=== PATIENT | female | born 1950 | race Caucasian/White ===

== ENCOUNTER 2019-08-23 12:12 | Emergency (ER) | payer MEDICARE, SELFPAY ==
[2019-08-23 12:25] VITALS: BP 121/65; PULSE 82; RESP 17; TEMP 36.6; O2SAT 96; BMI 38.7
--- NOTE | 2019-08-23 12:44 | XR_ITS ---
WS: [id number] Left knee, 3 views, 08/23/2019 Clinical Data: INJURY Comparison: Left knee, 03/23/2019. Findings: There is a displacement of the patella superiorly and laterally. However, this has been present befor e and has not changed. The arthroplasty components of the distal femur and proximal tibia remain the same. No fractures are seen. The soft tissues show no change.. XR/XR knee LT 3V* [id number] Impression: 1. 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 2. Left knee arthroplasty.
--- NOTE | 2019-08-23 14:48 | ED_ITS ---
HPI - Extremity Problem General: Chief complaint: Extremity Injury, Lower Stated complaint: LEFT KNEE PAIN POST FALL Time Seen by Provider: 08/23/19 14:48 History of Present Illness: HPI Narrative: Patient is a 69-year-old female who comes into the ED with left knee pain. Patient has had multiple surgeries on her left knee including knee replacement. Earlier today patient was here in the hospital visiting 1 of her family members, when she was getting up out of a chair and held onto something that was not very supportive and cause the patient to lose her balance and her left knee struck the floor. She was then having left knee pain after that. She wanted to come to the ED to get evaluated since she has had problems with her left knee and she has hardware in that knee. Associated symptoms: Deny chest pain, fever(s) or rash Review of Systems Const: Denies: fever, chills or fatigue Eyes: Denies: change in vision or eye discomfort ENMT: Denies: throat pain, painful swallowing, nasal discharge or nasal congestion Card: Denies: chest pain, palpitations, edema, swelling of feet/ankles, shortness of breath on exertion or shortness of breath when lying down Resp: Denies: shortness of breath, productive cough or non-productive cough GI: Denies: abdominal pain, nausea, vomiting, diarrhea, constipation or blood in stool : Denies: flank pain, painful urination or blood in urine Musc: Reports: extremity pain (left knee) and extremity swelling (left knee); Denies: neck pain or back pain Skin/Breast: Denies: rash or new lesion Neuro: Denies: headache, numbness in extremities or weakness in extremities [facility] ED PFSH: Medical History COPD (chronic obstructive pulmonary disease) Depression Diabetes Hypertension Osteoarthritis (arthritis due to wear and tear of joints) Stress incontinence Surgical History Status post knee replacement Social History Smoking and tobacco status: never smoked Quit status (tobacco): has quit using tobacco Second hand smoke exposure: No Smoking risk assessment/counseling performed?: No Alcohol intake: never Desire information about alcohol rehabilitation?: No Counseling given: No Desire information about substance/drug rehabilitation?: No Counseling given: No Physical Exam Const: COMMON NORMALS: oriented x3 HENMT: COMMON NORMALS: normocephalic HEAD & SCALP: normocephalic MOUTH: oral and palatal mucosa normal THROAT: posterior oropharynx normal and uvula midline Neck/C-Spine: COMMON NORMALS: supple GENERAL: Yes normal visual inspection Resp: COMMON NORMALS: normal respiratory effort, no retractions, no use of accessory muscles and clear to auscultation bilaterally AUSCULTATION: clear to auscultation bilaterally Cardio: COMMON NORMALS: regular rate, regular rhythm, S1 normal heart sound, S2 normal heart sound, no gallops, no clicks, no murmurs and peripheral pulses 2+ throughout RATE: regular rate RHYTHM: regular rhythm HEART SOUNDS: S1 normal and S2 normal PERIPHERAL PULSES: pulses 2+ throughout GI: COMMON NORMALS: normal to inspection, nondistended, normoactive bowel sounds, soft to palpation, non-tender and no masses PALPATION: Yes soft : COMMON NORMALS: Yes no CVA tenderness BLADDER/KIDNEY EXAM: Yes no CVA tenderness Back/Pelvis: COMMON NORMALS: no CVA tenderness Extremity: LEFT LOWER EXTREMITY: Yes knee joint Left knee: Yes inspection (mild swelling, no ecchymosis), Yes palpation (Tender upon palp of medial and lateral side of knee. ), Yes ROM (normal) and Yes neurovascular exam (Intact. 2+ tibialis posterior) Neuro: COMMON NORMALS: oriented x3 and moves all extremities Skin: COMMON NORMALS: no rashes or lesions noted GENERAL SKIN EXAM: no rashes or lesions noted Course Vital Signs: Vital signs: Vital Signs Temperature 97.8 F 08/23/19 16:55 Pulse Rate 81 08/23/19 16:55 Respiratory Rate 16 08/23/19 16:55 Blood Pressure 127/77 08/23/19 16:55 Pulse Oximetry 95 08/23/19 16:55 MDM - Extremity (Nontraumatic) Imaging Data^: Xray Ortho: Attestation: I personally reviewed and interpreted this imaging study as follows: Radiologist's impression: [address] [address] XRay Report Signed Patient: Lenora Aviles Unit #: [id number] : 1950 Age/Sex: 69 / F ADM Date: 08/23/19 Loc: ER Room/Bed: Attending Dr: Ordering Provider/Ordering MD: Vivi Yusuf DO Date of Service: 08/23/19 Procedure(s): XR knee LT 3V* [id number] Accession Number(s): [id number] Report Number: [id number] WS: [id number] Left knee, 3 views, 08/23/2019 Clinical Data: INJURY Comparison: Left knee, 03/23/2019. Findings: There is a displacement of the patella superiorly and laterally. However, this has been present before and has not changed. The arthroplasty components of the distal femur and proximal tibia remain the same. No fractures are seen. The soft tissues show no change.. XR/XR knee LT 3V* [id number] Impression: 1. 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 2. Left knee arthroplasty. Dictated By: Genoveva Ayala MD Signed By: Genoveva Ayala MD Signed Date/Time: 08/23/19 1349 DD/ 1347 Discharge Plan Discharge Patient Disposition: Home, Self-Care Clinical Impression: Contusion Qualifiers: Encounter type: initial encounter Contusion area: knee Laterality: left Qualified Code(s): S80.02XA - Contusion of left knee, initial encounter Condition: Stable Prescriptions: No Action simvastatin 10 mg tablet 10 mg PO BEDTIME RF: 0 solifenacin [Vesicare] 10 mg tablet 10 mg PO DAILY RF: 0 montelukast [Singulair] 10 mg tablet 10 mg PO DAILY RF: 0 Symbicort 160-4.5 mcg/actuation HFA aerosol inhaler 2 puff INHALATION BID RF: 0 meloxicam 15 mg tablet,disintegrating 15 mg PO DAILY RF: 0 ibandronate 150 mg tablet See Rx Instructions .ROUTE .COMPLEX RF: 0 Combivent Respimat 20-100 mcg/actuation mist 1 puff INHALATION BID PRN (Reason: copd) Qty: 4 RF: 2 lisinopril 5 mg tablet 5 mg PO DAILY Qty: 90 RF: 3 isosorbide mononitrate 30 mg tablet extended release 24 hr 30 mg PO QAM Qty: 90 RF: 3 duloxetine 20 mg capsule,delayed release(/EC) 20 mg PO DAILY Qty: 30 RF: 5 metformin 500 mg tablet 500 mg PO DAILY Qty: 30 RF: 5 duloxetine 60 mg capsule, delayed rel sprinkle 60 mg PO DAILY Qty: 30 RF: 5 omeprazole 20 mg capsule,delayed release(DR/EC) 20 mg PO BID Qty: 30 RF: 5 Multiple Vitamins Tablet 1 tab PO DAILY RF: 0 Aspir-81 81 mg Tablet,Delayed Release (Dr/Ec) 81 mg PO DAILY RF: 0 levothyroxine 100 mcg Tablet 100 mcg PO DAILY RF: 0 Calcium 500 500 mg calcium (1,250 mg) Tablet 500 mg PO DAILY RF: 0 mupirocin 2 % ointment 1 applic TOPICAL BID PRN (Reason: unknown) RF: 0 Discharge Orders: Discharge Order (Routine); Ordered 08/23/19 Ordered By: Richard Olmedo Referrals: Jenifer Lora, CUTTER OPERATOR BRICK [Primary Care Provider] - Discharge Diet: Regular Discharge Activity: Resume usual activity and Increase activity as tolerated Patient Instructions: Contusion in Adults (ED) Activity Restrictions/Additional Instructions: Follow-up with your PCP in 5 to 7 days for reevaluation. Rest, ice and elevate left leg to help with swelling and symptoms. Take Tylenol or ibuprofen for the pain. 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
[2019-08-23] MEDS: HYDROcodone-acetaminophen 7.5-325 mg Tablet 1 TAB PO (15:40)
[2019-08-23 16:55] VITALS: BP 127/77; PULSE 81; RESP 16; TEMP 36.6; O2SAT 95
== END 2019-08-23 16:46 | disposition home or self-care (01) ==
PROVIDERS: Emergency Provider Physician Assistant; Family Provider Nurse Practitioner Family; PCP Nurse Practitioner Family
DX: S80.02XA Contusion of left knee, initial encounter (principal); J44.9 Chronic obstructive pulmonary disease, unspecified; E11.9 Type 2 diabetes mellitus without complications; I10 Essential (primary) hypertension; Z79.51 Long term (current) use of inhaled steroids; Z79.84 Long term (current) use of oral hypoglycemic drugs; Z87.891 Personal history of nicotine dependence; Z96.652 Presence of left artificial knee joint; W07.XXXA Fall from chair, initial encounter; Y92.230 Patient room in hospital as the place of occurrence of the external cause
CPT/HCPCS: 12345; 73562; 99281; 99283

== ENCOUNTER → 2019-08-29 11:30 | Outpatient (BNVA) | payer MEDICARE, SELFPAY | PROVIDERS: Family Provider Nurse Practitioner Family; PCP Nurse Practitioner Family; Visit Provider Nurse Practitioner Family | DX: N39.0 Urinary tract infection, site not specified (principal) | CPT/HCPCS: 80053; 81003; 87077; 87086; 87186 ==

== ENCOUNTER 2019-09-07 06:53 | Outpatient (CLI) | payer MEDICARE, SELFPAY ==
--- NOTE | 2019-09-07 07:02 | US_ITS ---
WS: [id number] Complete ABDOMINAL ULTRASOUND HISTORY: abdominal pain COMPARISON: None available. Liver: 15.2 cm in length. Liver is normal size and echogenicity with no mass or intrahepatic dilatati on. Gallbladder: Cholecystectomy. Pancreas: Tail is obscured. Otherwise negative. CBD: 1.1 cm. Mildly dilated common bile duct may be on the basis of cholecystectomy. No intrahepatic duct dilatation. Right kidney: 10.8 cm x 4.4 cm x 4.7 cm. No mass, cortical thickening or hydronephrosis. Left kidney: 10.9 cm x 4.5 cm x 4.4 cm. No mass, cortical thickening or hydronephrosis. Spleen: Normal size and echogenicity. Abdominal aorta and IVC are within normal limits. No ascites. US/US abdomen complete* [id number] IMPRESSION: 1. Prior cholecystectomy. 2. Mild common bile duct dilatation may be on the basis of cholecystectomy.
== END 2019-09-07 06:54 | disposition home or self-care (01) ==
PROVIDERS: Family Provider Nurse Practitioner Family; PCP Nurse Practitioner Family; Visit Provider Nurse Practitioner
DX: K46.9 Unspecified abdominal hernia without obstruction or gangrene (principal); K83.8 Other specified diseases of biliary tract; Z90.49 Acquired absence of other specified parts of digestive tract
CPT/HCPCS: 76700

== ENCOUNTER 2019-09-08 16:30 | Emergency (ER) | payer MEDICARE, SELFPAY ==
[2019-09-08 16:37] VITALS: BP 159/90; PULSE 87; RESP 18; TEMP 36.8; O2SAT 95; BMI 40.3
--- NOTE | 2019-09-08 17:12 | CTR_ITS ---
PROCEDURE INFORMATION: Exam: CT Abdomen And Pelvis With Contrast Exam date and time: 09/08/2019 6:04 PM Age: 69 years old Clinical indication: Abdominal pain; Localized; Prior surgery; Surgery date: 6+ months; Surgery type: Hernia, gb; Patient HX: C/O lower abd/pelvic pain TECHNIQUE: Imaging protocol: Computed tomography of the abdomen and pelvis with intravenous contrast. Total DLP: 1695.53 mGy-cm Radiation optimization: All CT scans at this facility use at least one of these dose optimization techniques: automated exposure control; mA and/or kV adjustment per patient size (includes targeted exams where dose is matched to clinical indication); or iterative reconstruction. Contrast material: OMNI 300; Contrast volume: 95 ml; Contrast route: 20G; COMPARISON: CT abdomen pelvis w con* [id number] 12/13/2018 1:25 AM FINDINGS: Liver: Benign hepatic cyst. Gallbladder and bile ducts: Cholecystectomy. The bile are normal. Pancreas: Normal. No ductal dilation. Spleen: Normal. No splenomegaly. Adrenals: Normal. No mass. Kidneys and ureters: Normal. No hydronephrosis. Stomach and bowel: Unremarkable. No obstruction. No mucosal thickening. Appendix: The appendix is not visualized. Intraperitoneal space: Unremarkable. No free air. No significant fluid collection. Vasculature: Unremarkable. No abdominal aortic aneurysm. Lymph nodes: Unremarkable. No enlarged lymph nodes. Bladder: Unremarkable as visualized. Reproductive: The uterus and ovaries are not visualized. Bones/joints: Degenerative lumbar spine. No compression fracture. Stable T12 vertebral body hemangioma. Soft tissues: Small fat containing umbilical hernia. CT/CT abdomen pelvis w con* [id number] IMPRESSION: 1. No acute findings in the abdomen or pelvis. Radiation Dose CTDIVOL = (mGy): DLP = 1695.53 (mGy-cm)
--- NOTE | 2019-09-08 17:27 | ED_ITS ---
HPI - Abdominal Pain General: Chief Complaint: Abdominal Pain Stated Complaint: abd pain, pelvic pain Time Seen by Provider: 09/08/19 17:05 History of Present Illness: HPI narrative: Lenora is a nice 69-year-old female who comes in complaining of diffuse abdominal pain. She states that she is recently been treated for a UTI and finished treatment for this at the end of July. She states that she began to have lower abdominal burning which is now migrated throughout her abdomen. She denies any vaginal discharge or bleeding. She denies dysuria, urinary frequency urgency. She denies any yeastlike rash in her groin or perineum. She denies any fever or nausea or vomiting. She is not had diarrhea. Because of this her primary care nurse practitioner sent her to have an ultrasound which there was a questionable blockage. A CT scan was planned but the patient did not feel as though she could wait as her symptoms were getting worse. She is otherwise unaware of any things that make her symptoms better or worse. Associated Symptoms: Denies chills, coffee ground emesis, constipation, GI cramping, diarrhea, dysuria, fever(s), hematochezia, hematuria, hematemesis, melena, nausea, syncope and vomiting Review of Systems General: Reports: other (negative unless marked) Const: Denies: fever, chills, body aches, fatigue, malaise or diaphoresis Eyes: Denies: change in vision or blurry vision ENMT: Denies: throat pain, painful swallowing, hoarseness, ear pain, ear discharge, Change in hearing or nasal discharge Card: Denies: chest pain, palpitations, irregular heart rhythm, syncope, pre- syncope, shortness of breath on exertion or shortness of breath when lying down Resp: Denies: shortness of breath, productive cough, non-productive cough, wheezing, coughing up blood or chest congestion GI: Reports: abdominal pain; Denies: nausea, vomiting, vomiting blood, coffee grounds in vomit, diarrhea, constipation, cramping, blood in stool or black tarry stool : Denies: flank pain, painful urination, urinary frequency, urinary urgency, decreased urine ouput, urinary incontinence or blood in urine Musc: Denies: neck pain, back pain, extremity pain, extremity swelling, joint pain, joint swelling, joint warmth or joint stiffness Skin/Breast: Denies: rash, skin tenderness or yellow skin Neuro: Denies: headache, numbness in extremities, weakness in extremities, changes in sensation, lack of coordination, difficulty walking, dizziness, vertigo or confusion Endo: Denies: excessive thirst, tired all the time, cold intolerance, excessive sweating, flushing or hot flashes Manoj/Lymph: Denies: easy bruising, easy bleeding, petechiae or enlarged lymph nodes All/Imm: Denies: hives, throat swelling, tongue swelling, facial swelling or acute wheezing PFSH ED PFSH: Medical History COPD (chronic obstructive pulmonary disease) Depression Diabetes Hypertension Osteoarthritis (arthritis due to wear and tear of joints) Stress incontinence Surgical History Status post knee replacement Social History Smoking and tobacco status: never smoked Quit status (tobacco): has quit using tobacco Second hand smoke exposure: No Smoking risk assessment/counseling performed?: No Alcohol intake: never Desire information about alcohol rehabilitation?: No Counseling given: No Desire information about substance/drug rehabilitation?: No Counseling given: No Physical Exam Const: COMMON NORMALS: no apparent distress, oriented x3, no limitations, healthy appearing and well nourished EXAM LIMITATIONS: no altered mental status GENERAL APPEARANCE: cooperative, well kempt and well developed ORIENTATION/CONSCIOUSNESS: Yes awake HENMT: COMMON NORMALS: normocephalic, head/scalp atraumatic, hearing grossly normal bilaterally, external ears normal, EAC's normal, external nose normal and moist oral mucous membranes HEAD & SCALP: normal to inspection, normocephalic and atraumatic FACE & SINUS: normal facial exam and face symmetric NOSE: external nose normal and nares normal EXTERNAL EAR: Yes external ears normal EXTERNAL AUDITORY CANAL: EAC's normal MOUTH: oral and palatal mucosa normal and tongue normal Eye: COMMON NORMALS: PERRL, EOMs intact bilaterally, conjunctivae normal and no scleral icterus GENERAL EYE: normal appearance of both eyes and normal light reflex CONJUNCTIVA: Yes conjunctivae normal SCLERA: sclerae normal CORNEA: Yes corneas normal PUPIL: Yes PERRL DIRECT OPHTHALMOSCOPY: Yes normal light reflex Neck/C-Spine: COMMON NORMALS: full ROM, no lymphadenopathy, supple, no meningeal signs and no JVD GENERAL: Yes normal visual inspection and Yes trachea midline CERVICAL SPINE: Yes cervical ROM normal Chest: COMMONS NORMALS: inspection of chest normal and palpation of chest normal Resp: COMMON NORMALS: normal respiratory effort, no retractions, no use of accessory muscles and clear to auscultation bilaterally EFFORT & INSPECTION: Yes able to speak in complete sentences AUSCULTATION: clear to auscultation bilaterally Cardio: COMMON NORMALS: no JVD, regular rate, regular rhythm, S1 normal heart sound, S2 normal heart sound, no gallops, no clicks, no murmurs and no rub JUGULAR VENOUS DISTENTION: no JVD RATE: regular rate RHYTHM: regular rhythm HEART SOUNDS: S1 normal and S2 normal GI: COMMON NORMALS: soft to palpation, non-tender, no hepatosplenomegaly and no masses INSPECTION: Yes normal to inspection PALPATION: Yes soft, Yes tender (Mild diffusely), No guarding, No rigid, Yes no hepatosplenomegaly, No mass and No rebound tenderness present : COMMON NORMALS: Yes no CVA tenderness BLADDER/KIDNEY EXAM: Yes no CVA tenderness Back/Pelvis: COMMON NORMALS: no CVA tenderness, thoracic and lumbar spine normal to inspection, no thoracic nor lumbar tenderness and thoraco-lumbar ROM normal Extremity: COMMON NORMALS: normal to inspection, full ROM, normal capillary refill, no joint enlargement, no clubbing, cyanosis or edema and no calf t enderness Neuro: COMMON NORMALS: oriented x3, CN's II-XII intact bilaterally, moves all extremities, no focal motor deficits and no sensory deficits noted MENINGEAL SIGNS: Yes no meningeal signs Psych: COMMON NORMALS: mental status grossly normal, thought process normal, cooperative, affect normal, speech normal and activity/motor behavior normal APPEARANCE: Yes well kempt SPEECH: Yes normal speech THOUGHT PROCESS: normal thought process Skin: COMMON NORMALS: no rashes or lesions noted, skin turgor normal, no jaundice, no petechiae and no mottling GENERAL SKIN EXAM: no rashes or lesions noted and turgor normal Course Vital Signs: Vital signs: Vital Signs Temperature 98.2 F 09/08/19 16:37 Pulse Rate 87 09/08/19 16:37 Respiratory Rate 18 09/08/19 16:37 Blood Pressure 159/90 09/08/19 16:37 Pulse Oximetry 95 03/28/20 16:37 MDM - Abdominal Pain MDM Narrative: Medical decision making narrative: Lenora is a nice 69-year-old female who comes in complaining of diffuse stomach burning. Her CT scan and labs are unremarkable. Urinalysis is clear. On repeat exam she has no signs of a surgical abdomen. I have informed the patient I cannot find a cause for her symptoms but if they worsen she can return. She is satisfied with this and agrees to return if she worsens but otherwise will follow-up with regular doctor. She denies any chest pain or shortness of breath or any concerning symptoms at this time. Lab Data: Labs: Lab Results 09/08/19 09/08/19 09/08/19 Range/Units 17:10 17:10 21:20 WBC 6.1 (4.0-10.0) 10^3/ uL RBC 4.88 (4.1-5.3) 10^6/u L Hgb 12.3 (11.5-15.3) g/dL Hct 39.3 (37.0-47.0) % MCV 80.5 L (81-99) fL MCH 25.2 L (28.0-34.0) pg MCHC 31.3 (30.0-36.0) g/dL RDW 14.6 (12.1-15.1) % Plt Count 370 (130-400) 10^3/c mm MPV 10.5 H (7.4-10.4) fL Neut % (Auto) 42.2 % Lymph % (Auto) 44.8 % Arroyo % (Auto) 7.9 % Eos % (Auto) 3.6 % Baso % (Auto) 1.3 % Neut # (Auto) 2.6 (1.8-7.7) 10^3/u L Lymph # (Auto) 2.7 (0.8-4.8) 10^3/u L Arroyo # (Auto) 0.5 (0.2-0.9) 10^3/u L Eos # (Auto) 0.2 (0.0-0.8) 10^3/u L Baso # (Auto) 0.1 (0.0-0.1) 10^3/u L Nucleated RBC % (a uto) 0 % Nucleated RBCs # 0.0 /100WBC Sodium 138 (136-145) mmol/L Potassium 4.1 (3.5-5.1) mmol/L Chloride 101 (98-107) mmol/L Carbon Dioxide 25 (22-29) mmol/L Anion Gap 16.1 (5-19) BUN 13 (8-23) mg/dL Creatinine 0.7 (0.5-0.9) mg/dL GFR Calculation 83.0 L (90-130) mL/min Glucose 111 (65-115) mg/dL Calculated Osmolal ity 283 L (285-295) mOsm/k g Calcium 10.0 (8.5-10.5) mg/dL Total Bilirubin 0.2 (0.15-1.2) mg/dL AST 18 (0-32) U/L ALT 12 (0-33) U/L Alkaline Phosphata se 75 (35-105) IU/L Total Protein 7.0 (6.6-8.7) g/dL Albumin 4.3 (3.5-5.2) g/dL Globulin 2.7 (1.3-4.6) g/dL Lipase 8 L (13-60) U/L Urine Color Yellow (Yellow) Urine Appearance Clear (CLEAR) Urine pH 5 (5-7) Ur Specific Gravit y 1.010 (1.005-1.030) Urine Protein Neg (Negative) Urine Glucose (UA) Norm (Normal) Urine Ketones Negative (Negative) Urine Blood Neg (Negative) Urine Nitrate Negative (Negative) Urine Bilirubin Neg (NEGATIVE) Urine Urobilinogen Norm (Negative) mg/dL Ur Leukocyte Marah ase Negative (Negative) Urine RBC Rare (0-2) /hpf Urine WBC Rare (0-5) /hpf Ur Squamous Epith Cells Rare (0-5) Urine Bacteria Trace (NONE) Discharge Plan Discharge Patient Disposition: Home, Self-Care Clinical Impression: Abdominal pain Qualifiers: Abdominal location: generalized Qualified Code(s): R10.84 - Generalized abdominal pain Condition: Stable Prescriptions: No Action ciprofloxacin HCl [Cipro] 250 mg tablet 250 mg PO BID Qty: 6 RF: 0 simvastatin 10 mg tablet 10 mg PO BEDTIME RF: 0 solifenacin [Vesicare] 10 mg tablet 10 mg PO DAILY RF: 0 montelukast [Singulair] 10 mg tablet 10 mg PO DAILY RF: 0 Symbicort 160-4.5 mcg/actuation HFA aerosol inhaler 2 puff INHALATION BID RF: 0 meloxicam 15 mg tablet,disintegrating 15 mg PO DAILY RF: 0 ibandronate 150 mg tablet See Rx Instructions .ROUTE .COMPLEX RF: 0 Combivent Respimat 20-100 mcg/actuation mist 1 puff INHALATION BID PRN (Reason: copd) Qty: 4 RF: 2 duloxetine 20 mg capsule,delayed release(DR/EC) 20 mg PO DAILY Qty: 30 RF: 5 metformin 500 mg tablet 500 mg PO DAILY Qty: 30 RF: 5 duloxetine 60 mg capsule, delayed rel sprinkle 60 mg PO DAILY Qty: 30 RF: 5 omeprazole 20 mg capsule,delayed release(DR/EC) 20 mg PO BID Qty: 30 RF: 5 isosorbide mononitrate 30 mg tablet extended release 24 hr 30 mg PO QAM Qty: 90 RF: 3 lisinopril 5 mg tablet 5 mg PO DAILY Qty: 90 RF: 3 Multiple Vitamins Tablet 1 tab PO DAILY RF: 0 Aspir-81 81 mg Tablet,Delayed Release (Dr/Ec) 81 mg PO DAILY RF: 0 levothyroxine 100 mcg Tablet 100 mcg PO DAILY RF: 0 Calcium 500 500 mg calcium (1,250 mg) Tablet 500 mg PO DAILY RF: 0 mupirocin 2 % ointment 1 applic TOPICAL BID PRN (Reason: unknown) RF: 0 Discharge Orders: Discharge Order (Routine); Ordered 09/08/19 Ordered By: Vivi Yusuf Referrals: Jenifer Lora, TRASH COLLECTOR SUPERVISOR [Primary Care Provider] - 1-3 days Discharge Diet: Advance as tolerated Discharge Activity: Increase activity as tolerated Patient Instructions: Abdominal Pain (ED) Activity Restrictions/Additional Instructions: Please return to the ER immediately for any of the signs or symptoms listed on your discharge instruction sheets, worsening/changing of your symptoms, you are not getting better as quickly as expected, or for ANY other cause or concerns. Return to the ER for worsening of your pain, new onset of fever, vomiting, diarrhea, or for any other cause for concern. 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
[2019-09-08 17:41] LABS: Basophils # 0.1 10^3/uL (0.0-0.1); Basophils % 1.3 %; Eosinophils # 0.2 10^3/uL (0.0-0.8); Eosinophils % 3.6 %; Hematocrit 39.3 % (37.0-47.0); Hemoglobin 12.3 g/dL (11.5-15.3); Lymphocytes # 2.7 10^3/uL (0.8-4.8); Lymphocytes % 44.8 %; Mean Corpuscular HGB Conc 31.3 g/dL (30.0-36.0); Mean Corpuscular Hemoglobin 25.2 pg (28.0-34.0); Mean Corpuscular Volume 80.5 fL (81-99); Mean Platelet Volume 10.5 fL (7.4-10.4); Monocytes # 0.5 10^3/uL (0.2-0.9); Monocytes % 7.9 %; Neutrophils # 2.6 10^3/uL (1.8-7.7); Neutrophils % 42.2 %; Nucleated Red Blood Cells % 0 %; Platelet Count 370 10^3/cmm (130-400); Red Blood Count 4.88 10^6/uL (4.1-5.3); Red Cell Distribution Width 14.6 % (12.1-15.1); White Blood Count 6.1 10^3/uL (4.0-10.0)
[2019-09-08 18:02] LABS: Alanine Aminotransferase 12 U/L (0-33); Albumin Level 4.3 g/dL (3.5-5.2); Alkaline Phosphatase 75 IU/L (35-105); Anion Gap 16.1 (5-19); Aspartate Amino Transferase 18 U/L (0-32); Blood Urea Nitrogen 13 mg/dL (8-23); Carbon Dioxide 25 mmol/L (22-29); Chloride 101 mmol/L (98-107); Globulin 2.7 g/dL (1.3-4.6); Glucose 111 mg/dL (65-115); Lipase 8 U/L (13-60); Osmolality Calculated 283 mOsm/kg (285-295); Potassium 4.1 mmol/L (3.5-5.1); Sodium 138 mmol/L (136-145); Total Bilirubin 0.2 mg/dL (0.15-1.2)
[2019-09-08] MEDS: iohexol 300 mg/mL 100 mL Btl IV (18:19)
[2019-09-08] MEDS: sodium chloride 0.9% 1,000 ML 999 ML IV (18:39)
[2019-09-08] MEDS: sodium chloride 0.9% 1,000 ML 100 ML IV (20:00)
[2019-09-08 21:34] LABS: Bacteria Urine TRACE; Bilirubin Urine Neg (NEGATIVE); Blood Urine Neg (Negative); Glucose Urine UA Norm (Normal); Ketones Urine Negative (Negative); Leukocyte Esterase Urine Negative (Negative); Nitrate Urine Negative (Negative); Protein Urine Neg (Negative); RBC Urine RARE /hpf (0-2); Squamous Epithelial Cell Urine RARE (0-5); Urine Appearance Clear (CLEAR); Urine Color Yellow (Yellow); Urobilinogen Urine Norm (Negative); WBC Urine RARE /hpf (0-5); pH Urine 5 (5-7)
[2019-09-08 21:41] VITALS: BP 122/64; PULSE 94; RESP 16; O2SAT 96
[2019-09-08 21:46] VITALS: BP 122/64; RESP 18
== END 2019-09-08 21:46 | disposition home or self-care (01) ==
PROVIDERS: Emergency Provider Emergency Medicine; Family Provider Nurse Practitioner Family; PCP Nurse Practitioner Family
DX: R10.9 Unspecified abdominal pain (principal); J44.9 Chronic obstructive pulmonary disease, unspecified; E11.9 Type 2 diabetes mellitus without complications; I10 Essential (primary) hypertension; Z79.51 Long term (current) use of inhaled steroids; Z79.84 Long term (current) use of oral hypoglycemic drugs
CPT/HCPCS: 12345; 36415; 74177; 80053; 81001; 83690; 85025; 87040; 96360; 96361; 96365; 96374; 99284; J0131; J7030; Q9967

== ENCOUNTER 2019-09-21 11:49 | Outpatient (CLI) | payer MEDICARE, SELFPAY ==
--- NOTE | 2019-09-21 11:58 | CT_ITS ---
WS: [id number] CT ABDOMEN AND PELVIS NONCONTRAST HISTORY: dilated bile duct TECHNIQUE: Imaging performed through the abdomen and pelvis. Coronal and sagittal reformats are submi tted. All CT scans at [facility] use at least one of these dose optimization techniques: automated exposure control; mA and/or kV adjustment per patient size (includes targeted exams where d ose is matched to clinical indication); or iterative reconstruction. DLP: 1121.44 mGycm COMPARISON: 09/08/2019 Lower thorax: RIGHT lower lobe benign granuloma. Heart size is normal. Small hiatal hernia. Liver: Normal size liver. Slightly lobulated cyst measures 2.2 cm in the RIGHT lobe. No bile duct dil atation. Gallbladder: Status post cholecystectomy. Pancreas: Atrophied pancreas. No stone in the distal common bile duct. Common bile duct is top normal size but not dilated. Appropriate for the patient's cholecystectomy. No stone in the distal CBD. Spleen: Normal. Adrenal glands: Normal. Right kidney: Normal size with no stones, masses or atrophy. Left kidney: Normal size with no stones, mass or atrophy. Abdominal aorta and IVC are unremarkable. No free fluid, intraperitoneal air or significant lymphadenopathy. GI tract: Moderate fecal retention. No obstruction. Appendix is not definitely identified. No evidenc e for appendicitis. Abdominal wall: Intact. Pelvis: Normal. Osseous structures: L4 anterolisthesis by 5 mm. Severe degenerative disc disease at L4-5 and L5-S1. S chmorl's nodes superior endplate of T11. T12 hemangioma[address] CT/CT abdomen pelvis wo con [id number] IMPRESSION: 1. No significant bile duct dilatation. Minimal prominence of the common bile duct is related to cholecystectomy. 2. No distal common bile duct stone. 3. Constipation.
== END 2019-09-21 11:50 | disposition home or self-care (01) ==
LOC: RADWPI 11:53
PROVIDERS: Family Provider Nurse Practitioner Family; PCP Nurse Practitioner Family; Visit Provider Nurse Practitioner
DX: K83.8 Other specified diseases of biliary tract (principal); K59.00 Constipation, unspecified
CPT/HCPCS: 74176

== ENCOUNTER → 2019-10-10 11:22 | Outpatient (BNVA) | payer MEDICARE, SELFPAY | PROVIDERS: Family Provider Nurse Practitioner Family; PCP Nurse Practitioner Family; Visit Provider Nurse Practitioner Family | DX: E55.9 Vitamin D deficiency, unspecified (principal); E78.2 Mixed hyperlipidemia; E07.9 Disorder of thyroid, unspecified; H66.90 Otitis media, unspecified, unspecified ear; J30.9 Allergic rhinitis, unspecified | CPT/HCPCS: 80061; 82306; 84443 ==

== ENCOUNTER 2019-11-24 13:44 | Emergency (ER) | payer MEDICARE, SELFPAY ==
[2019-11-24 13:51] VITALS: BP 117/88; PULSE 112; RESP 18; TEMP 38.6; O2SAT 99; BMI 40.0
--- NOTE | 2019-11-24 14:12 | ECG_ITS ---
Measurements Intervals Reading Rate: 98 P: 21 GA: 133 QRS: -1 QRSD: 89 T: 53 QT: 334 QTc: 427 SINUS RHYTHM LOW QRS VOLTAGE IN PRECORDIAL LEADS [QRS DEFLECTION < 1.0 mV IN CHEST LEADS] Compared to ECG 12/13/2018 00:06:28 Ventricular premature complex(es) no longer present T-wave abnormality no longer present Electronically Signed On 11-24-2019 15:10:32 CDT by Becky Gan M.D. [email or web address]
--- NOTE | 2019-11-24 14:12 | XRR_ITS ---
PROCEDURE INFORMATION: Exam: XR Chest, 1 View Exam date and time: 11/24/2019 2:12 PM Age: 69 years old Clinical indication: Fever and other: N/v pain all over TECHNIQUE: Imaging protocol: XR of the chest Views: 1 view. COMPARISON: No relevant prior studies available. FINDINGS: Lungs: Unremarkable. No consolidation. Pleural space: Unremarkable. No pleural effusion. No pneumothorax. Heart/Mediastinum: Unremarkable. No cardiomegaly. Bones/joints: Unremarkable. XR/XR chest 1V portable [id number] IMPRESSION: No acute findings.
--- NOTE | 2019-11-24 14:13 | W.ED.FEVER ---
HPI - Fever General: Chief Complaint: Fever Stated Complaint: FEVER/HIGH BP Time Seen by Provider: 11/24/19 14:04 History of Present Illness: HPI Narrative: Patient has a fever currently being treated for urinary tract infection start antibiotics yesterday. Patient has had nausea and vomiting just feels bad dysuria feels dehydrated. MD elicited complaint: fever and malaise Onset (ago): day(s) Exacerbating factors: nothing Relieving factors: nothing Associated symptoms: Reports flank pain, chills, dysuria, nausea and vomiting; Deny chest pain, extremity pain, headache(s) or nasal congestion Review of Systems Const: Reports: chills Eyes: Denies: change in vision or blurry vision ENMT: Denies: throat pain or nasal congestion Card: Denies: chest pain or dyspnea on exertion Resp: Denies: dyspnea, productive cough or non-productive cough GI: Reports: nausea and vomiting : Reports: flank pain, dysuria and urinary frequency Musc: Denies: extremity pain Skin/Breast: Denies: rash Neuro: Denies: headache(s) Psych: Denies: anxiety or depression Manoj/Lymph: Denies: easy bruising PFSH ED PFSH: Medical History COPD (chronic obstructive pulmonary disease) Depression Diabetes H/O malignant neoplasm of thyroid Hypertension Mixed hyperlipidemia Osteoarthritis (arthritis due to wear and tear of joints) Postsurgical hypothyroidism Stress incontinence Vitamin D deficiency Surgical History S/P thyroidectomy Status post knee replacement Social History Smoking and tobacco status: never smoked Quit status (tobacco): has quit using tobacco Second hand smoke exposure: No Smoking risk assessment/counseling performed?: No Alcohol intake: never Desire information about alcohol rehabilitation?: No Counseling given: No Desire information about substance/drug rehabilitation?: No Counseling given: No Physical Exam Const: COMMON NORMALS: no acute distress, average body habitus and patient oriented x3 HENMT: COMMON NORMALS: normocephalic HEAD & SCALP: normal to inspection and normocephalic FACE & SINUS: normal facial exam Eye: COMMON NORMALS: conjunctivae normal GENERAL EYE: appearance normal, both eyes and all related structures CONJUNCTIVA: Yes conjunctivae normal Neck/C-Spine: COMMON NORMALS: no JVD Chest: COMMONS NORMALS: normal inspection of the chest Resp: COMMON NORMALS: normal respiratory effort and clear to auscultation bilaterally AUSCULTATION: clear to auscultation bilaterally Cardio: COMMON NORMALS: no JVD, regular rate and regular rhythm RATE: regular rate RHYTHM: regular rhythm GI: COMMON NORMALS: Normal to inspection, nondistended, normoactive bowel sounds present Extremity: COMMON NORMALS: normal to inspection and full ROM Neuro: COMMON NORMALS: patient oriented x3 Course Vital Signs: Vital signs: Vital Signs Temperature 101.4 F H 11/24/19 13:51 Pulse Rate 112 H 11/24/19 13:51 Respiratory Rate 18 11/24/19 13:51 Blood Pressure 117/88 11/24/19 13:51 Pulse Oximetry 99 11/24/19 13:51 MDM - Fever EKG Data^: EKG 1: EKG interpretation date: 11/24/19 EKG interpretation time: 14:26 Interpretation: Sinus rhythm ventricular rate 98 bpm MS interval 133 ms QRS durations 99 ms Discharge Plan Discharge Prescriptions: No Action amoxicillin 875 mg tablet 875 mg PO BID 7 Days Qty: 14 RF: 0 cetirizine [All Day Allergy (cetirizine)] 10 mg tablet 5 mg PO DAILY 90 Days Qty: 90 RF: 1 nitrofurantoin monohyd/m-cryst [Macrobid] 100 mg capsule 100 mg PO BID 7 Days Qty: 14 RF: 0 solifenacin [Vesicare] 10 mg tablet 10 mg PO DAILY RF: 0 lisinopril 5 mg tablet 5 mg PO DAILY Qty: 90 RF: 3 Symbicort 160-4.5 mcg/actuation HFA aerosol inhaler 2 puff INHALATION BID Qty: 10.2 RF: 5 meloxicam 15 mg tablet 15 mg PO DAILY Qty: 30 RF: 2 montelukast [Singulair] 10 mg tablet 10 mg PO DAILY Qty: 30 RF: 2 simvastatin 10 mg tablet 10 mg PO BEDTIME Qty: 30 RF: 2 Combivent Respimat 20-100 mcg/actuation mist 1 puff INHALATION BID PRN (Reason: copd) Qty: 4 RF: 2 omeprazole 20 mg capsule,delayed release(DR/EC) 20 mg PO BID Qty: 60 RF: 5 duloxetine 60 mg capsule, delayed rel sprinkle 60 mg PO DAILY Qty: 30 RF: 5 duloxetine 20 mg capsule,delayed release(DR/EC) 20 mg PO DAILY Qty: 30 RF: 5 ibandronate 150 mg tablet 150 mg PO ONCE Qty: 1 RF: 0 metformin 500 mg tablet 500 mg PO DAILY Qty: 30 RF: 5 isosorbide mononitrate 30 mg tablet extended release 24 hr 30 mg PO QAM Qty: 90 RF: 3 Multiple Vitamins Tablet 1 tab PO DAILY RF: 0 Aspir-81 81 mg Tablet,Delayed Release (Dr/Ec) 81 mg PO DAILY RF: 0 levothyroxine 100 mcg Tablet 100 mcg PO DAILY RF: 0 Calcium 500 500 mg calcium (1,250 mg) Tablet 500 mg PO DAILY RF: 0 mupirocin 2 % ointment 1 applic TOPICAL BID PRN (Reason: unknown) RF: 0 Coding Level of Care Code ED [employer]ices[employer] Training Representative for Chg Fwd Exam Comprehensive
[2019-11-24] MEDS: cefTRIAXone 1,000 MG in sodium chloride 0.9% (plus) 50 ML 100 MG IV (14:43)
[2019-11-24] MEDS: ondansetron 2 mg/ML SDV 2 mL 8 MG IVP (14:43)
[2019-11-24] MEDS: sodium chloride 0.9% 1,000 ML 999 ML IV ×2 (14:43→15:17)
[2019-11-24] MEDS: ketorolac 30 mg/mL INJ 15 MG IVP (14:43)
[2019-11-24 14:46] VITALS: RESP 20
[2019-11-24 15:01] LABS: Basophils % 0.3 %; Eosinophils # 0.1 10^3/uL (0.0-0.8); Eosinophils % 0.5 %; Hemoglobin 11.4 g/dL (11.5-15.3); Lymphocytes # 1.3 10^3/uL (0.8-4.8); Lymphocytes % 13.8 %; Mean Corpuscular HGB Conc 31.7 g/dL (30.0-36.0); Mean Corpuscular Hemoglobin 25.7 pg (28.0-34.0); Mean Corpuscular Volume 81.3 fL (81-99); Mean Platelet Volume 9.5 fL (7.4-10.4); Monocytes # 1.1 10^3/uL (0.2-0.9); Neutrophils # 6.7 10^3/uL (1.8-7.7); Neutrophils % 73.2 %; Nucleated Red Blood Cells % 0 %; Platelet Count 258 10^3/cmm (130-400); Red Blood Count 4.43 10^6/uL (4.1-5.3); Red Cell Distribution Width 13.3 % (12.1-15.1); White Blood Count 9.2 10^3/uL (4.0-10.0)
[2019-11-24 15:16] LABS: Alanine Aminotransferase 12 U/L (0-33); Albumin Level 3.7 g/dL (3.5-5.2); Alkaline Phosphatase 70 IU/L (35-105); Anion Gap 16.9 (5-19); Aspartate Amino Transferase 14 U/L (0-32); Blood Urea Nitrogen 17 mg/dL (8-23); Calcium 8.8 mg/dL (8.5-10.5); Carbon Dioxide 25 mmol/L (22-29); Chloride 97 mmol/L (98-107); Globulin 3.2 g/dL (1.3-4.6); Glomerular Filtration Rate 71.1 mL/min (90-130); Glucose 123 mg/dL (65-115); Lipase 12 U/L (13-60); Osmolality Calculated 278 mOsm/kg (285-295); Potassium 3.9 mmol/L (3.5-5.1); Sodium 135 mmol/L (136-145); Total Bilirubin 0.6 mg/dL (0.15-1.2); Total Protein 6.9 g/dL (6.6-8.7)
[2019-11-24 15:18] LABS: Add Urine Microscopic? YES; Bilirubin Urine Neg (NEGATIVE); Blood Urine Neg (Negative); Glucose Urine UA Norm (Normal); Ketones Urine 1+ (Negative); Leukocyte Esterase Urine Trace (Negative); Nitrate Urine Negative (Negative); Protein Urine Neg (Negative); Urine Appearance Clear (CLEAR); Urine Color Yellow (Yellow); Urobilinogen Urine Norm (Negative); pH Urine 5 (5-7)
[2019-11-24 15:19] LABS: Add Urine Culture? No; Bacteria Urine TRACE; Squamous Epithelial Cell Urine 0-4 (0-5)
[2019-11-24 15:43] VITALS: BP 105/48; PULSE 84; RESP 20; O2SAT 92
== END 2019-11-24 15:43 | disposition home or self-care (01) ==
PROVIDERS: Family Medicine; Emergency Provider Nurse Practitioner Family; PCP Nurse Practitioner Family
DX: R50.9 Fever, unspecified (principal); I10 Essential (primary) hypertension; Z79.84 Long term (current) use of oral hypoglycemic drugs; Z79.82 Long term (current) use of aspirin; J44.9 Chronic obstructive pulmonary disease, unspecified; E11.9 Type 2 diabetes mellitus without complications; E78.2 Mixed hyperlipidemia; Z87.891 Personal history of nicotine dependence; Z85.850 Personal history of malignant neoplasm of thyroid
CPT/HCPCS: 12345; 36415; 71045; 80053; 81001; 83690; 85025; 87040; 93005; 96365; 96375; 99283; 99284; J0696; J1885; J2405; J7030

== ENCOUNTER → 2020-04-02 11:44 | Outpatient (BNVA) | payer MEDICARE, SELFPAY | PROVIDERS: PCP Nurse Practitioner Family; Visit Provider Nurse Practitioner Family | DX: N39.0 Urinary tract infection, site not specified (principal); E11.9 Type 2 diabetes mellitus without complications; N39.3 Stress incontinence (female) (male); D64.9 Anemia, unspecified; E89.0 Postprocedural hypothyroidism; I10 Essential (primary) hypertension; A49.9 Bacterial infection, unspecified | CPT/HCPCS: 36415; 80053; 81003; 82728; 83036; 83550; 84439; 84443; 84481; 85025 ==

== ENCOUNTER 2020-05-13 06:00 | Outpatient (RCR) | payer MEDICARE, SELFPAY | END 2020-06-12 23:59 | disposition home or self-care (01) | LOC: WPT 06:00 | PROVIDERS: PCP Nurse Practitioner Family; Referring Provider Family Medicine; Visit Provider Family Medicine | DX: M75.102 Unspecified rotator cuff tear or rupture of left shoulder, not specified as traumatic (principal); S13.4XXD Sprain of ligaments of cervical spine, subsequent encounter; X58.XXXD Exposure to other specified factors, subsequent encounter | CPT/HCPCS: 97110; 97163 ==

== ENCOUNTER → 2020-05-20 08:37 | Outpatient (BNVA) | payer MEDICARE, SELFPAY | PROVIDERS: PCP Nurse Practitioner Family; Visit Provider Nurse Practitioner Family | DX: E89.0 Postprocedural hypothyroidism (principal) | CPT/HCPCS: 84443 ==

== ENCOUNTER → 2020-05-27 11:39 | Outpatient (BNVA) | payer MEDICARE, SELFPAY | PROVIDERS: PCP Nurse Practitioner Family; Visit Provider Nurse Practitioner Family | DX: N39.0 Urinary tract infection, site not specified (principal); J01.90 Acute sinusitis, unspecified; J01.40 Acute pansinusitis, unspecified | CPT/HCPCS: 81003; 87086 ==

== ENCOUNTER 2020-06-24 10:31 | Outpatient (CLI) | payer MEDICARE, SELFPAY ==
--- NOTE | 2020-06-24 10:30 | FL_ITS ---
WS: [id number] DOUBLE CONTRAST UPPER GI EXAMINATION HISTORY: R13.10 - Dysphagia, unspecified COMPARISON: None available. FLUOROSCOPY TIME: 2.6 minutes. Examination is moderately limited due to mobility of the patient. Barium traveled readily through the esophagus. No filling defects. There is moderate diffuse esophage al dysmotility. Delayed emptying of esophagus with the patient supine. No achalasia. No stricture. No hiatal hernia demonstrated. There is a very small anterior cervical web at the C5 level. Mild cricop haryngeal spasm at C5-6. Stomach was distensible and pliable. No ulceration. Normal duodenal bulb. No hiatal hernia was demonstrated on this exam. FL/FL upper GI w air* [id number] IMPRESSION: 1. Moderate diffuse esophageal dysmotility with delayed emptying with the vikram ent in supine or semiupright position. 2. Esophagus emptied readily with the patient upright. No achalasia or strictu re.
== END 2020-06-24 10:32 | disposition home or self-care (01) ==
LOC: RADWPI 10:39
PROVIDERS: PCP Nurse Practitioner Family; Visit Provider Surgery
DX: R13.10 Dysphagia, unspecified (principal)
CPT/HCPCS: 74246

== ENCOUNTER → 2020-07-02 11:22 | Outpatient (BNVA) | payer MEDICARE, SELFPAY | PROVIDERS: PCP Nurse Practitioner Family; Visit Provider Nurse Practitioner Family | DX: N39.0 Urinary tract infection, site not specified (principal); N76.0 Acute vaginitis; B96.89 Other specified bacterial agents as the cause of diseases classified elsewhere; N39.3 Stress incontinence (female) (male) | CPT/HCPCS: 81003; 87077; 87086; 87184 ==

== ENCOUNTER → 2020-08-07 15:05 | Outpatient (BNVA) | payer MEDICARE, SELFPAY | PROVIDERS: PCP Nurse Practitioner Family; Referring Provider Nurse Practitioner Family; Visit Provider Nurse Practitioner Family | DX: N39.0 Urinary tract infection, site not specified (principal) | CPT/HCPCS: 81003; 87086 ==

== ENCOUNTER 2020-08-10 15:14 | Emergency (ER) | payer MEDICARE, SELFPAY ==
[2020-08-10 15:20] VITALS: BP 112/71; PULSE 85; RESP 18; TEMP 36.6; O2SAT 96; BMI 41.3
--- NOTE | 2020-08-10 15:41 | CTR_ITS ---
PROCEDURE INFORMATION: Exam: CT Thoracic Spine Without Contrast Exam date and time: 08/10/2020 4:07 PM Age: 70 years old Clinical indication: Injury or trauma; Blunt trauma (contusions or hematomas); Patient HX: Multiple recent falls (chronic L knee weakness) C/O back and neck pain; Additional info: Fall, thoracic spine pain TECHNIQUE: Imaging protocol: Computed tomography images of the thoracic spine without contrast. Radiation optimization: All CT scans at this facility use at least one of these dose optimization techniques: automated exposure control; mA and/or kV adjustment per patient size (includes targeted exams where dose is matched to clinical indication); or iterative reconstruction. COMPARISON: No relevant prior studies available. RADIATION DOSE METRICS: Total DLP (mGy-cm): 4.72 FINDINGS: Vertebrae: Slight rightward convex curvature. Bones are demineralized. No focal aggressive bone lesion. Prominent Schmorl's node of the superior vertebral endplate at T11. Other bones/joints: No acute fractures. No traumatic malalignment. Mildly exaggerated kyphosis.The thoracic spine demonstrates marked degenerative changes at multiple levels. Calcified granulomas in the right hilum. Thyroid: Right thyroidectomy. Left thyroid unremarkable. Lungs: Calcified granuloma of the inferior posterior right lower lobe. Soft tissues: No paraspinal soft tissue hematoma. Other findings: The small atherosclerotic plaque volume of aortic arch. No aneurysm. CT/CT thoracic spin wo con* [id number] IMPRESSION: Negative for acute thoracic spine fracture. Radiation Dose CTDIVOL = (mGy): DLP = 2054.72 (mGy-cm)
--- NOTE | 2020-08-10 15:41 | XRR_ITS ---
PROCEDURE INFORMATION: Exam: XR Right Shoulder Exam date and time: 08/10/2020 4:07 PM Age: 70 years old Clinical indication: Injury or trauma; Fall; Blunt trauma (contusions or hematomas); Shoulder; Right; Additional info: Shoulder pain TECHNIQUE: Imaging protocol: XR Right shoulder. Views: 2 or more views. COMPARISON: No relevant prior studies available. FINDINGS: Bones/joints: No fractures. Unremarkable joint alignment. Mild arthritis of the glenohumeral articulation. Soft tissues: Normal. XR/XR shoulder RT min 2V* [id number] IMPRESSION: No acute findings.
--- NOTE | 2020-08-10 15:41 | CTR_ITS ---
PROCEDURE INFORMATION: Exam: CT Cervical Spine Without Contrast Exam date and time: 08/10/2020 4:07 PM Age: 70 years old Clinical indication: Injury or trauma; Blunt trauma; Patient HX: Multiple recent falls (chronic L knee weakness) C/O back and neck pain; Additional info: Fall, cervical spine pain TECHNIQUE: Imaging protocol: Computed tomography images of the cervical spine without contrast. Radiation optimization: All CT scans at this facility use at least one of these dose optimization techniques: automated exposure control; mA and/or kV adjustment per patient size (includes targeted exams where dose is matched to clinical indication); or iterative reconstruction. COMPARISON: [place] [id number] 10/13/2018 4:35 PM RADIATION DOSE METRICS: Total DLP (mGy-cm): 589.79 FINDINGS: Vertebrae: No fractures. No traumatic malalignment. Slight C3-C4 anterolisthesis.The cervical spine demonstrates marked degenerative changes at multiple levels. Other bones/joints: No aggressive bone lesion. Arthritis changes in the temporomandibular joints worse on right than left. Soft tissues: Unremarkable. Thyroid: Right thyroidectomy. Left thyroid unremarkable. Lungs: Lung apices are normal. CT/CT cervical spin wo con* [id number] IMPRESSION: Negative for acute cervical spine fracture. Radiation Dose CTDIVOL = (mGy): DLP = 589.79 (mGy-cm)
--- NOTE | 2020-08-10 15:41 | XRR_ITS ---
PROCEDURE INFORMATION: Exam: XR Right Hip with Pelvis when Performed Exam date and time: 08/10/2020 4:07 PM Age: 70 years old Clinical indication: Injury or trauma; Fall; Blunt trauma (contusions or hematomas); Right; Hip; Additional info: Fall, RT hip pain TECHNIQUE: Imaging protocol: XR Right hip with pelvis when performed. Views: 2 or 3 views. COMPARISON: CT abdomen pelvis wo con [id number] 09/21/2019 12:09 PM FINDINGS: Bones/joints: No fractures. Unremarkable joint alignment. Chronic degenerate changes of the pubic symphysis apparent. [id number] osteoarthritis of the right hip joint. Soft tissues: Unremarkable. Organs: Metallic coils in the lower pelvis consistent with prior surgery. XR/XR hip RT 2-3V wo/w pel* [id number] IMPRESSION: Negative for acute right hip joint abnormality.
--- NOTE | 2020-08-10 15:41 | XRR_ITS ---
PROCEDURE INFORMATION: Exam: XR Right Knee Exam date and time: 08/10/2020 4:07 PM Age: 70 years old Clinical indication: Injury or trauma; Fall; Blunt trauma; Knee; Right; Additional info: RT knee pain TECHNIQUE: Imaging protocol: XR Right knee. Views: 3 views. COMPARISON: No relevant prior studies available. FINDINGS: Bones/joints: No fractures. No joint space malalignment. Negative for joint effusion. Marginal osteophytes in each compartment. Severe medial compartment joint space loss. Soft tissues: Normal. XR/XR knee RT 3V* [id number] IMPRESSION: Negative for acute right knee joint region fracture.
--- NOTE | 2020-08-10 15:41 | XRR_ITS ---
PROCEDURE INFORMATION: Exam: XR Left Ribs with PA Chest Exam date and time: 08/10/2020 4:07 PM Age: 70 years old Clinical indication: Injury or trauma; Fall; Rib area, left side; Blunt trauma; Additional info: Left anterior rib TECHNIQUE: Imaging protocol: XR Left ribs with PA chest. Views: 3 views COMPARISON: CR XR chest 1V portable [id number] 11/24/2019 2:13 PM FINDINGS: Tubes, catheters and devices: Surgical clips in the right upper approximate. Lungs: Emphysema. Lungs are clear. Pleural spaces: Unremarkable. No pleural effusion. No pneumothorax. Heart/Mediastinum: Unremarkable. No cardiomegaly. 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 No fractures apparent. XR/XR ribs LT mn 3V w CXR1V [id number] IMPRESSION: No acute rib fractures are identified.
[2020-08-10 15:44] VITALS: BP 140/73; PULSE 89; RESP 16; O2SAT 96
[2020-08-10] MEDS: HYDROcodone-acetaminophen 5-325 mg Tablet 1 TAB PO (15:54)
--- NOTE | 2020-08-10 16:02 | W.ED.FALL ---
HPI - Fall General: Chief Complaint: Fall Stated Complaint: FALL Time Seen by Provider: 08/10/20 15:34 History of Present Illness: HPI Narrative: Pleasant 70-year-old female patient presents to the emergency department with fall. She reports fell out of bed 2 days ago, hurting her right leg. She did sustain an additional fall, slipped on the steps due to her left weak knee. She states slipped on the steps again today due to weakness of the left knee which is chronic. She reports landed on her right side, complaining of right shoulder pain, right hip pain right knee pain along with pain to the left anterior chest wall. She reports hit her chest 2 days ago. She states had knee replacement to the left knee with hardware removal, she continues with chronic left knee weakness which predisposes her to falling. She also reports neck pain upon turning of her head. New since her fall today. She denies weakness of the arms or right lower extremity. MD complaint: fall Onset (ago): hour(s) (2) Fall from: down stairs (#) Fall witnessed: yes, by family Place fall occurred: home Loss of consciousness: None Prolonged down time: no Symptoms prior to fall: other (left knee weakness) Context: tripped/slipped Location of injury: neck and chest Location of injury - extremities: Right: shoulder and thigh (hip and knee) Severity: moderate Associated symptoms-after fall: Reports chest pain (with deep breath), difficulty walking (chronic) and neck pain; Denies abdominal pain, confusion or headache(s) Review of Systems General: Reports: 10 or more systems reviewed and unremarkable except in HPI and below Const: Denies: fever(s), chills or diaphoresis Eyes: Denies: blurry vision or eye redness ENMT: Denies: throat pain, dental pain or disequilibrium Card: Reports: chest pain (with deep breath); Denies: palpitations, swelling of feet/ankles, dyspnea on exertion or orthopnea Resp: Denies: dyspnea, productive cough, non-productive cough or wheezing GI: Denies: abdominal pain, nausea or vomiting : Denies: difficulty voiding or dysuria Musc: Reports: neck pain, joint pain (rt hip, knee) and muscle weakness (LLE chronic); Denies: back pain, extremity swelling or joint swelling Skin/Breast: Denies: rash or pruritus Neuro: Reports: difficulty walking (chronic); Denies: headache(s), numbness in extremities, sensory changes, lack of coordination, confusion or difficulty communicating thoughts Psych: Denies: anxiety or depression Manoj/Lymph: Denies: easy bruising PFSH ED PFSH: Medical History Anemia Chest pain at rest EKG from 05/01/2020 The EKG showed normal sinus rhythm with possible old inferior wall IL and poor R wave progression. Some nonspecific T wave changes. COPD (chronic obstructive pulmonary disease) Depression Diabetes H/O malignant neoplasm of thyroid Hypertension Hypotension Mixed hyperlipidemia Osteoarthritis (arthritis due to wear and tear of joints) Postsurgical hypothyroidism Recurrent UTI Sinusitis, acute SOB (shortness of breath) Stress incontinence Urgency incontinence Vitamin D deficiency Surgical History H/O colonoscopy H/O esophagogastroduodenoscopy with dilation H/O hernia repair with mesh H/O tubal ligation Hx of cholecystectomy S/P thyroidectomy Status post knee replacement Family History Mother CAD (coronary artery disease) Hypertension Father CAD (coronary artery disease) Hypertension Denies family history of Diabetes Anesthesia complication Bleeding disorder Cancer Social History Smoking and tobacco status: never smoked Quit status (tobacco): has quit using tobacco Second hand smoke exposure: No Smoking risk assessment/counseling performed?: No Alcohol intake: never Desire information about alcohol rehabilitation?: No Counseling given: No Desire information about substance/drug rehabilitation?: No Counseling given: No Physical Exam Const: COMMON NORMALS: no acute distress, patient oriented x3, alert and well nourished EXAM LIMITATIONS: no altered mental status, no behavioral limitations and no physical limitations GENERAL APPEARANCE: cooperative, well kempt, well developed and well hydrated; not ill appearing and not frail appearing NUTRITIONAL APPEARANCE: obese ORIENTATION/CONSCIOUSNESS: Yes awake, Yes oriented to person, Yes oriented to place and Yes oriented to time HENMT: COMMON NORMALS: normocephalic, atraumatic, external ears normal, EAC's normal, Normal external nose present and moist oral mucous membranes; nasal mucous membranes&turbinates abnorm HEAD & SCALP: normal to inspection, normocephalic and atraumatic; no laceration, no occipital foramen tenderness, no palpable skull fracture and no scalp tenderness FACE & SINUS: normal facial exam, sinuses nontender and face symmetric; no sinus tenderness NOSE: Normal external nose present, Normal nares present and No nasal polyps present; nasal mucous membranes&turbinates abnorm EXTERNAL EAR: Yes external ears normal EXTERNAL AUDITORY CANAL: EAC's normal Eye: COMMON NORMALS: Equal, round and reactive pupils present and EOMs intact bilaterally GENERAL EYE: appearance normal, both eyes and all related structures PERIORBITAL: periorbital findings normal EYELID: eyelids normal SCLERA: sclerae normal PUPIL: Yes Equal, round and reactive pupils present Neck/C-Spine: COMMON NORMALS: full ROM and no lymphadenopathy GENERAL: Yes normal visual inspection and Yes trachea midline CERVICAL SPINE: Yes cervical ROM normal, Yes pain with cervical ROM, Yes Cervical spine tenderness C4, C5, C6 and C7, Yes Paracervical muscle tenderness right and Yes Trapezius muscle tenderness right Lymph: LYMPHATIC: no lymphadenopathy noted Chest: COMMONS NORMALS: normal inspection of the chest CHEST: Yes tenderness pectoral muscle on the left, No abrasion and No Ecchymosis present Resp: COMMON NORMALS: normal respiratory effort, No retractions and No use of accessory muscles EFFORT & INSPECTION: Yes able to speak in complete sentences, No labored and No audible wheezes AUSCULTATION: diminished lung sounds bilateral in the lower lung montero Cardio: COMMON NORMALS: regular rate, regular rhythm, S1 normal heart sound present, S2 normal heart sound present and Peripheral pulses 2+ throughout RATE: regular rate RHYTHM: regular rhythm HEART SOUNDS: S1 normal heart sound present and S2 normal heart sound present PERIPHERAL PULSES: Peripheral pulses 2+ throughout GI: COMMON NORMALS: Normal to inspection, nondistended, normoactive bowel sounds present, Soft to palpation and non-tender INSPECTION: Yes normal to inspection, No abdominal wall ecchymosis, No abdominal distension, Yes central obesity and No GI erythema present AUSCULTATION: Yes normoactive bowel sounds PALPATION: Yes Soft to palpation, No Tenderness to palpation present (GI) and No Rigid due to palpation : COMMON NORMALS: Yes no CVA tenderness BLADDER/KIDNEY EXAM: Yes no CVA tenderness Back/Pelvis: COMMON NORMALS: no CVA tenderness and thoracic and lumbar spine normal to inspection THORACIC SPINE/UPPER BACK: Yes thoracic spinal tenderness T-spine tenderness location: T1, T2, T3 and T4 and Yes paraspinal muscle tenderness Thoracic paraspinal muscle tenderness: right PELVIS: Yes buttocks normal SACROILIAC JOINTS: Yes SI joints normal Extremity: COMMON NORMALS: normal to inspection, capillary refill normal, no clubbing, cyanosis or edema and no pedal edema GENERAL: Yes normal exam except as noted RIGHT UPPER EXTREMITY: Yes shoulder joint (Pain to the AC anterior posterior) Right shoulder: Yes Right shoulder joint inspection exam (No bruising or ecchymosis noted), Yes palpation, Yes Right shoulder joint ROM exam (Limited abduction secondary to pain, able to raise arm 90 degrees) and Yes Right shoulder joint neurovascular exam (Distally intact) RIGHT LOWER EXTREMITY: Yes hip joint Right hip: Yes inspection (No ecchymosis or bruising noted), Yes palpation (Lateral anterior pain with hip flexed 30 degrees), Yes ROM (Limited secondary to pain) and Yes neurovascular exam (Distally intact) and Yes knee joint Right knee: Yes inspection (Edema noted), Yes palpation (Pain at the patellar joint and posterior), Yes ROM (Limited to 90 degree flexion secondary to reproduction of pain) and Yes neurovascular exam (Distally intact) Neuro: ODELL COMA SCALE: document GCS findings [place] coma scale eye opening: Spontaneous [place] coma scale verbal response: Orientated [place] coma scale motor response: Obey commands [place] coma scale total score: 15 COMMON NORMALS: patient oriented x3 and no focal motor deficits SENSORIUM/ORIENTATION: Yes alert, Yes oriented to person, Yes oriented to place and Yes oriented to time MOTOR EXAM: 5/5 motor strength present throughout Psych: COMMON NORMALS: mental status grossly normal, Normal thought process present, cooperative, normal affect and speech normal APPEARANCE: Yes well kempt ATTITUDE: Yes calm ACTIVITY/MOTOR BEHAVIOR: Yes appropriate eye contact SPEECH: Yes normal speech THOUGHT PROCESS: Normal thought process present Skin: COMMON NORMALS: no rashes or lesions noted, no wounds, turgor normal, no petechiae and no mottling GENERAL SKIN EXAM: no rashes or lesions noted, elasticity normal and turgor normal Course Vital Signs: Vital signs: Vital Signs Temperature 97.8 F 08/10/20 15:20 Pulse Rate 92 08/10/20 17:08 Respiratory Rate 16 08/10/20 17:08 Blood Pressure 133/68 08/10/20 17:08 Pulse Oximetry 94 08/10/20 17:08 MDM - Fall MDM Narrative: Medical decision making narrative: 70-year-old female patient presents to the emergency department due to 2 falls she sustained 2 days ago and an additional fall she sustained today. Falls are result of chronic left lower extremity weakness. She history of left knee replacement with hardware removal/replacement with chronic weakness. She states has a walker at home but has been staying in her granddaughters home, she does not have a ramp. She reports her home is wheelchair/handicap based. CT scan of the cervical spine/thoracic spine without acute abnormalities; x-ray of the left rib, right shoulder, right knee without acute findings. She reports ambulating without use of her walker. She is strongly encouraged today to ambulate with a walker assistance. She is requesting a walker with wheels and a seat. I will provide her with a prescription for this as it may be easier for her to use. Hydrocodone administered here in the ED. She ambulated well here in the ED with nursing assistance. Rx for walker with 4 wheels provided. Imaging Data^: Xray Ortho: Radiologist's impression: [facility] [address] [address] Scan Report Signed Patient: Lenora Aviles Unit #: [id number] : 1950 Age/Sex: 70 / F ADM Date: 08/10/20 Loc: ER Room/Bed: Attending Dr: Ordering Provider/Ordering MD: Fátima Crane Date of Service: 08/10/20 Procedure(s): CT thoracic spin wo con* [id number] Accession Number(s): [id number] Report Number: [id number] PROCEDURE INFORMATION: Exam: CT Thoracic Spine Without Contrast Exam date and time: 08/10/2020 4:07 PM Age: 70 years old Clinical indication: Injury or trauma; Blunt trauma (contusions or hematomas); Patient HX: Multiple recent falls (chronic L knee weakness) C/O back and neck pain; Additional info: Fall, thoracic spine pain TECHNIQUE: Imaging protocol: Computed tomography images of the thoracic spine without contrast. Radiation optimization: All CT scans at this facility use at least one of these dose optimization techniques: automated exposure control; mA and/or kV adjustment per patient size (includes targeted exams where dose is matched to clinical indication); or iterative reconstruction. COMPARISON: No relevant prior studies available. RADIATION DOSE METRICS: Total DLP (mGy-cm): 2054.72 FINDINGS: Vertebrae: Slight rightward convex curvature. Bones are demineralized. No focal aggressive bone lesion. Prominent Schmorl's node of the superior vertebral endplate at T11. Other bones/joints: No acute fractures. No traumatic malalignment. Mildly exaggerated kyphosis.The thoracic spine demonstrates marked degenerative changes at multiple levels. Calcified granulomas in the right hilum. Thyroid: Right thyroidectomy. Left thyroid unremarkable. Lungs: Calcified granuloma of the inferior posterior right lower lobe. Soft tissues: No paraspinal soft tissue hematoma. Other findings: The small atherosclerotic plaque volume of aortic arch. No aneurysm. CT/CT thoracic spin wo con* [id number] IMPRESSION: Negative for acute thoracic spine fracture. Radiation Dose CTDIVOL = (mGy): DLP = 2054.72 (mGy-cm) Dictated By: Sherman Rivers Signed By: Sherman Rivers Signed Date/Time: 08/10/201627 DD/ 1626 Other Imaging: Radiologist's impression: [place] [address] CT Scan Report Signed Patient: Lenora Aviles Unit #: [id number] : 1950 Age/Sex: 70 / F ADM Date: 08/10/20 Loc: ER Room/Bed: Attending Dr: Ordering Provider/Ordering MD: Fátima Crane Date of Service: 08/10/20 Procedure(s): CT cervical spin wo con* [id number] Accession Number(s): [id number] Report Number: [id number] PROCEDURE INFORMATION: Exam: CT Cervical Spine Without Contrast Exam date and time: 08/10/2020 4:07 PM Age: 70 years old Clinical indication: Injury or trauma; Blunt trauma; Patient HX: Multiple recent falls (chronic L knee weakness) C/O back and neck pain; Additional info: Fall, cervical spine pain TECHNIQUE: Imaging protocol: Computed tomography images of the cervical spine without contrast. Radiation optimization: All CT scans at this facility use at least one of these dose optimization techniques: automated exposure control; mA and/or kV adjustment per patient size (includes targeted exams where dose is matched to clinical indication); or iterative reconstruction. COMPARISON: [place] [id number] 10/13/2018 4:35 PM RADIATION DOSE METRICS: Total DLP (mGy-cm): 589.79 FINDINGS: Vertebrae: No fractures. No traumatic malalignment. Slight C3-C4 anterolisthesis.The cervical spine demonstrates marked degenerative changes at multiple levels. Other bones/joints: No aggressive bone lesion. Arthritis changes in the temporomandibular joints worse on right than left. Soft tissues: Unremarkable. Thyroid: Right thyroidectomy. Left thyroid unremarkable. Lungs: Lung apices are normal. CT/CT cervical spin wo con* [id number] IMPRESSION: Negative for acute cervical spine fracture. Radiation Dose CTDIVOL = (mGy): DLP = 589.79 (mGy-cm) Dictated By: Sherman Rivers Signed By: Sherman Rivers Signed Date/Time: 08/10/201625 DD/ 23 Discharge Plan Discharge Patient Disposition: Home Clinical Impression: Fall (on) (from) other stairs and steps, initial encounter, Contusion of right shoulder or upper extremity Contusion of rib on left side Qualifiers: Encounter type: initial encounter Qualified Code(s): S20.212A - Contusion of left front wall of thorax, initial encounter Contusion of hip, right Qualifiers: Encounter type: initial encounter Qualified Code(s): S70.01XA - Contusion of right hip, initial encounter Condition: Stable Prescriptions: No Action metronidazole [Flagyl] 500 mg tablet 500 mg PO BID PRN (Reason: BV) 7 Days Qty: 14 RF: 0 lisinopril 5 mg tablet 5 mg PO DAILY@0800 RF: 0 isosorbide mononitrate 30 mg tablet extended release 24 hr 30 mg PO DAILY@0800 RF: 0 Hold Instructions: Doctor's Order nitroglycerin 0.4 mg tablet, sublingual 0.4 mg SUBLINGUAL Q5M PRN (Reason: chest pain) Qty: 30 RF: 3 betamethasone acet,sod phos [Celestone Soluspan] 6 mg/mL suspension 6 mg INTRA-LORRAINE ONCE Qty: 1 RF: 0 bupivacaine (PF) 0.5 % (5 mg/mL) solution 5 mg INTRA-LORRAINE ONCE Qty: 2 RF: 0 lidocaine (PF) 10 mg/mL (1 %) solution 10 mg INTRA-LORRAINE ONCE Qty: 2 RF: 0 cyclobenzaprine 5 mg tablet 5 mg PO TID PRN (Reason: muscle spasm) 30 Days Qty: 60 RF: 0 Combivent Respimat 20-100 mcg/actuation mist See Rx Instructions .ROUTE .COMPLEX Qty: 4 RF: 2 budesonide-formoterol [Symbicort] 160-4.5 mcg/actuation HFA aerosol inhaler See Rx Instructions .ROUTE .COMPLEX Qty: 10.2 RF: 5 naproxen 500 mg tablet See Rx Instructions .ROUTE .COMPLEX Qty: 60 RF: 2 diclofenac sodium 1 % gel See Rx Instructions .ROUTE .COMPLEX RF: 0 Lumigan 0.01 % drops 1 drp ophthalmic (eye) BEDTIME@2100 RF: 0 metformin 500 mg tablet 500 mg PO DAILY@0800 RF: 0 meloxicam 15 mg tablet 15 mg PO DAILY@0800 RF: 0 simvastatin 10 mg tablet 10 mg PO BEDTIME@2100 RF: 0 levothyroxine 100 mcg tablet 100 mcg PO DAILY@0700 RF: 0 omeprazole 20 mg capsule,delayed release(DR/EC) 20 mg PO BID@0800,2100 RF: 0 montelukast 10 mg tablet 10 mg PO DAILY@0800 RF: 0 cefuroxime axetil 500 mg tablet 500 mg PO BID@0800,2100 RF: 0 duloxetine 20 mg capsule,delayed release(DR/EC) 20 mg PO DAILY@0800 RF: 0 duloxetine 60 mg capsule,delayed release(DR/EC) 60 mg PO DAILY@0800 RF: 0 solifenacin 10 mg tablet 10 mg PO DAILY@0800 RF: 0 ibandronate 150 mg tablet See Rx Instructions .ROUTE .COMPLEX RF: 0 multivitamin [Multiple Vitamins] Tablet 1 tab PO DAILY RF: 0 calcium carbonate [Calcium 500] 500 mg calcium (1,250 mg) Tablet 12,000 mg PO DAILY RF: 0 Discharge Orders: Discharge ED (Routine); Ordered 08/10/20 Ordered By: Fátima Crane Referrals: SUSAN Lora, [facility] [Primary Care Provider] - Discharge Diet: Usual diet Discharge Activity: Use walker/crutches as instructed Patient Instructions: Fall Prevention for Older Adults (ED), Contusion in Adults (ED), Knee Pain (ED), Opioid Safety Activity Restrictions/Additional Instructions: Walker has been provided for you, please use to help prevent falls May use [id number] Salonpas to affected areas as needed for pain, use as directed Take Tylenol as needed for pain, may take at 1000 mg p.o. 3 times daily as needed for pain If you are not improved in 2 to 3 days, follow-up with your primary care provider May use cool compresses/alternate with warm moist heat as needed for pain, apply to the affected areas. Coding Level of Care Code ED Filling Technician for [facility] Fwd Exam Comprehensive
[2020-08-10 17:08] VITALS: BP 133/68; PULSE 92; RESP 16; O2SAT 94
== END 2020-08-10 18:53 | disposition home or self-care (01) ==
PROVIDERS: Emergency Provider Nurse Practitioner Family; PCP Nurse Practitioner Family
DX: S70.01XA Contusion of right hip, initial encounter (principal); S20.212A Contusion of left front wall of thorax, initial encounter; Z79.84 Long term (current) use of oral hypoglycemic drugs; J44.9 Chronic obstructive pulmonary disease, unspecified; E11.9 Type 2 diabetes mellitus without complications; Z85.850 Personal history of malignant neoplasm of thyroid; I10 Essential (primary) hypertension; E78.2 Mixed hyperlipidemia; Z87.891 Personal history of nicotine dependence; W06.XXXA Fall from bed, initial encounter
CPT/HCPCS: 71101; 72125; 72128; 73030; 73502; 73562; 99283

== ENCOUNTER → 2020-08-18 11:29 | Outpatient (BNVA) | payer MEDICARE, SELFPAY | PROVIDERS: PCP Nurse Practitioner Family; Visit Provider Nurse Practitioner Family | DX: Z20.828 Contact with and (suspected) exposure to other viral communicable diseases (principal); J22 Unspecified acute lower respiratory infection; J01.40 Acute pansinusitis, unspecified | CPT/HCPCS: 87635 ==

== ENCOUNTER 2020-10-10 10:40 | Emergency (ER) | payer MEDICARE, SELFPAY ==
[2020-10-10 11:07] VITALS: BP 117/77; PULSE 102; RESP 18; TEMP 36.5; O2SAT 94; BMI 45.3
--- NOTE | 2020-10-10 11:39 | XR_ITS ---
WS: [id number] Exam: XR knee LT 3V* [id number] Date/Time of Exam: 10/10/2020 11:53 AM Reason For Exam: injury with pain Comparison 08/23/2019. There is displacement of the patella superior and lateral unchanged since the prior study. Total knee prosthesis is noted without evidence of fracture or loosening. No joint effusion is seen. Soft tissu e calcifications along the lateral aspect of the knee. XR/XR knee LT 3V* [id number] IMPRESSION: 1. Displaced patella superior and lateral. This is unchanged. 2. The femoral and tibial components of a total knee replacement remaining in t he good alignment without loosening or fracture.
--- NOTE | 2020-10-10 12:09 | ED_ITS ---
HPI - Extremity Problem General: Chief complaint: Extremity Injury, Lower Stated complaint: FALL, KNEE INJURY Time Seen by Provider: 10/10/20 11:44 History of Present Illness: HPI Narrative: Patient is a 7-year-old female who comes to the ED with left knee pain. Patient says 5 days ago she fell landing on left knee which caused a lot of pain swelling and ecchymosis. Patient says she was seen at [facility] and they did an x-ray and did not see any new fractures or findings. Patient was given some Toradol and told to rest ice and elevate. Patient says her knee is improving and the swelling has gotten better and the pain has improved. She wanted to get reevaluated. Associated symptoms: Deny chest pain, fever(s) or rash Review of Systems Const: Denies: fever(s), chills or fatigue Eyes: Denies: change in vision or eye discomfort ENMT: Denies: throat pain, odynophagia, nasal discharge or nasal congestion Card: Denies: chest pain, palpitations, edema, swelling of feet/ankles, dyspnea on exertion or orthopnea Resp: Denies: dyspnea, productive cough or non-productive cough GI: Denies: abdominal pain, nausea, vomiting, diarrhea, constipation or hematochezia : Denies: flank pain, dysuria or hematuria Musc: Reports: extremity pain (Left knee) and extremity swelling (Left knee); Denies: neck pain or back pain Skin/Breast: Denies: rash or new lesions Neuro: Denies: headache(s), numbness in extremities or weakness in extremities [facility] ED PFSH: Medical History Anemia Chest pain at rest EKG from 05/01/2020 The EKG showed normal sinus rhythm with possible old inferior wall MD and poor R wave progression. Some nonspecific T wave changes. COPD (chronic obstructive pulmonary disease) Depression Diabetes H/O malignant neoplasm of thyroid Hypertension Hypotension Lower respiratory infection Mixed hyperlipidemia Osteoarthritis (arthritis due to wear and tear of joints) Postsurgical hypothyroidism Recurrent UTI Sinusitis, acute SOB (shortness of breath) Stress incontinence Urgency incontinence Vitamin D deficiency Surgical History H/O colonoscopy H/O esophagogastroduodenoscopy with dilation H/O hernia repair with mesh H/O tubal ligation Hx of cholecystectomy S/P thyroidectomy Status post knee replacement Family History Mother CAD (coronary artery disease) Hypertension Father CAD (coronary artery disease) Hypertension Denies family history of Diabetes Anesthesia complication Bleeding disorder Cancer Social History Smoking and tobacco status: never smoked Quit status (tobacco): has quit using tobacco Second hand smoke exposure: No Smoking risk assessment/counseling performed?: No Alcohol intake: never Desire information about alcohol rehabilitation?: No Counseling given: No Desire information about substance/drug rehabilitation?: No Counseling given: No Physical Exam Const: COMMON NORMALS: no acute distress, patient oriented x3 and alert GENERAL APPEARANCE: cooperative and comfortable HENMT: COMMON NORMALS: normocephalic HEAD & SCALP: normocephalic MOUTH: Normal oral and palatal mucosa present THROAT: posterior oropharynx normal and uvula midline Neck/C-Spine: COMMON NORMALS: supple GENERAL: Yes normal visual inspection Resp: COMMON NORMALS: normal respiratory effort, No retractions, No use of accessory muscles and clear to auscultation bilaterally AUSCULTATION: clear to auscultation bilaterally Cardio: COMMON NORMALS: regular rate, regular rhythm, S1 normal heart sound present, S2 normal heart sound present, No gallops present (Cardio), No clicks present (Cardio), No murmurs present (Cardio) and Peripheral pulses 2+ throughout RATE: regular rate RHYTHM: regular rhythm HEART SOUNDS: S1 normal heart sound present and S2 normal heart sound present PERIPHERAL PULSES: Peripheral pulses 2+ throughout GI: COMMON NORMALS: Normal to inspection, nondistended, normoactive bowel sounds present, Soft to palpation, non-tender and no masses PALPATION: Yes Soft to palpation : COMMON NORMALS: Yes no CVA tenderness BLADDER/KIDNEY EXAM: Yes no CVA tenderness Back/Pelvis: COMMON NORMALS: no CVA tenderness Extremity: LEFT LOWER EXTREMITY: Yes knee joint Left knee: Yes inspection (Patient has some ecchymosis and swelling around knee. No visible deformity), Yes palpation (Generalized tenderness upon palpation of anterior aspect of knee), Yes ROM (Full) and Yes neurovascular exam (Intact) Neuro: COMMON NORMALS: patient oriented x3 and moves all extremities SE NSORIUM/ORIENTATION: Yes alert Skin: GENERAL SKIN EXAM: dry skin Course Vital Signs: Vital signs: Vital Signs Temperature 97.7 F 10/10/20 11:07 Pulse Rate 102 H 10/10/20 11:07 Respiratory Rate 18 10/10/20 13:00 Blood Pressure 117/77 10/10/20 11:07 Pulse Oximetry 94 10/10/20 11:07 MDM - Extremity (Nontraumatic) Imaging Data^: Xray Ortho: Attestation: I personally reviewed and interpreted this imaging study as follows: Radiologist's impression: [address] [address] XRay Report Signed Patient: Lenora Aviles Unit #: [id number] : 1950 Age/Sex: 70 / F ADM Date: 10/10/20 Loc: ER Room/Bed: Attending Dr: Ordering Provider/Ordering MD: Richard Olmedo Date of Service: 10/10/20 Procedure(s): XR knee LT 3V* [id number] Accession Number(s): [id number] Report Number: [id number] WS: [id number] Exam: XR knee LT 3V* [id number] Date/Time of Exam: 10/10/2020 11:53 AM Reason For Exam: injury with pain Comparison 08/23/2019. There is displacement of the patella superior and lateral unchanged since the prior study. Total knee prosthesis is noted without evidence of fracture or loosening. No joint effusion is seen. Soft tissue calcifications along the lateral aspect of the knee. XR/XR knee LT 3V* [id number] IMPRESSION: 1. Displaced patella superior and lateral. This is unchanged. 2. The femoral and tibial components of a total knee replacement remaining in the good alignment without loosening or fracture. Dictated By: Malik Lind DO Signed By: Malik Lind DO Signed Date/Time: 10/10/20 1204 DD/ 1202 Discharge Plan Discharge Patient Disposition: Home Clinical Impression: Contusion of knee, left Qualifiers: Encounter type: initial encounter Qualified Code(s): S80.02XA - Contusion of left knee, initial encounter Condition: Stable Prescriptions: No Action metronidazole [Flagyl] 500 mg tablet 500 mg PO BID PRN (Reason: BV) 7 Days Qty: 14 RF: 0 isosorbide mononitrate 30 mg tablet extended release 24 hr 30 mg PO DAILY@0800 RF: 0 Hold Instructions: Doctor's Order nitroglycerin 0.4 mg tablet, sublingual 0.4 mg SUBLINGUAL Q5M PRN (Reason: chest pain) Qty: 30 RF: 3 betamethasone acet,sod phos [Celestone Soluspan] 6 mg/mL suspension 6 mg INTRA-LORRAINE ONCE Qty: 1 RF: 0 bupivacaine (PF) 0.5 % (5 mg/mL) solution 5 mg INTRA-LORRAINE ONCE Qty: 2 RF: 0 lidocaine (PF) 10 mg/mL (1 %) solution 10 mg INTRA-LORRAINE ONCE Qty: 2 RF: 0 cyclobenzaprine 5 mg tablet 5 mg PO TID PRN (Reason: muscle spasm) 30 Days Qty: 60 RF: 0 prednisone 20 mg tablet 40 mg PO .Daily in A.M. 5 Days Qty: 10 RF: 0 amoxicillin-pot clavulanate [Augmentin] 875-125 mg tablet 1 tab PO BID 7 Days Qty: 14 RF: 0 Combivent Respimat 20-100 mcg/actuation mist See Rx Instructions .ROUTE .COMPLEX Qty: 4 RF: 2 budesonide-formoterol [Symbicort] 160-4.5 mcg/actuation HFA aerosol inhaler See Rx Instructions .ROUTE .COMPLEX Qty: 10.2 RF: 5 simvastatin 10 mg tablet 10 mg PO BEDTIME@2100 Qty: 30 RF: 2 duloxetine 20 mg capsule,delayed release(DR/EC) 20 mg PO DAILY@0800 Qty: 30 RF: 2 duloxetine 60 mg capsule,delayed release(DR/EC) 60 mg PO DAILY@0800 Qty: 30 RF: 2 lisinopril 5 mg tablet See Rx Instructions .ROUTE .COMPLEX Qty: 90 RF: 1 ibandronate 150 mg tablet 150 mg PO .monthly Qty: 1 RF: 2 diclofenac sodium 1 % gel 2 g topical QID PRN (Reason: pain (scale score 1-3)) Qty: 100 RF: 1 naproxen 500 mg tablet See Rx Instructions .ROUTE .COMPLEX Qty: 60 RF: 2 Lumigan 0.01 % drops 1 drp ophthalmic (eye) BEDTIME@2100 RF: 0 metformin 500 mg tablet 500 mg PO DAILY@0800 RF: 0 meloxicam 15 mg tablet 15 mg PO DAILY@0800 RF: 0 levothyroxine 100 mcg tablet 100 mcg PO DAILY@0700 RF: 0 omeprazole 20 mg capsule,delayed release(DR/EC) 20 mg PO BID@0800,2100 RF: 0 montelukast 10 mg tablet 10 mg PO DAILY@0800 RF: 0 cefuroxime axetil 500 mg tablet 500 mg PO BID@0800,2100 RF: 0 solifenacin 10 mg tablet 10 mg PO DAILY@0800 RF: 0 multivitamin [Multiple Vitamins] Tablet 1 tab PO DAILY RF: 0 calcium carbonate [Calcium 500] 500 mg calcium (1,250 mg) Tablet 12,000 mg PO DAILY RF: 0 Discharge Orders: Discharge ED (Routine); Ordered 10/10/20 Ordered By: Richard Olmedo Referrals: SUSAN Lora, [employer] [Primary Care Provider] - Discharge Diet: Regular Discharge Activity: Increase activity as tolerated Patient Instructions: Contusion in Adults (ED), Knee Pain (ED) Activity Restrictions/Additional Instructions: Follow-up with medical provider as directed in 7 to 10 days for reevaluation. Continue to rest ice and elevate left knee. Increase activity as tolerated. Take [id number] Tylenol or ibuprofen to help with pain. Return to the ER or your medical provider if condition worsens. Please read and understand discharge instructions. If any questions, please ask. Coding Level of Care Code ED Twisting Frame Fixer for Afia Fwjed Exam Comprehensive
[2020-10-10 12:11] VITALS: RESP 18
[2020-10-10] MEDS: ketorolac 60 mg/2 mL INJ IM (12:55)
[2020-10-10 13:00] VITALS: RESP 18
== END 2020-10-10 13:00 | disposition home or self-care (01) ==
PROVIDERS: Emergency Provider Physician Assistant; PCP Nurse Practitioner Family
DX: S80.02XA Contusion of left knee, initial encounter (principal); Z79.84 Long term (current) use of oral hypoglycemic drugs; J44.9 Chronic obstructive pulmonary disease, unspecified; E11.9 Type 2 diabetes mellitus without complications; Z85.850 Personal history of malignant neoplasm of thyroid; I10 Essential (primary) hypertension; E78.2 Mixed hyperlipidemia; Z87.891 Personal history of nicotine dependence; W19.XXXA Unspecified fall, initial encounter
CPT/HCPCS: 73562; 96372; 99283; J1885

== ENCOUNTER → 2020-10-20 11:55 | Outpatient (BNVA) | payer MEDICARE, SELFPAY | PROVIDERS: PCP Nurse Practitioner Family; Visit Provider Nurse Practitioner Family | DX: I10 Essential (primary) hypertension (principal); E11.9 Type 2 diabetes mellitus without complications; E55.9 Vitamin D deficiency, unspecified; E78.2 Mixed hyperlipidemia; R53.83 Other fatigue | CPT/HCPCS: 80053; 80061; 82306; 82607; 83036; 84443; 85025 ==

== ENCOUNTER → 2020-10-22 10:38 | Outpatient (BNVA) | payer MEDICARE, SELFPAY | PROVIDERS: PCP Nurse Practitioner Family; Visit Provider Nurse Practitioner Family | DX: D64.9 Anemia, unspecified (principal) | CPT/HCPCS: 82728; 83550 ==

== ENCOUNTER → 2020-11-19 14:18 | Outpatient (BNVA) | payer MEDICARE, SELFPAY | PROVIDERS: PCP Nurse Practitioner Family; Visit Provider Urology | DX: N39.0 Urinary tract infection, site not specified (principal); N39.41 Urge incontinence | CPT/HCPCS: 81003 ==

== ENCOUNTER → 2021-01-12 14:00 | Outpatient (BNVA) | payer MEDICARE, SELFPAY | PROVIDERS: PCP Nurse Practitioner Family; Visit Provider Nurse Practitioner Family | DX: Z20.822 Contact with and (suspected) exposure to COVID-19 (principal); J02.9 Acute pharyngitis, unspecified; J22 Unspecified acute lower respiratory infection | CPT/HCPCS: 87071; 87635; 87880 ==

== ENCOUNTER 2021-01-18 16:03 | Emergency (ER) | payer MEDICARE, SELFPAY ==
[2021-01-18] VITALS (9 sets, daily range): BP systolic 103–141; BP diastolic 57–81; PULSE 77–97; RESP 18; TEMP 37.9; O2SAT 90–94; BMI 41.9
--- NOTE | 2021-01-18 16:35 | XRR_ITS ---
PROCEDURE INFORMATION: Exam: XR Chest Exam date and time: 01/18/2021 4:35 PM Age: 70 years old Clinical indication: Cough and shortness of breath; Additional info: Cough, SOB TECHNIQUE: Imaging protocol: XR of the chest. Views: 1 view. COMPARISON: CR XR ribs LT mn 3V w CXR1V [id number] 08/10/2020 4:26 PM FINDINGS: Lungs: Minimal patchy bibasilar opacities which may be seen with atelectasis or pneumonia. Pleural spaces: Unremarkable. No pleural effusion. No pneumothorax. Heart/Mediastinum: No cardiomegaly. Bones/joints: No acute fracture. XR/XR chest 1V portable [id number] IMPRESSION: Minimal patchy bibasilar opacities which may be seen with atelectasis or pneumonia.
--- NOTE | 2021-01-18 16:35 | CTR_ITS ---
PROCEDURE INFORMATION: Exam: CT Abdomen And Pelvis With Contrast Exam date and time: 01/18/2021 4:35 PM Age: 70 years old Clinical indication: Nausea and vomiting; Prior surgery; Surgery date: 6+ months; Surgery type: Gb, hernia; Patient HX: Covid+ C/O n/v/d/ and abd pain; Additional info: Abdominal pain, n/v/d TECHNIQUE: Imaging protocol: Computed tomography of the abdomen and pelvis with contrast. Total images: 259 Radiation optimization: All CT scans at this facility use at least one of these dose optimization techniques: automated exposure control; mA and/or kV adjustment per patient size (includes targeted exams where dose is matched to clinical indication); or iterative reconstruction. Contrast material: OMNI 300; Contrast volume: 95 ml; Contrast route: INTRAVENOUS (IV); COMPARISON: CT abdomen pelvis wo con [id number] 09/21/2019 12:09 PM RADIATION DOSE METRICS: Total DLP (mGy-cm): 1733.63 FINDINGS: Lungs: Limited assessment of the lung bases fails to reveal evidence for active cardiopulmonary process. Mediastinal space: Small hiatal hernia. Liver: No visible hepatic mass. Stable simple hepatic cyst right hepatic lobe maximum diameter 21 mm. Hepatomegaly. Gallbladder and bile ducts: Status post cholecystectomy. Pancreas: Advanced pancreatic atrophy with partial fatty replacement. Spleen: Rare calcified splenic granuloma of antecedent disease. Adrenal glands: Adrenal glands unremarkable. Kidneys and ureters: No hydronephrosis or perinephric fluid bilaterally. No visible nephrolithiasis. Stable simple renal cortical cyst equator left kidney measuring 17 mm. No follow-up recommended. Stomach and bowel: Assessment of the hollow viscus fails to reveal evidence of active or acute pathology. Nonobstructed bowel pattern. No visible acute diverticulitis. No visible adynamic or reactive ileus. Appendix: No evidence of appendicitis. Suspect status post appendectomy. Intraperitoneal space: No visible evidence of mesenteric lymphadenitis or active mesenteritis/panniculitis. No visible pneumoperitoneum or intraperitoneal ascites. Vasculature: Portal vein patent. The abdominal aorta is nonaneurysmal. Minimal arterial sclerotic disease. Lymph nodes: No current visible evidence of active mesenteric or retroperitoneal lymphadenopathy. Urinary bladder: Urinary bladder unremarkable. Reproductive: Status post hysterectomy. Bones/joints: No visible active or acute osseous pathology. 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 Facet arthrosis. Intraosseous cavernous hemangioma T12. Soft tissues: Small periumbilical hernia containing fat only. Marked obesity. CT/CT abdomen pelvis w con* [id number] IMPRESSION: Currently no visible evidence for acute abdominal or pelvic pathologic process. Radiation Dose CTDIVOL = (mGy): DLP = 1733.63 (mGy-cm)
--- NOTE | 2021-01-18 16:35 | CTR_ITS ---
PROCEDURE INFORMATION: Exam: CT Head Without Contrast Exam date and time: 01/18/2021 4:35 PM Age: 70 years old Clinical indication: Dizziness and visual disturbance; Additional info: Visual disturbances, balance problems TECHNIQUE: Imaging protocol: Computed tomography of the head without contrast. Radiation optimization: All CT scans at this facility use at least one of these dose optimization techniques: automated exposure control; mA and/or kV adjustment per patient size (includes targeted exams where dose is matched to clinical indication); or iterative reconstruction. COMPARISON: CT cervical spin wo con* [id number] 08/10/2020 4:20 PM RADIATION DOSE METRICS: Total DLP (mGy-cm): 704.39 FINDINGS: Brain: No hemorrhage. Unremarkable white matter. No mass effect. Mild diffuse cerebral atrophy. Cerebral ventricles: No ventriculomegaly. Paranasal sinuses: Trace air-fluid level in the right maxillary sinus. The rest of the visualized paranasal sinuses are well pneumatized. Mastoid air cells: Visualized mastoid air cells are well aerated. Bones/joints: Unremarkable. No acute fracture. Soft tissues: Unremarkable. CT/CT head wo con* [id number] IMPRESSION: No acute intracranial abnormality. Radiation Dose CTDIVOL = (mGy): DLP = 704.39 (mGy-cm)
--- NOTE | 2021-01-18 16:38 | ECG_ITS ---
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 Measurements Intervals [place] Rate: 101 P: 71 MS: 132 QRS: 3 QRSD: 83 T: 68 QT: 355 QTc: 462 Interpretive Statements SINUS TACHYCARDIA LOW QRS VOLTAGE IN PRECORDIAL LEADS [QRS DEFLECTION < 1.0 mV IN CHEST LEADS] NONSPECIFIC T-WAVE ABNORMALITY ABNORMAL RHYTHM ECG Compared to ECG 11/24/2019 14:28:37 T-wave abnormality now present Sinus rhythm no longer present Electronically Signed On 01-19-2021 17:29:08 CDT by Steve Tolliver M.D. [email or web address]
--- NOTE | 2021-01-18 16:42 | W.ED.COVID ---
HPI - COVID General: Chief Complaint: Dizziness Stated Complaint: COVID +; ABD PAIN Time Seen by Provider: 01/18/21 16:20 History of Present Illness: HPI Narrative: Ms. Aviles is a 70-year-old lady with a significant past medical history of COPD, diabetes, and known Covid positive who presents to the emergency department with a chief complaint of general medical complaint. Symptom onset was approximately 1 week and described as subacute in onset. She had a positive exposure about 2 weeks ago and subsequently tested positive for Covid on 01/12. She initially had generalized symptoms including cough, malaise, and shortness of breath. Her symptoms have subsequently progressed and now she has associated nausea, vomiting, diarrhea, lightheadedness, headache, and weakness. Additionally she reports decreased urine output with burning with urination and abdominal pain. Overall the intensity of symptoms is moderate to severe. The course has been worsening. She has tried to stay hydrated at home therapies without significant relief. There are no other specific exacerbating or alleviating factors reported. COVID Results: SARS-CoV-2 RNA (RT-PCR) Detected (NOT DETECTED) A 01/12/21 11:37 01/12/21 Review of Systems General: Reports: 10 or more systems reviewed and unremarkable except in HPI and below Narrative: CONSTITUTIONAL: Lightheaded, fevers, chills, fatigue, weakness generalized EYES - denies pain, presyncopal blurred vision which improves at rest EARS - denies ear issues. NOSE -positive for congestion or rhinorrhea. THROAT -does have sore throat CARDIOVASCULAR - denies chest pain and palpitations RESPIRATORY?space shortness of breath and cough present, nonproductive. GASTROINTESTINAL -lower abdominal pain, nausea, vomiting, diarrhea. GENITOURINARY -dysuria with urgency MUSCULOSKELETAL- denies deformity or pain. Generalized myalgias and arthralgias SKIN - denies rashes or new changed skin lesions NEUROLOGIC - denies focal weakness or sensory changes HEMATOLOGIC/LYMPHATIC - denies easy bruising or lymphadenopathy. PFS ED PFSH: Medical History Anemia Chest pain at rest EKG from 05/01/2020 The EKG showed normal sinus rhythm with possible old inferior wall [place] and poor R wave progression. Some nonspecific T wave changes. COPD (chronic obstructive pulmonary disease) Depression Diabetes Environmental and seasonal allergies H/O malignant neoplasm of thyroid Hypertension Hypotension Lower respiratory infection Mixed hyperlipidemia Obesity Osteoarthritis (arthritis due to wear and tear of joints) Pain of left knee after injury Postsurgical hypothyroidism Recurrent UTI Right knee pain Sinusitis, acute SOB (shortness of breath) Stress incontinence Urgency incontinence URI, acute Vitamin D deficiency Surgical History H/O colonoscopy H/O esophagogastroduodenoscopy with dilation H/O hernia repair with mesh H/O tubal ligation Hx of cholecystectomy S/P thyroidectomy Status post knee replacement Family History Mother CAD (coronary artery disease) Hypertension Father CAD (coronary artery disease) Hypertension Denies family history of Diabetes Anesthesia complication Bleeding disorder Cancer Social History Smoking and tobacco status: never smoked Quit status (tobacco): has quit using tobacco Second hand smoke exposure: No Smoking risk assessment/counseling performed?: No Alcohol intake: never Desire information about alcohol rehabilitation?: No Counseling given: No Desire information about substance/drug rehabilitation?: No Counseling given: No Physical Exam Narrative: EXAM NARRATIVE: GENERAL/CONSTITUTIONAL -mildly ill appearing. no acute distress. Eyes - PERRL, no conjunctival injection. EOMs intact. ENMT - Atraumatic external nose and ears. Dry mucous membranes NECK - supple. trachea midline CARDIOVASCULAR - regular rate and rhythm. Peripheral pulses 2+ and equal RESPIRATORY -coarse breath sounds throughout.. No retractions or accessory muscle use. ABDOMEN/GI -moderate tenderness palpation in the suprapubic region. No tenderness to percussion or evidence of peritonitis MSK - Extremities without obvious deformity or tenderness to palpation SKIN - Warm, Dry NEURO - alert and appropriately oriented. strength and sensation intact. Moves all extremities equally. Cranial nerves II through XII intact. PSYCH - Appropriate mood and affect Course ED course: - Patient was seen and evaluated by me at bedside - Patient placed on cardiac monitors, IV access obtained - Initial evaluation notable for mildly ill appearance, no acute distress. There are no focal neurologic deficits or abnormal findings on exam. - Labs and imaging obtained and reviewed - Fluids given - Labs notable for abnormalities consistent with mild dehydration. No evidence of urinary tract infection. - Imaging notable for no evidence of intracranial hemorrhage or mass. Mild basilar opacity seen on chest x-ray. CT abdomen and pelvis negative for acute finding. Head imaging was warranted due to presyncopal episode in the context of overall patient health. Abdominal CT imaging warranted given description of symptoms and abdominal exam. - Upon serial reexamination after treatment the patient was improved - Based on patient history, evaluation, labs, and imaging as interpreted the most likely cause of the patient's condition is COVID-19 with dehydration status post IV fluids. - The results of ED evaluation were discussed with the patient including prescriptions and/or symptomatic cares including appropriate and responsible use, followup plan, and return precautions. The patient verbalized understanding and felt safe for discharge. - Patient discharged in satisfactory condition. Vital Signs: Vital signs: Vital Signs Temperature 100.2 F H 01/18/21 16:40 Pulse Rate 77 01/18/21 21:22 Respiratory Rate 18 01/18/21 21:22 Blood Pressure 107/64 01/18/21 21:22 Pulse Oximetry 94 01/18/21 21:22 MDM - COVID Medical Records: Attestation: I reviewed the patient's medical records. Lab Data: Attestation: I reviewed the patient's lab results. Labs: Lab Results 01/18/21 01/18/21 01/18/21 Range/Units 17:00 17:00 17:00 WBC 6.4 (4.0-10.0) 10^3/ uL RBC 4.66 (4.1-5.3) 10^6/u L Hgb 12.2 (11.5-15.3) g/dL Hct 38.3 (37.0-47.0) % MCV 82.2 (81-99) fL MCH 26.2 L (28.0-34.0) pg MCHC 31.9 (30.0-36.0) g/dL RDW 16.6 H (12.1-15.1) % Plt Count 288 (130-400) 10^3/c mm MPV 10.8 H (7.4-10.4) fL Neut % (Auto) 68.1 % Lymph % (Auto) 21.3 % [place] % (Auto) 9.6 % Eos % (Auto) 0.2 % Baso % (Auto) 0.2 % Neut # (Auto) 4.35 (1.8-7.7) 10^3/u L Lymph # (Auto) 1.4 (0.8-4.8) 10^3/u L [place] # (Auto) 0.6 (0.2-0.9) 10^3/u L Eos # (Auto) 0.0 (0.0-0.8) 10^3/u L Baso # (Auto) 0.0 (0.0-0.1) 10^3/u L Nucleated RBC % (a uto) 0 % Nucleated RBCs # 0.0 /100WBC Sodium 133 L (136-145) mmol/L Potassium 4.1 (3.5-5.1) mmol/L Chloride 98 (98-107) mmol/L Carbon Dioxide 21 L (22-29) mmol/L Anion Gap 18.1 (5-19) BUN 17 (8-23) mg/dL Creatinine 0.7 (0.5-0.9) mg/dL GFR Calculation 82.7 L (90-130) mL/min Glucose 107 (65-115) mg/dL POC Glucose (70-110) mg/dL Calculated Osmolal ity 278 L (285-295) mOsm/k g Lactic Acid (0.5-2.2) mmol/L Lactate Cancelled Calcium 8.3 L (8.5-10.5) mg/dL Troponin T Baselin e (0-10) ng/L Troponin T 120 Min [place] (0-10) ng/L Delta Troponin T (0-10) ABS# C-Reactive Protein 14.8 H (0.0-4.9) mg/L Lipase 7 L (13-60) U/L Procalcitonin 0.08 (0-0.5) ng/mL TSH 0.05 L (0.27-4.20) uIU/ mL Free T4 (0.82-1.77) ng/d L Urine Color (Yellow) Urine Appearance (CLEAR) Urine pH (5-7) Ur Specific Gravit y (1.005-1.030) Urine Protein (Negative) Urine Glucose (UA) (Normal) Urine Ketones (Negative) Urine Blood (Negative) Urine Nitrate (Negative) Urine Bilirubin (Negative) Urine Urobilinogen (Negative) mg/dL Ur Leukocyte Marah ase (Negative) 01/18/21 01/18/21 01/18/21 Range/Units 17:00 17:00 17:28 WBC (4.0-10.0) 10^3/ uL RBC (4.1-5.3) 10^6/u L Hgb (11.5-15.3) g/dL Hct (37.0-47.0) % MCV (81-99) fL MCH (28.0-34.0) pg MCHC (30.0-36.0) g/dL RDW (12.1-15.1) % Plt Count (130-400) 10^3/c mm MPV (7.4-10.4) fL Neut % (Auto) % Lymph % (Auto) % [place] % (Auto) % Eos % (Auto) % Baso % (Auto) % Neut # (Auto) (1.8-7.7) 10^3/u L Lymph # (Auto) (0.8-4.8) 10^3/u L [place] # (Auto) (0.2-0.9) 10^3/u L Eos # (Auto) (0.0-0.8) 10^3/u L Baso # (Auto) (0.0-0.1) 10^3/u L Nucleated RBC % (a uto) % Nucleated RBCs # /100WBC Sodium (136-145) mmol/L Potassium (3.5-5.1) mmol/L Chloride (98-107) mmol/L Carbon Dioxide (22-29) mmol/L Anion Gap (5-19) BUN (8-23) mg/dL Creatinine (0.5-0.9) mg/dL GFR Calculation (90-130) mL/min Glucose (65-115) mg/dL POC Glucose (70-110) mg/dL Calculated Osmolal ity (285-295) mOsm/k g Lactic Acid (0.5-2.2) mmol/L Lactate Calcium (8.5-10.5) mg/dL Troponin T Baselin e 8 (0-10) ng/L Troponin T 120 Min [place] (0-10) ng/L Delta Troponin T (0-10) ABS# C-Reactive Protein (0.0-4.9) mg/L Lipase (13-60) U/L Procalcitonin (0-0.5) ng/mL TSH (0.27-4.20) uIU/ mL Free T4 1.71 (0.82-1.77) ng/d L Urine Color Dark yellow (Yellow) Urine Appearance Clear (CLEAR) Urine pH 7 (5-7) Ur Specific Gravit y 1.005 (1.005-1.030) Urine Protein Neg (Negative) Urine Glucose (UA) Norm (Normal) Urine Ketones 1+ H (Negative) Urine Blood Neg (Negative) Urine Nitrate Negative (Negative) Urine Bilirubin 1+ H (Negative) Urine Urobilinogen 1 H (Negative) mg/dL Ur Leukocyte Marah ase Negative (Negative) 01/18/21 01/18/21 01/18/21 Range/Units 17:35 18:08 18:56 WBC (4.0-10.0) 10^3/ uL RBC (4.1-5.3) 10^6/u L Hgb (11.5-15.3) g/dL Hct (37.0-47.0) % MCV (81-99) fL MCH (28.0-34.0) pg MCHC (30.0-36.0) g/dL RDW (12.1-15.1) % Plt Count (130-400) 10^3/c mm MPV (7.4-10.4) fL Neut % (Auto) % Lymph % (Auto) % [place] % (Auto) % Eos % (Auto) % Baso % (Auto) % Neut # (Auto) (1.8-7.7) 10^3/u L Lymph # (Auto) (0.8-4.8) 10^3/u L [place] # (Auto) (0.2-0.9) 10^3/u L Eos # (Auto) (0.0-0.8) 10^3/u L Baso # (Auto) (0.0-0.1) 10^3/u L Nucleated RBC % (a uto) % Nucleated RBCs # /100WBC Sodium (136-145) mmol/L Potassium (3.5-5.1) mmol/L Chloride (98-107) mmol/L Carbon Dioxide (22-29) mmol/L Anion Gap (5-19) BUN (8-23) mg/dL Creatinine (0.5-0.9) mg/dL GFR Calculation (90-130) mL/min Glucose (65-115) mg/dL POC Glucose 106 (70-110) mg/dL Calculated Osmolal ity (285-295) mOsm/k g Lactic Acid 1.1 (0.5-2.2) mmol/L Lactate Calcium (8.5-10.5) mg/dL Troponin T Baselin e (0-10) ng/L Troponin T 120 Min [place] 6.81 (0-10) ng/L Delta Troponin T -1.19 L (0-10) ABS# C-Reactive Protein (0.0-4.9) mg/L Lipase (13-60) U/L Procalcitonin (0-0.5) ng/mL TSH (0.27-4.20) uIU/ mL Free T4 (0.82-1.77) ng/d L Urine Color (Yellow) Urine Appearance (CLEAR) Urine pH (5-7) Ur Specific Gravit y (1.005-1.030) Urine Protein (Negative) Urine Glucose (UA) (Normal) Urine Ketones (Negative) Urine Blood (Negative) Urine Nitrate (Negative) Urine Bilirubin (Negative) Urine Urobilinogen (Negative) mg/dL Ur Leukocyte Marah ase (Negative) Imaging Data: CXR: Attestation: I personally reviewed and interpreted this imaging study as follows: My impression: Patchy opacities consistent with known viral pneumonia Radiologist's impression: Minimal patchy bibasilar opacities which may be seen with atelectasis or pneumonia. EKG Data: EKG 1: Attestation: I personally reviewed and interpreted this EKG as follows: EKG interpretation date: 01/18/21 Prior EKG tracings: available for review Ischemic changes: non-specific ST-T wave changes Interpretation: Twelve-lead EKG shows a regular sinus rhythm at a rate of 101. OH interval 132. Normal axis. No ST segment abnormalities meeting STEMI criteria Interpretation: Sinus tachycardia. Nonspecific ST segment abnormalities. EKG 2: EKG interpretation date: 01/18/21 Prior EKG tracings: available for review Ischemic changes: non-specific ST-T wave changes Interpretation: Twelve-lead EKG shows a regular sinus rhythm at a rate of 87. OH interval 145. Normal axis. Nonspecific ST segment abnormalities. Interpretation: Sinus rhythm. Nonspecific ST segment abnormalities. Limited interpretation secondary to baseline. COVID Results: SARS-CoV-2 RNA (RT-PCR) Detected (NOT DETECTED) A 01/12/21 11:37 01/12/21 Discharge Plan Discharge Patient Disposition: Home Clinical Impression: COVID-19, Breath shortness, Abdominal pain, Pre-syncope Condition: Stable Prescriptions: New ondansetron 4 mg tablet,disintegrating 4 mg PO Q8H PRN (Reason: nausea and vomiting) 4 Days Qty: 14 RF: 0 No Action dexamethasone 6 mg tablet 6 mg PO BID 7 Days Qty: 14 RF: 0 nitroglycerin 0.4 mg tablet, sublingual 0.4 mg SUBLINGUAL Q5M PRN (Reason: chest pain) Qty: 30 RF: 3 Combivent Respimat 20-100 mcg/actuation mist See Rx Instructions .ROUTE .COMPLEX Qty: 4 RF: 2 budesonide-formoterol [Symbicort] 160-4.5 mcg/actuation HFA aerosol inhaler See Rx Instructions .ROUTE .COMPLEX Qty: 10.2 RF: 5 diclofenac sodium 1 % gel 2 g topical QID PRN (Reason: pain (scale score 1-3)) Qty: 100 RF: 1 simvastatin 10 mg tablet 10 mg PO BEDTIME@2100 Qty: 30 RF: 2 duloxetine 20 mg capsule,delayed release(DR/EC) 20 mg PO DAILY Qty: 30 RF: 5 omeprazole 20 mg capsule,delayed release(DR/EC) 20 mg PO BID@0800,2100 Qty: 30 RF: 2 ibandronate 150 mg tablet See Rx Instructions .ROUTE .COMPLEX Qty: 1 RF: 2 duloxetine 60 mg capsule,delayed release(DR/EC) See Rx Instructions .ROUTE .COMPLEX Qty: 30 RF: 2 nystatin 100,000 unit/mL suspension 1 ml PO Q6H Qty: 200 RF: 0 Lumigan 0.01 % drops 1 drp ophthalmic (eye) BEDTIME@2100 RF: 0 levothyroxine 100 mcg tablet 100 mcg PO DAILY@0700 RF: 0 solifenacin 10 mg tablet 10 mg PO DAILY@0800 RF: 0 multivitamin [Multiple Vitamins] Tablet 1 tab PO DAILY RF: 0 Calcium 500 500 mg calcium (1,250 mg) Tablet 500 mg PO DAILY RF: 0 cefuroxime axetil 500 mg tablet 500 mg PO BID RF: 0 metformin 500 mg tablet 500 mg PO DAILY RF: 0 meloxicam 15 mg tablet 15 mg PO DAILY RF: 0 isosorbide mononitrate 30 mg tablet extended release 24 hr 30 mg PO DAILY RF: 0 montelukast 10 mg tablet 10 mg PO DAILY RF: 0 lisinopril 5 mg tablet 5 mg PO DAILY RF: 0 naproxen 500 mg tablet 500 mg PO BID PRN (Reason: Pain) RF: 0 Discharge Orders: Discharge ED (Routine); Ordered 01/18/21 Ordered By: Camden Vásquez Referrals: SUSAN Lora, BRAILLE OPERATOR [Primary Care Provider] - Discharge Diet: Usual diet Discharge Activity: Resume usual activity Patient Instructions: Viral Pneumonia (ED), Dehydration (ED), Abdominal Pain (ED), Opioid Safety Activity Restrictions/Additional Instructions: Thank you for visiting the emergency department. You were seen and evaluated for generalized malaise including a presyncopal event and abdominal pain. The exact cause of your symptoms is somewhat unclear though is still likely at least partially related to your COVID-19. Please follow-up with your primary care provider. Please return to an emergency department if you experience worsening of your current symptoms, failure to improve, inability tolerate oral intake, chest pain, shortness of breath, or anything else that you are concerned about and feel needs emergency department evaluation. Coding Level of Care Code ED Head Turning Machine Operator for Afia Stafford
[2021-01-18] MEDS: ondansetron 2 mg/ML SDV 2 mL 4 MG IVP (17:06)
[2021-01-18] MEDS: sodium chloride 0.9% 1,000 ML 999 ML IV (17:06)
[2021-01-18] MEDS: acetaminophen 325 mg Tablet 650 MG PO (17:06)
[2021-01-18 17:41] LABS: Glucose Point of Care 106 mg/dL (70-110)
[2021-01-18 17:46] LABS: Basophils % 0.2 %; Eosinophils % 0.2 %; Hematocrit 38.3 % (37.0-47.0); Hemoglobin 12.2 g/dL (11.5-15.3); Lymphocytes # 1.4 10^3/uL (0.8-4.8); Lymphocytes % 21.3 %; Mean Corpuscular HGB Conc 31.9 g/dL (30.0-36.0); Mean Corpuscular Hemoglobin 26.2 pg (28.0-34.0); Mean Corpuscular Volume 82.2 fL (81-99); Mean Platelet Volume 10.8 fL (7.4-10.4); Monocytes # 0.6 10^3/uL (0.2-0.9); Monocytes % 9.6 %; Neutrophils # 4.35 10^3/uL (1.8-7.7); Neutrophils % 68.1 %; Nucleated Red Blood Cells % 0 %; Platelet Count 288 10^3/cmm (130-400); Red Blood Count 4.66 10^6/uL (4.1-5.3); Red Cell Distribution Width 16.6 % (12.1-15.1); White Blood Count 6.4 10^3/uL (4.0-10.0)
[2021-01-18 17:48] LABS: Add Urine Microscopic? NO; Charge for UA Resulting for Rev
[2021-01-18 18:10] LABS: Specific Gravity, Urine 1.005 (1.005-1.030); Urine Appearance Clear (CLEAR); Urine Color Dark Yellow (Yellow); pH Urine 7 (5-7)
[2021-01-18 18:11] LABS: Bilirubin Urine 1+ (Negative); Blood Urine Neg (Negative); Glucose Urine UA Norm (Normal); Ketones Urine 1+ (Negative); Leukocyte Esterase Urine Negative (Negative); Nitrate Urine Negative (Negative); Protein Urine Neg (Negative); Urobilinogen Urine 1 mg/dL (Negative)
[2021-01-18 18:12] LABS: Troponin(5th) Baseline 8 ng/L (0-10)
[2021-01-18 18:20] LABS: Procalcitonin 0.08 ng/mL (0-0.5); Thyroid Stimulating Hormone 0.05 uIU/mL (0.27-4.20)
[2021-01-18 18:30] LABS: Anion Gap 18.1 (5-19); Blood Urea Nitrogen 17 mg/dL (8-23); C Reactive Protein 14.8 mg/L (0.0-4.9); Calcium 8.3 mg/dL (8.5-10.5); Carbon Dioxide 21 mmol/L (22-29); Chloride 98 mmol/L (98-107); Glomerular Filtration Rate 82.7 mL/min (90-130); Glucose 107 mg/dL (65-115); Lipase 7 U/L (13-60); Osmolality Calculated 278 mOsm/kg (285-295); Potassium 4.1 mmol/L (3.5-5.1); Sodium 133 mmol/L (136-145)
[2021-01-18 18:34] LABS: Lactic Sepsis W/Reflex 1.1 mmol/L (0.5-2.2)
[2021-01-18] MEDS: iohexol 300 mg/mL 100 mL Btl IV (18:38)
--- NOTE | 2021-01-18 18:38 | ECG_ITS ---
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 Measurements Intervals [place] Rate: 87 P: 75 NV: 145 QRS: -9 QRSD: 94 T: 66 QT: 371 QTc: 447 Interpretive Statements SINUS RHYTHM WITH OCCASIONAL VENTRICULAR PREMATURE COMPLEXES LOW QRS VOLTAGE IN PRECORDIAL LEADS [QRS DEFLECTION < 1.0 mV IN CHEST LEADS] POSSIBLE INFERIOR MYOCARDIAL INFARCTION [30 ms Q WAVE IN II/aVF], PROBABLY OLD Compared to ECG 01/18/2021 16:43:29 Ventricular premature complex(es) now present Myocardial infarct finding now present Sinus tachycardia no longer present T-wave abnormality no longer present Electronically Signed On 01-19-2021 17:37:47 CDT by Steve Tolliver M.D. [id number]
[2021-01-18 19:43] LABS: Troponin 5 2HR 6.81 ng/L (0-10)
[2021-01-18 19:44] LABS: Troponin 5 2HR Delta -1.19 ABS# (0-10)
[2021-01-18 20:42] LABS: Free T4 Free Thyroxine 1.71 ng/dL (0.82-1.77)
== END 2021-01-18 21:24 | disposition home or self-care (01) ==
PROVIDERS: Emergency Provider Emergency Medicine; PCP Nurse Practitioner Family
DX: U07.1 COVID-19 (principal); R10.9 Unspecified abdominal pain; R55 Syncope and collapse; Z79.84 Long term (current) use of oral hypoglycemic drugs; J44.9 Chronic obstructive pulmonary disease, unspecified; E11.9 Type 2 diabetes mellitus without complications; Z85.850 Personal history of malignant neoplasm of thyroid; I10 Essential (primary) hypertension
CPT/HCPCS: 36416; 70450; 71045; 74177; 80048; 81003; 82962; 83605; 83690; 84145; 84439; 84443; 84484; 85025; 86140; 93005; 96361; 96375; 99284; J2405; J7030; Q9967

== ENCOUNTER → 2021-05-26 14:12 | Outpatient (BNVA) | payer MEDICARE, SELFPAY | PROVIDERS: PCP Nurse Practitioner Family; Visit Provider Urology | DX: N39.0 Urinary tract infection, site not specified (principal) | CPT/HCPCS: 81003 ==

== ENCOUNTER 2021-08-07 13:22 | Emergency (ER) | payer MEDICARE, SELFPAY ==
[2021-08-07 13:30] VITALS: BP 139/79; PULSE 78; RESP 18; TEMP 36.6; O2SAT 96; BMI 40.8
--- NOTE | 2021-08-07 13:47 | USCV_ITS ---
Lenora Aviles Age: 71 Gender: F : 1950 Exam Date: 08/07/2021 14:34 Ordering Phys: Richard Olmedo Technologist: Mickey Jiang [place] [facility] [place] Indication: LT LEG PAIN AND SWELLING HISTORY: Lower extremity pain. PROCEDURES: Venous duplex imaging was performed in only the left lower extremity. The following venous structures were evaluated: common femoral vein, profunda vein, proximal portion of the greater saphenous vein, superficial femoral vein, and the popliteal vein. In addition, the posterior tibial and peroneal trunk were evaluated. On the left side, the common femoral, superficial femoral, profunda femoral, popliteal, posterior tibial, greater saphenous veins, and the peroneal trunk were identified and interrogated in the standard fashion. These veins were found to be easily compressible with spontaneous blood flow. No evidence of insufficiency or thrombus noted. FINDINGS: Normal 2-D Doppler and augmentation and compressibility throughout the lower extremity venous structures. Additional imaging through the proximal calf veins also reveals no thrombus. Limited evaluation of the greater saphenous vein is patent with no thrombus.. CONCLUSIONS No evidence of left lower extremity DVT. Jono Mroan MD (Electronically Signed) Final Date: 07 August 2021 15:11 S
[2021-08-07] MEDS: acetaminophen 500 mg Tablet 1000 MG PO (13:51)
--- NOTE | 2021-08-07 13:51 | W.ED.EXTPRO ---
HPI - Extremity Problem General: Chief complaint: Extremity Injury, Lower Stated complaint: Upper leg to groin pain was seen urgent care Time Seen by Provider: 08/07/21 13:37 History of Present Illness: Patient is a 71-year-old female comes to the ED with left thigh pain. Symptoms have been going on for about 3 weeks. She went to urgent care today and they recommended patient come into the ED to be checked for blood clot in the left leg. She denies any chest pain, shortness of breath or hemoptysis. She is unsure but thinks she could have pulled a muscle 3 weeks ago when she slipped and almost fell. Denies any other symptoms, dysuria or hematuria. Associated symptoms: Deny chest pain, fever(s) or rash Review of Systems Const: Denies: fever(s), chills or fatigue Eyes: Denies: change in vision or eye discomfort ENMT: Denies: throat pain, odynophagia, nasal discharge or nasal congestion Card: Denies: chest pain, palpitations, edema, swelling of feet/ankles, dyspnea on exertion or orthopnea Resp: Denies: dyspnea, productive cough or non-productive cough GI: Denies: abdominal pain, nausea, vomiting, diarrhea, constipation or hematochezia : Denies: flank pain, dysuria or hematuria Musc: Reports: extremity pain (left thigh); Denies: neck pain, back pain or extremity swelling Skin/Breast: Denies: rash or new lesions Neuro: Denies: headache(s), numbness in extremities or weakness in extremities PFS ED PFSH: Medical History Acute bacterial sinusitis Acute bacterial sinusitis Anemia Arthritis pain Bilateral otitis media Chest pain at rest EKG from 05/01/2020 The EKG showed normal sinus rhythm with possible old inferior wall IL and poor R wave progression. Some nonspecific T wave changes. COPD (chronic obstructive pulmonary disease) Depression Diabetes Environmental and seasonal allergies H/O malignant neoplasm of thyroid Hypertension Hypotension Influenza vaccine needed Injury of knee, right Lower respiratory infection Mixed hyperlipidemia Obesity Osteoarthritis (arthritis due to wear and tear of joints) Pain of left knee after injury Postsurgical hypothyroidism Recurrent UTI Right knee pain Sinusitis, acute SOB (shortness of breath) Stress incontinence Urgency incontinence URI, acute Vitamin D deficiency Surgical History H/O colonoscopy H/O esophagogastroduodenoscopy with dilation H/O hernia repair with mesh H/O tubal ligation Hx of cholecystectomy S/P thyroidectomy Status post knee replacement Family History Mother CAD (coronary artery disease) Hypertension Father CAD (coronary artery disease) Hypertension Denies family history of Diabetes Anesthesia complication Bleeding disorder Cancer Social History Smoking and tobacco status: former smoker Quit status (tobacco): has quit using tobacco Second hand smoke exposure: No Smoking risk assessment/counseling performed?: No Alcohol intake: never Desire information about alcohol rehabilitation?: No Counseling given: No Desire information about substance/drug rehabilitation?: No Counseling given: No Physical Exam Const: COMMON NORMALS: no acute distress, patient oriented x3, healthy appearing and alert GENERAL APPEARANCE: cooperative and comfortable HENMT: COMMON NORMALS: normocephalic HEAD & SCALP: normocephalic MOUTH: Normal oral and palatal mucosa present THROAT: posterior oropharynx normal and uvula midline Neck/C-Spine: COMMON NORMALS: supple GENERAL: Yes normal visual inspection Resp: COMMON NORMALS: normal respiratory effort, No retractions, No use of accessory muscles and clear to auscultation bilaterally AUSCULTATION: clear to auscultation bilaterally Cardio: COMMON NORMALS: regular rate, regular rhythm, S1 normal heart sound present, S2 normal heart sound present, No gallops present (Cardio), No clicks present (Cardio), No murmurs present (Cardio) and Peripheral pulses 2+ throughout RATE: regular rate RHYTHM: regular rhythm HEART SOUNDS: S1 normal heart sound present and S2 normal heart sound present PERIPHERAL PULSES: Peripheral pulses 2+ throughout GI: COMMON NORMALS: Normal to inspection, nondistended, normoactive bowel sounds present, Soft to palpation, non-tender and no masses PALPATION: Yes Soft to palpation : COMMON NORMALS: Yes no CVA tenderness BLADDER/KIDNEY EXAM: Yes no CVA tenderness Back/Pelvis: COMMON NORMALS: no CVA tenderness Extremity: NARRATIVE EXTREMITY EXAM: tenderness of left upper thigh. no bilateral lower extremity edema. Neuro: COMMON NORMALS: patient oriented x3 and moves all extremities SENSORIUM/ORIENTATION: Yes alert Skin: GENERAL SKIN EXAM: dry skin Course Vital Signs: Vital signs: Vital Signs Temperature 98 F 08/07/21 13:30 Pulse Rate 78 08/07/21 13:30 Respiratory Rate 18 08/07/21 13:30 Blood Pressure 139/79 08/07/21 13:30 Pulse Oximetry 96 08/07/21 13:30 MDM - Extremity (Nontraumatic) Medical Decision Making Patient is a 71-year-old female who comes to the ED with left thigh pain. She was sent here by urgent care to check for blood clot. Ultrasound venous duplex of left leg showed no DVT or blood clots seen. Patient was diagnosed with musculoskeletal left thigh pain and discharged home. Return to ED precautions given. She was told to follow-up with her PCP in 5 to 7 days reevaluation. Patient understood and agreed with plan. Imaging Data US Vascular: Radiologist's impression: Ultrasound venous duplex left leg?no DVT or blood clots seen. Discharge Plan Discharge Patient Disposition: Home Clinical Impression: Musculoskeletal pain of left thigh Condition: Stable Prescriptions: No Action Myrbetriq 25 mg tablet extended release 24 hr 25 mg PO Q24H Qty: 30 12RF Rx Instructions: In addition to the Vesicare acetaminophen [Tylenol Arthritis Pain] 650 mg tablet extended release 650 mg PO Q8H PRN (Reason: pain) Qty: 90 0RF nitroglycerin 0.4 mg tablet, sublingual 0.4 mg SUBLINGUAL Q5M PRN (Reason: chest pain) Qty: 30 3RF Rx Instructions: do not exceed 3 doses per episode Fluarix Quad [id number] (PF) 60 mcg (15 mcg x 4)/0.5 mL syringe 0.5 ml IM ONCE Qty: 0.5 0RF Combivent Respimat 20-100 mcg/actuation mist See Rx Instructions .ROUTE .COMPLEX Qty: 4 2RF Dose Instruction: USE one INHALATION TWICE DAILY NEEDED FOR copd Rx Instructions: USE one INHALATION TWICE DAILY NEEDED FOR copd diclofenac sodium 1 % gel 2 g topical QID PRN (Reason: pain (scale score 1-3)) Qty: 100 1RF nystatin 100,000 unit/mL suspension 1 ml PO Q6H Qty: 200 0RF Rx Instructions: swish and swallow lisinopril 5 mg tablet 5 mg PO DAILY Qty: 90 2RF duloxetine 20 mg capsule,delayed release(DR/EC) 20 mg PO DAILY Qty: 30 5RF Rx Instructions: take with 60 mg to equal 80 mg daily total omeprazole 20 mg capsule,delayed release(DR/EC) See Rx Instructions .ROUTE .COMPLEX Qty: 60 2RF Dose Instruction: TAKE ONE CAPSULE BY MOUTH TWICE DAILY @8AM AND 9PM Rx Instructions: TAKE ONE CAPSULE BY MOUTH TWICE DAILY @8AM AND 9PM ibandronate 150 mg tablet See Rx Instructions .ROUTE .COMPLEX Qty: 1 2RF Dose Instruction: TAKE ONE TABLET BY MOUTH ONCE A MONTH Rx Instructions: TAKE ONE TABLET BY MOUTH ONCE A MONTH meloxicam 15 mg tablet 15 mg PO DAILY Qty: 30 1RF Rx Instructions: do not take with Naproxen duloxetine 60 mg capsule,delayed release(DR/EC) See Rx Instructions .ROUTE .COMPLEX Qty: 30 2RF Dose Instruction: TAKE ONE CAPSULE BY MOUTH AT 8 IN THE MORNING WITH A 20MG CAPSULE TO = 80 MG Rx Instructions: TAKE ONE CAPSULE BY MOUTH AT 8 IN THE MORNING WITH A 20MG CAPSULE TO = 80 MG solifenacin 10 mg tablet See Rx Instructions .ROUTE .COMPLEX Qty: 30 5RF Dose Instruction: TAKE 1 TABLET BY MOUTH EVERY DAY @0800 Rx Instructions: TAKE 1 TABLET BY MOUTH EVERY DAY @0800 montelukast 10 mg tablet See Rx Instructions .ROUTE .COMPLEX Qty: 30 5RF Dose Instruction: TAKE 1 TABLET BY MOUTH DAILY Rx Instructions: TAKE 1 TABLET BY MOUTH DAILY simvastatin 10 mg tablet See Rx Instructions .ROUTE .COMPLEX Qty: 30 0RF Dose Instruction: TAKE ONE TABLET BY MOUTH AT BEDTIME @ 9PM Rx Instructions: TAKE ONE TABLET BY MOUTH AT BEDTIME @ 9PM levothyroxine 100 mcg tablet See Rx Instructions .ROUTE .COMPLEX Qty: 30 0RF Dose Instruction: TAKE ONE TABLET BY MOUTH DAILY @ 7AM Rx Instructions: TAKE ONE TABLET BY MOUTH DAILY @ 7AM budesonide-formoterol [Symbicort] 160-4.5 mcg/actuation HFA aerosol inhaler See Rx Instructions .ROUTE .COMPLEX Qty: 10.2 5RF Dose Instruction: INHALE 2 INHALATIONS BY MOUTH TWICE DAILY Rx Instructions: INHALE 2 INHALATIONS BY MOUTH TWICE DAILY Lumigan 0.01 % drops 1 drp ophthalmic (eye) BEDTIME@2100 0RF Rx Instructions: USE IN BOTH EYES multivitamin [Multiple Vitamins] Tablet 1 tab PO DAILY 0RF Calcium 500 500 mg calcium (1,250 mg) Tablet 500 mg PO DAILY 0RF metformin 500 mg tablet 500 mg PO DAILY 0RF isosorbide mononitrate 30 mg tablet extended release 24 hr 30 mg PO DAILY 0RF Discharge Orders: Discharge ED (Routine); Ordered 08/07/21 Ordered By: Richard Olmedo Referrals: SUSAN Lora, [employer] FINANCIAL ANALYST [Primary Care Provider] - Discharge Diet: Regular Discharge Activity: Increase activity as tolerated Patient Instructions: Muscle Strain (DC), Musculoskeletal Pain (ED) Activity Restrictions/Additional Instructions: Follow-up with medical provider as directed in 5 to 7 days for reevaluation. Take all home medications as previously prescribed. Apply cold pack on sore area of left leg rest and elevate left leg as well daily. Take [id number] Tylenol for pain. Return to the ER or your medical provider if condition worsens. Please read and understand discharge instructions. Thank you for choosing [facility] for your healthcare needs today. Please realize this is an emergency room and that we are providing you with a medical screening exam and this may not be complete and all inclusive of all the testing and or work up that you may need to determine your ailment or severity of your illness. It is very important that you follow up as instructed or that you return to the Emergency Department should you have concerns or if your condition changes or worsens in any way. Coding Level of Care Code ED Epic Interface Analyst for Afia Stafford Exam Comprehensive
== END 2021-08-07 15:13 | disposition home or self-care (01) ==
PROVIDERS: Emergency Provider Physician Assistant; PCP Nurse Practitioner Family
DX: M79.652 Pain in left thigh (principal); Z79.84 Long term (current) use of oral hypoglycemic drugs; J44.9 Chronic obstructive pulmonary disease, unspecified; E11.9 Type 2 diabetes mellitus without complications; I10 Essential (primary) hypertension; E78.2 Mixed hyperlipidemia; Z85.850 Personal history of malignant neoplasm of thyroid; Z87.891 Personal history of nicotine dependence
CPT/HCPCS: 93971; 99283

== ENCOUNTER → 2021-08-12 00:01 | Outpatient (BNVA) | payer MEDICARE, SELFPAY | PROVIDERS: PCP Nurse Practitioner Family; Visit Provider Nurse Practitioner Family | DX: Z20.822 Contact with and (suspected) exposure to COVID-19 (principal) | CPT/HCPCS: 87400; 87635 ==

== ENCOUNTER → 2021-09-22 09:02 | Outpatient (BNVA) | payer MEDICARE, SELFPAY | PROVIDERS: PCP Nurse Practitioner Family; Visit Provider Urology | DX: J06.9 Acute upper respiratory infection, unspecified (principal); N39.0 Urinary tract infection, site not specified; N39.41 Urge incontinence | CPT/HCPCS: 81003 ==

== ENCOUNTER 2021-10-27 11:54 | Emergency (ER) | payer MEDICARE, SELFPAY ==
[2021-10-27 12:34] VITALS: BP 151/76; PULSE 79; RESP 20; TEMP 36.6; O2SAT 96; BMI 39.7
[2021-10-27 12:39] VITALS: BP 151/75; PULSE 80; O2SAT 95
--- NOTE | 2021-10-27 12:48 | ECG_ITS ---
[facility] Test Date: 2021-10-27 Pat Name: Lenora Aviles Department: Room: Gender: Female Custom Clothier: : 1950 Requested By: Caden Chan Order Number: [id number] Leslie MD: Steve Tolliver M.D. Measurements Intervals [place] Rate: 81 P: 78 AL: 168 QRS: 7 QRSD: 89 T: 63 QT: 390 QTc: 455 Interpretive Statements SINUS RHYTHM LOW QRS VOLTAGE IN PRECORDIAL LEADS [QRS DEFLECTION < 1.0 mV IN CHEST LEADS] Compared to ECG 01/18/2021 18:42:24 Ventricular premature complex(es) no longer present Myocardial infarct finding no longer present Electronically Signed On 10-27-2021 17:09:38 CDT by Steve Tolliver M.D. [id number]
--- NOTE | 2021-10-27 13:00 | ED_ITS ---
HPI - Fever General: Chief Complaint: Fever Stated Complaint: COUGH Time Seen by Provider: 10/27/21 12:41 Source: patient Mode of arrival: ambulatory Limitations: no limitations History of Present Illness: 71-year-old female presents emergency room via EMS. She was at her doctor's office was a little bit lightheaded and weak and needed a blood pressure with a report of blood pressure in the 80s systolic and she was transferred here by EMS. She has had a moderately productive cough for last couple of days which is why she gone to the doctor's office. She states she is feeling better since arriving here she denies any fever sweats chills nausea vomiting or diarrhea. She has not had any chest or abdominal pain. She is not short of breath at rest. She not noted any orthopnea. MD elicited complaint: fever Onset (ago): minute(s) Exacerbating factors: nothing Relieving factors: nothing Associated symptoms: Reports nausea; Deny abdominal pain, flank pain, chills, chest pain, confusion, cough, diarrhea, dysuria, extremity pain, headache(s), myalgias, nasal congestion, night sweats, rash, rhinorrhea, short of breath, sinus pain, stiffness, sore throat, vomiting or weight loss Treatments prior to arrival fever: none Review of Systems Const: Denies: chills or night sweats ENMT: Denies: nasal congestion or sinus pain Card: Denies: chest pain Resp: Reports: dyspnea and non-productive cough; Denies: productive cough GI: Reports: nausea; Denies: abdominal pain, vomiting or diarrhea : Denies: flank pain, difficulty voiding, dysuria, urinary frequency or urinary urgency Musc: Denies: extremity pain Skin/Breast: Denies: rash or pruritus Neuro: Denies: headache(s) or confusion PFS ED PFSH: Medical History Acute bacterial sinusitis Acute bacterial sinusitis Anemia Arthritis pain Bilateral otitis media Chest pain at rest EKG from 05/01/2020 The EKG showed normal sinus rhythm with possible old inferior wall PR and poor R wave progression. Some nonspecific T wave changes. COPD (chronic obstructive pulmonary disease) Depression Diabetes Environmental and seasonal allergies H/O malignant neoplasm of thyroid Hypertension Hypotension Influenza vaccine needed Injury of knee, right Left thigh pain Lower respiratory infection Mixed hyperlipidemia Obesity Osteoarthritis (arthritis due to wear and tear of joints) Pain of left knee after injury Postsurgical hypothyroidism Recurrent UTI Right knee pain Sinusitis, acute SOB (shortness of breath) Stress incontinence Upper respiratory infection Urgency incontinence URI, acute Vitamin D deficiency Surgical History H/O colonoscopy H/O esophagogastroduodenoscopy with dilation H/O hernia repair with mesh H/O tubal ligation Hx of cholecystectomy S/P thyroidectomy Status post knee replacement Family History Mother , AT AGE 75 CAD (coronary artery disease) Hypertension Father , AT AGE 68 CAD (coronary artery disease) Hypertension Denies family history of Diabetes Anesthesia complication Bleeding disorder Cancer Social History Smoking and tobacco status: former smoker Quit status (tobacco): has quit using tobacco Second hand smoke exposure: No Smoking risk assessment/counseling performed?: No Alcohol intake: never Desire information about alcohol rehabilitation?: No Counseling given: No Desire information about substance/drug rehabilitation?: No Counseling given: No Marital status: Current occupational status: employed History of recent travel: No Physical Exam Const: GENERAL APPEARANCE: cooperative and comfortable ORIENTATION/CONSCIOUSNESS: Yes awake, Yes oriented to person, Yes oriented to place and Yes oriented to time HENMT: COMMON NORMALS: normocephalic and atraumatic HEAD & SCALP: normocephalic and atraumatic Neck/C-Spine: COMMON NORMALS: no JVD Resp: COMMON NORMALS: normal respiratory effort, No retractions, No use of accessory muscles and clear to auscultation bilaterally AUSCULTATION: clear to auscultation bilaterally Cardio: COMMON NORMALS: no JVD, regular rate, regular rhythm and No murmurs present (Cardio) RATE: regular rate RHYTHM: regular rhythm GI: COMMON NORMALS: Soft to palpation and No hepatosplenomegaly present AUSCULTATION: Yes normoactive bowel sounds PALPATION: Yes Soft to palpation, No Tenderness to palpation present (GI), No Guarding due to palpation present (GI) and Yes No hepatosplenomegaly present Extremity: COMMON NORMALS: normal to inspection, capillary refill normal, no clubbing, cyanosis or edema, no calf tenderness and no pedal edema Neuro: SENSORIUM/ORIENTATION: Yes oriented to person, Yes oriented to place and Yes oriented to time Skin: COMMON NORMALS: no rashes or lesions noted GENERAL SKIN EXAM: no rashes or lesions noted Course Vital Signs: Vital signs: Vital Signs Temperature 97.9 F 10/27/21 12:34 Pulse Rate 79 10/27/21 12:34 Respiratory Rate 20 H 10/27/21 12:34 Blood Pressure 151/76 10/27/21 12:34 Pulse Oximetry 96 10/27/21 12:34 MDM - Fever Medical Decision Making Patient feeling well. Other than continuous cough that is occasionally productive. Will discharge home on Levaquin steroid taper and albuterol to use. Recheck in her primary care doctor the next 2 to 3 days return if has problems. Medical Records I reviewed the patient's medical records. Lab Data I reviewed the patient's lab results. : 10/27/21 13:40 10/27/21 13:40 Radiology Impressions Chest X-Ray 10/27/21 14:14 IMPRESSION: No acute findings. Laboratory Results WBC 5.8 10^3/uL (4.0-10.0) 10/27/21 13:40 RBC 4.84 10^6/uL (4.1-5.3) 10/27/21 13:40 Hgb 12.7 g/dL (11.5-15.3) 10/27/21 13:40 Hct 39.6 % (37.0-47.0) 10/27/21 13:40 MCV 81.8 fl (81-99) 10/27/21 13:40 MCH 26.2 pg (28.0-34.0) L 10/27/21 13:40 MCHC 32.1 g/dL (30.0-36.0) 10/27/21 13:40 RDW 14.4 % (12.1-15.1) 10/27/21 13:40 Plt Count 351 10^3/cmm (130-400) 10/27/21 13:40 MPV 10.4 fL (7.4-10.4) 10/27/21 13:40 Neut % (Auto) 56.4 % 10/27/21 13:40 Lymph % (Auto) 35.4 % 10/27/21 13:40 Mathews % (Auto) 6.3 % 10/27/21 13:40 Eos % (Auto) 1.0 % 10/27/21 13:40 Baso % (Auto) 0.7 % 10/27/21 13:40 Neut # (Auto) 3.29 10^3/uL (1.8-7.7) 10/27/21 13:40 Lymph # (Auto) 2.1 10^3/uL (0.8-4.8) 10/27/21 13:40 Mathews # (Auto) 0.4 10^3/uL (0.2-0.9) 10/27/21 13:40 Eos # (Auto) 0.1 10^3/uL (0.0-0.8) 10/27/21 13:40 Baso # (Auto) 0.0 10^3/uL (0.0-0.1) 10/27/21 13:40 Nucleated RBC % (auto) 0 % 10/27/21 13:40 Nucleated RBCs # 0.0 /100WBC 10/27/21 13:40 Sodium 138 mmol/L (136-145) 10/27/21 13:40 Potassium 3.7 mmol/L (3.5-5.1) 10/27/21 13:40 Chloride 102 mmol/L (98-107) 10/27/21 13:40 Carbon Dioxide 24 mmol/L (22-29) 10/27/21 13:40 Anion Gap 15.7 (5-19) 10/27/21 13:40 BUN 16 mg/dL (8-23) 10/27/21 13:40 Creatinine 0.6 mg/dL (0.5-0.9) 10/27/21 13:40 GFR Calculation Not Reportable 10/27/21 13:40 Glucose 112 mg/dL (65-115) 10/27/21 13:40 Calculated Osmolality 288 mOsm/kg (285-295) 10/27/21 13:40 Calcium 9.8 mg/dL (8.5-10.5) 10/27/21 13:40 Total Bilirubin 0.4 mg/dL (0.15-1.2) 10/27/21 13:40 AST 16 U/L (0-32) 10/27/21 13:40 ALT 11 U/L (0-33) 10/27/21 13:40 Alkaline Phosphatase 73 IU/L (35-105) 10/27/21 13:40 Total Protein 7.6 g/dL (6.6-8.7) 10/27/21 13:40 Albumin 4.2 g/dL (3.5-5.2) 10/27/21 13:40 Globulin 3.4 g/dL (1.3-4.6) 10/27/21 13:40 Lipase 7 U/L (13-60) L 10/27/21 13:40 Discharge Plan Discharge Patient Disposition: Home Clinical Impression: Pneumonia Condition: Stable Prescriptions: New Medrol (Parag) 4 mg tablets,dose pack See Rx Instructions .ROUTE .COMPLEX Qty: 21 0RF Rx Instructions: orally per package directions levofloxacin 750 mg tablet 750 mg PO DAILY 10 Days 0RF albuterol sulfate 90 mcg/actuation HFA aerosol inhaler 2 inh INHALATION Q4H PRN (Reason: shortness of breath or wheezing) Qty: 18 0RF No Action Myrbetriq 25 mg tablet extended release 24 hr 25 mg PO Q24H Qty: 30 12RF Rx Instructions: In addition to the Vesicare acetaminophen [Tylenol Arthritis Pain] 650 mg tablet extended release 650 mg PO Q8H PRN (Reason: pain) Qty: 90 0RF nitroglycerin 0.4 mg tablet, sublingual 0.4 mg SUBLINGUAL Q5M PRN (Reason: chest pain) Qty: 30 3RF Rx Instructions: do not exceed 3 doses per episode Fluarix Quad (PF) 60 mcg (15 mcg x 4)/0.5 mL syringe 0.5 ml IM ONCE Qty: 0.5 0RF dexamethasone 6 mg tablet 6 mg PO DAILY 7 Days Qty: 7 0RF diclofenac sodium 1 % gel 2 g topical QID PRN (Reason: pain (scale score 1-3)) Qty: 100 2RF metformin 1,000 mg tablet 1,000 mg PO DAILY Qty: 30 5RF nystatin 100,000 unit/mL suspension 1 ml PO Q6H Qty: 200 0RF Rx Instructions: swish and swallow lisinopril 5 mg tablet 5 mg PO DAILY Qty: 90 2RF solifenacin 10 mg tablet See Rx Instructions .ROUTE .COMPLEX Qty: 30 5RF Dose Instruction: TAKE 1 TABLET BY MOUTH EVERY DAY @0800 Rx Instructions: TAKE 1 TABLET BY MOUTH EVERY DAY @0800 montelukast 10 mg tablet See Rx Instructions .ROUTE .COMPLEX Qty: 30 5RF Dose Instruction: TAKE 1 TABLET BY MOUTH DAILY Rx Instructions: TAKE 1 TABLET BY MOUTH DAILY levothyroxine 100 mcg tablet See Rx Instructions .ROUTE .COMPLEX Qty: 30 0RF Dose Instruction: TAKE ONE TABLET BY MOUTH DAILY @ 7AM Rx Instructions: TAKE ONE TABLET BY MOUTH DAILY @ 7AM budesonide-formoterol [Symbicort] 160-4.5 mcg/actuation HFA aerosol inhaler See Rx Instructions .ROUTE .COMPLEX Qty: 10.2 5RF Dose Instruction: INHALE 2 INHALATIONS BY MOUTH TWICE DAILY Rx Instructions: INHALE 2 INHALATIONS BY MOUTH TWICE DAILY omeprazole 20 mg capsule,delayed release(DR/EC) See Rx Instructions .ROUTE .COMPLEX Qty: 60 5RF Dose Instruction: TAKE ONE CAPSULE BY MOUTH TWICE DAILY @8AM AND 9PM Rx Instructions: TAKE ONE CAPSULE BY MOUTH TWICE DAILY @8AM AND 9PM meloxicam 15 mg tablet See Rx Instructions .ROUTE .COMPLEX Qty: 30 5RF Dose Instruction: TAKE 1 TABLET BY MOUTH EVERY DAY (DO NOT TAKE WITH NAPROXEN) Rx Instructions: TAKE 1 TABLET BY MOUTH EVERY DAY (DO NOT TAKE WITH NAPROXEN) cefuroxime axetil 500 mg tablet 500 mg PO BID Qty: 28 2RF isosorbide mononitrate 30 mg tablet extended release 24 hr 30 mg PO DAILY Qty: 90 3RF simvastatin 10 mg tablet See Rx Instructions .ROUTE .COMPLEX Qty: 30 5RF Dose Instruction: TAKE ONE TABLET BY MOUTH AT BEDTIME @ 9PM Rx Instructions: TAKE ONE TABLET BY MOUTH AT BEDTIME @ 9PM ibandronate 150 mg tablet See Rx Instructions .ROUTE .COMPLEX Qty: 1 2RF Dose Instruction: TAKE ONE TABLET BY MOUTH ONCE A MONTH Rx Instructions: TAKE ONE TABLET BY MOUTH ONCE A MONTH duloxetine 60 mg capsule,delayed release(DR/EC) See Rx Instructions .ROUTE .COMPLEX Qty: 30 2RF Dose Instruction: TAKE ONE CAPSULE BY MOUTH AT 8 IN THE MORNING WITH A 20MG CAPSULE TO = 80 MG Rx Instructions: TAKE ONE CAPSULE BY MOUTH AT 8 IN THE MORNING WITH A 20MG CAPSULE TO = 80 MG duloxetine 20 mg capsule,delayed release(DR/EC) See Rx Instructions .ROUTE .COMPLEX Qty: 30 2RF Dose Instruction: TAKE 1 CAPSULE BY MOUTH ONCE DAILY WITH 60 MG TO = 80 MG total DAILY Rx Instructions: TAKE 1 CAPSULE BY MOUTH ONCE DAILY WITH 60 MG TO = 80 MG total DAILY Combivent Respimat 20-100 mcg/actuation mist See Rx Instructions .ROUTE .COMPLEX Qty: 4 0RF Dose Instruction: USE 1 INHALATION BY MOUTH TWICE DAILY NEEDED FOR COPD Rx Instructions: USE 1 INHALATION BY MOUTH TWICE DAILY NEEDED FOR COPD Lumigan 0.01 % drops 1 drp ophthalmic (eye) BEDTIME@2100 0RF Rx Instructions: USE IN BOTH EYES multivitamin [Multiple Vitamins] Tablet 1 tab PO DAILY 0RF Calcium 500 500 mg calcium (1,250 mg) Tablet 500 mg PO DAILY 0RF Discharge Orders: Discharge ED (Routine); Ordered 10/27/21 Ordered By: Caden Verduzco Referrals: SUSAN Lora, BRIA [Referring] - Patient Instructions: Opioid Safety Activity Restrictions/Additional Instructions: Follow-up with your primary care doctor within the next 2 to 3 days. Coding Level of Care Code ED Flight Agent for Janelleg Fwd Exam Comprehensive
[2021-10-27 13:09] VITALS: BP 146/75; O2SAT 95
[2021-10-27 13:55] LABS: Basophils % 0.7 %; Eosinophils # 0.1 10^3/uL (0.0-0.8); Hematocrit 39.6 % (37.0-47.0); Hemoglobin 12.7 g/dL (11.5-15.3); Lymphocytes # 2.1 10^3/uL (0.8-4.8); Lymphocytes % 35.4 %; Mean Corpuscular HGB Conc 32.1 g/dL (30.0-36.0); Mean Corpuscular Hemoglobin 26.2 pg (28.0-34.0); Mean Corpuscular Volume 81.8 fl (81-99); Mean Platelet Volume 10.4 fL (7.4-10.4); Monocytes # 0.4 10^3/uL (0.2-0.9); Monocytes % 6.3 %; Neutrophils # 3.29 10^3/uL (1.8-7.7); Neutrophils % 56.4 %; Nucleated Red Blood Cells % 0 %; Platelet Count 351 10^3/cmm (130-400); Red Blood Count 4.84 10^6/uL (4.1-5.3); Red Cell Distribution Width 14.4 % (12.1-15.1); White Blood Count 5.8 10^3/uL (4.0-10.0)
[2021-10-27 14:08] LABS: Alanine Aminotransferase 11 U/L (0-33); Albumin Level 4.2 g/dL (3.5-5.2); Alkaline Phosphatase 73 IU/L (35-105); Anion Gap 15.7 (5-19); Aspartate Amino Transferase 16 U/L (0-32); Blood Urea Nitrogen 16 mg/dL (8-23); Calcium 9.8 mg/dL (8.5-10.5); Carbon Dioxide 24 mmol/L (22-29); Chloride 102 mmol/L (98-107); Globulin 3.4 g/dL (1.3-4.6); Glucose 112 mg/dL (65-115); Lipase 7 U/L (13-60); Osmolality Calculated 288 mOsm/kg (285-295); Potassium 3.7 mmol/L (3.5-5.1); Sodium 138 mmol/L (136-145); Total Bilirubin 0.4 mg/dL (0.15-1.2); Total Protein 7.6 g/dL (6.6-8.7)
--- NOTE | 2021-10-27 14:14 | XRR_ITS ---
PROCEDURE INFORMATION: Exam: XR Chest Exam date and time: 10/27/2021 2:25 PM Age: 71 years old Clinical indication: Cough and dyspnea; Additional info: Dyspnea/cough TECHNIQUE: Imaging protocol: XR of the chest. Views: 1 view. COMPARISON: CR XR chest 1V portable [id number] 01/18/2021 5:23 PM FINDINGS: Lungs: Minor bibasilar scar. No consolidation. Pleural spaces: No pleural effusion. No pneumothorax. Heart/Mediastinum: No cardiomegaly. Bones/joints: Visualized osseous structures are intact. XR/XR chest 1V portable [id number] IMPRESSION: No acute findings.
[2021-10-27] MEDS: ondansetron 2 mg/ML SDV 2 mL 4 MG IVP (14:36)
[2021-10-27] MEDS: sodium chloride 0.9% 1,000 ML 999 ML IV (14:36)
[2021-10-27 14:39] VITALS: BP 146/76; O2SAT 97
[2021-10-27 15:40] LABS: Add Urine Microscopic? NO; Charge for UA Resulting for Rev
[2021-10-27 15:57] VITALS: BP 127/61; PULSE 74; RESP 20; O2SAT 95
[2021-10-27 15:58] LABS: Bilirubin Urine Neg (Negative); Blood Urine Neg (Negative); Glucose Urine UA Norm (Normal); Ketones Urine 1+ (Negative); Leukocyte Esterase Urine Negative (Negative); Nitrate Urine Negative (Negative); Protein Urine Neg (Negative); Specific Gravity, Urine 1.015 (1.005-1.030); Urine Appearance Clear (CLEAR); Urine Color Yellow (Yellow); Urobilinogen Urine Norm (Negative)
== END 2021-10-27 15:45 | disposition home or self-care (01) ==
PROVIDERS: Emergency Provider Family Medicine
DX: J18.9 Pneumonia, unspecified organism (principal); J44.9 Chronic obstructive pulmonary disease, unspecified; I10 Essential (primary) hypertension; E66.9 Obesity, unspecified; Z68.39 Body mass index [BMI] 39.0-39.9, adult; E11.9 Type 2 diabetes mellitus without complications; Z87.891 Personal history of nicotine dependence
CPT/HCPCS: 36415; 71045; 80053; 81003; 83690; 85025; 87040; 93005; 96361; 96374; 99284; J2405; J7030

== ENCOUNTER → 2021-11-06 09:44 | Outpatient (BNVA) | payer MEDICARE, SELFPAY | PROVIDERS: Visit Provider Nurse Practitioner Family | DX: J18.9 Pneumonia, unspecified organism (principal) | CPT/HCPCS: 71046 ==

== ENCOUNTER → 2021-12-01 11:00 | Outpatient (BNVA) | payer MEDICARE, SELFPAY | PROVIDERS: Visit Provider Nurse Practitioner Family | DX: D64.9 Anemia, unspecified (principal); E78.2 Mixed hyperlipidemia; E55.9 Vitamin D deficiency, unspecified; I10 Essential (primary) hypertension; E11.9 Type 2 diabetes mellitus without complications | CPT/HCPCS: 80053; 80061; 82306; 83036; 84443; 85025 ==

== ENCOUNTER → 2022-01-13 10:34 | Outpatient (BNVA) | payer MEDICARE, SELFPAY | PROVIDERS: PCP Nurse Practitioner; Visit Provider Nurse Practitioner | DX: Z79.899 Other long term (current) drug therapy (principal) | CPT/HCPCS: 82310 ==

== ENCOUNTER 2022-01-22 11:12 | Outpatient (CLI) | payer MEDICARE, SELFPAY ==
--- NOTE | 2022-01-22 11:19 | MM_ITS ---
WS: [id number] VIEWS: MLO and CC views both breasts. 3D digital tomosynthesis is also included in this exam. Comparison made with prior exam of 05/03/2012, 05/09/2013, 04/24/2015, 08/31/2016, 01/09/2018,. Findings: There was no sign of mass, architectural distortion or suspicious calcification in either breast. Sc attered fibroglandular densities MM/[place] [id number] Impression: BI-RADS: 2-Benign FOLLOW-UP: 1 Year Follow-up This mammogram was also analyzed by the Computer Aided Detection System R2 Imag e Gaming Cage Cashier.
== END 2022-01-22 11:13 | disposition home or self-care (01) ==
LOC: RAD 11:13
PROVIDERS: PCP Nurse Practitioner; Visit Provider Nurse Practitioner
DX: Z12.31 Encounter for screening mammogram for malignant neoplasm of breast (principal)
CPT/HCPCS: 77063; 77067

== ENCOUNTER 2022-03-25 11:01 | Outpatient (CLI) | payer MEDICARE, SELFPAY ==
--- NOTE | 2022-03-25 11:10 | XRR_ITS ---
PROCEDURE INFORMATION: Exam: XR Left Hip Exam date and time: 03/25/2022 11:23 AM Age: 72 years old Clinical indication: Pain and injury or trauma; Fall; Blunt trauma (contusions or hematomas); Hip; Other: Left groin area; Injury date: 3 weeks; Injury details: HX of thyroid cancer; Prior surgery; Surgery type: Left leg; Additional info: W19. Xxxa - unspecified fall, initial encounter TECHNIQUE: Imaging protocol: Radiologic exam of the Left hip. Views: 2 or 3 views hip with pelvis when performed. COMPARISON: CT abdomen pelvis w con* [id number] 01/18/2021 6:35 PM FINDINGS: Bones/joints: There is minimally displaced fracture of the left superior and inferior pubic rami. There is linear lucency and cortical irregularity along the superolateral aspect of the ischium, concerning for nondisplaced fracture extending into the medial wall of the acetabulum. No dislocation. Mesh repair clips project over the left inguinal region/symphysis pubis on the left. Soft tissues: Unremarkable. XR/XR hip LT 2-3V wo/w pel* [id number] IMPRESSION: 1. Minimally displaced fracture of the left superior and inferior pubic rami. 2. Imaging findings concerning for nondisplaced fracture of the medial acetabular wall.
== END 2022-03-25 11:02 | disposition home or self-care (01) ==
LOC: RAD 11:04
PROVIDERS: PCP Nurse Practitioner; Visit Provider Nurse Practitioner Family
DX: S32.592A Other specified fracture of left pubis, initial encounter for closed fracture (principal); W19.XXXA Unspecified fall, initial encounter
CPT/HCPCS: 73502

== ENCOUNTER → 2022-04-06 09:05 | Outpatient (BNVA) | payer MEDICARE, SELFPAY | PROVIDERS: PCP Nurse Practitioner; Visit Provider Physician Assistant | DX: S32.592A Other specified fracture of left pubis, initial encounter for closed fracture (principal); W19.XXXA Unspecified fall, initial encounter; M51.36 Other intervertebral disc degeneration, lumbar region; M43.16 Spondylolisthesis, lumbar region | CPT/HCPCS: 72100; 73502; 99203 ==

== ENCOUNTER → 2022-04-19 11:20 | Outpatient (BNVA) | payer MEDICARE, SELFPAY | PROVIDERS: PCP Nurse Practitioner; Visit Provider Nurse Practitioner | DX: R05.9 Cough, unspecified (principal); J01.90 Acute sinusitis, unspecified; B96.89 Other specified bacterial agents as the cause of diseases classified elsewhere | CPT/HCPCS: 87400 ==

== ENCOUNTER → 2022-05-18 09:54 | Outpatient (BNVA) | payer MEDICARE, SELFPAY | PROVIDERS: PCP Nurse Practitioner; Visit Provider Physician Assistant | DX: S32.599A Other specified fracture of unspecified pubis, initial encounter for closed fracture (principal) | CPT/HCPCS: 72170; 99213 ==

== ENCOUNTER 2022-06-15 06:00 | Outpatient (RCR) | payer MEDICARE, SELFPAY | END 2022-07-13 23:59 | disposition home or self-care (01) | LOC: WPT 06:00 | PROVIDERS: PCP Nurse Practitioner; Visit Provider Physician Assistant | DX: M51.36 Other intervertebral disc degeneration, lumbar region (principal) | CPT/HCPCS: 97110; 97112; 97161; 97530 ==

== ENCOUNTER → 2022-06-28 12:45 | Outpatient (BNVA) | payer MEDICARE, SELFPAY | PROVIDERS: PCP Nurse Practitioner; Visit Provider Urology | DX: Z87.440 Personal history of urinary (tract) infections (principal); N39.41 Urge incontinence | CPT/HCPCS: 51798; 81003; 99213 ==

== ENCOUNTER → 2022-06-29 10:16 | Outpatient (BNVA) | payer MEDICARE, SELFPAY | PROVIDERS: PCP Nurse Practitioner; Visit Provider Physician Assistant | DX: S32.592A Other specified fracture of left pubis, initial encounter for closed fracture (principal); T14.90XA Injury, unspecified, initial encounter; X58.XXXA Exposure to other specified factors, initial encounter | CPT/HCPCS: 72170; 99213 ==

== ENCOUNTER 2022-07-14 06:00 | Outpatient (RCR) | payer MEDICARE, SELFPAY | END 2022-08-10 23:59 | disposition home or self-care (01) | LOC: WPT 06:00 | PROVIDERS: PCP Nurse Practitioner; Visit Provider Physician Assistant | DX: M51.37 Other intervertebral disc degeneration, lumbosacral region (principal) | CPT/HCPCS: 97110; 97530 ==

== ENCOUNTER → 2023-01-05 11:16 | Outpatient (BNVA) | payer MEDICARE, SELFPAY | PROVIDERS: PCP Nurse Practitioner; Visit Provider Internal Medicine Cardiovascular Disease | DX: R07.9 Chest pain, unspecified (principal); R55 Syncope and collapse; E78.5 Hyperlipidemia, unspecified; I49.8 Other specified cardiac arrhythmias; J45.909 Unspecified asthma, uncomplicated | CPT/HCPCS: 80053; 80061; 84443; 93005; 99214 ==

== ENCOUNTER → 2023-02-28 16:35 | Outpatient (BNVA) | payer MEDICARE, SELFPAY | PROVIDERS: PCP Nurse Practitioner; Visit Provider Nurse Practitioner Family | DX: M19.011 Primary osteoarthritis, right shoulder (principal); M19.022 Primary osteoarthritis, left elbow | CPT/HCPCS: 73030; 73080 ==

== ENCOUNTER 2023-03-29 12:25 | Outpatient (CLI) | payer MEDICARE, SELFPAY ==
--- NOTE | 2023-03-29 12:34 | XR_ITS ---
WS: [id number] SCREENING DEXA SCAN [facility] CLINICAL INFORMATION: E55.9 - Vitamin D deficiency, unspecified COMPARISON: 2018 FINDINGS: The L1-L4 bone mineral density measures 1.21. This corresponds to a T score score of 0.0 and Z score of 0.6. Left femoral neck bone mineral density measures 0.761 g/cm2. This corresponds to a T score of -2.0 an d Z score of -1.2. Right femoral neck bone mineral density measures 0.545 g/cm2. This corresponds to a T score -3.7of an d Z score of -2.9. Mean femoral neck bone mineral density measures 0.653 g/cm2. This corresponds to a T score of -2.8 an d Z score of -2.0. IMPRESSION: Normal bone mineralization lumbar spine. Osteoporosis femoral necks. Patient's FRAX calculated 10 year probability for major osteoporotic fracture is 32.4% and osteoporot ic hip fracture is 17.8%. Lumbar spine bone mineral density increased 2.8% Femoral necks bone mineral density decreased -11.8%
--- NOTE | 2023-03-29 13:00 | MR_ITS ---
WS: [id number] MRI RIGHT KNEE HISTORY: M25.561 - Pain in right knee COMPARISON: None available. Quality this examination is limited. Anterior cruciate ligament: Not identified. Torn ACL. Posterior cruciate ligament: Buckling of the PCL. Medial collateral ligament: There is edema surrounding the MCL but no tear. MCL is being displaced fr om the joint line by an extruded meniscus and osteophytes. Posterior lateral corner structures: Increased T2 signal in the fibular collateral ligament. Medial menisci: Extruded meniscus from the joint line. Neither anterior nor posterior horn are normal . Lateral meniscus: Abnormal shape and signal. Small caliber anterior and posterior horns with increase d signal throughout. Extensor mechanism: Distal quadriceps tendon and patellar tendons are intact. Fluid and soft tissue: Small joint effusion. Large Green's cyst. Lobulated cystic mass along the medi al joint line measures 2.2 x 0.7 cm. Suspect this is probably a meniscal cyst or ganglion. Osseous and articular structures: Patellofemoral compartment: Moderate narrowing patellofemoral joint space. Very slight lateral sublux ation of the patella. Complete loss of cartilage along the medial facet. Moderate loss of cartilage a long the lateral facet. Medial compartment: Severe narrowing of the joint space with loss of cartilage. Marginal osteophytes. Numerous small subchondral cystic changes are noted predominantly along the posterior tibial plateau . Lateral compartment: Moderate narrowing the lateral compartment. Moderate chondromalacia. IMPRESSION: 1. Severe tricompartment osteoarthritis. Severe medial compartment osteoarthritis with lateral sublux ation of the tibial plateau with respect to the femoral condyles. 2. Complete tear ACL. 3. Obliteration of the menisci in the medial compartment with abnormal signal throughout the meniscus in the lateral compartment. 4. Mild MCL sprain with displacement of the MCL by an extruded meniscus and osteophytes. 5. Small joint effusion, large Green's cyst. 6. Lobulated cystic mass on the medial joint line. Meniscal cyst versus ganglion.
--- NOTE | 2023-03-29 13:15 | MM_ITS ---
WS: [id number] BILATERAL 3D TOMOSYNTHESIS DIGITAL SCREENING MAMMOGRAPHY WITH CAD CLINICAL INFORMATION: Z12.39 - Encounter for other screening for malignant neop... HISTORY: Screening mammogram. No current complaints. COMPARISON: 2021 TECHNIQUE: Bilateral CC and MLO views. FINDINGS: Scattered fibroglandular densities bilaterally. No suspicious focal mass, asymmetry, calcifications, or architectural distortion. No evidence of malignancy. Vascular calcification. IMPRESSION: MM/[place] [id number] BI-RADS: 2-Benign FOLLOW UP: 1 Year Follow-up Recommend return to annual screening mammography.
--- NOTE | 2023-03-29 13:45 | MR_ITS ---
WS: [id number] MRI LEFT SHOULDER HISTORY: M25.512 - Pain in left shoulder COMPARISON: Radiograph 02/28/2023 TECHNIQUE: Multiplanar sequences of the shoulder joint are submitted. Quality of this examination is compromised by motion artifact. Mild AC joint arthritis with encroachment upon the supraspinatus myotendinous insertion. There is a s mall amount of fluid in the subacromial subdeltoid bursa. There is a moderate size osteophyte measuri ng 5 mm encroaching upon the supraspinatus tendon over the humeral head. There is significant subacro mial impingement. No os acromion. Biceps tendon is in normal position but there is a large amount of fluid within the biceps tendon sheath along with loose bodies. There are at least 2 loose bodies iden tified with the largest measuring 6.5 mm. High riding humeral head. Marked narrowing of the glenohumeral joint. Loss of cartilage involving the glenoid and the humeral head. There is mild remodeling of the glenoid. There is increased T2 signal and a thin supraspinatus tendon. Increased signal in the distal supraspi natus tendon. Mild thickening of the distal supraspinatus tendon distal to the subacromial impingemen t. No tear is confirmed but there is tendinopathy. Mild atrophy of the supraspinatus muscles. No [place]. Moderate-sized joint effusion surrounding the humeral head Small loose bodies in the joint effusion. The largest loose body measures 16 x 15 mm and is within th e axillary pouch. Labrum is nearly indistinguishable from the adjacent bone. No identifiable normal l abrum. IMPRESSION: 1. The study is compromised by motion artifact on multiple sequences. 2. Marked subacromial impingement upon the supraspinatus tendon. Supraspinatus tendon is thinned and there is distal tendinopathy. No tear is identified. 3. Marked biceps tenosynovitis with loose bodies in the fluid. 4. Glenohumeral joint effusion with large loose bodies. The largest loose body in the axillary pouch measures 16 x 15 mm. 5. High riding humeral head with loss of cartilage involving the humeral head and the glenoid. Loss o f the normal labrum from advanced degenerative changes. 6. Mild atrophy of the rotator cuff muscles. No full-thickness tendon tears are identified.
== END 2023-03-29 12:26 | disposition home or self-care (01) ==
LOC: RAD 12:26
PROVIDERS: PCP Nurse Practitioner; Visit Provider Nurse Practitioner Family
DX: Z12.31 Encounter for screening mammogram for malignant neoplasm of breast (principal); Z13.820 Encounter for screening for osteoporosis; E55.9 Vitamin D deficiency, unspecified; M81.0 Age-related osteoporosis without current pathological fracture; M17.11 Unilateral primary osteoarthritis, right knee; S83.511A Sprain of anterior cruciate ligament of right knee, initial encounter; S83.411A Sprain of medial collateral ligament of right knee, initial encounter; W19.XXXA Unspecified fall, initial encounter; Y92.009 Unspecified place in unspecified non-institutional (private) residence as the place of occurrence of the external cause; M25.461 Effusion, right knee; M71.21 Synovial cyst of popliteal space [Baker], right knee; M25.512 Pain in left shoulder; M67.912 Unspecified disorder of synovium and tendon, left shoulder; M65.812 Other synovitis and tenosynovitis, left shoulder; M24.012 Loose body in left shoulder; M25.412 Effusion, left shoulder; M25.562 Pain in left knee
CPT/HCPCS: 73221; 73721; 77063; 77067; 77080

== ENCOUNTER → 2023-04-13 15:16 | Outpatient (BNVA) | payer MEDICARE, SELFPAY | PROVIDERS: PCP Nurse Practitioner; Visit Provider Nurse Practitioner Family | DX: E03.9 Hypothyroidism, unspecified (principal); Z98.890 Other specified postprocedural states; E78.2 Mixed hyperlipidemia; E55.9 Vitamin D deficiency, unspecified | CPT/HCPCS: 80053; 80061; 82306; 84443; 85025 ==

== ENCOUNTER → 2023-04-25 15:49 | Outpatient (BNVA) | payer MEDICARE, SELFPAY | PROVIDERS: PCP Nurse Practitioner; Visit Provider Nurse Practitioner Family | DX: N39.0 Urinary tract infection, site not specified (principal); R71.8 Other abnormality of red blood cells; R53.83 Other fatigue | CPT/HCPCS: 81000; 83540 ==

== ENCOUNTER → 2023-05-02 13:45 | Outpatient (BNVA) | payer MEDICARE, SELFPAY ==
[2023-11-02 13:57] VITALS: BP 137/79; BMI 42.2
== END ==
PROVIDERS: PCP Nurse Practitioner; Visit Provider Nurse Practitioner Family
DX: Z53.9 Procedure and treatment not carried out, unspecified reason (principal)
CPT/HCPCS: 87400; 87426

== ENCOUNTER → 2023-05-02 13:45 | Outpatient (BNVA) | payer MEDICARE, SELFPAY | PROVIDERS: PCP Nurse Practitioner; Visit Provider Nurse Practitioner Family | DX: M43.16 Spondylolisthesis, lumbar region (principal); L30.9 Dermatitis, unspecified; J06.9 Acute upper respiratory infection, unspecified; R19.7 Diarrhea, unspecified; Z79.899 Other long term (current) drug therapy | CPT/HCPCS: 87400; 87426 ==

== ENCOUNTER → 2023-05-04 11:28 | Outpatient (BNVA) | payer MEDICARE, SELFPAY | PROVIDERS: PCP Nurse Practitioner; Visit Provider Nurse Practitioner Family | DX: R19.7 Diarrhea, unspecified (principal) | CPT/HCPCS: 87177; 87209; 87328; 87329; 87493 ==

== ENCOUNTER 2023-05-06 17:06 | Emergency (ER) | payer MEDICARE, SELFPAY ==
[2023-05-06 17:22] VITALS: BP 138/82; PULSE 83; RESP 18; TEMP 36.7; O2SAT 96
[2023-05-06 18:31] LABS: Basophils # 0.1 10^3/uL (0.0-0.1); Basophils % 0.7 %; Eosinophils # 0.1 10^3/uL (0.0-0.8); Eosinophils % 1.7 %; Hematocrit 40.5 % (36-47); Lymphocytes # 1.8 10^3/uL (0.8-4.8); Lymphocytes % 26.1 %; Mean Corpuscular HGB Conc 32.1 g/dL (30-55); Mean Corpuscular Hemoglobin 26.6 pg (27-33); Mean Platelet Volume 9.2 fL (7.4-10.4); Monocytes # 0.6 10^3/uL (0.2-0.9); Monocytes % 9.1 %; Neutrophils # 4.34 10^3/uL (1.8-7.7); Neutrophils % 62.1 %; Nucleated Red Blood Cells % 0 %; Platelet Count 319 10^3/cmm (157-399); Red Blood Count 4.88 10^6/uL (3.85-5.65); Red Cell Distribution Width 14.8 % (12.1-15.1)
[2023-05-06 18:47] LABS: Alanine Aminotransferase 18 U/L (0-33); Albumin Level 4.1 g/dL (3.5-5.2); Alkaline Phosphatase 57 U/L (35-105); Anion Gap 11.9 (5-19); Aspartate Amino Transferase 18 U/L (0-32); Blood Urea Nitrogen 10 mg/dL (8-23); Calcium 9.6 mg/dL (8.5-10.5); Carbon Dioxide 27 mmol/L (22-29); Chloride 104 mmol/L (98-107); Globulin 2.8 g/dL (1.3-4.6); Glucose 104 mg/dL (65-115); Lipase 12 U/L (13-60); Osmolality Calculated 287 mOsm/kg (285-295); Potassium 3.9 mmol/L (3.5-5.1); Sodium 139 mmol/L (136-145); Total Bilirubin 0.4 mg/dL (0.15-1.2); Total Protein 6.9 g/dL (6.6-8.7)
--- NOTE | 2023-05-06 19:02 | CTR_ITS ---
PROCEDURE INFORMATION: Exam: CT Abdomen And Pelvis With Contrast Exam date and time: 05/06/2023 7:27 PM Age: 73 years old Clinical indication: Abdominal pain; Localized; Prior surgery; Surgery date: 6+ months; Surgery type: Gb. Hernia repair. Tubal. Patient HX: Lower abd pain with nausea and diarrhea. TECHNIQUE: Imaging protocol: Computed tomography of the abdomen and pelvis with contrast. Radiation optimization: All CT scans at this facility use at least one of these dose optimization techniques: automated exposure control; mA and/or kV adjustment per patient size (includes targeted exams where dose is matched to clinical indication); or iterative reconstruction. Contrast material: OMNI 350; Contrast volume: 100 ml; Contrast route: INTRAVENOUS (IV); REPORTING DATA: Count of CT and Cardiac NM exams in prior 12 months: This patient has received 0 known CTs and 0 known cardiac nuclear medicine studies in the 12 months prior to the current study. COMPARISON: CT abdomen pelvis w con* [id number] 01/18/2021 6:35 PM RADIATION DOSE METRICS: Total DLP (mGy-cm): 936.61 FINDINGS: Liver: Normal. No mass. Gallbladder and bile ducts: The gallbladder is absent. Pancreas: Normal. No ductal dilation. Spleen: Normal. No splenomegaly. Adrenal glands: Normal. No mass. Kidneys and ureters: Normal. No hydronephrosis. Stomach and bowel: Unremarkable. No obstruction. No mucosal thickening. Appendix: The appendix is not visualized but there are no secondary signs of acute appendicitis. . Intraperitoneal space: Unremarkable. No free air. No significant fluid collection. Vasculature: Unremarkable. No abdominal aortic aneurysm. Lymph nodes: Unremarkable. No enlarged lymph nodes. Urinary bladder: Unremarkable as visualized. Reproductive: Unremarkable as visualized. Bones/joints: Old nonunion fracture of the left superior and inferior pubic rami. Grade 1 anterolisthesis of L4 on L5. Soft tissues: Unremarkable. CT/CT abdomen pelvis w con* [id number] IMPRESSION: 1. No bowel obstruction or inflammatory process associated with the bowel. 2. No free air or significant free fluid in the abdomen or pelvis. 3. The appendix is not visualized but there are no secondary signs of acute appendicitis.
--- NOTE | 2023-05-06 19:02 | XRR_ITS ---
PROCEDURE INFORMATION: Exam: XR Chest Exam date and time: 05/06/2023 7:27 PM Age: 73 years old Clinical indication: Cough; Prior surgery; Surgery date: 6+ months; Surgery type: Thyroidectomy; Additional info: Cp TECHNIQUE: Imaging protocol: Radiologic exam of the chest. Views: 1 view. COMPARISON: CR XR chest 2V* [id number] 11/06/2021 9:43 AM FINDINGS: Lungs: No focal consolidation. Pleural spaces: Unremarkable. No pleural effusion. No pneumothorax. Heart/Mediastinum: Unremarkable. No cardiomegaly. Bones/joints: Intra-articular loose body in the left shoulder joint measuring up to 25 mm. Moderate to severe degenerative changes in the left glenohumeral joint. XR/XR chest 1V portable [id number] IMPRESSION: No focal consolidation.
--- NOTE | 2023-05-06 19:02 | ECG_ITS ---
[facility] Test Date: 2023-05-06 Pat Name: Lenora Aviles Department: Room: Gender: Female [employer] Assessment: : 1950 Requested By: Jacob Marshall Order Number: [id number] Leslie MD: Aby Oh M.D. Measurements Intervals [place] Rate: 87 P: 76 MI: 157 QRS: -11 QRSD: 92 T: 47 QT: 352 QTc: 425 Interpretive Statements SINUS RHYTHM WITH OCCASIONAL VENTRICULAR PREMATURE COMPLEXES POSSIBLE INFERIOR MYOCARDIAL INFARCTION , PROBABLY OLD [30 ms Q WAVE IN II/aVF] Compared to ECG 01/05/2023 11:30:09 Ventricular premature complex(es) now present Electronically Signed On 05-07-2023 13:52:00 PROMOTIONAL MARKETING ANALYST by Aby Oh M.D. [email or web address]
[2023-05-06] MEDS: LORazepam 2 mg/mL INJ 1 mL 0.5 MG IVP (19:18)
[2023-05-06] MEDS: sodium chloride 0.9% 1,000 ML 999 ML IV (19:19)
[2023-05-06 19:23] VITALS: BP 149/89; PULSE 101; RESP 18; O2SAT 96
--- NOTE | 2023-05-06 19:30 | ED_ITS ---
HPI - Abdominal Pain General: Chief Complaint: Abdominal Pain Stated Complaint: reported diarrhea,anxiety, chest pain Time Seen by Provider: 05/06/23 18:52 Source: patient Mode of arrival: ambulatory Limitations: no limitations History of Present Illness: 73-year-old female states that she has had severe anxiety since her 3 weeks ago. She states that over the last 2 weeks she been having diarrhea along with abdominal pain she is seen by her PCP had stool cultures were negative C. difficile was negative. She did continue to have burning pains in her abdomen denies any fevers denies any worsening proving factors. Associated Symptoms: Reports diarrhea and nausea; Denies chills, fever(s) and vomiting Review of Systems Const: Denies: fever(s), chills, body aches or change in appetite Eyes: Denies: blurry vision or eye discomfort ENMT: Denies: throat pain or dental pain Card: Denies: chest pain Resp: Denies: dyspnea GI: Reports: abdominal pain, nausea and diarrhea; Denies: vomiting Musc: Denies: neck pain or back pain Skin/Breast: Denies: rash Neuro: Denies: headache(s) PFSH ED PFSH: Medical History Acute bacterial sinusitis Acute bacterial sinusitis Allergic rhinitis Anemia Anxiety Arthritis of right acromioclavicular joint Arthritis pain Atrial fibrillation Bilateral otitis media Cardiac arrhythmia Chest pain at rest EKG from 05/01/2020 The EKG showed normal sinus rhythm with possible old inferior wall DC and poor R wave progression. Some nonspecific T wave changes. COPD (chronic obstructive pulmonary disease) Depression Dermatitis Diabetes Diarrhea Difficulty in swallowing Environmental and seasonal allergies Esophagitis Fatigue H/O malignant neoplasm of thyroid Hypertension Hypotension Influenza vaccine needed Injury of knee, right Left thigh pain Lower respiratory infection Mixed hyperlipidemia Morbid obesity Obesity Osteoarthritis (arthritis due to wear and tear of joints) Pain of left knee after injury Patellar tendon rupture Postsurgical hypothyroidism Recurrent UTI Right knee pain Rotator cuff tear arthropathy of left shoulder Sinusitis, acute SOB (shortness of breath) Stress incontinence Tear of right rotator cuff Upper respiratory infection Urgency incontinence URI, acute Vitamin D deficiency Weight loss Surgical History H/O colonoscopy H/O esophagogastroduodenoscopy with dilation H/O hernia repair with mesh H/O tubal ligation Hx of cholecystectomy S/P thyroidectomy Status post knee replacement Family History Mother , AT AGE 75 CAD (coronary artery disease) Hypertension Father , AT AGE 68 CAD (coronary artery disease) Hypertension Denies family history of Diabetes Anesthesia complication Bleeding disorder Cancer Social History Smoking and tobacco/nicotine status: former use of tobacco/nicotine Quit status (tobacco/nicotine): has quit using Second hand smoke exposure: No Alcohol intake: never Substance/Drug Use: never Marital status: Current occupational status: employed and unemployed Physical Exam Const: COMMON NORMALS: no acute distress, patient oriented x3 and healthy ap pearing HENMT: COMMON NORMALS: normocephalic and atraumatic HEAD & SCALP: normocephalic and atraumatic Eye: COMMON NORMALS: Equal, round and reactive pupils present and EOMs intact bilaterally PUPIL: Yes Equal, round and reactive pupils present Neck/C-Spine: COMMON NORMALS: full ROM and supple Chest: COMMONS NORMALS: normal inspection of the chest and normal palpation of entire chest wall Resp: COMMON NORMALS: normal respiratory effort, No retractions, No use of accessory muscles and clear to auscultation bilaterally AUSCULTATION: clear to auscultation bilaterally Cardio: COMMON NORMALS: regular rate, regular rhythm and No murmurs present (Cardio) RATE: regular rate RHYTHM: regular rhythm GI: COMMON NORMALS: Normal to inspection, nondistended, normoactive bowel sounds present, Soft to palpation, non-tender and no masses PALPATION: Yes Soft to palpation Extremity: COMMON NORMALS: normal to inspection and full ROM Neuro: COMMON NORMALS: patient oriented x3, moves all extremities and no focal motor deficits Psych: COMMON NORMALS: mental status grossly normal, Normal thought process pr esent and cooperative THOUGHT PROCESS: Normal thought process present Skin: COMMON NORMALS: no rashes or lesions noted and no wounds GENERAL SKIN EXAM: no rashes or lesions noted Course Vital Signs: Vital signs: Vital Signs Temperature 98.0 F 05/06/23 17:22 Pulse Rate 101 H 05/06/23 19:23 Respiratory Rate 18 05/06/23 19:23 Blood Pressure 149/89 05/06/23 19:23 Pulse Oximetry 96 05/06/23 19:23 Oxygen Delivery Me thod Room Air 05/06/23 19:23 MDM - Abdominal Pain Medical Decision Making Patient presents with abdominal pain she had diarrhea as well her C. difficile and stool culture she had had a few days ago was negative CT scan Blood work here is all normal she is stable for discharge she is follow-up with PCP next we ek and return if worsening she understands agrees to plan. Medical Records I reviewed the patient's medical records. Lab Data I reviewed the patient's lab results. 05/06/23 18:21 05/06/23 18:21 Labs/Radiology: Radiology Impressions Abdomen/Pelvis CT 05/06/23 19:02 IMPRESSION: 1. No bowel obstruction or inflammatory process associated with the bowel. 2. No free air or significant free fluid in the abdomen or pelvis. 3. The appendix is not visualized but there are no secondary signs of acute appendicitis. Chest X-Ray 05/06/23 19:02 IMPRESSION: No focal consolidation. Laboratory Results WBC 7.00 10^3/uL (3.29-11.43) 05/06/23 18:21 RBC 4.88 10^6/uL (3.85-5.65) 05/06/23 18:21 Hgb 13.00 g/dL (11.27-16.99) 05/06/23 18:21 Hct 40.5 % (36-47) 05/06/23 18:21 MCV 83.0 fl (85-98) L 05/06/23 18:21 MCH 26.6 pg (27-33) L 05/06/23 18:21 MCHC 32.1 g/dL (30-55) 05/06/23 18:21 RDW 14.8 % (12.1-15.1) 05/06/23 18:21 Plt Count 319 10^3/cmm (157-399) 05/06/23 18:21 MPV 9.2 fL (7.4-10.4) 05/06/23 18:21 Neut % (Auto) 62.1 % 05/06/23 18:21 Lymph % (Auto) 26.1 % 05/06/23 18:21 [place] % (Auto) 9.1 % 05/06/23 18:21 Eos % (Auto) 1.7 % 05/06/23 18:21 Baso % (Auto) 0.7 % 05/06/23 18:21 Neut # (Auto) 4.34 10^3/uL (1.8-7.7) 05/06/23 18:21 Lymph # (Auto) 1.8 10^3/uL (0.8-4.8) 05/06/23 18:21 [place] # (Auto) 0.6 10^3/uL (0.2-0.9) 05/06/23 18:21 Eos # (Auto) 0.1 10^3/uL (0.0-0.8) 05/06/23 18:21 Baso # (Auto) 0.1 10^3/uL (0.0-0.1) 05/06/23 18:21 Nucleated RBC % (auto) 0 % 05/06/23 18:21 Nucleated RBCs # 0.0 /100WBC 05/06/23 18:21 Sodium 139 mmol/L (136-145) 05/06/23 18:21 Potassium 3.9 mmol/L (3.5-5.1) 05/06/23 18:21 Chloride 104 mmol/L (98-107) 05/06/23 18:21 Carbon Dioxide 27 mmol/L (22-29) 05/06/23 18:21 Anion Gap 11.9 (5-19) 05/06/23 18:21 BUN 10 mg/dL (8-23) 05/06/23 18:21 Creatinine 0.6 mg/dL (0.5-0.9) 05/06/23 18:21 GFR Calculation Not Reportable 05/06/23 18:21 Glucose 104 mg/dL (65-115) 05/06/23 18:21 Calculated Osmolality 287 mOsm/kg (285-295) 05/06/23 18:21 Calcium 9.6 mg/dL (8.5-10.5) 05/06/23 18:21 Total Bilirubin 0.4 mg/dL (0.15-1.2) 05/06/23 18:21 AST 18 U/L (0-32) 05/06/23 18:21 ALT 18 U/L (0-33) 05/06/23 18:21 Alkaline Phosphatase 57 U/L (35-105) 05/06/23 18:21 Total Protein 6.9 g/dL (6.6-8.7) 05/06/23 18:21 Albumin 4.1 g/dL (3.5-5.2) 05/06/23 18:21 Globulin 2.8 g/dL (1.3-4.6) 05/06/23 18:21 Lipase 12 U/L (13-60) L 05/06/23 18:21 Urine Color Yellow (Yellow) 05/06/23 20:00 Urine Appearance Hazy (CLEAR) A 05/06/23 20:00 Urine pH 7 (5-7) 05/06/23 20:00 Ur Specific [place] 1.005 (1.005-1.030) 05/06/23 20:00 Urine Protein Neg (Negative) 05/06/23 20:00 Urine Glucose (UA) Norm (Normal) 05/06/23 20:00 Urine Ketones 1+ (Negative) H 05/06/23 20:00 Urine Blood Neg (Negative) 05/06/23 20:00 Urine Nitrate Negative (Negative) 05/06/23 20:00 Urine Bilirubin Neg (Negative) 05/06/23 20:00 Urine Urobilinogen Neg mg/dL (Negative) 05/06/23 20:00 Ur Leukocyte Esterase Trace (Negative) H 05/06/23 20:00 Urine RBC Rare /hpf (0-2) 05/06/23 20:00 Urine WBC 0-4 /hpf (0-5) H 05/06/23 20:00 Ur Squamous Epith Cells 0-4 /hpf (0-5) H 05/06/23 20:00 Amorphous Sediment Not Reportable 05/06/23 20:00 Urine Bacteria 1+ /hpf (NONE) H 05/06/23 20:00 All radiology interpretation(s) finalized by discharge EKG Data EKG 1: I personally reviewed and interpreted this EKG as follows: EKG interpretation date: 05/06/23 EKG interpretation time: 19:12 Interpretation: nsr hr [address] or t wave abnormalities qrs 96 qtc 372 Discharge Plan Discharge Patient Disposition: Home Clinical Impression: Abdominal pain Condition: Stable Prescriptions: New ondansetron 4 mg tablet,disintegrating 4 mg PO Q6H PRN (Reason: nausea and vomiting) Qty: 14 0RF No Action Myrbetriq 25 mg tablet extended release 24 hr See Rx Instructions .ROUTE .COMPLEX Qty: 30 12RF Dose Instruction: TAKE 1 TABLET BY MOUTH EVERY DAY; IN ADDITION TO THE [facility] Rx Instructions: TAKE 1 TABLET BY MOUTH EVERY DAY; IN ADDITION TO THE [facility] buspirone 10 mg tablet 10 mg PO BID Qty: 60 0RF sertraline 25 mg tablet 25 mg PO DAILY Qty: 30 0RF meloxicam 15 mg tablet See Rx Instructions .ROUTE .COMPLEX 30 Days Qty: 30 2RF Dose Instruction: TAKE 1 TABLET BY MOUTH EVERY DAY (DO NOT TAKE WITH NAPROXEN) Rx Instructions: TAKE 1 TABLET BY MOUTH EVERY DAY (DO NOT TAKE WITH NAPROXEN) clotrimazole-betamethasone 1-0.05 % cream 1 applic topical BID 14 Days Qty: 45 0RF calcium carbonate-vitamin D3 [Os-Dagoberto 500 + D3] 500 mg-15 mcg (600 unit) tablet 1 tab PO BID Qty: 60 5RF amoxicillin 875 mg tablet 875 mg PO BID 10 Days Qty: 20 0RF albuterol sulfate 2.5 mg /3 mL (0.083 %) solution for nebulization 2.5 mg inhalation QID PRN (Reason: shortness of breath or wheezing) Qty: 75 0RF albuterol sulfate 90 mcg/actuation HFA aerosol inhaler 2 inh INHALATION Q4H PRN (Reason: shortness of breath or wheezing) Qty: 18 0RF alendronate [Fosamax] 70 mg tablet 70 mg PO .weekly 28 Days Qty: 4 5RF Rx Instructions: stop BONIVA budesonide-formoterol [Symbicort] 160-4.5 mcg/actuation HFA aerosol inhaler See Rx Instructions .ROUTE .COMPLEX Qty: 10.2 2RF Dose Instruction: USE 2 INHALATIONS BY MOUTH TWICE DAILY Rx Instructions: USE 2 INHALATIONS BY MOUTH TWICE DAILY Combivent Respimat 20-100 mcg/actuation mist See Rx Instructions .ROUTE .COMPLEX Qty: 4 2RF Dose Instruction: USE 1 INHALATION BY MOUTH TWICE DAILY NEEDED FOR COPD Rx Instructions: USE 1 INHALATION BY MOUTH TWICE DAILY NEEDED FOR COPD omeprazole 20 mg capsule,delayed release(DR/EC) See Rx Instructions .ROUTE .COMPLEX Qty: 60 2RF Dose Instruction: TAKE ONE CAPSULE BY MOUTH TWICE DAILY AT 8 IN THE MORNING AND 9 IN THE EVENING Rx Instructions: TAKE ONE CAPSULE BY MOUTH TWICE DAILY AT 8 IN THE MORNING AND 9 IN THE EVENING levothyroxine 75 mcg tablet See Rx Instructions .ROUTE .COMPLEX Qty: 30 1RF Dose Instruction: TAKE 1 TABLET BY MOUTH EVERY DAY Rx Instructions: TAKE 1 TABLET BY MOUTH EVERY DAY Lumigan 0.01 % drops 1 drp ophthalmic (eye) BEDTIME@2100 Rx Instructions: USE IN BOTH EYES Discharge Orders: Discharge ED (Routine); Ordered 05/06/23 Ordered By: Jacob Marshall Referrals: Corie Fox FNP [Primary Care Provider] - 1-3 days Discharge Diet: Advance as tolerated Discharge Activity: Resume usual activity Patient Instructions: Abdominal Pain (ED) Coding Level of Care Code ED [employer] for Afia Stafford
[2023-05-06] MEDS: iohexol 350 mg/mL 500 mL Btl (per mL) IV (19:32)
[2023-05-06 20:47] LABS: Add Urine Culture? No; Add Urine Microscopic? YES; Bacteria Urine 1+ /hpf; Bilirubin Urine Neg (Negative); Blood Urine Neg (Negative); Glucose Urine UA Norm (Normal); Ketones Urine 1+ (Negative); Leukocyte Esterase Urine Trace (Negative); Nitrate Urine Negative (Negative); Protein Urine Neg (Negative); RBC Urine RARE /hpf (0-2); Specific Gravity, Urine 1.005 (1.005-1.030); Squamous Epithelial Cell Urine 0-4 /hpf (0-5); Urine Appearance Hazy (CLEAR); Urine Color Yellow (Yellow); Urobilinogen Urine Neg (Negative); WBC Urine 0-4 /hpf (0-5); pH Urine 7 (5-7)
[2023-05-06 21:22] VITALS: BP 171/89; PULSE 81; RESP 20; O2SAT 98
== END 2023-05-06 21:22 | disposition home or self-care (01) ==
PROVIDERS: Emergency Provider Emergency Medicine; PCP Nurse Practitioner
DX: R10.9 Unspecified abdominal pain (principal); Z87.891 Personal history of nicotine dependence; J44.9 Chronic obstructive pulmonary disease, unspecified; E11.9 Type 2 diabetes mellitus without complications; Z85.850 Personal history of malignant neoplasm of thyroid; I10 Essential (primary) hypertension; E78.2 Mixed hyperlipidemia
CPT/HCPCS: 36415; 71045; 74177; 80053; 81001; 83690; 85025; 93005; 93010; 96361; 96374; 99285; J2060; J7030; Q9967

== ENCOUNTER → 2023-05-13 08:52 | Outpatient (BNVA) | payer MEDICARE, SELFPAY | PROVIDERS: PCP Nurse Practitioner; Referring Provider Nurse Practitioner Family; Visit Provider Surgery | DX: R10.9 Unspecified abdominal pain; R19.7 Diarrhea, unspecified | CPT/HCPCS: 99204; 99214 ==

== ENCOUNTER 2023-06-09 08:13 | Day surgery (SDC) | payer MEDICARE, SELFPAY ==
--- NOTE | 2023-06-09 06:31 | W.PM.OPSUD ---
Surgery/Procedure H&P Update DATE OF PROCEDURE: June 09, 2023 DATE H&P PERFORMED: 05/13/23 H&P UPDATE INFORMATION: I have reviewed H&P completed within last 30 days, I have examined patient prior to procedure, No changes to prior documentation and H&P is in [facility] EMR on date indicated PLANNED PROCEDURE: Operation Date: 06/09/23 09:25 Proposed Procedures p 12820 colon G0121 screen colon A risk Z12.11(Not Applicable) - Boogie Amos MD
[2023-06-09] MEDS: sodium chloride 0.9% 1,000 ML 30 ML IV (08:44)
[2023-06-09 08:45] VITALS: BP 128/75; PULSE 112; RESP 18; TEMP 36.1; O2SAT 98; BMI 40.7
--- NOTE | 2023-06-09 08:54 | ANES.PREANE2 ---
Pre-Anesthetic Assessment Height/Weight: Height 1.65 m Weight 111.13 kg Temp Pulse Resp BP Pulse Ox O2 Del Method 97.0 F L 112 H 18 128/75 98 Room Air 06/09/23 08:45 06/09/23 08:45 06/09/23 08:45 06/09/23 08:45 06/09/23 08:45 06/09/23 08:45 Preop Diagnosis: screening Operation Date: 06/09/23 09:25 Proposed Procedures p 22503 colon G0121 screen colon A risk Z12.11(Not Applicable) - Boogie Amos MD Was Beta Joelel taken within 24 hours: N/A Was Clonidine taken within 24 hours: N/A Last intake: Intake Last Liquid Date 06/08/23 Last Liquid Time 21:00 Last Solid Date 06/07/23 Last Solid Time 19:00 Social No alcohol and No tobacco Exam alert and oriented x 3 Airway Submandibular: within normal limits Cervical ROM: within normal limits Mallampati: Class I Dentition: false History/ROS No significant history except as noted Pulmonary Asthma (rescue inhaler used two days ago) CV/HEM Arrythmia (metoprolol used for irreg HR- pt quit taking d/t reaction 3 months ago), Hypertension and Myocardial Infarction (sees Dr Gan annually- [place] 10 years ago) overactive bladder- sees urologist Hepatic None reported GI Gastroesophageal Reflux Disease Metabolic Thyroid Disease Musc/skel Osteoarthritis/DJD on gabapentin for burning in stomach/hips/pelvis pain Neuropsych Anxiety Anesthetic Plan ASA status: 3 Anesthesia: MAC Risk of > 500 ml blood loss (7ml/kg in children): No Medications/Allergies Home Medications Medication Instructions Recorded Confirmed Last Taken Type bimatoprost 0.01 % eye drops 1 drp ophthalmic (eye) BEDTIME@2100 08/10/20 06/09/23 06/07/23 History ([place]) albuterol sulfate 2.5 mg/3 mL 2.5 mg (3 mL) inhalation QID PRN 10/30/21 06/09/23 3 Weeks Ago Rx (0.083 %) solution for nebulization shortness of breath or wheezing ~05/19/23 #75 mL alendronate 70 mg tablet (Fosamax) 70 mg PO .weekly 4 weeks #4 tabs 04/15/23 06/09/23 05/28/23 Rx buspirone 10 mg tablet 10 mg PO BID #60 tabs 04/25/23 06/09/23 06/08/23 Rx clotrimazole-betamethasone 1 1 applic topical BID 2 weeks #45 05/02/23 06/09/23 3 Weeks Ago Rx %-0.05 % topical cream grams ~05/19/23 lisinopril 5 mg tablet 5 mg PO DAILY #30 tabs 05/06/23 06/09/23 06/08/23 Rx ondansetron 4 mg disintegrating 4 mg PO Q6H PRN nausea and 05/06/23 06/09/23 3 Weeks Ago Rx tablet vomiting #14 tabs ~05/19/23 calcium carbonate 500 mg-vitamin 1 tab PO BID #60 tabs 05/09/23 06/09/23 06/08/23 Rx D3 15 mcg (600 unit) tablet (Os-Dagoberto 500 + D3) gabapentin 100 mg capsule 100 mg PO BID #60 caps 05/17/23 06/09/23 06/08/23 Rx albuterol sulfate 90 mcg/actuation 2 inh inhalation Q4H PRN shortness 05/20/23 06/09/23 3 Weeks Ago Rx aerosol inhaler of breath or wheezing #18 grams ~05/19/23 ipratropium 20 mcg-albuterol 100 1 puff inhalation BID 06/07/23 06/09/23 06/08/23 History mcg/actuation mist for inhalation (Combivent Respimat) levothyroxine 75 mcg tablet 75 mcg PO DAILY 06/07/23 06/09/23 06/08/23 History meloxicam 15 mg tablet 15 mg PO DAILY 06/07/23 06/09/23 06/08/23 History mirabegron 25 mg tablet,extended 25 mg PO DAILY 06/07/23 06/09/23 06/08/23 History release 24 hr (Myrbetriq) omeprazole 20 mg capsule,delayed 20 mg PO BID 06/07/23 06/09/23 06/08/23 History release solifenacin 10 mg tablet 10 mg PO DAILY 06/07/23 06/09/23 06/08/23 History Allergies Allergy/AdvReac Type Severity Reaction Status Date / Time fentanyl Allergy Severe Burning Verified 06/09/23 08:39 feeling meperidine [From Demerol] Allergy rash Verified 06/09/23 08:39 morphine Allergy tongue Verified 06/09/23 08:39 swelling, hallucinations Sulfa (Sulfonamide Allergy headaches Verified 06/09/23 08:39 Antibiotics) Current Medications Generic Name Dose Route Start Last Admin Trade Name Freq PRN Reason Stop Dose Admin Sodium Chloride 1,000 mls @ 30 mls/hr 06/09/23 08:45 06/09/23 08:44 Sodium Chloride 0.9% IV 30 mls/hr .Q24H SÁNCHEZ Administration PFSH Anesthesia Medical History Diarrhea Dermatitis Anxiety Fatigue Atrial fibrillation Left thigh pain Upper respiratory infection Bilateral otitis media Injury of knee, right Acute bacterial sinusitis Arthritis pain Influenza vaccine needed Acute bacterial sinusitis Environmental and seasonal allergies URI, acute Right knee pain Obesity Pain of left knee after injury Lower respiratory infection Urgency incontinence Recurrent UTI Sinusitis, acute Morbid obesity Difficulty in swallowing Tear of right rotator cuff Arthritis of right acromioclavicular joint Rotator cuff tear arthropathy of left shoulder Weight loss Esophagitis SOB (shortness of breath) Chest pain at rest EKG from 05/01/2020 The EKG showed normal sinus rhythm with possible old inferior wall IN and poor R wave progression. Some nonspecific T wave changes. Cardiac arrhythmia Anemia Hypotension Postsurgical hypothyroidism Allergic rhinitis Mixed hyperlipidemia Vitamin D deficiency H/O malignant neoplasm of thyroid Patellar tendon rupture Hypertension Stress incontinence COPD (chronic obstructive pulmonary disease) Depression Osteoarthritis (arthritis due to wear and tear of joints) Diabetes Surgical History H/O hernia repair with mesh H/O tubal ligation Hx of cholecystectomy H/O colonoscopy H/O esophagogastroduodenoscopy with dilation S/P thyroidectomy Status post knee replacement Family History Mother , AT AGE 75 CAD (coronary artery disease) Hypertension Father , AT AGE 68 CAD (coronary artery disease) Hypertension Denies family history of Diabetes Anesthesia complication Bleeding disorder Cancer Social History Smoking and tobacco/nicotine status: former use of tobacco/nicotine Quit status (tobacco/nicotine): has quit using Second hand smoke exposure: No Alcohol intake: never Substance/Drug Use: never Marital status: Current occupational status: employed and unemployed Data Anesthesia Cardiac Studies: Cardiac Event Monitor 02/10/23
[2023-06-09 10:08] VITALS: BP 96/62; PULSE 67; RESP 16; TEMP 36.2; O2SAT 95
[2023-06-09 10:21] VITALS: BP 115/67; PULSE 65; RESP 16; O2SAT 96
--- NOTE | 2023-06-09 10:25 | ANE.PACU2 ---
Inpatient post-anesthesia follow up: Airway intact: Yes Vital signs: Temperature 97.2 F Pulse Rate 62 Respiratory Rate 16 Blood Pressure 123/79 Pulse Oximetry 96 Oxygen Delivery Me thod Room Air Oxygen Flow Rate Fraction of Inspir ed Oxygen Hydration adequate: Yes Nausea and vomiting: No Pain level: 1 Mental status: Baseline
[2023-06-09 10:30] VITALS: BP 123/79; PULSE 62; RESP 16; O2SAT 96
== END 2023-06-09 10:55 | disposition home or self-care (01) ==
PROVIDERS: PCP Nurse Practitioner Family; Visit Provider Surgery
PROC: 0DJD8ZZ Inspection of Lower Intestinal Tract, Via Natural or Artificial Opening Endoscopic (ICD-10-PCS; CPT 45378; principal; 2023-06-09 09:25)
DX: Z12.11 Encounter for screening for malignant neoplasm of colon (principal); D12.4 Benign neoplasm of descending colon; D12.5 Benign neoplasm of sigmoid colon; I48.91 Unspecified atrial fibrillation; E66.01 Morbid (severe) obesity due to excess calories; E78.2 Mixed hyperlipidemia; I10 Essential (primary) hypertension; E11.9 Type 2 diabetes mellitus without complications; J44.9 Chronic obstructive pulmonary disease, unspecified; M19.90 Unspecified osteoarthritis, unspecified site; I25.2 Old myocardial infarction; K21.9 Gastro-esophageal reflux disease without esophagitis; Z87.891 Personal history of nicotine dependence
CPT/HCPCS: 45380; 45385; 88305; J2704; J7030

== ENCOUNTER 2023-06-18 18:02 | Observation (INO) | payer MEDICARE, SELFPAY ==
[2023-06-18] VITALS (9 sets, daily range): BP systolic 104–146; BP diastolic 58–79; PULSE 63–106; RESP 13–19; O2SAT 93–96; BMI 33.3
--- NOTE | 2023-06-18 18:11 | ECG_ITS ---
[facility] Test Date: 2023-06-18 Pat Name: Lenora Aviles Department: Room: EDIP Gender: Female Supervisory Forester: : 1950 Requested By: Wyatt Ramos Order Number: [id number] Nelson MD: Steve Tolliver M.D. Measurements Intervals [place] Rate: 80 P: 75 MI: 158 QRS: -25 QRSD: 96 T: 59 QT: 372 QTc: 431 Interpretive Statements SINUS RHYTHM BORDERLINE LEFT AXIS DEVIATION [QRS AXIS < -20] Compared to ECG 05/06/2023 19:42:20 Ventricular premature complex(es) no longer present Myocardial infarct finding no longer present Electronically Signed On 06-19-2023 16:25:30 RESIN MIXER by Steve Tolliver M.D. [id number] f
--- NOTE | 2023-06-18 18:12 | CTR_ITS ---
PROCEDURE INFORMATION: Exam: CT Head Without Contrast Exam date and time: 06/18/2023 6:28 PM Age: 73 years old Clinical indication: Syncope and collapse TECHNIQUE: Imaging protocol: Computed tomography of the head without contrast. Radiation optimization: All CT scans at this facility use at least one of these dose optimization techniques: automated exposure control; mA and/or kV adjustment per patient size (includes targeted exams where dose is matched to clinical indication); or iterative reconstruction. COMPARISON: CT head wo con* [id number] 01/18/2021 6:30 PM RADIATION DOSE METRICS: Total DLP (mGy-cm): 973.98 FINDINGS: Brain: Normal. No hemorrhage. Unremarkable white matter. No mass effect. Cerebral ventricles: No ventriculomegaly. Paranasal sinuses: Visualized sinuses are unremarkable. No fluid levels. Mastoid air cells: Visualized mastoid air cells are well aerated. Bones/joints: Unremarkable. No acute fracture. Soft tissues: Unremarkable. CT/CT head wo con* [id number] IMPRESSION: No acute intracranial abnormality.
--- NOTE | 2023-06-18 18:12 | XRR_ITS ---
PROCEDURE INFORMATION: Exam: XR Chest Exam date and time: 06/18/2023 6:28 PM Age: 73 years old Clinical indication: Other: SOB post fall TECHNIQUE: Imaging protocol: Radiologic exam of the chest. Views: 1 view. COMPARISON: CR (CHEST, ) 05/06/2023 7:27 PM FINDINGS: Lungs: No focal consolidation. Pleural spaces: Unremarkable. No pleural effusion. No pneumothorax. Heart/Mediastinum: Unremarkable. No cardiomegaly. Bones/joints: 21 mm intra-articular loose body again demonstrated in the left glenohumeral joint. XR/XR chest 1V portable [id number] IMPRESSION: No focal consolidation.
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
--- NOTE | 2023-06-18 18:39 | W.ED.SYNCOPE ---
HPI - Syncope General: Chief Complaint: Syncope Stated Complaint: SYNCOPE Time Seen by Provider: 06/18/23 18:04 History of Present Illness: 73-year-old female with a history of anxiety, COPD. She presents with left-sided chest discomfort, left arm discomfort, and a syncopal episode. Family notes that she was out about a minute. She was standing, and was caught by her grandson before hitting the floor. She had symptoms of feeling faint prior, notes that she saw black, could hear voices but could not see, and then was out. Family noted that she had minor shakes for a few seconds, and arm seem to flex towards the center during the episode. She remained breathing, but grandson said that she was snoring . She did not change color. She evidently maintained a pulse. She did urinate during the episode. She has recovered now. There was no post syncope confusion. Associated symptoms: Reports chest pain and nausea; Deny abdominal pain, fever(s) or headache(s) Review of Systems Const: Denies: fever(s), chills or body aches Eyes: Denies: change in vision Card: Reports: chest pain; Denies: palpitations Resp: Reports: dyspnea; Denies: productive cough, non-productive cough or wheezing GI: Reports: nausea; Denies: abdominal pain, vomiting, diarrhea or hematochezia : Reports: urinary incontinence; Denies: difficulty voiding Skin/Breast: Denies: rash Neuro: Reports: dizziness; Denies: headache(s), weakness in extremities or confusion Psych: Reports: anxiety [facility] PFSH: Medical History Diarrhea Dermatitis Anxiety Fatigue Atrial fibrillation Left thigh pain Upper respiratory infection Bilateral otitis media Injury of knee, right Acute bacterial sinusitis Arthritis pain Influenza vaccine needed Acute bacterial sinusitis Environmental and seasonal allergies URI, acute Right knee pain Obesity Pain of left knee after injury Lower respiratory infection Urgency incontinence Recurrent UTI Sinusitis, acute Morbid obesity Difficulty in swallowing Tear of right rotator cuff Arthritis of right acromioclavicular joint Rotator cuff tear arthropathy of left shoulder Weight loss Esophagitis SOB (shortness of breath) Chest pain at rest EKG from 05/01/2020 The EKG showed normal sinus rhythm with possible old inferior wall PA and poor R wave progression. Some nonspecific T wave changes. Cardiac arrhythmia Anemia Hypotension Postsurgical hypothyroidism Allergic rhinitis Mixed hyperlipidemia Vitamin D deficiency H/O malignant neoplasm of thyroid Patellar tendon rupture Hypertension Stress incontinence COPD (chronic obstructive pulmonary disease) Depression Osteoarthritis (arthritis due to wear and tear of joints) Diabetes Surgical History H/O hernia repair with mesh H/O tubal ligation Hx of cholecystectomy H/O colonoscopy H/O esophagogastroduodenoscopy with dilation S/P thyroidectomy Status post knee replacement Family History Mother , AT AGE 75 CAD (coronary artery disease) Hypertension Father , AT AGE 68 CAD (coronary artery disease) Hypertension Denies family history of Diabetes Anesthesia complication Bleeding disorder Cancer Social History Smoking and tobacco/nicotine status: former use of tobacco/nicotine Quit status (tobacco/nicotine): has quit using Second hand smoke exposure: No Alcohol intake: never Substance/Drug Use: never Marital status: Current occupational status: employed and unemployed Physical Exam Const: COMMON NORMALS: no acute distress GENERAL APPEARANCE: cooperative and frail appearing; not ill appearing ORIENTATION/CONSCIOUSNESS: Yes awake, Yes oriented to person, Yes oriented to place and Yes oriented to time HENMT: COMMON NORMALS: normocephalic, atraumatic and Normal external nose present HEAD & SCALP: normocephalic and atraumatic FACE & SINUS: normal facial exam and face symmetric NOSE: Normal external nose present Eye: COMMON NORMALS: Equal, round and reactive pupils present and EOMs intact bilaterally PUPIL: Yes Equal, round and reactive pupils present Neck/C-Spine: GENERAL: Yes trachea midline Chest: CHEST: Yes Symmetrical chest wall rise Resp: COMMON NORMALS: normal respiratory effort, No retractions, No use of accessory muscles and clear to auscultation bilaterally AUSCULTATION: clear to auscultation bilaterally Cardio: COMMON NORMALS: regular rate and regular rhythm RATE: regular rate RHYTHM: regular rhythm GI: COMMON NORMALS: Normal to inspection, nondistended, normoactive bowel sounds present Extremity: COMMON NORMALS: no pedal edema NARRATIVE EXTREMITY EXAM: Examination left upper extremity reveals tenderness over the lateral upper arm, and lateral shoulder. No deformity. No ecchymosis. Neuro: ODELL COMA SCALE: document GCS findings [place] coma scale eye opening: Spontaneous [place] coma scale verbal response: Orientated [place] coma scale motor response: Obey commands [place] coma scale total score: 15 SENSORIUM/ORIENTATION: Yes oriented to person, Yes oriented to place and Yes oriented to time CRANIAL NERVES: Yes CN normal except as noted COORDINATION/BALANCE: [id number] test normal SPEECH: speech normal SENSORY EXAM: Yes extremities (intact) MOTOR EXAM: Pronator motor function not present and Normal motor muscle tone present throughout COORDINATION: [id number] test normal Psych: COMMON NORMALS: speech normal SPEECH: Yes normal speech Skin: COMMON NORMALS: no rashes or lesions noted GENERAL SKIN EXAM: no rashes or lesions noted Course Vital Signs: Vital signs: Vital Signs Pulse Rate 77 06/18/23 21:30 Respiratory Rate 13 06/18/23 20:48 Blood Pressure 106/60 06/18/23 21:30 Pulse Oximetry 95 06/18/23 21:30 Oxygen Delivery Me thod Room Air 06/18/23 21:30 MDM - Syncope Medical Decision Making EKG shows no acute ST wave changes. Blood pressure is have been stable. She is not orthostatic. CBC is normal. BMP is not remarkable. Chest x-ray and head CT are negative. Humerus x-ray done due to previous fall is negative for fracture. Delta troponin is negative. No arrhythmias on the monitor. Discussed with family. They are concerned about previous near syncopal episodes, continued chest discomfort. Spoke with the hospitalist, he is willing to observe for further syncopal/chest pain workup. He has ordered a D-dimer which is elevated. CTA of the chest is pending. He will see the patient. Lab Data 06/18/23 18:45 06/18/23 18:45 Radiology Impressions Chest X-Ray 06/18/23 18:12 IMPRESSION: No focal consolidation. Head CT 06/18/23 18:12 IMPRESSION: No acute intracranial abnormality. Humerus X-Ray 06/18/23 18:24 IMPRESSION: 1. No acute fracture identified. 2. There is a 2.4 cm well-circumscribed bony density in the inferior aspect of the left glenohumeral joint consistent with a intra-articular loose body. Laboratory Results WBC 6.09 10^3/uL (3.29-11.43) 06/18/23 18:45 RBC 4.76 10^6/uL (3.85-5.65) 06/18/23 18:45 Hgb 12.70 g/dL (11.27-16.99) 06/18/23 18:45 Hct 39.5 % (36-47) 06/18/23 18:45 MCV 83.0 fl (85-98) L 06/18/23 18:45 MCH 26.7 pg (27-33) L 06/18/23 18:45 MCHC 32.2 g/dL (30-55) 06/18/23 18:45 RDW 14.8 % (12.1-15.1) 06/18/23 18:45 Plt Count 302 10^3/cmm (157-399) 06/18/23 18:45 MPV 9.9 fL (7.4-10.4) 06/18/23 18:45 Neut % (Auto) 63.5 % 06/18/23 18:45 Lymph % (Auto) 24.6 % 06/18/23 18:45 [place] % (Auto) 9.2 % 06/18/23 18:45 Eos % (Auto) 1.5 % 06/18/23 18:45 Baso % (Auto) 1.0 % 06/18/23 18:45 Neut # (Auto) 3.87 10^3/uL (1.8-7.7) 06/18/23 18:45 Lymph # (Auto) 1.5 10^3/uL (0.8-4.8) 06/18/23 18:45 [place] # (Auto) 0.6 10^3/uL (0.2-0.9) 06/18/23 18:45 Eos # (Auto) 0.1 10^3/uL (0.0-0.8) 06/18/23 18:45 Baso # (Auto) 0.1 10^3/uL (0.0-0.1) 06/18/23 18:45 Nucleated RBC % (auto) 0 % 06/18/23 18:45 Nucleated RBCs # 0.0 /100WBC 06/18/23 18:45 PT 13.40 SECONDS (12.1-14.9) 06/18/23 18:45 INR 0.99 (0.8-1.2) 06/18/23 18:45 APTT 26.1 SECONDS (23.9-36.7) 06/18/23 18:45 D-Dimer 3.49 ug/mLFEU (0-0.59) H 06/18/23 18:45 Sodium 141 mmol/L (136-145) 06/18/23 18:45 Potassium 4.0 mmol/L (3.5-5.1) 06/18/23 18:45 Chloride 104 mmol/L (98-107) 06/18/23 18:45 Carbon Dioxide 25 mmol/L (22-29) 06/18/23 18:45 Anion Gap 16.0 (5-19) 06/18/23 18:45 BUN 13 mg/dL (8-23) 06/18/23 18:45 Creatinine 0.8 mg/dL (0.5-0.9) 06/18/23 18:45 GFR Calculation Not Reportable 06/18/23 18:45 Glucose 122 mg/dL (65-115) H 06/18/23 18:45 Calculated Osmolality 293 mOsm/kg (285-295) 06/18/23 18:45 Calcium 10.0 mg/dL (8.5-10.5) 06/18/23 18:45 Magnesium 1.7 mg/dL (1.7-2.3) 06/18/23 18:45 Total Bilirubin 0.7 mg/dL (0.15-1.2) 06/18/23 18:45 AST 14 U/L (0-32) 06/18/23 18:45 ALT 12 U/L (0-33) 06/18/23 18:45 Alkaline Phosphatase 62 U/L (35-105) 06/18/23 18:45 Troponin T Baseline 12 ng/L (0-10) H 06/18/23 18:45 Troponin T 120 Minute 11.60 ng/L (0-10) H 06/18/23 20:40 Delta Troponin T -0.40 ABS# (0-10) L 06/18/23 20:40 NT-Pro-B Natriuret Pep 119 pg/mL (0-125) 06/18/23 18:45 Total Protein 6.4 g/dL (6.6-8.7) L 06/18/23 18:45 Albumin 4.0 g/dL (3.5-5.2) 06/18/23 18:45 Globulin 2.4 g/dL (1.3-4.6) 06/18/23 18:45 All radiology interpretation(s) finalized by discharge Discharge Plan Discharge Patient Disposition: Placed in Observation Admit Provider: Ravi Ayala Clinical Impression: Atypical chest pain, Syncope and collapse Condition: Stable Coding Level of Care Code ED Lamination Inspector for Afia Stafford
[2023-06-18 19:00] LABS: Basophils # 0.1 10^3/uL (0.0-0.1); Eosinophils # 0.1 10^3/uL (0.0-0.8); Eosinophils % 1.5 %; Hematocrit 39.5 % (36-47); Lymphocytes # 1.5 10^3/uL (0.8-4.8); Lymphocytes % 24.6 %; Mean Corpuscular HGB Conc 32.2 g/dL (30-55); Mean Corpuscular Hemoglobin 26.7 pg (27-33); Mean Platelet Volume 9.9 fL (7.4-10.4); Monocytes # 0.6 10^3/uL (0.2-0.9); Monocytes % 9.2 %; Neutrophils # 3.87 10^3/uL (1.8-7.7); Neutrophils % 63.5 %; Nucleated Red Blood Cells % 0 %; Platelet Count 302 10^3/cmm (157-399); Red Blood Count 4.76 10^6/uL (3.85-5.65); Red Cell Distribution Width 14.8 % (12.1-15.1); White Blood Count 6.09 10^3/uL (3.29-11.43)
[2023-06-18 19:15] LABS: INR 0.99 (0.8-1.2)
[2023-06-18 19:16] LABS: Partial Thromboplastin Time 26.1 SECONDS (23.9-36.7)
[2023-06-18 19:24] LABS: Troponin(5th) Baseline 12 ng/L (0-10)
[2023-06-18 19:28] LABS: Alanine Aminotransferase 12 U/L (0-33); Alkaline Phosphatase 62 U/L (35-105); Aspartate Amino Transferase 14 U/L (0-32); Blood Urea Nitrogen 13 mg/dL (8-23); Carbon Dioxide 25 mmol/L (22-29); Chloride 104 mmol/L (98-107); Globulin 2.4 g/dL (1.3-4.6); Glucose 122 mg/dL (65-115); Magnesium 1.7 mg/dL (1.7-2.3); NT Pro B Type Natriuretic Pept 119 pg/mL (0-125); Osmolality Calculated 293 mOsm/kg (285-295); Sodium 141 mmol/L (136-145); Total Bilirubin 0.7 mg/dL (0.15-1.2); Total Protein 6.4 g/dL (6.6-8.7)
--- NOTE | 2023-06-18 20:43 | ECG_ITS ---
[facility] Test Date: 2023-06-18 Pat Name: Lenora Aviles Department: Room: Gender: Female Doctor Podiatric Medicine: : 1950 Requested By: Wyatt Ramos Order Number: [id number] Leslie MD: Steve Tolliver M.D. Measurements Intervals [place] Rate: 77 P: 86 IA: 166 QRS: 1 QRSD: 102 T: 77 QT: 393 QTc: 445 Interpretive Statements SINUS RHYTHM Compared to ECG 05/06/2023 19:42:20 Ventricular premature complex(es) no longer present Myocardial infarct finding no longer present Electronically Signed On 06-20-2023 10:53:57 HANDBAG FRAMER by Steve Tolliver M.D. [id number]
[2023-06-18] MEDS: sodium chloride 0.9% 500 ML 999 ML IV (20:45)
--- NOTE | 2023-06-18 21:26 | P.HP_ITS ---
Providers/Chief Complaint 2 Primary Care Provider: XIAO Fang Chief Complaint: SYNCOPE History of Present Illness Lenora Aviles is a 73 year old female who presents today with single line. Patient is stating that for last 5 to 7 days she has been experiencing presyncopal episodes but today when she was about to play pool with her family she passed out. Patient is stating that she was standing for about 7 to 10 minutes before passing out, she did not experience any chest discomfort, nausea, vomiting or any seizure related activity but she knew before it happened. Her son helped her to land on a couch which was a few feet away. Patient is stating that she gets chest discomfort every time she is anxious and stressful emotionally, she is describing her chest discomfort as a burning sensation which would last for few minutes and then goes away as long as her emotional stress withers away. Son is stating that as far as she woke up she was not confused she was alert and awake, no seizure related activity noticed. Patient stating that she stopped the metoprolol because she knew that this medication will give her heart attack, this medication was added because of her PVCs in the past her event monitor showed normal rhythm only Family was concerned if she was getting bradycardia I have not seen any bradycardic episodes so far EKG showing sinus rhythm Requested D-dimer, CT head unremarkable Her D-dimer 3.4 Review of Systems 2 Eyes: Denies: change in vision ENMT: Denies: throat pain Card: Reports: chest pain Resp: Denies: dyspnea GI: Denies: abdominal pain : Denies: flank pain Musc: Denies: neck pain Skin/Breast: Denies: rash Medications/Allergies Home Medications Medication Instructions Recorded Confirmed Last Taken Type bimatoprost 0.01 % eye drops 1 drp ophthalmic (eye) BEDTIME@2100 08/10/20 06/09/23 06/07/23 History ([facility]) albuterol sulfate 2.5 mg/3 mL 2.5 mg (3 mL) inhalation QID PRN 10/30/21 06/09/23 3 Weeks Ago Rx (0.083 %) solution for nebulization shortness of breath or wheezing ~05/19/23 #75 mL alendronate 70 mg tablet (Fosamax) 70 mg PO .weekly 4 weeks #4 tabs 04/15/23 06/09/23 05/28/23 Rx buspirone 10 mg tablet 10 mg PO BID #60 tabs 04/25/23 06/09/23 06/08/23 Rx clotrimazole-betamethasone 1 1 applic topical BID 2 weeks #45 05/02/23 06/09/23 3 Weeks Ago Rx %-0.05 % topical cream grams ~05/19/23 lisinopril 5 mg tablet 5 mg PO DAILY #30 tabs 05/06/23 06/09/23 06/08/23 Rx ondansetron 4 mg disintegrating 4 mg PO Q6H PRN nausea and 05/06/23 06/09/23 3 Weeks Ago Rx tablet vomiting #14 tabs ~05/19/23 calcium carbonate 500 mg-vitamin 1 tab PO BID #60 tabs 05/09/23 06/09/23 06/08/23 Rx D3 15 mcg (600 unit) tablet (Os-Dagoberto 500 + D3) gabapentin 100 mg capsule 100 mg PO BID #60 caps 05/17/23 06/09/23 06/08/23 Rx albuterol sulfate 90 mcg/actuation 2 inh inhalation Q4H PRN shortness 05/20/23 06/09/23 3 Weeks Ago Rx aerosol inhaler of breath or wheezing #18 grams ~05/19/23 ipratropium 20 mcg-albuterol 100 1 puff inhalation BID 06/07/23 06/09/23 06/08/23 History mcg/actuation mist for inhalation (Combivent Respimat) levothyroxine 75 mcg tablet 75 mcg PO DAILY 06/07/23 06/09/23 06/08/23 History meloxicam 15 mg tablet 15 mg PO DAILY 06/07/23 06/09/23 06/08/23 History mirabegron 25 mg tablet,extended 25 mg PO DAILY 06/07/23 06/09/23 06/08/23 History release 24 hr (Myrbetriq) omeprazole 20 mg capsule,delayed 20 mg PO BID 06/07/23 06/09/23 06/08/23 History release solifenacin 10 mg tablet 10 mg PO DAILY 06/07/23 06/09/23 06/08/23 History Allergies Allergy/AdvReac Type Severity Reaction Status Date / Time fentanyl Allergy Severe Burning Verified 06/09/23 08:39 feeling meperidine [From Demerol] Allergy rash Verified 06/09/23 08:39 morphine Allergy tongue Verified 06/09/23 08:39 swelling, hallucinations Sulfa (Sulfonamide Allergy headaches Verified 06/09/23 08:39 Antibiotics) PFSH Acute 2 PFSH: Medical History Diarrhea Dermatitis Anxiety Fatigue Atrial fibrillation Left thigh pain Upper respiratory infection Bilateral otitis media Injury of knee, right Acute bacterial sinusitis Arthritis pain Influenza vaccine needed Acute bacterial sinusitis Environmental and seasonal allergies URI, acute Right knee pain Obesity Pain of left knee after injury Lower respiratory infection Urgency incontinence Recurrent UTI Sinusitis, acute Morbid obesity Difficulty in swallowing Tear of right rotator cuff Arthritis of right acromioclavicular joint Rotator cuff tear arthropathy of left shoulder Weight loss Esophagitis SOB (shortness of breath) Chest pain at rest EKG from 05/01/2020 The EKG showed normal sinus rhythm with possible old inferior wall AZ and poor R wave progression. Some nonspecific T wave changes. Cardiac arrhythmia Anemia Hypotension Postsurgical hypothyroidism Allergic rhinitis Mixed hyperlipidemia Vitamin D deficiency H/O malignant neoplasm of thyroid Patellar tendon rupture Hypertension Stress incontinence COPD (chronic obstructive pulmonary disease) Depression Osteoarthritis (arthritis due to wear and tear of joints) Diabetes Surgical History H/O hernia repair with mesh H/O tubal ligation Hx of cholecystectomy H/O colonoscopy H/O esophagogastroduodenoscopy with dilation S/P thyroidectomy Status post knee replacement Family History Mother , AT AGE 75 CAD (coronary artery disease) Hypertension Father , AT AGE 68 CAD (coronary artery disease) Hypertension Denies family history of Diabetes Anesthesia complication Bleeding disorder Cancer Social History Smoking and tobacco/nicotine status: former use of tobacco/nicotine Quit status (tobacco/nicotine): has quit using Second hand smoke exposure: No Alcohol intake: never Substance/Drug Use: never Marital status: Current occupational status: employed and unemployed Vitals/I&O/Wt Last Vital Signs Pulse 77 06/18/23 20:48 Resp 13 06/18/23 20:48 BP 104/69 01/06/24 20:48 Pulse Ox 95 06/18/23 20:48 O2 Del Method Room Air 06/18/23 20:48 Weight last 48 hrs Weight 90.718 kg Physical Exam 2 Narrative: Awake and alert Sinus rhythm Pleasant cooperative S1, S2 Abdomen soft Nonpitting edema of legs GCS 15 Nonfocal neuroexam No active chest pain Anxious. Family at the bedside Doing well on room air Hemodynamic stable Data 06/18/23 18:45 06/18/23 18:45 A&P Assessment and plan (1) Anxiety: (2) Hypertension: Qualifiers: Hypertension type: essential hypertension Qualified Code(s): I10 - Essential (primary) hypertension (3) Atrial arrhythmia: (4) Postsurgical hypothyroidism: (5) Stress incontinence: (6) Spondylolisthesis at L4-L5 level: (7) Atypical chest pain: (8) Syncope and collapse: Plan Syncopal event today EKG showing sinus rhythm Troponin without significant delta Hemodynamic stable Orthostatics negative D-dimer is high will require CTA chest and venous Doppler Will request echo Monitor on telemetry History of hypertension: Hold lisinopril for now blood pressure is systolic 106 and diastolic 60 mmHg History of PVCs previous event monitor did not show any significant arrhythmia, she has stopped taking metoprolol however as per the family she has recently started it She was on the impression this drug would cause heart attack Counseling done regarding benefits of metoprolol however I have not noticed any signs of bradycardia on the current telemetry with a None oxygen dependent COPD without acute exacerbation Chest discomfort which she describes as a burning sensation She carries history of GERD Will give a GI cocktail Full code Cardiac diet She is not diabetic Will request physical therapy She may need Holter monitoring in case etiology stays unclear after all the workup Attestations 2 Medical Necessity Statement*: Anticipating discharge within 48 hours Diagnoses Anxiety F41.9 Essential hypertension I10 Hypertension type: essential hypertension Atrial arrhythmia I49.8 Postsurgical hypothyroidism E89.0 Stress incontinence N39.3 Spondylolisthesis at L4-L5 level M43.16 Atypical chest pain R07.89 Syncope and collapse R55
[2023-06-18 21:39] LABS: D Dimer 3.49 ug/mLFEU (0-0.59)
--- NOTE | 2023-06-18 22:22 | CTR_ITS ---
PROCEDURE INFORMATION: Exam: CTA Chest With Contrast Exam date and time: 06/18/2023 10:48 PM Age: 73 years old Clinical indication: Abnormal findings; Abnormal diagnostic tests; Elevated d-dimer; Patient HX: Dimer of 3.49; Additional info: Syncope TECHNIQUE: Imaging protocol: Computed tomographic angiography of the chest with contrast. Exam focused on the arteries. 3D rendering (Not supervised by radiologist): MIP and/or 3D reconstructed images were created by the technologist. Radiation optimization: All CT scans at this facility use at least one of these dose optimization techniques: automated exposure control; mA and/or kV adjustment per patient size (includes targeted exams where dose is matched to clinical indication); or iterative reconstruction. Contrast material: OMNI 350; Contrast volume: 60 ml; Contrast route: INTRAVENOUS (IV); COMPARISON: CT angio chest PE protcl [id number] 08/22/2017 7:57 PM RADIATION DOSE METRICS: Total DLP (mGy-cm): 476.14 FINDINGS: Pulmonary arteries: Normal. No pulmonary emboli. Aorta: Unremarkable. No aortic aneurysm. No aortic dissection. Lungs: Unremarkable. No consolidation. No masses. Pleural spaces: Unremarkable. No pneumothorax. No pleural effusion. Heart: Unremarkable. No cardiomegaly. No pericardial effusion. Lymph nodes: See Spleen finding. Liver: There is a 2.1 cm simple appearing cyst in the right lobe liver. Gallbladder and bile ducts: The gallbladder is absent. Spleen: Multiple punctate calcifications in the spleen can be seen the setting of prior granulomatous infection. Calcified hilar lymph nodes consistent with prior granulomatous infection. Bones/joints: Unremarkable. No acute fracture. Soft tissues: Unremarkable. CT/CT angio chest PE protcl [id number] IMPRESSION: 1. No pulmonary embolus. 2. No focal consolidation.
[2023-06-18] MEDS: iohexol 350 mg/mL 500 mL Btl (per mL) IV (22:51)
[2023-06-18 22:56] LABS: Estmated Average Glucose 120; Hemoglobin A1C 5.8 % (4.0-6.0)
[2023-06-18] MEDS: sodium chloride 0.9% 1,000 ML 75 ML IV (23:44)
[2023-06-18] MEDS: ALPRAZolam 0.5 mg Tablet PO (23:44)
[2023-06-19] VITALS (14 sets, daily range): BP systolic 82–120; BP diastolic 44–72; PULSE 47–94; RESP 17–21; TEMP 36.4–36.8; O2SAT 92–98; BMI 40.4
--- NOTE | 2023-06-19 00:12 | ECG_ITS ---
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 Measurements Intervals [place] Rate: 80 P: 75 ND: 158 QRS: -25 QRSD: 96 T: 59 QT: 372 QTc: 431 Interpretive Statements SINUS RHYTHM BORDERLINE LEFT AXIS DEVIATION [QRS AXIS < -20] Compared to ECG 05/06/2023 19:42:20 Ventricular premature complex(es) no longer present Myocardial infarct finding no longer present Electronically Signed On 06-20-2023 10:54:17 EDUCATOR SENIOR CLINICAL by Steve Tolliver M.D. [id number]
[2023-06-19 01:05] LABS: Troponin 5 6HR 11.54 ng/L (0-10)
[2023-06-19 01:12] LABS: Vitamin B12 461 pg/mL (232-1245)
[2023-06-19 01:13] LABS: Troponin 5 6HR Delta -0.46 ng/L (0-12)
[2023-06-19 04:29] LABS: Basophils % 0.8 %; Eosinophils # 0.1 10^3/uL (0.0-0.8); Eosinophils % 2.6 %; Hematocrit 33.5 % (36-47); Lymphocytes # 1.8 10^3/uL (0.8-4.8); Lymphocytes % 35.5 %; Mean Corpuscular HGB Conc 32.2 g/dL (30-55); Mean Corpuscular Hemoglobin 26.7 pg (27-33); Mean Corpuscular Volume 82.9 fl (85-98); Mean Platelet Volume 9.8 fL (7.4-10.4); Monocytes # 0.5 10^3/uL (0.2-0.9); Monocytes % 9.5 %; Neutrophils # 2.61 10^3/uL (1.8-7.7); Neutrophils % 51.4 %; Nucleated Red Blood Cells % 0 %; Platelet Count 254 10^3/cmm (157-399); Red Blood Count 4.04 10^6/uL (3.85-5.65); Red Cell Distribution Width 14.8 % (12.1-15.1); White Blood Count 5.07 10^3/uL (3.29-11.43)
[2023-06-19 04:53] LABS: Anion Gap 11.8 (5-19); Blood Urea Nitrogen 15 mg/dL (8-23); Calcium 8.6 mg/dL (8.5-10.5); Carbon Dioxide 23 mmol/L (22-29); Chloride 107 mmol/L (98-107); Glucose 104 mg/dL (65-115); Magnesium 1.6 mg/dL (1.7-2.3); Osmolality Calculated 287 mOsm/kg (285-295); Potassium 3.8 mmol/L (3.5-5.1); Sodium 138 mmol/L (136-145)
--- NOTE | 2023-06-19 06:00 | USCV_ITS ---
Lenora Aviles Age: 73 Gender: F : 1950 Exam Date: 06/19/2023 10:03 Ordering Phys: Ravi Ayala MD Technologist: Damaso Guaman Exam Location: [facility] [place] Indication: syncope BP: 82 / 59 HR: 81 Rhythm: Sinus Technical Quality: Adequate MEASUREMENTS (Male / Female) Normal Values 2D ECHO LVOT Diameter 2.1 cm LV Ejection Fraction MOD 2C 67.8 % LV Ejection Fraction 2C AL 69.0 % LA Diameter 3.5 cm LA Width 3.7 cm LA Height 4.7 cm RA Width 3.1 cm RA Height 3.9 cm Aorta at Sinotubular Diameter 2.7 cm IVC Diameter 1.9 cm M-MODE Aortic Annulus Diameter 3.1 cm LA Ao Ratio MM 1.1 MV E Point Septal Separation 0.7 cm DOPPLER AV Peak Velocity 171.0 cm/s LVOT Peak Velocity 136.0 cm/s AV Area Cont Eq vti 2.7 cm squared AV Area Cont Eq pk 2.7 cm squared MV Peak Velocity 121.0 cm/s MV Area PHT 4.1 cm squared Mitral E to A Ratio 0.9 MV E' Velocity 38.0 cm/s Mitral E to MV E' Ratio 6.2 Mitral E to LV E' Lateral Ratio 6.3 Mitral E to LV E' Septal Ratio 6.2 Right Atrial Pressure 3.0 mmHg PV Peak Velocity 89.0 cm/s RV Acceleration Time 0.2 s RV Ejection Time 0.3 s RV AcT/ET 0.5 FINDINGS Left Ventricle Left ventricle is normal size. LV systolic function is normal with EF of 55 to 60%. No regional wall abnormalities are seen. Grade 1 diastolic dysfunction Right Ventricle Normal in size and function Right Atrium Normal in size Left Atrium Normal in size Mitral Valve Structurally normal mitral valve. Mild mitral regurgitation. Aortic Valve Structurally normal aortic valve. No significant stenosis or regurgitation. Tricuspid Valve Mild tricuspid regurgitation. Insufficient TR jet to assess RVSP. Pulmonic Valve Not well visualized Pericardium Normal Aorta Normal in size IVC Appears to be normal CONCLUSIONS LV systolic function is normal with EF of 55 to 60%. Grade 1 diastolic dysfunction. Mild mitral regurgitation Mild tricuspid regurgitation No comparison studies are available. Steve Tolliver MD (Electronically Signed) Final Date: 19 June 2023 11:53 S
--- NOTE | 2023-06-19 06:24 | PC.NURSE ---
Report called to SERGIO Zarate at this time. Patient will not go up to the floor until after shift change.
--- NOTE | 2023-06-19 07:00 | USR_ITS ---
PROCEDURE INFORMATION: Exam: US Duplex Lower Extremity Veins, Bilateral Exam date and time: 06/19/2023 9:44 AM Age: 73 years old Clinical indication: Other: Syncope TECHNIQUE: Imaging protocol: Real-time duplex ultrasound of the bilateral extremities with 2-D lu scale, color Doppler flow and spectral waveform analysis including responses to compression and other maneuvers (when performed) with image documentation. Complete exam focused on the lower extremity veins. COMPARISON: US soft tissue/extremity [id number] 11/12/2018 10:45 AM FINDINGS: Right deep veins: Unremarkable. The common femoral, femoral, proximal profunda femoral and popliteal veins are patent without thrombus. Normal Doppler waveforms. Normal compressibility and augmentation response. Left deep veins: Unremarkable. The common femoral, femoral, proximal profunda femoral and popliteal veins are patent without thrombus. Normal Doppler waveforms. Normal compressibility and augmentation response. Superficial veins: Bilateral saphenofemoral junctions are patent without thrombus. Soft tissues: Unremarkable. US/[place] [id number] IMPRESSION: No evidence of deep vein thrombosis.
--- NOTE | 2023-06-19 07:47 | PC.PHAR ---
pt and pts family member wilmar verified pts medications-states the pt was taking fosamax for 1 week then went back to taking ibandronate 150mg once a month-pts family states the pt is NOT taking zoloft 25mg daily filled 04/25/23 30d/s,zocor 10mg hs filled 04/15/23 30d/s,montelukast 10mg daily filled 04/15/23 30d/s states makes her anxiety worse,cymbalta 20mg and 60mg daily filled 04/15/23 30d/s,celecoxib 200mg bid filled 04/13/23 or celexa 20mg daily filled 04/13/23
[2023-06-19] MEDS: magnesium sulfate premix 2 GM/50 ML PIGGYBACK IV (11:59)
[2023-06-19] MEDS: potassium chloride ER 20 mEq Tablet 40 MEQ PO (11:59)
[2023-06-19] MEDS: sodium chloride 0.9% 1,000 ML 999 ML IV (12:01)
--- NOTE | 2023-06-19 14:32 | PM.PN ---
Subjective Subjective: Says she has been living in her granddaughter's house and has not gone back home. At times gets tearful. She is extremely anxious when talking. She states that she feels very anxious all the time and has passed out recently. When she woke up she felt a pressure on her chest which went away eventually. She says she feels as when she feels very very anxious. Recently has had adjustments done to her anxiety medication. At first she was on citalopram but subsequently changed to BuSpar 20 twice a day. He was also on gabapentin 300 daily however now is on 100 daily. Has been experiencing low blood pressures recently. Unsure why. She starts get hide lightheaded and dizzy. Yesterday it was worse enough that she passed out with her family being present. Family member who was in the room states that patient was jittery and her hands were slightly having tremors when she passed out yesterday. She has worn a Holter monitor in the past as well seen cardiology. She was placed on metoprolol however patient did not take it at home thinking that she would get a heart attack from it. She says Xanax worked really well for her when she was here last time in the hospital however that cannot be prescribed to her as per the doctor she saw last time we told her she cannot have another prescription to take home. They also referral to [facility] behavioral health however have not had an appointment so far. Patient believes her anxiety is driving most of her symptoms. She has had an angiogram as well with no significant coronary artery disease as per the patient. Patient is on lisinopril 5 mg daily. TSH is 0.01. She has had a partial thyroidectomy done in the past. She was on levothyroxine 75 daily. Orthostatics have been negative this hospital stay. Echo negative. She was diastolic dysfunction. Vitals/I&O/Wt Last Vital Signs Pulse 79 06/19/23 09:11 Resp 20 H 06/19/23 09:11 BP 82/59 06/19/23 06:41 Pulse Ox 98 06/19/23 09:11 O2 Del Method Room Air 06/19/23 09:11 06/18/23 06/19/23 06/19/23 22:59 06:59 14:59 Intake Total 2550 / 2550 Balance 2550 / 2550 Weight last 48 hrs Weight 110.223 kg Weight 90.718 kg Physical Exam Narrative: Awake and alert Sinus rhythm Pleasant cooperative S1, S2 Abdomen soft Nonpitting edema of legs GCS 15 Nonfocal neuroexam No active chest pain Appears extremely anxious Family at the bedside Doing well on room air Hemodynamic stable Data 06/19/23 04:25 06/19/23 04:25 A&P Assessment and plan (1) Anxiety: (2) Hypertension: Qualifiers: Hypertension type: essential hypertension Qualified Code(s): I10 - Essential (primary) hypertension (3) Atrial arrhythmia: (4) Postsurgical hypothyroidism: (5) Stress incontinence: (6) Spondylolisthesis at L4-L5 level: (7) Atypical chest pain: (8) Syncope and collapse: Plan Syncopal event today EKG showing sinus rhythm Troponin without significant delta Hemodynamic stable Orthostatics negative D-dimer is high will require CTA chest and venous Doppler. Negative for PE or DVT Echo complete. Diastolic dysfunction with normal EF. No other significant findings. Monitor on telemetry History of hypertension: Hold lisinopril for now blood pressure is systolic 106 and diastolic 60 mmHg. Continue to hold lisinopril at this time. Will give normal saline bolus 1 L. History of PVCs previous event monitor did not show any significant arrhythmia, she has stopped taking metoprolol however as per the family she has recently started it She was on the impression this drug would cause heart attack Counseling done regarding benefits of metoprolol however I have not noticed any signs of bradycardia on the current telemetry. Reviewed telemetry overnight. No evidence of bradycardia at this time. None oxygen dependent COPD without acute exacerbation Chest discomfort which she describes as a burning sensation She carries history of GERD GI cocktail given. Patient felt better. I believe patient's her symptoms are related to her extreme anxiety. Feeling heavy and jittery, sense of impending doom most likely secondary to her anxiety levels. As patient is talking to me she is tearful and appears very anxious. Setting vitals are negative. This may be due to her polypharmacy as well. Patient says her stressors could not be removed as she lives at her granddaughter's house and has not been home in a long time and that is bothering her quite a bit. She is also taking care of a teenager as a guardian at this time. He states there is a lot going on at this time. She has not really tried medications greater than a 6-week. She states citalopram was taking very short period and there but after switch to BuSpar. Gabapentin dose has been adjusted recently as well. She is supposed to see. Will help but has not made it there yet. Will give patient normal saline bolus at this time. Hold lisinopril. Observe patient in hospital today. check thyroid US. Discussed with her outpatient director of vendor management over the phone regarding patient's care. If patient does have a partial thyroidectomy and according to granddaughter the pathology was negative then patient probably does not even need thyroid hormone replacement at this time. We will refer patient to endocrinology as an outpatient. Granddaughter told me over the phone that pathology was negative and it was not cancer. Patient may not need levothyroxine at this point. Therefore I will stop it. Will check thyroid ultrasound and a free T4. Her symptoms can be explained due to hyperthyroidism as well. Continue to monitor in hospital for now. On Tuesday fluids obtain records from Dr. Zaragoza's office. Patient apparently sees an director of vendor management at [facility] in [place] however there is no director of vendor management in [place] present. She had been referred to [facility] endocrinology but has not made it to the appointment yet. Full code Cardiac diet She is not diabetic Will request physical therapy She may need Holter monitoring in case etiology stays unclear after all the workup Attestations Medical Necessity Statement*: Anticipating discharge within 48 hours Diagnoses Anxiety F41.9 Essential hypertension I10 Hypertension type: essential hypertension Atrial arrhythmia I49.8 Postsurgical hypothyroidism E89.0 Stress incontinence N39.3 Spondylolisthesis at L4-L5 level M43.16 Atypical chest pain R07.89 Syncope and collapse R55
--- NOTE | 2023-06-19 15:03 | USR_ITS ---
PROCEDURE INFORMATION: Exam: US Soft Tissue Head and Neck, Thyroid Exam date and time: 06/19/2023 5:03 PM Age: 73 years old Clinical indication: Condition or disease; Other: ? Hyperthyroidism; Prior surgery; Surgery date: 6+ months; Surgery type: RT lobed removed TECHNIQUE: Imaging protocol: Real-time ultrasound scan of the neck with image documentation. Exam focused on the thyroid. COMPARISON: [place] thyroid [id number] 10/13/2018 4:35 PM FINDINGS: Right thyroid lobe: Status post right hemithyroidectomy. Left thyroid lobe: Left thyroid lobe measures 3.0 x 2.2 x 1.4 cm. There is a 1.5 cm spongiform left-sided thyroid nodule with microcalcifications (TR 3). Other: No evidence of adenopathy. US/US thyroid [id number] IMPRESSION: 1. 1.5cm left-sided thyroid nodule (TR 3). Follow-up thyroid ultrasound in 12 months is recommended. 2. Status post right hemithyroidectomy.
[2023-06-19 15:07] LABS: Free T4 Free Thyroxine 1.63 ng/dL (0.82-1.77)
[2023-06-19] MEDS: sodium chloride 0.9% 1,000 ML 125 ML IV (17:48)
[2023-06-19] MEDS: ALPRAZolam 0.5 mg Tablet PO (23:49)
[2023-06-20] VITALS (8 sets, daily range): BP systolic 106–127; BP diastolic 67–79; PULSE 72–91; RESP 17–20; TEMP 36.3–36.6; O2SAT 93–97; BMI 40.4
[2023-06-20] MEDS: sodium chloride 0.9% 1,000 ML 125 ML IV (01:42)
[2023-06-20 05:51] LABS: Basophils % 0.9 %; Eosinophils # 0.1 10^3/uL (0.0-0.8); Eosinophils % 2.9 %; Hematocrit 32.9 % (36-47); Lymphocytes # 1.9 10^3/uL (0.8-4.8); Lymphocytes % 42.3 %; Mean Corpuscular HGB Conc 32.2 g/dL (30-55); Mean Corpuscular Hemoglobin 26.9 pg (27-33); Mean Corpuscular Volume 83.5 fl (85-98); Mean Platelet Volume 10.2 fL (7.4-10.4); Monocytes # 0.5 10^3/uL (0.2-0.9); Monocytes % 10.5 %; Neutrophils # 1.94 10^3/uL (1.8-7.7); Neutrophils % 43.2 %; Nucleated Red Blood Cells % 0 %; Platelet Count 243 10^3/cmm (157-399); Red Blood Count 3.94 10^6/uL (3.85-5.65); Red Cell Distribution Width 14.7 % (12.1-15.1); White Blood Count 4.49 10^3/uL (3.29-11.43)
[2023-06-20 06:20] LABS: Blood Urea Nitrogen 10 mg/dL (8-23); Calcium 8.1 mg/dL (8.5-10.5); Carbon Dioxide 22 mmol/L (22-29); Chloride 111 mmol/L (98-107); Glucose 103 mg/dL (65-115); Magnesium 1.9 mg/dL (1.7-2.3); Osmolality Calculated 291 mOsm/kg (285-295); Sodium 141 mmol/L (136-145)
[2023-06-20] MEDS: pantoprazole DR 40 mg Tablet PO (10:01)
--- NOTE | 2023-06-20 12:36 | P.DS_ITS ---
Discharge Providers Date of Admission: 06/18/23 22:26 Date of Discharge: June 20, 2023 Attending Provider at Admission: Ravi Ayala MD Attending Provider at Discharge: Radha Holliday MD Primary Care Provider: XIAO Fang Diagnoses at Discharge Discharge Diagnosis (1) Anxiety: Status: Acute (2) Hypertension: Status: Resolved Qualifiers: Hypertension type: essential hypertension Qualified Code(s): I10 - Esse ntial (primary) hypertension (3) Atrial arrhythmia: Status: Resolved (4) Postsurgical hypothyroidism: Status: Acute (5) Stress incontinence: Status: Chronic (6) Spondylolisthesis at L4-L5 level: Status: Chronic (7) Atypical chest pain: Status: Resolved (8) Syncope and collapse: Status: Resolved Reason for Visit Reason for Visit: SYNCOPE Hospital Course Hospital Course Patient admitted for syncope. Telemetry did not show any apparent arrhythmia or heart block at this time. Patient advised to set up an event monitor at discharge and to follow-up with endocrinology as an outpatient. She has a partial thyroidectomy however is on therapeutic dose of levothyroxine with TSH extremely low. Discussed with her that if there was malignancy then the aim is to have a low TSH however if there was no malignancy to which the patient states that she was told she does not have cancer then TSH should not be that low and dose may need to be adjusted. Discussed with endocrinology over the phone as well. We dose reduced her levothyroxine to 50 daily and she will follow-up as an outpatient. Thyroid ultrasound also obtained during hospital stay. Venous Dopplers ruled out DVT, CTA chest ruled out PE. She was also seen by psychiatry during hospital stay and started on Paxil. I believe all her symptoms are related to her anxiety and this was not cardiac cause however we will do an event monitor. Extensive counseling done at bedside. Please see progress notes for further details. Discharged home in stable condition at this time. Orthostatic vitals also negative during hospital stay. Of note I also stopped her blood pressure medication for the time being which was lisinopril 5 mg daily. Physical Exam Narrative: Awake and alert Sinus rhythm Pleasant cooperative S1, S2 Abdomen soft Nonpitting edema of legs GCS 15 Nonfocal neuroexam No active chest pain Appears extremely anxious Family at the bedside Doing well on room air Hemodynamic stable Discharge Data Studies Completed and Pending Completed Studies During Hospitalization Category Date Time Status CT head wo con* [id number] Stat Cat Scan 06/18/23 18:12 Completed CTA PE [CT angio chest PE protcl [id number]] Stat Cat Scan 06/18/23 22:22 Completed XR chest 1V portable [id number] Stat Exams 06/18/23 18:12 [place] [id number] Stat Exams 06/18/23 18:24 [place] [id number] Routine Ultrasound 06/19/23 07:00 Completed CV. echo complete* [id number] Routine Ultrasound 06/19/23 06:00 Completed [place] thyroid [id number] Urgent Ultrasound 06/19/23 15:03 Completed Radiology Impressions Chest X-Ray 06/18/23 18:12 IMPRESSION: No focal consolidation. Head CT 06/18/23 18:12 IMPRESSION: No acute intracranial abnormality. Humerus X-Ray 06/18/23 18:24 IMPRESSION: 1. No acute fracture identified. 2. There is a 2.4 cm well-circumscribed bony density in the inferior aspect of the left glenohumeral joint consistent with a intra-articular loose body. Chest CTA 06/18/23 22:22 IMPRESSION: 1. No pulmonary embolus. 2. No focal consolidation. Venous Duplex 06/19/23 07:00 IMPRESSION: No evidence of deep vein thrombosis. Thyroid Ultrasound 06/19/23 15:03 IMPRESSION: 1. 1.5cm left-sided thyroid nodule (TR 3). Follow-up thyroid ultrasound in 12 months is recommended. 2. Status post right hemithyroidectomy. Laboratory Results WBC 4.49 10^3/uL (3.29-11.43) 06/20/23 05:24 RBC 3.94 10^6/uL (3.85-5.65) 06/20/23 05:24 Hgb 10.60 g/dL (11.27-16.99) L 06/20/23 05:24 Hct 32.9 % (36-47) L 06/20/23 05:24 MCV 83.5 fl (85-98) L 06/20/23 05:24 MCH 26.9 pg (27-33) L 06/20/23 05:24 MCHC 32.2 g/dL (30-55) 06/20/23 05:24 RDW 14.7 % (12.1-15.1) 06/20/23 05:24 Plt Count 243 10^3/cmm (157-399) 06/20/23 05:24 MPV 10.2 fL (7.4-10.4) 06/20/23 05:24 Neut % (Auto) 43.2 % 06/20/23 05:24 Lymph % (Auto) 42.3 % 06/20/23 05:24 [place] % (Auto) 10.5 % 06/20/23 05:24 Eos % (Auto) 2.9 % 06/20/23 05:24 Baso % (Auto) 0.9 % 06/20/23 05:24 Neut # (Auto) 1.94 10^3/uL (1.8-7.7) 06/20/23 05:24 Lymph # (Auto) 1.9 10^3/uL (0.8-4.8) 06/20/23 05:24 [place] # (Auto) 0.5 10^3/uL (0.2-0.9) 06/20/23 05:24 Eos # (Auto) 0.1 10^3/uL (0.0-0.8) 06/20/23 05:24 Baso # (Auto) 0.0 10^3/uL (0.0-0.1) 06/20/23 05:24 Nucleated RBC % (auto) 0 % 06/20/23 05:24 Nucleated RBCs # 0.0 /100WBC 06/20/23 05:24 PT 13.40 SECONDS (12.1-14.9) 06/18/23 18:45 INR 0.99 (0.8-1.2) 06/18/23 18:45 APTT 26.1 SECONDS (23.9-36.7) 06/18/23 18:45 D-Dimer 3.49 ug/mLFEU (0-0.59) H 06/18/23 18:45 Sodium 141 mmol/L (136-145) 06/20/23 05:24 Potassium 4.0 mmol/L (3.5-5.1) 06/20/23 05:24 Chloride 111 mmol/L (98-107) H 06/20/23 05:24 Carbon Dioxide 22 mmol/L (22-29) 06/20/23 05:24 Anion Gap 12.0 (5-19) 06/20/23 05:24 BUN 10 mg/dL (8-23) 06/20/23 05:24 Creatinine 0.5 mg/dL (0.5-0.9) 06/20/23 05:24 GFR Calculation Not Reportable 06/20/23 05:24 Glucose 103 mg/dL (65-115) 06/20/23 05:24 Estimat Average Glucose 120 06/18/23 20:45 Hemoglobin A1c 5.8 % (4.0-6.0) 06/18/23 20:45 Calculated Osmolality 291 mOsm/kg (285-295) 06/20/23 05:24 Calcium 8.1 mg/dL (8.5-10.5) L 06/20/23 05:24 Magnesium 1.9 mg/dL (1.7-2.3) 06/20/23 05:24 Total Bilirubin 0.7 mg/dL (0.15-1.2) 06/18/23 18:45 AST 14 U/L (0-32) 06/18/23 18:45 ALT 12 U/L (0-33) 06/18/23 18:45 Alkaline Phosphatase 62 U/L (35-105) 06/18/23 18:45 Troponin T Baseline 12 ng/L (0-10) H 06/18/23 18:45 Troponin T 120 Minute 11.60 ng/L (0-10) H 06/18/23 20:40 Delta Troponin T -0.40 ABS# (0-10) L 06/18/23 20:40 Troponin T Hi Sens 6Hr 11.54 ng/L (0-10) H 06/19/23 00:40 Troponin T Hi Sens 6Hr Delta -0.46 ng/L (0-12) L 06/19/23 00:40 C-Reactive Protein 3.0 mg/L (0.0-4.9) 06/19/23 04:25 NT-Pro-B Natriuret Pep 119 pg/mL (0-125) 06/18/23 18:45 Total Protein 6.4 g/dL (6.6-8.7) L 06/18/23 18:45 Albumin 4.0 g/dL (3.5-5.2) 06/18/23 18:45 Globulin 2.4 g/dL (1.3-4.6) 06/18/23 18:45 Vitamin B12 461 pg/mL (232-1245) 06/18/23 20:45 TSH 0.10 uIU/mL (0.27-4.20) L 06/18/23 20:45 Free T4 1.63 ng/dL (0.82-1.77) 06/19/23 00:40 Vitals Last Vital Signs Temp 97.4 F L 06/20/23 11:14 Pulse 75 06/20/23 11:14 Resp 17 06/20/23 11:14 BP 127/70 06/20/23 11:14 Pulse Ox 96 06/20/23 11:14 O2 Del Method Room Air 06/20/23 11:14 Discharge Plan Discharge Patient Disposition: Home Condition: Stable Prescriptions: New paroxetine HCl 20 mg Tablet 10 mg PO DAILY Qty: 30 0RF levothyroxine 50 mcg capsule 50 mcg PO DAILY Qty: 30 0RF Continued buspirone 10 mg tablet 10 mg PO BID Qty: 60 0RF calcium carbonate-vitamin D3 [Os-Dagoberto 500 + D3] 500 mg-15 mcg (600 unit) tablet 1 tab PO BID Qty: 60 5RF albuterol sulfate 2.5 mg /3 mL (0.083 %) solution for nebulization 2.5 mg inhalation QID PRN (Reason: shortness of breath or wheezing) Qty: 75 0RF albuterol sulfate 90 mcg/actuation HFA aerosol inhaler 2 inh INHALATION Q4H PRN (Reason: shortness of breath or wheezing) Qty: 18 0RF Lumigan 0.01 % drops 1 drp ophthalmic (eye) BEDTIME@2100 Rx Instructions: USE IN BOTH EYES ondansetron 4 mg tablet,disintegrating 4 mg PO Q6H PRN (Reason: nausea and vomiting) Qty: 14 0RF meloxicam 15 mg tablet 15 mg PO BEDTIME Rx Instructions: (DO NOT TAKE WITH NAPROXEN) omeprazole 20 mg capsule,delayed release(DR/EC) 20 mg PO BID solifenacin 10 mg tablet 10 mg PO BEDTIME Myrbetriq 25 mg tablet extended release 24 hr 25 mg PO BEDTIME Rx Instructions: IN ADDITION TO THE VESICARE Combivent Respimat 20-100 mcg/actuation mist 1 puff inhalation BID PRN (Reason: copd) multivitamin Tablet 1 tab PO BEDTIME clotrimazole-betamethasone 1-0.05 % cream 1 applic TOPICAL BID PRN (Reason: unknown) ibandronate 150 mg tablet 150 mg PO Q30D Held gabapentin 100 mg capsule 100 mg PO BID Qty: 60 0RF Hold Instructions: see pcp Rx Instructions: may increase to 2 caps if needed Discontinued levothyroxine 75 mcg tablet 75 mcg PO QAM lisinopril 5 mg tablet 5 mg PO BEDTIME Discharge Orders: Discharge Order (Routine); Ordered 06/20/23 Ordered By: Radha Holliday Other Ambulatory Orders: DME: Walker (Order) Location: None Selected Ordered By: Radha Holliday DME: Walker (Order) Location: None Selected Ordered By: Radha Holliday MCT/Event Monitor 21 Days (Routine) Timeframe: 1 Day Facility: [facility] - Location: Radiology Ordered By: Radha Holliday [place]: [facility] [place] Hannah Juan FNP-C [Primary Care Provider] - 06/30/23 10:40 am Cecilio Lyn DO [Staff Physician] - (We have notified your physician's clinic of the need for a follow-up appointment to be scheduled. If you have not heard from them within the next 2 business days, please call them directly. PLEASE CALLFOR APPOINTMENT) Mariluz Giles MD [Physician] - 1-3 days (We have notified your physician's clinic of the need for a follow-up appointment to be scheduled. If you have not heard from them within the next 2 business days, please call them directly. ) Discharge Diet: Cardiac Discharge Activity: Limit activity as instructed and As per PT/OT instructions Patient Instructions: Generalized Anxiety Disorder, Levothyroxine (By mouth), Paroxetine (By mouth), Syncope in Older Adults (DC), Opioid Safety Discharge Attestations Time Spent in Discharge Care*: greater than 30 min Quality Metrics Clinical Quality Measures [ No reported AMI, CVA or VTE this stay] Coding Level of Care Code Acute Code for Chg Fwd Diagnoses Anxiety F41.9 Essential hypertension I10 Hypertension type: essential hypertension Atrial arrhythmia I49.8 Postsurgical hypothyroidism E89.0 Stress incontinence N39.3 Spondylolisthesis at L4-L5 level M43.16 Atypical chest pain R07.89 Syncope and collapse R55
[2023-06-20] MEDS: PARoxetine 20 mg Tablet 10 MG PO (13:31)
== END 2023-06-20 16:45 | disposition home or self-care (01) ==
LOC: ER 20:07 → ER IP 22:35 → MEDSURG 06-19 06:26
PROVIDERS: Admitting Provider Internal Medicine; Emergency Provider Emergency Medicine; PCP Nurse Practitioner Family; Visit Provider Internal Medicine
DX: R55 Syncope and collapse (principal); I10 Essential (primary) hypertension; I49.8 Other specified cardiac arrhythmias; E89.0 Postprocedural hypothyroidism; N39.3 Stress incontinence (female) (male); M43.16 Spondylolisthesis, lumbar region; R07.89 Other chest pain; E04.1 Nontoxic single thyroid nodule; I95.9 Hypotension, unspecified; E66.9 Obesity, unspecified; Z68.41 Body mass index [BMI] 40.0-44.9, adult; E66.01 Morbid (severe) obesity due to excess calories
CPT/HCPCS: 36415; 70450; 71045; 71275; 73060; 76536; 80048; 80053; 82607; 83036; 83735; 83880; 84439; 84443; 84484; 85025; 85378; 85610; 85730; 86140; 93005; 93306; 93970; 96365; 96366; 97161; 97530; 99285; G0378; J3475; J7030; J7040; Q9967

== ENCOUNTER → 2023-06-22 09:20 | Outpatient (BNVA) | payer MEDICARE, MEDICAID, SELFPAY | PROVIDERS: PCP Nurse Practitioner Family; Visit Provider Internal Medicine | DX: E89.0 Postprocedural hypothyroidism; Z85.850 Personal history of malignant neoplasm of thyroid | CPT/HCPCS: 99204 ==

== ENCOUNTER → 2023-07-11 10:17 | Outpatient (BNVA) | payer MEDICARE, MEDICAID, SELFPAY | PROVIDERS: PCP Nurse Practitioner Family; Visit Provider Surgery | DX: Z09 Encounter for follow-up examination after completed treatment for conditions other than malignant neoplasm (principal) | CPT/HCPCS: 99213 ==

== ENCOUNTER → 2023-07-12 16:28 | Outpatient (BNVA) | payer MEDICARE, SELFPAY | PROVIDERS: PCP Nurse Practitioner Family; Visit Provider Nurse Practitioner Family | DX: R30.0 Dysuria (principal) | CPT/HCPCS: 81000 ==

== ENCOUNTER → 2023-08-15 11:47 | Outpatient (BNVA) | payer MEDICARE, SELFPAY | PROVIDERS: PCP Nurse Practitioner Family; Visit Provider Internal Medicine Cardiovascular Disease | DX: E78.2 Mixed hyperlipidemia (principal); F32.9 Major depressive disorder, single episode, unspecified; F41.9 Anxiety disorder, unspecified; J44.9 Chronic obstructive pulmonary disease, unspecified; Z87.891 Personal history of nicotine dependence | CPT/HCPCS: 99213 ==

== ENCOUNTER → 2023-08-22 08:49 | Outpatient (BNVA) | payer MEDICARE, SELFPAY | PROVIDERS: PCP Nurse Practitioner Family; Visit Provider Internal Medicine | DX: E03.9 Hypothyroidism, unspecified (principal) | CPT/HCPCS: 84439; 84443 ==

== ENCOUNTER → 2023-08-26 10:21 | Outpatient (BNVA) | payer MEDICARE, SELFPAY | PROVIDERS: PCP Nurse Practitioner Family; Visit Provider Internal Medicine | DX: E89.0 Postprocedural hypothyroidism (principal); Z85.850 Personal history of malignant neoplasm of thyroid; Z79.890 Hormone replacement therapy | CPT/HCPCS: 99214 ==

== ENCOUNTER → 2023-08-31 16:25 | Outpatient (BNVA) | payer MEDICARE, SELFPAY | PROVIDERS: PCP Nurse Practitioner Family; Visit Provider Nurse Practitioner Family | DX: J44.9 Chronic obstructive pulmonary disease, unspecified (principal); J45.909 Unspecified asthma, uncomplicated; R06.02 Shortness of breath; E03.9 Hypothyroidism, unspecified; E89.0 Postprocedural hypothyroidism; Z85.850 Personal history of malignant neoplasm of thyroid | CPT/HCPCS: 71046 ==

== ENCOUNTER 2023-09-05 11:30 | Emergency (ER) | payer MEDICARE, SELFPAY ==
[2023-09-05 11:40] VITALS: BP 156/69; PULSE 88; TEMP 36.4; O2SAT 94
--- NOTE | 2023-09-05 11:41 | ECG_ITS ---
[facility] Test Date: 2023-09-05 Pat Name: Lenora Aviles Department: Room: Gender: Female Director Of Career Services: : 1950 Requested By: Jacob Marshall Order Number: [id number] Leslie MD: Steve Tolliver M.D. Measurements Intervals [place] Rate: 85 P: 63 SC: 148 QRS: -4 QRSD: 98 T: 38 QT: 360 QTc: 429 Interpretive Statements SINUS RHYTHM WITH OCCASIONAL VENTRICULAR PREMATURE COMPLEXES LOW QRS VOLTAGE IN PRECORDIAL LEADS [QRS DEFLECTION < 1.0 mV IN CHEST LEADS] POSSIBLE ANTERIOR MYOCARDIAL INFARCTION , OF INDETERMINATE AGE [30 ms Q WAVE IN V3/V4, OR R < 0.2 mV IN V4] Compared to ECG 06/18/2023 20:43:31 Ventricular premature complex(es) now present Low QRS voltage now present Myocardial infarct finding now present Electronically Signed On 09-05-2023 12:21:05 CDT by Steve Tolliver M.D. [email or web address]
--- NOTE | 2023-09-05 11:53 | XRR_ITS ---
PROCEDURE INFORMATION: Exam: XR Chest Exam date and time: 09/05/2023 12:15 PM Age: 73 years old Clinical indication: Shortness of breath; Additional info: SOB TECHNIQUE: Imaging protocol: Radiologic exam of the chest. Views: 1 view. COMPARISON: CR XR chest 2V* [id number] 08/31/2023 4:23 PM FINDINGS: Lungs: Unremarkable. No consolidation. Pleural spaces: Unremarkable. No pleural effusion. No pneumothorax. Heart/Mediastinum: Unremarkable. No cardiomegaly. Bones/joints: Unremarkable. There is a ossific density in the left axillary soft tissues. This finding is nonspecific . XR/XR chest 1V portable [id number] IMPRESSION: No acute findings.
[2023-09-05 12:38] LABS: Basophils # 0.1 10^3/uL (0.0-0.1); Basophils % 1.2 %; Eosinophils # 0.3 10^3/uL (0.0-0.8); Eosinophils % 4.3 %; Lymphocytes # 2.1 10^3/uL (0.8-4.8); Lymphocytes % 35.3 %; Mean Corpuscular HGB Conc 31.6 g/dL (30-55); Mean Corpuscular Hemoglobin 26.8 pg (27-33); Mean Corpuscular Volume 84.7 fl (85-98); Mean Platelet Volume 9.8 fL (7.4-10.4); Monocytes # 0.5 10^3/uL (0.2-0.9); Monocytes % 8.7 %; Neutrophils # 2.95 10^3/uL (1.8-7.7); Neutrophils % 50.2 %; Nucleated Red Blood Cells % 0 %; Platelet Count 296 10^3/cmm (157-399); Red Blood Count 4.37 10^6/uL (3.85-5.65); Red Cell Distribution Width 14.1 % (12.1-15.1); White Blood Count 5.87 10^3/uL (3.29-11.43)
--- NOTE | 2023-09-05 12:46 | ED_ITS ---
HPI - SOB/Dyspnea 2 General: Chief Complaint: Shortness of Breath/Dyspnea Stated Complaint: sob Time Seen by Provider: 09/05/23 11:40 Source: patient Mode of arrival: ambulatory Limitations: no limitations History of Present Illness: HPI Narrative: 73-year-old female states that she has b een having shortness of breath and wheezing for the last 2 to 3 weeks. States she seen her PCP multiple times she has been on antibiotics along with steroids she states she has really no improvement. States it is worse with exertion she denies any chest pain denies any fever she has had a slight cough patient is in no distress here pulse ox 95% on room air. Associated symptoms: Deny abdominal pain, chest pain, fever(s), nausea or vomiting Review of Systems 2 Const: Denies: fever(s), chills, body aches or change in appetite ENMT: Denies: throat pain or dental pain Card: Denies: chest pain Resp: Reports: dyspnea GI: Denies: abdominal pain, nausea, vomiting or diarrhea Musc: Denies: neck pain or back pain Skin/Breast: Denies: rash Neuro: Denies: headache(s) PFSH ED 2 PFSH: Medical History Psychiatric care Diarrhea Dermatitis Anxiety Fatigue Atrial fibrillation Left thigh pain Upper respiratory infection Bilateral otitis media Injury of knee, right Acute bacterial sinusitis Arthritis pain Influenza vaccine needed Acute bacterial sinusitis Environmental and seasonal allergies URI, acute Right knee pain Obesity Pain of left knee after injury Lower respiratory infection Urgency incontinence Recurrent UTI Sinusitis, acute Morbid obesity Difficulty in swallowing Tear of right rotator cuff Arthritis of right acromioclavicular joint Rotator cuff tear arthropathy of left shoulder Weight loss Esophagitis SOB (shortness of breath) Chest pain at rest EKG from 05/01/2020 The EKG showed normal sinus rhythm with possible old inferior wall TX and poor R wave progression. Some nonspecific T wave changes. Cardiac arrhythmia Anemia Hypotension Postsurgical hypothyroidism Allergic rhinitis Mixed hyperlipidemia Vitamin D deficiency H/O malignant neoplasm of thyroid Patellar tendon rupture Hypertension Stress incontinence COPD (chronic obstructive pulmonary disease) Depression Osteoarthritis (arthritis due to wear and tear of joints) Diabetes Surgical History H/O hernia repair with mesh H/O tubal ligation Hx of cholecystectomy H/O colonoscopy H/O esophagogastroduodenoscopy with dilation S/P thyroidectomy Status post knee replacement Family History Mother , AT AGE 75 CAD (coronary artery disease) Hypertension Father , AT AGE 68 CAD (coronary artery disease) Hypertension Denies family history of Diabetes Anesthesia complication Bleeding disorder Cancer Social History Smoking and tobacco/nicotine status: former use of tobacco/nicotine Quit status (tobacco/nicotine): has quit using Second hand smoke exposure: No Alcohol intake: never Substance/Drug Use: never Marital status: Current occupational status: employed and unemployed Physical Exam 2 Const: COMMON NORMALS: no acute distress, patient oriented x3 and healthy appearing HENMT: COMMON NORMALS: normocephalic and atraumatic HEAD & SCALP: n ormocephalic and atraumatic Eye: COMMON NORMALS: conjunctivae normal CONJUNCTIVA: Yes conjunctivae normal Neck/C-Spine: COMMON NORMALS: full ROM and supple Chest: COMMONS NORMALS: normal inspection of the chest and normal palpation of entire chest wall Resp: COMMON NORMALS: normal respiratory effort, No retractions, No use of accessory muscles and clear to auscultation bilaterally AUSCULTATION: clear to auscultation bilaterally Cardio: COMMON NORMALS: regular rate, regular rhythm and No murmurs present (Cardio) RATE: regular rate RHYTHM: regular rhythm Extremity: COMMON NORMALS: normal to inspection and full ROM Neuro: COMMON NORMALS: patient oriented x3, moves all extremities and no focal motor deficits Psych: COMMON NORMALS: mental status grossly normal, Normal thought process present and cooperative THOUGHT PROCESS: Normal thought process present Skin: COMMON NORMALS: no rashes or lesions noted and no wounds GENERAL SKIN EXAM: no rashes or lesions noted Course 2 Vital Signs: Vital signs: Vital Signs Temperature 97.6 F 09/05/23 11:40 Pulse Rate 78 09/05/23 13:39 Respiratory Rate 16 09/05/23 13:39 Blood Pressure 156/69 09/05/23 11:40 Pulse Oximetry 94 09/05/23 13:39 Oxygen Delivery Me thod Room Air 09/05/23 13:39 MDM - SOB/Dyspnea Medical Decision Making Patient presents with dyspnea is likely COPD exacerbation patient been well- appearing here she had no hypoxia x-ray and blood work are normal she is no signs of pulmonary embolism. She is stable for discharge she is follow-up with PCP and return if worsening she understands agrees to plan. Medical Records I reviewed the patient's medical records. Lab Data I reviewed the patient's lab results. 09/05/23 12:26 09/05/23 12:26 Labs/Radiology: Radiology Impressions Chest X-Ray 09/05/23 11:53 IMPRESSION: No acute findings. Laboratory Results WBC 5.87 10^3/uL (3.29-11.43) 09/05/23 12: RBC 4.37 10^6/uL (3.85-5.65) 09/05/23 12:26 Hgb 11.70 g/dL (11.27-16.99) 09/05/23 12: Hct 37.0 % (36-47) 09/05/23 12: MCV 84.7 fl (85-98) L 09/05/23 12:26 MCH 26.8 pg (27-33) L 09/05/23 12:26 MCHC 31.6 g/dL (30-55) 09/05/23 12: RDW 14.1 % (12.1-15.1) 09/05/23 12:26 Plt Count 296 10^3/cmm (157-399) 09/05/23 12:26 MPV 9.8 fL (7.4-10.4) 09/05/23 12:26 Neut % (Auto) 50.2 % 09/05/23 12: Lymph % (Auto) 35.3 % 09/05/23 12:26 [place] % (Auto) 8.7 % 09/05/23 12:26 Eos % (Auto) 4.3 % 09/05/23 12: Baso % (Auto) 1.2 % 09/05/23 12: Neut # (Auto) 2.95 10^3/uL (1.8-7.7) 09/05/23 12: Lymph # (Auto) 2.1 10^3/uL (0.8-4.8) 09/05/23 12: [place] # (Auto) 0.5 10^3/uL (0.2-0.9) 09/05/23 12:26 Eos # (Auto) 0.3 10^3/uL (0.0-0.8) 09/05/23 12:26 Baso # (Auto) 0.1 10^3/uL (0.0-0.1) 09/05/23 12:26 Nucleated RBC % (auto) 0 % 09/05/23 12: Nucleated RBCs # 0.0 /100WBC 09/05/23 12:26 Sodium 143 mmol/L (136-145) 09/05/23 12:26 Potassium 4.0 mmol/L (3.5-5.1) 09/05/23 12:26 Chloride 107 mmol/L (98-107) 09/05/23 12: Carbon Dioxide 25 mmol/L (22-29) 09/05/23 12:26 Anion Gap 15.0 (5-19) 09/05/23 12:26 BUN 21 mg/dL (8-23) 09/05/23 12:26 Creatinine 0.8 mg/dL (0.5-0.9) 09/05/23 12:26 GFR Calculation Not Reportable 09/05/23 12:26 Glucose 103 mg/dL (65-115) 09/05/23 12:26 Calculated Osmolality 299 mOsm/kg (285-295) H 09/05/23 12:26 Calcium 9.2 mg/dL (8.5-10.5) 09/05/23 12:26 Total Bilirubin 0.4 mg/dL (0.15-1.2) 09/05/23 12:26 AST 13 U/L (0-32) 09/05/23 12:26 ALT 9 U/L (0-33) 09/05/23 12:26 Alkaline Phosphatase 53 U/L (35-105) 09/05/23 12:26 NT-Pro-B Natriuret Pep 183 pg/mL (0-125) H 09/05/23 12:26 Total Protein 6.2 g/dL (6.6-8.7) L 09/05/23 12:26 Albumin 4.0 g/dL (3.5-5.2) 09/05/23 12:26 Globulin 2.2 g/dL (1.3-4.6) 09/05/23 12:26 All radiology interpretation(s) finalized by discharge Discharge Plan Discharge Patient Disposition: Home Clinical Impression: COPD (chronic obstructive pulmonary disease) Condition: Stable Prescriptions: No Action calcium carbonate-vitamin D3 [Os-Dagoberto 500 + D3] 500 mg-15 mcg (600 unit) tablet 1 tab PO BID Qty: 60 5RF Myrbetriq 50 mg tablet extended release 24 hr 50 mg PO DAILY paroxetine HCl 20 mg tablet 20 mg PO DAILY Qty: 30 2RF buspirone 10 mg tablet 10 mg PO BID Qty: 60 2RF gabapentin 100 mg capsule 100 mg PO BID Qty: 60 2RF albuterol sulfate 2.5 mg /3 mL (0.083 %) solution for nebulization 2.5 mg inhalation QID PRN (Reason: shortness of breath or wheezing) Qty: 75 0RF albuterol sulfate 90 mcg/actuation HFA aerosol inhaler 2 inh INHALATION Q4H PRN (Reason: shortness of breath or wheezing) Qty: 18 2RF budesonide 0.5 mg/2 mL suspension for nebulization 0.5 mg inhalation BID Qty: 60 0RF (DME) nebulizer accessories Kit See Rx Instructions .Route Qty: 1 0RF Rx Instructions: As directed prednisone 20 mg tablet 20 mg PO BID Qty: 60 0RF levofloxacin 500 mg tablet 500 mg PO DAILY Qty: 7 0RF solifenacin 10 mg tablet 10 mg PO BEDTIME Qty: 30 2RF meloxicam 15 mg tablet 15 mg PO BEDTIME Qty: 30 2RF Rx Instructions: (DO NOT TAKE WITH NAPROXEN) Lumigan 0.01 % drops 1 drp ophthalmic (eye) BEDTIME@2100 Rx Instructions: USE IN BOTH EYES ondansetron 4 mg tablet,disintegrating 4 mg PO Q6H PRN (Reason: nausea and vomiting) Qty: 14 0RF Combivent Respimat 20-100 mcg/actuation mist 1 puff inhalation BID PRN (Reason: copd) multivitamin Tablet 1 tab PO BEDTIME clotrimazole-betamethasone 1-0.05 % cream 1 applic TOPICAL BID PRN (Reason: unknown) levothyroxine 50 mcg tablet 50 mcg PO DAILY omeprazole 20 mg capsule,delayed release(DR/EC) See Rx Instructions .ROUTE .COMPLEX Rx Instructions: 20 mg orally ;TAKE ONE CAPSULE BY MOUTH TWICE DAILY, 8:00 IN THE MORNING AND 9:00 IN THE EVENING Remeron 15 mg tablet 15 mg PO BEDTIME alendronate 70 mg tablet 70 mg PO Q7D erythromycin 5 mg/gram (0.5 %) ointment 0.25 inch ophthalmic (eye) QPM estradiol 10 mcg tablet See Rx Instructions .ROUTE .COMPLEX Rx Instructions: Insert 1 tablet (10 mcg) vaginally twice weekly. 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
[2023-09-05 13:09] LABS: Alanine Aminotransferase 9 U/L (0-33); Alkaline Phosphatase 53 U/L (35-105); Aspartate Amino Transferase 13 U/L (0-32); Blood Urea Nitrogen 21 mg/dL (8-23); Calcium 9.2 mg/dL (8.5-10.5); Carbon Dioxide 25 mmol/L (22-29); Chloride 107 mmol/L (98-107); Creatinine Clr Calc Pharmacy 74.8564; Globulin 2.2 g/dL (1.3-4.6); Glucose 103 mg/dL (65-115); NT Pro B Type Natriuretic Pept 183 pg/mL (0-125); Osmolality Calculated 299 mOsm/kg (285-295); Sodium 143 mmol/L (136-145); Total Bilirubin 0.4 mg/dL (0.15-1.2); Total Protein 6.2 g/dL (6.6-8.7)
[2023-09-05 13:39] VITALS: PULSE 78; RESP 16; O2SAT 94
[2023-09-05] MEDS: ipratropium-albuterol 3 mL Neb INHALATION (13:41)
== END 2023-09-05 13:55 | disposition home or self-care (01) ==
PROVIDERS: Emergency Provider Emergency Medicine; PCP Nurse Practitioner Family
DX: J44.9 Chronic obstructive pulmonary disease, unspecified (principal); Z87.891 Personal history of nicotine dependence; E78.2 Mixed hyperlipidemia; I10 Essential (primary) hypertension; E11.9 Type 2 diabetes mellitus without complications; Z85.850 Personal history of malignant neoplasm of thyroid
CPT/HCPCS: 71045; 80053; 83880; 85025; 93005; 94640; 99285

== ENCOUNTER 2023-09-12 06:00 | Outpatient (RCR) | payer MEDICARE, SELFPAY | END 2023-10-11 23:59 | disposition home or self-care (01) | LOC: APT 06:00 | PROVIDERS: PCP Nurse Practitioner Family; Visit Provider Nurse Practitioner Family | DX: M25.561 Pain in right knee (principal); M25.551 Pain in right hip; M25.552 Pain in left hip | CPT/HCPCS: 97110; 97161 ==

== ENCOUNTER → 2023-10-20 13:15 | Outpatient (BNVA) | payer OTHER, SELFPAY | PROVIDERS: PCP Nurse Practitioner Family; Visit Provider Psychiatry & Neurology Psychiatry | DX: F41.1 Generalized anxiety disorder (principal) | CPT/HCPCS: 80061; 83036 ==

== ENCOUNTER 2023-10-22 19:01 | Emergency (ER) | payer OTHER, MEDICAID, SELFPAY ==
[2023-10-22 19:05] VITALS: BP 145/66; PULSE 81; RESP 18; TEMP 36.7; O2SAT 93; BMI 42.3
--- NOTE | 2023-10-22 19:36 | XRR_ITS ---
PROCEDURE INFORMATION: Exam: XR Left Shoulder Exam date and time: 10/22/2023 7:40 PM Age: 73 years old Clinical indication: Pain; Shoulder; Left TECHNIQUE: Imaging protocol: Radiologic exam of the left shoulder. Views: 2 or more views. COMPARISON: CR XR shoulder LT min 2V* [id number] 02/28/2023 4:34 PM FINDINGS: Bones/joints: Mild acromioclavicular joint osteoarthritis. Soft tissues: Left axillary soft tissue calcifications measuring up to 2 cm similar to prior exam appear chronic and benign. XR/XR shoulder LT min 2V* [id number] IMPRESSION: 1. Mild acromioclavicular joint osteoarthritis. 2. Left axillary soft tissue calcifications measuring up to 2 cm similar to prior exam appear chronic and benign.
--- NOTE | 2023-10-22 19:36 | XRR_ITS ---
PROCEDURE INFORMATION: Exam: XR Left Humerus Exam date and time: 10/22/2023 7:40 PM Age: 73 years old Clinical indication: Pain; Upper arm; Left TECHNIQUE: Imaging protocol: Radiologic exam of the left humerus. Views: 2 or more views. COMPARISON: CR (CHEST, ) 10/22/2023 7:40 PM FINDINGS: Bones/joints: Mild acromioclavicular joint osteoarthritis. Soft tissues: Soft tissue calcifications in the axillary region measuring up to 22 mm similar to prior exam, appear benign. XR/[place] [id number] IMPRESSION: 1. Soft tissue calcifications in the axillary region measuring up to 22 mm similar to prior exam, appear benign. 2. Mild acromioclavicular joint osteoarthritis.
[2023-10-22] MEDS: ketorolac 30 mg/mL INJ 15 MG IVP (20:47)
--- NOTE | 2023-10-22 20:56 | W.ED.EXTPRO ---
HPI - Extremity Problem General: Chief complaint: Extremity Injury, Upper Stated complaint: SHOULDER PAIN Time Seen by Provider: 10/22/23 19:36 History of Present Illness: Lenora Aviles is a [id number] 73-year-old female who presents to the emergency department with left shoulder pain. Patient reports he has a long history of shoulder problems and has pretty advanced degenerative joint disease. She reports today that she was trying to get up off the bed she was pushing up from a seated position to standing when she felt a pop in her shoulder. She had immediate pain and has not been able to use the extremity since. No obvious deformity She has pain in the shoulder and trapezius. PMS intact No open wounds Associated symptoms: Deny chest pain, fever(s) or rash Review of Systems General: Reports: 10 or more systems reviewed and unremarkable except in HPI and below Const: Denies: fever(s), chills, change in appetite, change in weight, fatigue or malaise Card: Denies: chest pain, palpitations, irregular heart rhythm, edema, dyspnea on exertion, orthopnea or leg pain with exertion Resp: Denies: dyspnea, productive cough, non-productive cough, wheezing, stridor or chest congestion GI: Denies: abdominal pain, nausea, vomiting, dysphagia, diarrhea, constipation, bloating, GI cramping or hematochezia : Denies: flank pain, difficulty voiding, dysuria, urinary frequency, urinary urgency, urinary hesitancy, oliguria or hematuria Musc: Denies: neck pain, back pain, extremity pain, joint pain, joint swelling, joint redness, joint warmth or muscle weakness Skin/Breast: Denies: rash, pruritus, erythema, photosensitivity or new lesions Neuro: Denies: headache(s), numbness in extremities, weakness in extremities, sensory changes, lack of coordination, difficulty walking, frequent falls, dizziness, confusion, Slurred speech present, difficulty communicating thoughts, seizure-like activity or involuntary movements Endo: Denies: polyuria, polydipsia or tired all the time Manoj/Lymph: Denies: easy bruising or easy bleeding COUNT INCLUDES THE [facility] ED PFSH: Medical History Psychiatric care Diarrhea Dermatitis Anxiety Fatigue Atrial fibrillation Left thigh pain Upper respiratory infection Bilateral otitis media Injury of knee, right Acute bacterial sinusitis Arthritis pain Influenza vaccine needed Acute bacterial sinusitis Environmental and seasonal allergies URI, acute Right knee pain Obesity Pain of left knee after injury Lower respiratory infection Urgency incontinence Recurrent UTI Sinusitis, acute Morbid obesity Difficulty in swallowing Tear of right rotator cuff Arthritis of right acromioclavicular joint Rotator cuff tear arthropathy of left shoulder Weight loss Esophagitis SOB (shortness of breath) Chest pain at rest EKG from 05/01/2020 The EKG showed normal sinus rhythm with possible old inferior wall LA and poor R wave progression. Some nonspecific T wave changes. Cardiac arrhythmia Anemia Hypotension Postsurgical hypothyroidism Allergic rhinitis Mixed hyperlipidemia Vitamin D deficiency H/O malignant neoplasm of thyroid Patellar tendon rupture Hypertension Stress incontinence COPD (chronic obstructive pulmonary disease) Depression Osteoarthritis (arthritis due to wear and tear of joints) Diabetes Surgical History H/O hernia repair with mesh H/O tubal ligation Hx of cholecystectomy H/O colonoscopy H/O esophagogastroduodenoscopy with dilation S/P thyroidectomy Status post knee replacement Family History Mother , AT AGE 75 CAD (coronary artery disease) Hypertension Father , AT AGE 68 CAD (coronary artery disease) Hypertension Denies family history of Diabetes Anesthesia complication Bleeding disorder Cancer Social History Smoking and tobacco/nicotine status: former use of tobacco/nicotine Quit status (tobacco/nicotine): has quit using Second hand smoke exposure: No Alcohol intake: never Substance/Drug Use: never Marital status: Current occupational status: employed and unemployed Physical Exam Const: COMMON NORMALS: no acute distress and patient oriented x3 GENERAL APPEARANCE: cooperative HENMT: COMMON NORMALS: normocephalic HEAD & SCALP: normocephalic Eye: COMMON NORMALS: Equal, round and reactive pupils present GENERAL EYE: appearance normal, both eyes and all related structures PUPIL: Yes Equal, round and reactive pupils present Neck/C-Spine: GENERAL: Yes normal visual inspection Lymph: LYMPHATIC: no lymphadenopathy noted Chest: COMMONS NORMALS: normal inspection of the chest Resp: COMMON NORMALS: normal respiratory effort and clear to auscultation bilaterally AUSCULTATION: clear to auscultation bilaterally and other (breath sounds tight) Cardio: COMMON NORMALS: regular rate, regular rhythm and No murmurs present (Cardio) RATE: regular rate RHYTHM: regular rhythm Extremity: NARRATIVE EXTREMITY EXAM: Upper extremity exam: Patient is tender to palpation over the shoulder and deltoid She is tender over the trapezius and pectoral muscle She is unwilling or unable to range of motion the shoulder without pain I was able to perform passive range of motion of the shoulder without pain Full active range of motion of elbow She is able to extend wrist, give thumbs up, make an okay sign, cross fingers, abduct fingers and make a fist Sensation intact to light touch at axillary, median, radial, ulnar nerve distribution Radial pulses palpable and cap refills less than 3 seconds. GENERAL: No cyanosis and No edema Neuro: COMMON NORMALS: patient oriented x3, moves all extremities, no focal motor deficits and gait normal SPEECH: speech normal Psych: COMMON NORMALS: mental status grossly normal Skin: COMMON NORMALS: no rashes or lesions noted and no wounds GENERAL SKIN EXAM: no rashes or lesions noted Course Vital Signs: Vital signs: Vital Signs Temperature 98.1 F 10/22/23 19:05 Pulse Rate 81 10/22/23 19:05 Respiratory Rate 18 10/22/23 19:05 Blood Pressure 145/66 10/22/23 19:05 Pulse Oximetry 93 10/22/23 19:05 Oxygen Delivery Me thod Room Air 10/22/23 19:05 MDM - Extremity (Nontraumatic) Medical Decision Making Patient underwent XR imaging of the shoulder and humerus which revealed no acute findings. She has advanced degenerative joint disease. She has osteophyte formation loss of disc space and sclerotic changes. Questionable old fracture. I did speak with Dr. Galindo about the patient who agrees that there is no acute fracture or dislocation. Patient is going to be placed in a sling. She was given Toradol x 1 dose and will be going home with one-time dose of [place]. I advised her to call her orthopedic surgeon who she sees for this chronic shoulder pain. She will call Tuesday. All are agreeable and all questions answered XR interpretation done by ED provider, pending radiology final review Discharge Plan Discharge Patient Disposition: Home Clinical Impression: Left shoulder pain Osteoarthritis (arthritis due to wear and tear of joints) Qualifiers: Osteoarthritis location: unspecified site Osteoarthritis type: primary Qualified Code(s): M19.91 - Primary osteoarthritis, unspecified site Condition: Stable Prescriptions: No Action calcium carbonate-vitamin D3 [Os-Dagoberto 500 + D3] 500 mg-15 mcg (600 unit) tablet 1 tab PO BID Qty: 60 5RF Myrbetriq 50 mg tablet extended release 24 hr 50 mg PO DAILY paroxetine HCl 40 mg tablet 40 mg PO DAILY Qty: 30 2RF mirtazapine [Remeron] 15 mg tablet 15 mg PO BEDTIME Qty: 30 2RF buspirone 10 mg tablet 10 mg PO BID Qty: 60 2RF gabapentin 100 mg capsule 100 mg PO BID Qty: 60 2RF albuterol sulfate 90 mcg/actuation HFA aerosol inhaler 2 inh INHALATION Q4H PRN (Reason: shortness of breath or wheezing) Qty: 18 2RF (DME) nebulizer accessories Kit See Rx Instructions .Route Qty: 1 0RF Rx Instructions: As directed prednisone 20 mg tablet 20 mg PO BID Qty: 60 0RF levofloxacin 500 mg tablet 500 mg PO DAILY Qty: 7 0RF Trelegy Ellipta 200-62.5-25 mcg blister with device 1 inh inhalation DAILY Qty: 28 2RF solifenacin 10 mg tablet 10 mg PO BEDTIME Qty: 30 2RF meloxicam 15 mg tablet 15 mg PO BEDTIME Qty: 30 2RF Rx Instructions: (DO NOT TAKE WITH NAPROXEN) albuterol sulfate 2.5 mg /3 mL (0.083 %) solution for nebulization 2.5 mg inhalation QID PRN (Reason: shortness of breath or wheezing) Qty: 75 2RF budesonide 0.5 mg/2 mL suspension for nebulization 0.5 mg inhalation BID Qty: 60 2RF omeprazole 20 mg capsule,delayed release(DR/EC) See Rx Instructions .ROUTE .COMPLEX Qty: 60 1RF Dose Instruction: TAKE ONE CAPSULE BY MOUTH TWICE DAILY, 8:00 IN THE MORNING AND 9:00 IN THE EVENING Rx Instructions: TAKE ONE CAPSULE BY MOUTH TWICE DAILY, 8:00 IN THE MORNING AND 9:00 IN THE EVENING levothyroxine 50 mcg tablet See Rx Instructions .ROUTE .COMPLEX Qty: 90 0RF Dose Instruction: TAKE ONE TABLET BY MOUTH DAILY Rx Instructions: TAKE ONE TABLET BY MOUTH DAILY Lumigan 0.01 % drops 1 drp ophthalmic (eye) BEDTIME@2100 Rx Instructions: USE IN BOTH EYES ondansetron 4 mg tablet,disintegrating 4 mg PO Q6H PRN (Reason: nausea and vomiting) Qty: 14 0RF multivitamin Tablet 1 tab PO BEDTIME clotrimazole-betamethasone 1-0.05 % cream 1 applic TOPICAL BID PRN (Reason: unknown) alendronate 70 mg tablet 70 mg PO Q7D erythromycin 5 mg/gram (0.5 %) ointment 0.25 inch ophthalmic (eye) QPM estradiol 10 mcg tablet See Rx Instructions .ROUTE .COMPLEX Rx Instructions: Insert 1 tablet (10 mcg) vaginally twice weekly. Discharge Orders: Discharge ED (Routine); Ordered 10/22/23 Ordered By: Titi Lopez Referrals: Hannah Juan FNP-C [Primary Care Provider] - Discharge Diet: Advance as tolerated Discharge Activity: Resume usual activity Patient Instructions: How to Use a Sling (ED), Shoulder Pain (ED), Opioid Safety, Pain Management, Sling - Wearing Activity Restrictions/Additional Instructions: Please follow-up with your orthopedic surgeon. Please use Voltaren gel as instructed I provided you with one-time dose of [place]. Please be aware that this will make you sleepy so do not take with additional sedating medications Please return to the emergency department for new, concerning, worsening symptoms Coding Level of Care Code ED Sheet Rock Installer for Afia Stafford
[2023-10-22 21:22] VITALS: BP 141/68; PULSE 78; RESP 16; TEMP 36.7; O2SAT 95
== END 2023-10-22 21:23 | disposition home or self-care (01) ==
PROVIDERS: Emergency Provider Nurse Practitioner; PCP Nurse Practitioner Family
DX: M19.012 Primary osteoarthritis, left shoulder (principal); M25.512 Pain in left shoulder; Z87.891 Personal history of nicotine dependence; E78.2 Mixed hyperlipidemia; J44.9 Chronic obstructive pulmonary disease, unspecified; E11.9 Type 2 diabetes mellitus without complications
CPT/HCPCS: 73030; 73060; 96374; 99284; J1885

== ENCOUNTER → 2023-11-10 11:45 | Outpatient (BNVA) | payer MEDICARE, SELFPAY ==
[2023-11-02 13:57] VITALS: BP 137/79; BMI 42.2
== END ==
PROVIDERS: PCP Nurse Practitioner Family; Visit Provider Nurse Practitioner Family
DX: R30.0 Dysuria (principal)
CPT/HCPCS: 81000

== ENCOUNTER → 2023-11-30 15:02 | Outpatient (BNVA) | payer OTHER, SELFPAY ==
[2023-11-02 13:57] VITALS: BP 137/79; BMI 42.2
== END ==
PROVIDERS: PCP Nurse Practitioner Family; Visit Provider Nurse Practitioner Family
DX: E03.9 Hypothyroidism, unspecified (principal); E55.9 Vitamin D deficiency, unspecified; Z68.41 Body mass index [BMI] 40.0-44.9, adult; Z79.899 Other long term (current) drug therapy
CPT/HCPCS: 80053; 80061; 82306; 83036; 84443; 85025

== ENCOUNTER → 2024-02-27 10:37 | Outpatient (BNVA) | payer MEDICARE, SELFPAY ==
[2023-11-02 13:57] VITALS: BP 137/79; BMI 42.2
== END ==
PROVIDERS: PCP Nurse Practitioner Family; Visit Provider Internal Medicine
DX: Z85.850 Personal history of malignant neoplasm of thyroid; E89.0 Postprocedural hypothyroidism; Z79.890 Hormone replacement therapy
CPT/HCPCS: 84439; 84443; 99214

== ENCOUNTER → 2024-04-03 10:31 | Outpatient (BNVA) | payer MEDICARE, SELFPAY ==
[2023-11-02 13:57] VITALS: BP 137/79; BMI 42.2
== END ==
PROVIDERS: PCP Nurse Practitioner Family; Visit Provider Nurse Practitioner Family
DX: E55.9 Vitamin D deficiency, unspecified (principal); J01.90 Acute sinusitis, unspecified; B96.89 Other specified bacterial agents as the cause of diseases classified elsewhere; R68.89 Other general symptoms and signs
CPT/HCPCS: 80053; 82306; 85025; 87400; 87426

== ENCOUNTER 2024-06-19 11:26 | Outpatient (CLI) | payer MEDICARE, SELFPAY ==
[2023-11-02 13:57] VITALS: BP 137/79; BMI 42.2
--- NOTE | 2024-06-19 11:15 | USR_ITS ---
PROCEDURE INFORMATION: Exam: US Soft Tissue Head and Neck, Thyroid Exam date and time: 06/19/2024 11:49 AM Age: 74 years old Clinical indication: Condition or disease; Cancer; Thyroid; Additional info: Neoplasm of thyroid, include tirads TECHNIQUE: Imaging protocol: Real-time ultrasound scan of the neck with image documentation. Exam focused on the thyroid. COMPARISON: [place] thyroid [id number] 06/19/2023 5:03 PM FINDINGS: Right thyroid lobe: The right lobe is absent. Left thyroid lobe: The left lobe measures 3.4 x 1.8 x 1.5 cm for a volume of 4.4 cc. There is a 2.4 x 2.1 x 1.6 cm wider than tall mixed solid and cystic nodule in the left lobe with solid hyperechoic components, smooth margins, and punctate internal echogenic foci. Size and morphology of the nodule is similar to 06/19/2023 allowing for differences in scan plane and measurement technique. Isthmus: The isthmus measures 2 mm in thickness. Salivary glands: The right submandibular gland is unremarkable. The left submandibular gland is unremarkable. Lymph nodes: No enlarged lymph nodes are imaged in the right jugular chain. No enlarged lymph nodes are imaged in the left jugular chain. US/US thyroid [id number] IMPRESSION: 2.4 cm left lobe thyroid nodule is not significantly changed in size or morphology since 06/19/2023. (TI-RADS category 3: Mildly suspicious). Correlate with biopsy results.
== END 2024-06-19 11:27 | disposition home or self-care (01) ==
LOC: RAD 11:33
PROVIDERS: PCP Nurse Practitioner Family; Visit Provider Internal Medicine
DX: E89.0 Postprocedural hypothyroidism (principal); E04.1 Nontoxic single thyroid nodule; Z85.850 Personal history of malignant neoplasm of thyroid
CPT/HCPCS: 76536

== ENCOUNTER → 2024-08-14 11:02 | Outpatient (BNVA) | payer MEDICARE, SELFPAY ==
[2023-11-02 13:57] VITALS: BP 137/79; BMI 42.2
== END ==
PROVIDERS: PCP Nurse Practitioner Family; Visit Provider Nurse Practitioner Family
DX: E03.9 Hypothyroidism, unspecified (principal)
CPT/HCPCS: 84439; 84443

== ENCOUNTER → 2024-08-16 09:19 | Outpatient (BNVA) | payer MEDICARE, SELFPAY ==
[2023-11-02 13:57] VITALS: BP 137/79; BMI 42.2
== END ==
PROVIDERS: PCP Nurse Practitioner Family; Visit Provider Internal Medicine
DX: E89.0 Postprocedural hypothyroidism (principal); Z85.850 Personal history of malignant neoplasm of thyroid
CPT/HCPCS: 99214

== ENCOUNTER → 2024-10-08 11:03 | Outpatient (BNVA) | payer MEDICARE, SELFPAY ==
[2023-11-02 13:57] VITALS: BP 137/79; BMI 42.2
== END ==
PROVIDERS: PCP Nurse Practitioner Family; Visit Provider Nurse Practitioner Family
DX: M19.012 Primary osteoarthritis, left shoulder (principal); E55.9 Vitamin D deficiency, unspecified; E78.2 Mixed hyperlipidemia; E03.9 Hypothyroidism, unspecified; R53.83 Other fatigue; D64.9 Anemia, unspecified; R93.7 Abnormal findings on diagnostic imaging of other parts of musculoskeletal system; I51.7 Cardiomegaly; R93.5 Abnormal findings on diagnostic imaging of other abdominal regions, including retroperitoneum
CPT/HCPCS: 73030; 80053; 80061; 81003; 82306; 82607; 82728; 82746; 83036; 83550; 84443; 85025

== ENCOUNTER → 2025-01-01 09:30 | Outpatient (BNVA) | payer MEDICARE, SELFPAY ==
[2024-11-26 10:32] VITALS: BP 137/79; BMI 42.2
== END ==
PROVIDERS: PCP Nurse Practitioner Family; Visit Provider Surgery
DX: K21.9 Gastro-esophageal reflux disease without esophagitis (principal)
CPT/HCPCS: 99214

== ENCOUNTER 2025-01-10 09:58 | Day surgery (SDC) | payer MEDICARE, SELFPAY ==
[2024-11-26 10:32] VITALS: BP 137/79; BMI 42.2
[2025-01-10 10:23] VITALS: BP 149/88; PULSE 75; RESP 18; TEMP 36.3; O2SAT 94; BMI 45.1
--- NOTE | 2025-01-10 10:35 | W.PM.OPSUD ---
Surgery/Procedure H&P Update DATE OF PROCEDURE: January 10, 2025 DATE H&P PERFORMED: 01/01/25 H&P UPDATE INFORMATION: I have reviewed H&P completed within last 30 days, I have examined patient prior to procedure, No changes to prior documentation, Changes to prior documentation as noted here and Risks and benefits of the procedure reviewed PLANNED PROCEDURE: Operation Date: 01/10/25 11:30 Proposed Procedures p EGD EGD with Biopsy 57030 K21.9(Not Applicable) - Boogie Amos MD
--- NOTE | 2025-01-10 11:14 | ANES.PREANE2 ---
Pre-Anesthetic Assessment Height/Weight: Height 1.68 m Weight 127.006 kg Temp Pulse Resp BP Pulse Ox O2 Del Method 97.4 F L 75 18 149/88 94 Room Air 01/10/25 10:23 01/10/25 10:23 01/10/25 10:23 01/10/25 10:23 01/10/25 10:23 01/10/25 10:23 Preop Diagnosis: Dysphagia, abd pain Operation Date: 01/10/25 11:30 Proposed Procedures p EGD EGD with Biopsy 33580 K21.9(Not Applicable) - Boogie Amos MD Was Beta Joelle taken within 24 hours: N/A Was Clonidine taken within 24 hours: N/A Last intake: Intake Last Liquid Date 01/09/25 Last Liquid Time 21: Last Solid Date 01/09/25 Last Solid Time 21:30 Social No alcohol and No tobacco Exam alert, oriented x 3, clear to auscultation bilaterally and regular rate & rhythm Airway Submandibular: within normal limits Cervical ROM: within normal limits Mallampati: Class II Dentition: full History/ROS No significant history except as noted and No significant complaints Pulmonary Asthma CV/HEM Atrial Fibrillation, Arrythmia and Hypertension None reported Hepatic None reported GI Gastroesophageal Reflux Disease Metabolic Diabetes Mellitus, Morbid Obesity and Thyroid Disease Musc/skel Osteoarthritis/DJD Neuropsych None reported Anesthetic Plan ASA status: 3 Anesthesia: Anesthesia Evaluation and MAC Risk of > 500 ml blood loss (7ml/kg in children): No Medications/Allergies Home Medications ?Medication ?Instructions ?Recorded ?Confirmed ?Last Taken ?Type bimatoprost 0.01 % eye drops 1 drp ophthalmic (eye) BEDTIME@2100 08/10/20 01/07/25 01/09/25 History (Lumigan) multivitamin 1 tab PO BEDTIME 06/19/23 01/07/25 01/09/25 History mirabegron 50 mg tablet,extended 50 mg PO DAILY 07/21/23 01/07/25 01/09/25 History release 24 hr (Myrbetriq) solifenacin 10 mg tablet 10 mg PO BEDTIME #30 tabs 07/29/23 01/07/25 01/09/25 Rx nebulizer accessories #1 ea 08/12/23 01/07/25 Unknown Rx pen needle, diabetic 31 gauge x #100 ea 10/31/23 01/07/25 Unknown Rx 10/26 (Comfort EZ Pen [place]) calcium 500 mg (as 1 tab PO BID #60 tabs 04/03/24 01/07/25 01/09/25 Rx carbonate)-vitamin D3 15 mcg (600 unit) tablet (Os-Dagoberto 500 + D3) buspirone 10 mg tablet 10 mg PO BID #180 tabs 07/13/24 01/07/25 01/09/25 Rx gabapentin 100 mg capsule 100 mg PO BID #180 caps 07/13/24 01/07/25 01/09/25 Rx mirtazapine 15 mg tablet (Remeron) 15 mg PO BEDTIME #90 tabs 07/13/24 01/07/25 01/09/25 Rx paroxetine HCl 20 mg tablet 20 mg PO DAILY #90 tabs 07/13/24 01/07/25 01/09/25 Rx celecoxib 100 mg capsule (Celebrex) 100 mg PO BID 30 days #60 caps 12/06/24 01/07/25 01/09/25 Rx albuterol sulfate 2.5 mg/3 mL 2.5 mg (3 mL) inhalation QID PRN 12/17/24 01/10/25 8 Months Ago Rx (0.083 %) solution for nebulization shortness of breath or wheezing ~05/12/24 #75 mL albuterol sulfate 90 mcg/actuation 2 inh inhalation Q4H PRN shortness 12/17/24 01/10/25 01/09/25 Rx aerosol inhaler of breath or wheezing #18 grams alendronate 70 mg tablet 70 mg PO .WEEKLY 01/10/25 01/10/25 01/09/25 History cholecalciferol (vitamin D3) 1,250 1,250 mcg PO .WEEKLY 01/10/25 01/10/25 01/09/25 History mcg (50,000 unit) capsule ferrous fumarate 324 mg (106 mg 324 mg PO DAILY 01/10/25 01/10/25 01/09/25 History iron) tablet fluticasone fur. 200 mcg-umeclid 1 inh inhalation DAILY 01/10/25 01/10/25 01/10/25 08:00 History 62.5 mcg-vilant 25 mcg inhalat.powder (Trelegy Ellipta) levothyroxine 50 mcg tablet 50 mcg PO DAILY 01/10/25 01/10/25 01/10/25 08:00 History Allergies Allergy/AdvReac Type Severity Reaction Status Date / Time fentanyl Allergy Severe Burning Verified 01/01/25 09:33 feeling meperidine (From Demerol) Allergy rash Verified 01/01/25 09:33 morphine Allergy tongue Verified 01/01/25 09:33 swelling, hallucinations Sulfa (Sulfonamide Allergy headaches Verified 01/01/25 09:33 Antibiotics) Current Medications Generic Name Dose Route Start Last Admin Trade Name Freq PRN Reason Stop Dose Admin Sodium Chloride 1,000 mls @ 15 mls/hr 01/10/25 10:09 01/10/25 10:35 Sodium Chloride 0.9% IV 01/11/25 10:08 15 mls/hr .Q24H PRN Administration COLONOSCOPY FLUIDS PFSH Anesthesia Medical History Fall from standing, subsequent encounter Multiple contusions Dysphagia, unspecified type Umbilical hernia without obstruction and without gangrene Umbilical hernia containing a portion of the colon without obstruction. (incidental finding from CT in chart from [facility] 12/10/24 Gastroesophageal reflux disease without esophagitis Colon polyps 3 polyps removed [facility] May 2023 Breast cancer screening by mammogram Colon cancer screening May 2023 - polyp removal Repeat in May 2026 Shoulder contusion Generalized weakness At risk for falls Post-menopausal osteoporosis Flu-like symptoms Psychiatric care Diarrhea Dermatitis Anxiety Fatigue Atrial fibrillation Left thigh pain Upper respiratory infection Bilateral otitis media Injury of knee, right Acute bacterial sinusitis Arthritis pain Influenza vaccine needed Acute bacterial sinusitis Environmental and seasonal allergies URI, acute Right knee pain Obesity Pain of left knee after injury Lower respiratory infection Urgency incontinence Recurrent UTI Sinusitis, acute Morbid obesity Tear of right rotator cuff Arthritis of right acromioclavicular joint Rotator cuff tear arthropathy of left shoulder Weight loss Esophagitis SOB (shortness of breath) Chest pain at rest EKG from 05/01/2020 The EKG showed normal sinus rhythm with possible old inferior wall IL and poor R wave progression. Some nonspecific T wave changes. Cardiac arrhythmia Anemia Hypotension Postsurgical hypothyroidism Allergic rhinitis Mixed hyperlipidemia Vitamin D deficiency H/O malignant neoplasm of thyroid Patellar tendon rupture Hypertension Stress incontinence COPD (chronic obstructive pulmonary disease) Depression Osteoarthritis (arthritis due to wear and tear of joints) Diabetes Surgical History H/O hernia repair with mesh H/O tubal ligation Hx of cholecystectomy H/O colonoscopy H/O esophagogastroduodenoscopy with dilation S/P thyroidectomy Status post knee replacement Family History Mother , AT AGE 75 CAD (coronary artery disease) Hypertension Father , AT AGE 68 CAD (coronary artery disease) Hypertension Denies family history of Diabetes Anesthesia complication Bleeding disorder Cancer Social History Smoking and tobacco/nicotine status: never used tobacco/nicotine Quit status (tobacco/nicotine): has quit using Second hand smoke exposure: No Alcohol intake: never Substance/Drug Use: never Marital status: Current occupational status: employed and unemployed Data Anesthesia Cardiac Studies: Echocardiogram 06/19/23 Cardiac Event Monitor 02/10/23
[2025-01-10 11:52] VITALS: BP 133/72; PULSE 77; RESP 16; TEMP 36.2; O2SAT 99
[2025-01-10 12:03] VITALS: BP 126/64; PULSE 79; RESP 16; O2SAT 97
== END 2025-01-10 12:40 | disposition home or self-care (01) ==
PROVIDERS: Family Provider Internal Medicine; PCP Nurse Practitioner Family; Visit Provider Surgery
PROC: 0DJ08ZZ Inspection of Upper Intestinal Tract, Via Natural or Artificial Opening Endoscopic (ICD-10-PCS; principal; 2025-01-10 11:30)
DX: K29.50 Unspecified chronic gastritis without bleeding (principal); K22.10 Ulcer of esophagus without bleeding; K44.9 Diaphragmatic hernia without obstruction or gangrene; R13.10 Dysphagia, unspecified; J45.909 Unspecified asthma, uncomplicated; I48.91 Unspecified atrial fibrillation; I49.9 Cardiac arrhythmia, unspecified; I10 Essential (primary) hypertension; K21.9 Gastro-esophageal reflux disease without esophagitis; E11.9 Type 2 diabetes mellitus without complications; E66.01 Morbid (severe) obesity due to excess calories; Z68.42 Body mass index [BMI] 45.0-49.9, adult; E78.2 Mixed hyperlipidemia; E07.9 Disorder of thyroid, unspecified; F41.9 Anxiety disorder, unspecified
CPT/HCPCS: 43239; 88305; 88312; 88342; J2704; J7030; J9999

== ENCOUNTER → 2025-01-11 16:13 | Outpatient (BNVA) | payer MEDICARE, SELFPAY ==
[2024-11-26 10:32] VITALS: BP 137/79; BMI 42.2
== END ==
PROVIDERS: Family Provider Internal Medicine; PCP Nurse Practitioner Family; Visit Provider Nurse Practitioner Family
DX: N39.0 Urinary tract infection, site not specified (principal)
CPT/HCPCS: 81000

== ENCOUNTER 2025-01-24 09:33 | Outpatient (CLI) | payer MEDICARE, SELFPAY ==
[2024-11-26 10:32] VITALS: BP 137/79; BMI 42.2
--- NOTE | 2025-01-24 09:15 | FL_ITS ---
WS: [id number] Barium swallow and esophagram, 01/24/2025 Clinical Data: DYSPHAGIA Comparison: Esophagram and upper GI series, 06/24/2020 Fluoroscopy time: 1min [id number] # of spot films: 30 Findings: The patient swallowed the thick and thin barium, and it flowed through the hypopharynx without hesitation. No stricture, mass, polyp or erosion was seen. There is no aspiration or penetration. The barium entered the esophagus and there was poor motility throughout. No stricture, polyp, mass, erosion or ulcer was noted. There was a small sliding hiatal hernia with minimal reflux which extended to the mid esophagus. Barium passed normally into the stomach.. FL/FL barium swallow 27526 Impression: 1. Small hiatal hernia. 2. Poor esophageal motility with minimal gastroesophageal reflux.
== END 2025-01-24 09:34 | disposition home or self-care (01) ==
LOC: RAD 09:34
PROVIDERS: PCP Nurse Practitioner Family; Visit Provider Surgery
DX: R13.10 Dysphagia, unspecified (principal); K44.9 Diaphragmatic hernia without obstruction or gangrene
CPT/HCPCS: 74220

== ENCOUNTER 2025-01-27 16:29 | Emergency (ER) | payer MEDICARE, SELFPAY ==
--- OUTSIDE RECORDS SUMMARY | 2024-06-08 05:40 | XMS_ITS ---
Author Organization [facility] Address [address] [place] [address] Care Team Providers Care Culture Media Laboratory Assistant Name Role Phone Priyanka Parisi Unavailable REASON FOR VISIT needs meds refilled Encounters Encounter Location Date Provider Diagnosis [facility] [address] [place] [address] 06/08/2024 Priyanka Parisi Plan Of Treatment Next Appt Details Provider Name:Priyanka Parmar, 06/12/2025 10:00:00 AM, [address], [place], [address], Progress Notes * MAX MERCADO SDOB:1950 (74 yo F)Acc No.[id number]:06/08/2024 Progress Notes Patient: MAX YBARRA Provider: BRIA Bustamante :1950 A ge:74 Y S ex:Female Date:06/08/2024 Address[address] [id number] Subjective: * Chief Complaints: * N eeds meds refilled Billing Information: * Procedure Codes: * Electronic signature of BRIA Becerra on 01/27/2025 at 04:36 PM CDT Sign off status: Pending * Provider: BRAI Bustamante Date: 08/09/2023 Generated for Ramandeep vargas/Jean-Pierre/eTrhonda on: 0 01/27/2025 04:36 PM CDT
--- OUTSIDE RECORDS SUMMARY | 2024-09-03 05:20 | XMS_ITS ---
Author Organization [facility] Address [address] [place] [address] Care Team Providers Care Automatic Car Wash Attendant Name Role Phone Priyanka Parisi Unavailable [phone] REASON FOR VISIT 1y f/u for ua and pvr,Source Provider:ROOSEVELT MAYS Encounters Encounter Location Date Provider Diagnosis [facility] [address] [facility] [address] [place] [address] 09/03/2024 Priyanka Parisi Plan Of Treatment Next Appt Details Provider Name:Priyanka Parmar, 06/12/2025 10:00:00 AM, [address], [place], [address], Progress Notes * MAX MERCADO SDOB:1950 (74 yo F)Acc No.[id number]:09/03/2024 Progress Notes Patient: MAX YBARRA Provider: BRIA Bustamante :1950 A ge:74 Y S ex:Female Date:09/03/2024 [facility] [address] [facility] [id number] Subjective: * Chief Complaints: * 1 y f/u for ua and pvr,Source Provider:ROOSEVELT MAYS * Electronic signature of BRIA Becerra on 01/27/2025 at 04:36 PM CDT Sign off status: Pending * Provider: BRIA Bustamante Date: 0 09/03/2024 Generated for Ramandeep vargas/Jean-Pierre/Yomairaitting on: 0 01/27/2025 04:36 PM CDT
[2024-11-26 10:32] VITALS: BP 137/79; BMI 42.2
--- OUTSIDE RECORDS SUMMARY | 2025-01-27 16:35 | XMS_ITS | Encounter Summary ---
Author Organization [facility] Address [address] [place] [address] Care Team Providers Care Truck Unloader Name Role Phone CarolClaudia raza Primary Care Provider [phone] [phone] Encounter Details Date Type Department Care Team (Latest Contact Info) Description 02/14/2002 Outpatient Historical [facility] Medicine- [address] [phone] Jeff Hatfield MD [address] [facility] 200 [place] [phone] ARTHROPATHY NOS-UNSPEC (Primary Dx); ALLERGY, UNSPECIFIED Social History Tobacco Use Types Packs/Day Years Used Date Smoking Tobacco: Never Assessed Comments Unknown Sex and Gender Information Value Date Recorded Sex Assigned at Not on file Legal Sex Female 4:41 AM ECD Gender Identity Not on file Sexual Orientation Not on file documented as of this encounter Plan of Treatment Not on file documented as of this encounter Visit Diagnoses Diagnosis Arthropathy, unspecified, site unspecified- Primary Allergy, unspecified not elsewhere classified documented in this encounter Care Teams Truck Unloader Relationship Specialty Start Date End Date Claudia Medina DO [address] [address] PCP - General Family Practice 08/24/17 documented as of this encounter
--- OUTSIDE RECORDS SUMMARY | 2025-01-27 16:35 | XMS_ITS | Encounter Summary ---
Author Organization [facility] Address [address] [place] [address] Phone Care Team Providers Care Trouble Clerk Name Role Phone Unavailable Primary Care Provider Unavailabl e Reason for Visit * Reason Onset Date Comments Med Refill Med Refill 07/14/2020 Encounter Details Date Type Department Care Team (Late st Contact Info) Description 07/09/2020 Refill [facility] [address] [place], [place] [address] Sunita Hogue MD Hypothyroidism, unspecified type Social History Tobacco Use Types Packs/Day Years Used Date Smoking Tobacco: Never Assessed Comments Unknown Sex and Gender Information Value Date Recorded Sex Assigned at Not on file Legal Sex Female 11:34 AM CDT Gender Identity Not on file Sexual Orientation Not on file documented as of this encounter Miscellaneous Notes * Telephone Encounter - Jimena Mata LPN - 07/09/2020 3:56 PM CST Patient appointment rescheduled from 07/09/20 to 08/12/20. SPLANT NURSE PRACTITIONER documented in this encounter Plan of Treatment Not on file documented as of this encounter Visit Diagnoses Diagnosis Hypothyroidism, unspecified type documented in this encounter
--- OUTSIDE RECORDS SUMMARY | 2025-01-27 16:35 | XMS_ITS | Encounter Summary ---
Author Organization [facility] Address [address] [place] [address] Care Team Providers Care Bowl Topper Name Role Phone CarolClaudia milligan Primary Care Provider [phone] [phone] Encounter Details Date Type Department Care Team (Latest Contact Info) Description 12/08/2001 Outpatient Historical [facility] Family Medicine [place] [address] [facility] [address] [place] [phone] Jeff Hatfield MD [address] [facility] 200 [place] [phone] Dysfunct eustachian tube (Primary Dx) Social History Tobacco Use Types Packs/Day Years Used Date Smoking Tobacco: Never Assessed Comments Unknown Sex and Gender Information Value Date Recorded Sex Assigned at Not on file Legal Sex Female 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
--- OUTSIDE RECORDS SUMMARY | 2025-01-27 16:35 | XMS_ITS | Encounter Summary ---
Author Organization [facility] Address [address] [place] [address] Care Team Providers Care Grinding And Polishing Laborer Name Role Phone CarolClaudia raza Primary Care Provider [phone] [phone] Encounter Details Date Type Department Care Team (Latest Contact Info) Description 04/03/2002 Outpatient Historical [facility] [place] [address] [facility] 60 [place] [address] Jeff Hatfield MD [address] [facility] 200 [place] [phone] Dysfunct eustachian tube (Primary Dx); MASTODYNIA Social History Tobacco Use Types Packs/Day Years Used Date Smoking Tobacco: Never Assessed Comments Unknown Sex and Gender Information Value Date Recorded Sex Assigned at Not on file Legal Sex Female 4:41 AM HEALTH AND WELLNESS ADVISOR Gender Identity Not on file Sexual Orientation Not on file documented as of this encounter Plan of Treatment Not on file documented as of this encounter Visit Diagnoses Diagnosis Dysfunct eustachian tube- Primary Dysfunction of Eustachian tube Mastodynia documented in this encounter Care Teams Grinding And Polishing Laborer Relationship Specialty Start Date End Date Claudia Medina DO [address] [facility] [address] [place] [address] PCP - General Family Practice 08/24/17 documented as of this encounter
--- OUTSIDE RECORDS SUMMARY | 2025-01-27 16:35 | XMS_ITS | Encounter Summary ---
Author Organization [facility] Address [address] [place] [address] Care Team Providers Care Plastic Sheeting Cutter Name Role Phone Carol, Claudia No Primary Care Provider [phone] [phone] Encounter Details Date Type Department Care Team (Latest Contact Info) Description 10/31/2002 Outpatient Historical [facility] Medicine- [address] [phone] Jeff Hatfield MD [address] [facility] 200 [place] [phone] ALLERGY, UNSPECIFIED (Primary Dx) Social History Tobacco Use Types Packs/Day Years Used Date Smoking Tobacco: Never Assessed Comments Unknown Sex and Gender Information Value Date Recorded Sex Assigned at Not on file Legal Sex Female 4:41 AM SENIOR MECHANICAL DESIGN ENGINEER Gender Identity Not on file Sexual Orientation Not on file documented as of this encounter Plan of Treatment Not on file documented as of this encounter Visit Diagnoses Diagnosis Allergy, unspecified not elsewhere classified- Primary documented in this encounter Care Teams Plastic Sheeting Cutter Relationship Specialty Start Date End Date Claudia Medina DO [address] [facility] 19 [place] [address] PCP - General Family Practice 08/24/17 documented as of this encounter
--- OUTSIDE RECORDS SUMMARY | 2025-01-27 16:35 | XMS_ITS | Encounter Summary ---
Author Organization [facility] Address [address] [place] [address] Care Team Providers Care Reefer Truck Driver Name Role Phone Claudia Medina DO Primary Care Provider [phone] [phone] Encounter Details Date Type Department Care Team (Latest Contact Info) Description 09/29/2001 Outpatient Historical [facility] Family Medicine [place] [address] [facility] 60 [place] [phone] Jeff Hatfield MD [address] [facility] 200 [place] [phone] Dysfunct eustachian tube (Primary Dx); ARTHROPATHY NOS-UNSPEC; FEMALE CLIMACTERIC STATE Social History Tobacco Use Types Packs/Day Years Used Date Smoking Tobacco: Never Assessed Comments Unknown Sex and Gender Information Value Date Recorded Sex Assigned at Not on file Legal Sex Female 4:41 AM WOUND/OSTOMY NURSE Gender Identity Not on file Sexual Orientation Not on file documented as of this encounter Plan of Treatment Not on file documented as of this encounter Visit Diagnoses Diagnosis Dysfunct eustachian tube- Primary Dysfunction of Eustachian tube Arthropathy, unspecified, site unspecified Symptomatic menopausal or female climacteric states documented in this encounter Care Teams Reefer Truck Driver Relationship Specialty Start Date End Date Claudia Medina DO [address] [facility] 19 [place] [address] PCP - General Family Practice 08/24/17 documented as of this encounter
--- OUTSIDE RECORDS SUMMARY | 2025-01-27 16:35 | XMS_ITS | Encounter Summary ---
Author Organization [facility] Address [address] [place] [address] Phone Care Team Providers Care Neonatal Nurse Name Role Phone Unavailable Primary Care Provider Unavailabl e Reason for Visit * Reason Comments Med Refill Encounter Details Date Type Department Care Team (Late st Contact Info) Description 08/05/2020 Refill [facility] [address] [place], [place] [phone] Sunita Hogue MD Hypothyroidism, unspecified type Social [...]
--- OUTSIDE RECORDS SUMMARY | 2025-01-27 16:35 | XMS_ITS | Encounter Summary ---
Author Organization [facility] Address [address] [place] [address] Care Team Providers Care Manager Linux Name Role Phone CarolClaudia milligan Primary Care Provider [phone] [phone] Encounter Details Date Type Department Care Team (Latest Contact Info) Description 03/20/2002 Outpatient Historical [facility] Medicine- [address] [phone] Jeff Hatfield MD [address] [facility] 200 [place] [phone] VACCINE FOR INFLUENZA (Primary Dx) Social History Tobacco Use Types Packs/Day Years Used Date Smoking Tobacco: Never Assessed Comments Unknown Sex and Gender Information Value Date Recorded Sex Assigned at Not on file Legal Sex Female 4:41 AM SUPERVISOR TOY PARTS FORMER Gender Identity Not on file Sexual Orientation Not on file documented as of this encounter Plan of Treatment Not on file documented as of this encounter Visit Diagnoses Diagnosis Need vaccination-viral disease- Primary Need for prophylactic vaccination and inoculation against other viral diseases documented in this encounter Care Teams Manager Linux Relationship Specialty Start Date End Date Claudia Medina DO [address] [facility] 19 [place] [address] PCP - General Family Practice 08/24/17 documented as of this encounter
--- OUTSIDE RECORDS SUMMARY | 2025-01-27 16:35 | XMS_ITS | Encounter Summary ---
Author Organization [facility] Address [address] [address] Phone Care Team Providers Care Store Product Demonstrator Name Role Phone Unavailable Primary Care Provider Unavailabl e Encounter Details Date Type Department Care Team (Late st Contact Info) Description 08/29/2020 Orders Only [facility] [address] [place] [address] Lupe Paul MA [address] [address] History of thyroid cancer; Acquired hypothyroidism Social History Tobacco Use Types Packs/Day Years Used Date Smoking Tobacco: Former Smokeless Tobacco: Never Alcohol Use Standard Drinks/Week Comments Never 0 (1 standard drink = 0.6 oz pur e alcohol) AUDIT-C Answer Date Recorded Q1: How often do you have a drink containing alc ohol? Never 08/29/2020 Average Number of Drinks Not on file 021 Frequency of Binge Drinking Not on file 08/11 Comments Unknown Sex and Gender Information Value Date Recorded Sex Assigned at Not on file Legal Sex Female 11:34 AM CDT Gender Identity Not on file Sexual Orientation Not on file documented as of this encounter Functional Status documented as of this encounter Plan of Treatment Not on file documented as of this encounter Procedures Procedure Name Priority Date/Time Associated Diagnosis Comments T3, FREE Routine 08/29/2020 3:40 PM CDT History of thyroid cancer Acquired hypothyroidism THYROID STIMULATING HORMONE Add-On 08/29/2020 3:40 PM CDT History of thyroid cancer Acquired hypothyroidism T4, FREE Routine 08/29/2020 3:40 PM CDT History of thyroid cancer Acquired hypothyroidism documented in this encounter Results * (ABNORMAL) Thyroid Stimulating Hormone (08/29/2020 3:40 PM CDT) Thyroid Stimulating Hormone 0.237(L) 0.358 - 3.740 uIU/mL LAB CHEMISTRY METHOD 09/02/2020 1:37 PM CDT [facility] Blood Venous blood specimen / Unknown Venipuncture / Unknown 08/29/2020 3:40 PM CDT 08/29/2020 6:34 PM CDT Lenora Carranza DO LAB BLOOD ORDERABLES Final Resu lt Performing Organization Address [facility] de Phone Number [facility] [address] [address] * T3, Free (08/29/2020 3:40 PM CDT) Pathologist [facility] Free T3 2.70 2.18 - 3.98 pg/mL LAB CHEMISTRY METHOD 08/29/2020 7:14 PM CDT [facility] Blood Venous blood specimen / Unknown Venipuncture / Unknown 08/29/2020 3:40 PM CDT 08/29/2020 6:34 PM CDT Lenora Carranza DO LAB BLOOD ORDERABLES Final Resu lt Performing Organization Address City/[facility]/ZIP Co de Phone Number [facility] [address] [address] * T4, Free (08/29/2020 3:40 PM CDT) Free T4 1.02 0.76 - 1.46 ng/dL LAB CHEMISTRY METHOD 08/29/2020 7:14 PM CDT [facility] Blood Venous blood specimen / Unknown Venipuncture / Unknown 08/29/2020 3:40 PM CDT 08/29/2020 6:34 PM CDT Lenora Fitzgeraldunruly DO LAB BLOOD ORDERABLES Final Resu lt [facility] [address] [address] documented in this encounter Visit Diagnoses Diagnosis History of thyroid cancer Personal history of malignant neoplasm of thyroid Acquired hypothyroidism Unspecified hypothyroidism documented in this encounter
--- OUTSIDE RECORDS SUMMARY | 2025-01-27 16:35 | XMS_ITS | Encounter Summary ---
Author Organization [facility] Address [address] [place] [address] Phone Care Team Providers Care Spinning Doffer Name Role Phone Unavailable Primary Care Provider Unavailabl e Reason for Visit * Reason Comments Med Refill Encounter Details Date Type Department Care Team (Late st Contact Info) Description 04/23/2020 Refill [facility] [address] [place], [place] [address] Sunita Hogue MD Social History Tobacco Use Types Packs/Day Years Used Date Smoking Tobacco: Never Assessed Comments Unknown Sex and Gender Information Value Date Recorded Sex Assigned at Not on file Legal Sex Female 11:34 AM CDT Gender Identity Not on file Sexual Orientation Not on file documented as of this encounter Plan of Treatment Not on file documented as of this encounter Visit Diagnoses Not on filedocumented in this encounter
--- OUTSIDE RECORDS SUMMARY | 2025-01-27 16:35 | XMS_ITS | Patient Health Record ---
Author Organization [facility] Address [address] [place] [address] Care Team Providers Care Dairy Husbandman Name Role Phone Priyanka Parisi Unavailable [phone] Sumeet Jean-Baptiste Unavailable [phone] Allergies Allergen (clinical drug ingredient) Drug/Non Drug Allergy documented on EMR Reaction Allergy Type Onset Date Status meperidine Demerol Reaction 1:Anaphylaxis Drug Allergy 07/18/2023 active fentanyl fentaNYL Reaction 1:Anaphylaxis Drug Allergy 07/18/2023 active Sulfamethoxazole Reaction 1:Facial Swelling Drug Allergy 07/18/2023 active Morphine and Related Reaction 1:Facial Swelling Drug Allergy 07/18/2023 active Results Component Value Reference Range Notes UA Without Micro-[place], [place] - [id number] Reviewed date:06/12/2024 09:32:30 AM Interpretation: Performing Lab: Notes/Report: Glucose 0 Bili 0 Ketones 0 Sp [place] 1.025 Blood 0 pH 6.0 Protein +- Urobili 0 Nitrites 0 Leukocytes 0 Reason For Referral No Information Medications Medication SIG (Take, Route, Frequency, Duration) Notes Start Date End Date Status Myrbetriq 50 MG Tablet Extended Release 24 Hour 1 tablet Orally Once a day; Duration: 90 days 06/12/2024 06/07/2025 Active VESIcare 5 MG Tablet 1 tablet Orally Onc e a day Active Gabapentin 100 MG Capsule 1 capsule at b edtime Orally Once a day Active Levothyroxine Sodium 50 MCG Tablet 1 tablet in the morning on an empty stomach Orally Once a day Active busPIRone HCl 10 MG Tablet 1 tablet Oral ly Twice a day Active Solifenacin Succinate 5 MG Tablet 1 tablet Orally Once a day; Duration: 90 days 06/12/2024 06/07/2025 Active Myrbetriq 25 MG Tablet Extended Release 24 Hour 1 tablet Orally Once a day Active Iron 325 (65 Fe) MG Tablet 1 tablet Oral ly Three times a Week Active Meloxicam 7.5 MG Tablet 1 tablet Orally Once a day Active Omeprazole 10 MG Capsule Delayed Release 1 capsule 1/2 to 1 hour before morning meal Orally Once a day Active Paxil 10 MG Tablet 1 tablet in the morn ing Orally Once a day Active Vitamin D3 75 MCG (3000 UT) Tablet 1 tablet Orally Once a day Active Problems Problem Type SNOMED Code ICD Code Onset Dates Problem Status W/U Status Risk Notes Problem Postmenopausal atrophic vaginitis (36250602) Postmenopausal atrophic vaginitis (N95.2) Active confirmed Problem Mixed incontinence (435929218) Urinary incontinence, mixed (N39.46) Active confirmed Problem Medication management (709503784) Medication management (Z79.899) Active confirmed Problem Recurrent urinary tract infection (063432633) Recurrent UTI (N39.0) Active confirmed Vital Signs Heart Rate 88 /min 06/12/2024 Temperature 98.07 degrees Fahrenheit 06/12/2024 Height-cm 165.10 cm 06/12/2024 Blood pressure diastolic 90 mm Hg 06/12/2024 Weight-kg 123.2 kg 06/12/2024 Height 65.00 in 06/12/2024 Blood pressure systolic 139 mm Hg 06/12/2024 Weight 271.6 lbs 06/12/2024 BMI 45.19 kg/m2 06/12/2024 Encounters Encounter Location Date Provider Diagnosis Formerly [facility] [address] [place] [address] [place] [address] 06/12/2024 Priyanka Parisi Urinary incontinence, mixed N39.46 ; Recurrent UTI N39.0 ; Postmenopausal atrophic vaginitis N95.2 and Medication management Z79.899 Formerly [facility] [address] [place] [address] [place] [address] 02/02/2024 Sumeet Wrightsay Formerly [facility] [address] [place] [address] [place] [address] 02/03/2024 Sumeet Wrightsay Formerly [facility] [address] [place] [address] [place] [address] 02/17/2024 Sumeet Jerilyn Formerly [facility] [address] [place] [address] 03/02/2024 Sumeet Jean-Baptiste Formerly [facility] [address] [place] [address] 05/09/2024 Sumeet Jean-Baptiste Formerly [facility] [address] [place] [address] 05/16/2024 Smueet Jean-Baptiste Formerly [facility] [address] [place] [address] 08/31/2024 Sumeet Jean-Baptiste Assessments Encounter Date Diagnosis (ICD Code) Assessment Notes Treatment Notes Treatment Clinical Notes Section Notes 06/12/2024 Urinary incontinence, mixed (ICD-10 - N39.46) Stress Incontinence: Patient Information Overview: Stress incontinence is a type of urinary incontinence characterized by the involuntary leakage of urine during activities that increase intra-abdominal pressure, such as coughing, sneezing, laughing, or physical exertion. It is a common condition, particularly among women. Symptoms: Leakage of urine during physical activities or movements that put pressure on the bladder. Small to moderate amounts of urine leakage. No urge to urinate before leakage occurs. Causes: Weak Pelvic Floor Muscles: Often due to childbirth, aging, or hormonal changes during menopause. Urethral Sphincter Dysfunction: The muscle that controls urine flow may weaken. Prostate Surgery: In men, prostate surgery can lead to stress incontinence. Obesity: Excess weight can increase pressure on the bladder and pelvic floor muscles. Chronic Coughing: Conditions like chronic bronchitis or smoking can lead to stress incontinence. Diagnosis: Medical History and Physical Exam: To identify symptoms and potential causes. Urinalysis: To rule out infections or other abnormalities. Bladder Diary: Recording fluid intake, urination times, and urine volume. Postvoid Residual Measurement: To check the amount of urine left in the bladder after urination. Urodynamic Testing: To assess bladder function and pressure. Treatment: Lifestyle Modifications: Fluid Management: Limiting intake of caffeine and alcohol. Weight Loss: Reducing body weight to decrease pressure on the bladder. Bladder Training: Scheduled voiding and gradually increasing the time between urinations. Pelvic Floor Exercises (Kegels): Strengthening the muscles that control urination. Medications: Topical Estrogen: For postmenopausal women to reduce symptoms. Duloxetine: An antidepressant that can help increase urethral sphincter muscle tone. Medical Devices: Pessary: A device inserted into the vagina to support the bladder. Urethral Inserts: Disposable devices inserted into the urethra to prevent leakage. Surgery: Sling Procedures: Using a mesh or tissue to support the urethra. Bladder Neck Suspension: To provide support to the bladder neck and urethra. Artificial Urinary Sphincter: A device implanted to control urine flow. Prevention: Maintain a healthy weight. Avoid bladder irritants like caffeine and alcohol. Practice pelvic floor exercises regularly. Manage chronic conditions like diabetes effectively. Patient Education: Understanding the condition and its triggers can help manage symptoms. Adherence to treatment plans and regular follow-up with healthcare providers is crucial. Patients should be encouraged to keep a bladder diary to track symptoms and treatment effectiveness. When to Seek Medical Attention: Persistent or worsening symptoms. Pain or discomfort during urination. Signs of infection (e.g., fever, severe redness, or swelling). If you are taking medications for this, please continue to do so unless otherwise directed *Urge incontinence Treatment Options Behavioral Therapies: Bladder Training: Gradually increasing the time between urination to train the bladder to hold urine longer. Scheduled Voiding: Urinating according to a fixed schedule rather than waiting for the urge. Pelvic Floor Exercises (Kegels): Strengthening the pelvic floor muscles to improve bladder control. Medications: Anticholinergics: Reduce bladder muscle spasms. Beta-3 Agonists: Relax the bladder muscle. Topical Estrogen: For postmenopausal women to improve urinary symptoms. Lifestyle Modifications: Fluid Management: Reducing intake of bladder irritants like caffeine and alcohol. Weight Management: Maintaining a healthy weight to reduce pressure on the bladder. Dietary Changes: Avoiding spicy foods and artificial sweeteners. Medical Devices: Pessary: A device inserted into the vagina to support the bladder. Surgical Options: In severe cases, procedures like bladder augmentation or nerve stimulation may be considered. Self-Management Strategies Bladder Diary: Keep a record of urination patterns and triggers. Pelvic Floor Exercises: Perform Kegel exercises regularly to strengthen pelvic muscles. Timed Voiding: Follow a schedule to urinate at regular intervals. Avoid Bladder Irritants: Limit intake of caffeine, alcohol, and spicy foods. Stay Hydrated: Drink adequate fluids but avoid excessive intake. When to Seek Medical Attention Persistent or worsening symptoms. Painful urination or blood in the urine. Signs of a urinary tract infection (fever, chills, back pain). 06/12/2024 Recurrent UTI (ICD-10 - N39.0) If you believe you have a UTI, please come to the office and give urine specimen If you are taking medication for this, please finish the prescription, unless otherwise told Recurrent Urinary Tract Infections (UTIs): Patient Information Overview: Recurrent UTIs are defined as having two or more infections within six months or three or more infections within a year. They are more common in women but can affect anyone. Recurrent UTIs can significantly impact quality of life and may require ongoing management. Symptoms: Frequent urination Urgent need to urinate Burning sensation during urination Cloudy or strong-smelling urine Blood in the urine (hematuria) Pelvic pain or discomfort Causes: Anatomical Factors: [place] urethra in women, structural abnormalities in the urinary tract. Sexual Activity: Increases the risk of introducing bacteria into the urinary tract. Menopause: Decreased estrogen levels can lead to changes in the urinary tract that increase susceptibility to infections. Incomplete Bladder Emptying: Conditions like bladder prolapse or neurological disorders. Previous UTIs: History of UTIs can increase the risk of recurrence. Diagnosis: Urinalysis: To detect bacteria, blood, or pus in the urine. Urine Culture: To identify the specific bacteria causing the infection. Imaging Tests: Ultrasound or CT scans to check for abnormalities in the urinary tract. Cystoscopy: A procedure using a scope to view the inside of the bladder. Treatment: Antibiotics: Short or long-term antibiotic therapy to treat and prevent infections. Prophylactic Antibiotics: Low-dose antibiotics taken regularly to prevent infections. Post-Coital Antibiotics: Single-dose antibiotics taken after sexual activity. Non-Antibiotic Prophylaxis: Cranberry Products: May help prevent bacteria from adhering to the bladder wall. D-Mannose: A sugar that can prevent certain bacteria from sticking to the urinary tract. Probiotics: To maintain a healthy balance of bacteria in the urinary tract. Topical Estrogen: For postmenopausal women to reduce the risk of infections. Prevention: Hydration: Drink plenty of fluids to flush out bacteria. Hygiene: Wipe from front to back after using the toilet to prevent bacteria from spreading. Urinate Frequently: Avoid holding urine for long periods. Post-Coital Hygiene: Urinate after sexual activity to flush out bacteria. Avoid Irritants: Avoid using irritating feminine products like douches and powders. Patient Education: Understanding the Condition: Educate patients about the causes and risk factors of recurrent UTIs. Adherence to Treatment: Emphasize the importance of completing antibiotic courses and following preventive measures. Lifestyle Modifications: Encourage changes in diet, hydration, and hygiene practices to reduce the risk of recurrence. Monitoring Symptoms: Keep a diary of symptoms and triggers to help manage the condition effectively. When to Seek Medical Attention: Persistent or worsening symptoms despite treatment. Signs of a severe infection, such as fever, chills, or back pain. 06/12/2024 Postmenopausal atrophic vaginitis (ICD-10 - N95.2) Throw applicator in the trash. Use a pea sized or adams sized amount [address] on the inner vaginal wall. *Patient education about topical estrogen Indications for Use Menopausal Symptoms: Relief from symptoms such as vaginal dryness, itching, burning, and discomfort during intercourse. Urinary Symptoms: Helps with urinary urgency, frequency, and recurrent urinary tract infections. Vulvovaginal Atrophy: Treats thinning, drying, and inflammation of the vaginal alfred. How It Works Mechanism of Action: Estrogen is absorbed through the skin or vaginal tissue, helping to restore normal estrogen levels locally, which alleviates symptoms. Benefits Localized Effect: Provides relief directly at the site of application with minimal systemic absorption. Symptom Relief: Effective in reducing vaginal dryness, discomfort, and urinary symptoms. Convenience: Various forms allow for flexible application methods. Potential Side Effects Local Irritation: Redness, itching, or irritation at the application site. Administration Tips Application: Follow the specific instructions provided with the medication. For creams and gels, apply a thin layer to the prescribed area Consistency: Use the medication at the same time each day or as directed by your healthcare provider. Hygiene: Wash hands before and after application to avoid transferring the medication to other areas. Monitoring and Follow-Up Regular Check-Ups: Schedule follow-up visits every 3-6 months to assess the effectiveness and adjust the dosage if necessary. Symptom Tracking: Keep a record of symptom changes and any side effects to discuss with your healthcare provider. Precautions Interactions: Discuss all medications and supplements you are taking to avoid potential interactions. Lifestyle and Dietary Considerations Healthy Diet: Maintain a balanced diet rich in calcium and vitamin D to support overall health. Exercise: Regular physical activity can help manage menopausal symptoms and improve overall well-being. When to Seek Medical Attention Persistent Symptoms: If symptoms do not improve or worsen despite treatment. 06/12/2024 Medication management (ICD-10 - Z79.899) Plan Of Treatment Next Appt Details Provider Name:Priyanka Parmar, 06/12/2025 10:00:00 AM, [address], [place], [address], Insurance Providers Payer Name Payer Address Payer Phone Subscriber Number Group Number Insured Name Patient Relationship to Insured Coverage Start Date Coverage End Date [facility] [address] [address] [place] [address] [id number] MAX MERCADO Self - patient is the insured
--- OUTSIDE RECORDS SUMMARY | 2025-01-27 16:35 | XMS_ITS | Encounter Summary ---
Author Organization [facility] Address [address] [place] [address] Care Team Providers Care Ranger Aide Name Role Phone CarolClaudia milligan Primary Care Provider [phone] [phone] Encounter Details Date Type Department Care Team (Latest Contact Info) Description 10/03/[address] [facility] Family Medicine [place] [address] [facility] [address] [place] [address] Jeff Hatfield MD [address] [facility] [address] [place] [address] ARTHROPATHY NOS-UNSPEC (Primary Dx); JOINT PAIN-PELVIS Social History Tobacco Use Types Packs/Day Years Used Date Smoking Tobacco: Never Assessed Comments Unknown Sex and Gender Information Value Date Recorded Sex Assigned at Not on file Legal Sex Female 4:41 AM FERMENTER [place]AMP[place]NE Gender Identity Not on file Sexual Orientation Not on file documented as of this encounter Plan of Treatment Not on file documented as of this encounter Visit Diagnoses Diagnosis Arthropathy, unspecified, site unspecified- Primary Pain in joint, pelvic region and thigh documented in this encounter Care Teams Ranger Aide Relationship Specialty Start Date End Date Claudia Medina DO [address] [facility] [address] [place] [address] PCP - General Family Practice 08/24/17 documented as of this encounter
--- OUTSIDE RECORDS SUMMARY | 2025-01-27 16:35 | XMS_ITS | Encounter Summary ---
Author Organization [facility] Address [address] [place] [address] Care Team Providers Care Black Leather Trimmer Name Role Phone CarolClaudia raza Primary Care Provider [phone] Encounter Details Date Type Department Care Team (Latest Contact Info) Description 01/03/2002 Outpatient Historical [facility] Family Medicine [place] [address] [facility] [address] [place] [address] Jeff Hatfield MD [address] [facility] [address] [place] [address] LIPOMA NOS (Primary Dx); ABDOMINAL PAIN LLQ Social History Tobacco Use Types Packs/Day Years Used Date Smoking Tobacco: Never Assessed Comments Unknown Sex and Gender Information Value Date Recorded Sex Assigned at Not on file Legal Sex Female 4:41 AM RN SANE Gender Identity Not on file Sexual Orientation Not on file documented as of this encounter Plan of Treatment Not on file documented as of this encounter Visit Diagnoses Diagnosis Lipoma of unspecified site- Primary Abdominal pain, left lower quadrant documented in this encounter Care Teams Black Leather Trimmer Relationship Specialty Start Date End Date Claudia Medina DO [address] [facility] [address] [place] [address] PCP - General Family Practice 08/24/17 documented as of this encounter
--- OUTSIDE RECORDS SUMMARY | 2025-01-27 16:35 | XMS_ITS | Encounter Summary ---
Author Organization [facility] Address [address] [place] [address] Care Team Providers Care Mortgage Processing Clerk Name Role Phone CarolClaudia milligan Primary Care Provider [phone] Encounter Details Date Type Department Care Team (Latest Contact Info) Description 11/03/2001 Outpatient Historical [facility] Family Medicine [place] [address] [facility] [address] [place] [address] Jeff Hatfield MD [address] [facility] [address] [place] [address] ALLERGY, UNSPECIFIED (Primary Dx); DEPRESSIVE DISORDER NEC Social History Tobacco Use Types Packs/Day Years Used Date Smoking Tobacco: Never Assessed Comments Unknown Sex and Gender Information Value Date Recorded Sex Assigned at Not on file Legal Sex Female 4:41 AM TOURS CAPTAIN Gender Identity Not on file Sexual Orientation Not on file documented as of this encounter Plan of Treatment Not on file documented as of this encounter Visit Diagnoses Diagnosis Allergy, unspecified not elsewhere classified- Primary Depressive disorder, not elsewhere classified documented in this encounter Care Teams Mortgage Processing Clerk Relationship Specialty Start Date End Date Claudia Medina DO [address] [facility] [address] [place] [address] PCP - General Family Practice 08/24/17 documented as of this encounter
--- OUTSIDE RECORDS SUMMARY | 2025-01-27 16:35 | XMS_ITS | Encounter Summary ---
Author Organization [facility] Address [address] [place] [address] Phone Care Team Providers Care Cattle Driver Name Role Phone Unavailable Primary Care Provider Unavailabl e Reason for Visit * Reason Onset Date Comments Med Refill Med Refill 06/20/2020 Encounter Details Date Type Department Care Team (Late st Contact Info) Description 06/16/2020 [facility]ill [facility] [address] [place], [place] [address] Sunita Hogue MD Hypothyroidism, unspecified type Social [...]
--- OUTSIDE RECORDS SUMMARY | 2025-01-27 16:35 | XMS_ITS | Encounter Summary ---
Author Organization [facility] Address [address] [place] [address] Care Team Providers Care Air Launch Weapons Technician Name Role Phone Claudia Medina DO Primary Care Provider [phone] [phone] Encounter Details Date Type Department Care Team (Latest Contact Info) Description 09/26/[address] [facility] Family Medicine [place] [address] [facility] [address] [place] [address] Gary Guaman DO NO ADDRESS ON FILE ACUTE BRONCHITIS (Primary Dx) Social History Tobacco Use Types Packs/Day Years Used Date Smoking Tobacco: Never Assessed Comments Unknown Sex and Gender Information Value Date Recorded Sex Assigned at Not on file Legal Sex Female 4:41 AM CHOCOLATE MAKER Gender Identity Not on file Sexual Orientation Not on file documented as of this encounter Plan of Treatment Not on file documented as of this encounter Visit Diagnoses Diagnosis Acute bronchitis- Primary documented in this encounter Care Teams Air Launch Weapons Technician Relationship Specialty Start Date End Date Claudia Medina DO [address] [facility] [address] [place], [place] [address] PCP - General Family Practice 08/24/17 documented as of this encounter
--- OUTSIDE RECORDS SUMMARY | 2025-01-27 16:35 | XMS_ITS | Encounter Summary ---
Author Organization [facility] Address [address] [place] [address] Care Team Providers Care High School Art Teacher Name Role Phone Carol, Claudiajorge Sarabia Primary Care Provider [phone] [phone] Encounter Details Date Type Department Care Team (Latest Contact Info) Description 05/28/2002 Outpatient Historical [facility] Family Medicine [place] [address] [facility] 60 [place] [address] Jeff Hatfield MD [address] [facility] [address] [place] [address] OTITIS MEDIA NOS (Primary Dx); Dysfunct eustachian tube Social History Tobacco Use Types Packs/Day Years Used Date Smoking Tobacco: Never Assessed Comments Unknown Sex and Gender Information Value Date Recorded Sex Assigned at Not on file Legal Sex Female 4:41 AM CABINET ABRASIVE SANDBLASTER Gender Identity Not on file Sexual Orientation Not on file documented as of this encounter Plan of Treatment Not on file documented as of this encounter Visit Diagnoses Diagnosis Unspecified otitis media- Primary Dysfunct eustachian tube Dysfunction of Eustachian tube documented in this encounter Care Teams High School Art Teacher Relationship Specialty Start Date End Date Claudia Medina DO [address] [facility] [address] [place], [place] [address] PCP - General Family Practice 08/24/17 documented as of this encounter
--- OUTSIDE RECORDS SUMMARY | 2025-01-27 16:35 | XMS_ITS | Encounter Summary ---
Author Organization [facility] Address [address] [place] [address] Care Team Providers Care Slot Machine Repairer Name Role Phone CarolClaudia raza Primary Care Provider [phone] Encounter Details Date Type Department Care Team (Latest Contact Info) Description 08/07/2001 Outpatient Historical [facility] Family Medicine [place] [address] [facility] [address] [place] [address] Jeff Hatfield MD [address] [facility] [address] [place] [address] ACUTE BRONCHITIS (Primary Dx) Social History Tobacco Use Types Packs/Day Years Used Date Smoking Tobacco: Never Assessed Comments Unknown Sex and Gender Information Value Date Recorded Sex Assigned at Not on file Legal Sex Female 4:41 AM DIRECTOR TRUST Gender Identity Not on file Sexual Orientation Not on file documented as of this encounter Plan of Treatment Not on file documented as of this encounter Visit Diagnoses Diagnosis Acute bronchitis- Primary documented in this encounter Care Teams Slot Machine Repairer Relationship Specialty Start Date End Date Claudia Medina DO [address] [facility] [address] [place] [address] PCP - General Family Practice 08/24/17 documented as of this encounter
--- OUTSIDE RECORDS SUMMARY | 2025-01-27 16:35 | XMS_ITS | Encounter Summary ---
Author Organization [facility] Address [address] [place] [address] Care Team Providers Care Meat Puller Name Role Phone Claudia Medina DO Primary Care Provider [phone] [phone] Encounter Details Date Type Department Care Team (Late st Contact Info) Description 08/24/2002 Outpatient Historical [facility] Jeff Hatfield MD [address] [facility] [address] [place] [id number] Social History Tobacco Use Types Packs/Day Years Used Date Smoking Tobacco: Never Assessed Comments Unknown Sex and Gender Information Value Date Recorded Sex Assigned at Not on file Legal Sex Female 4:41 AM TOOL STORAGE ATTENDANT Gender Identity Not on file Sexual Orientation Not on file documented as of this encounter Plan of Treatment Not on file documented as of this encounter Visit Diagnoses Not on filedocumented in this encounter Care Teams Meat Puller Relationship Specialty Start Date End Date Claudia Medina DO [address] [place] [address] PCP - General Family Practice 08/24/17 documented as of this encounter
--- OUTSIDE RECORDS SUMMARY | 2025-01-27 16:35 | XMS_ITS | Encounter Summary ---
Author Organization [facility] Address [address] [address] Phone Care Team Providers Care Nurse Wound Care Name Role Phone Unavailable Primary Care Provider Unavailabl e Reason for Visit * Reason Onset Date Comments Med Refill 02/28/2023 Encounter Details Date Type Department Care Team (Late st Contact Info) Description 02/28/2023 Telephone [facility] [address] [address] Lenora KellerBRIGIDA [address] [address] Med Refill Social History Tobacco Use Types Packs/Day Years [...] Telephone Encounter - Jimena Mata LPN - 03/02/2023 1:54 PM CDT Patient notified and seeing PCP for thyroid management * Telephone Encounter - Jimena Mata LPN - 03/02/2023 1:11 PM CDT Attempt to contact patient unsuccessful, message left for call back. * Telephone Encounter - Lenora Keller LPN - 03/01/2023 3:24 PM CDT Routing to [place] * Telephone Encounter - Lenora Keller LPN - 02/28/2023 4:36 PM CDT [facility] for Levothyroxine 100 mcg. No recent labs. documented in this encounter Plan of Treatment Not on file documented as of this encounter Visit Diagnoses Not on filedocumented in this encounter
--- OUTSIDE RECORDS SUMMARY | 2025-01-27 16:35 | XMS_ITS | Encounter Summary ---
Author Organization [facility] Address [address] [place] [address] Care Team Providers Care Negative Notcher Name Role Phone CarolClaudia raza Primary Care Provider [phone] [phone] Encounter Details Date Type Department Care Team (Latest Contact Info) Description 11/10/2001 Outpatient Historical [facility] Family Medicine [place] [address] [facility] [address] [place] [id number] Jeff Hatfield MD [address] [facility] [address] [place] [phone] HYPERLIPIDEMIA NEC/NOS (Primary Dx) Social History Tobacco Use Types Packs/Day Years Used Date Smoking Tobacco: Never Assessed Comments Unknown Sex and Gender Information Value Date Recorded Sex Assigned at Not on file 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
--- OUTSIDE RECORDS SUMMARY | 2025-01-27 16:35 | XMS_ITS | Clinical Summary ---
Author Organization [facility] Address [address] [facility] 60 [place] [address] Care Team Providers Care Dairy Hand Name Role Phone Claudia Medina DO Primary Care Provider [phone] Allergies Active Allergy Reactions Criticality Noted Date Comments Meperidine Rash Low 02/05/2013 Morphine Hallucination Low 12/10/2011 Sulfa Dyne Rash Low 12/10/2011 Tramadol Swelling Low 10/02/2020 States makes her tongue swell Medications naproxen (NAPROSYN) 500 mg tablet Take 500 mg by mouth 2 times daily with meals. 1 Active simvastatin (ZOCOR) 10 mg tablet Take 10 mg by mouth late in the day. 8 Active montelukast (SINGULAIR) 10 mg tablet Take 10 mg by mouth daily at bedtime. 8 Active meloxicam (MOBIC) 15 mg tablet Take 15 mg by mouth daily. 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 30 Tablet 0 6 Active omeprazole (PriLOSEC) 20 mg Capsule, Delayed Release(E.C.) Take 1 Capsule (20 mg) by mouth every 12 hours PLEASE SCHEDULE AN APPOINTMENT BEFORE NEXT REFILL.. 60 Capsule 0 6 Active budesonide-form oteroL (SYMBICORT) 160-4.5 mcg/actuation HFA Aerosol Inhaler Take 2 Puffs by inhalation 2 times daily. 30.6 Gram 3 5 Active ipratropium-alb uteroL (Combivent Respimat) 20-100 mcg/actuation Mist INHALE 2 PUFFS INTO LUNGS EVERY FOUR HOURS WHEN YOU CNAT USE GENERIC DUONEB 4 Gram 0 5 Active fluticasone propionate (FLONASE) 50 mcg/spray [place], Suspension nasal inhaler INSTILL 2 SPRAYS IN EACH NOSTRIL DAILY. 16 Gram 5 5 Active lisinopriL (PRINIVIL) 5 mg tablet Take 1 Tablet (5 mg) by mouth daily Please schedule an appointment before next refill.. 30 Tablet 3 5 Active Lumigan 0.01 % solution INSTILL ONE DROP IN BOTH EYES EVERY EVENING Active Active Problems Problem Noted Date Diagnosed Date Gastroesophageal reflux disease with hiatal aftab ia 06/14/2012 Dysphagia 05/23/2012 Encounters Date Type Department Care Team Description 01/08/2025 External Device Data [facility] ABSTRACTION Provider, Abstract 01/08/2025 External Device Data [facility] ABSTRACTION Provider, Abstract 01/08/2025 External Device Data [facility] ABSTRACTION Provider, Abstract 12/11/2024 External Device Data [facility] ABSTRACTION Provider, Abstract 12/11/2024 External Device Data [facility] ABSTRACTION Provider, Abstract 12/11/2024 External Device Data [facility] ABSTRACTION Provider, Abstract 12/10/2024 4:02 AM CDT - 12/10/2024 8:08 AM CDT Emergency [facility] Emergency Department [address] [place] [phone] Trupti Benton MD Chronic pain of left knee (Primary Dx); Coccydynia; Fall from slip, trip, or stumble, initial encounter; Closed head injury, initial encounter Discharge Disposition: Home or Self Care 12/10/2024 Travel 12/04/2024 External Device Data [facility] ABSTRACTION Provider, Abstract 11/01/2024 External Device Data [facility] ABSTRACTION Provider, Abstract 10/31/2024 External Device Data [facility] ABSTRACTION Provider, Abstract 10/30/2024 External Device Data [facility] ABSTRACTION Provider, Abstract from Last 3 Months Immunizations Immunization Administration Dates Next Due Influenza Seasonal Unspecified Formulation IM Family History Medical History Relation Name Comments Heart Disease Father Heart Disease Mother Heart Disease Sister Breast Cancer Neg Hx Cancer Neg Hx Diabetes Neg Hx Ovarian Cancer Neg Hx Relation Name Status Comments Daughter Alive Father Maternal Grandmother Mother Sister Alive Social History Tobacco Use Types Packs/Day Years Used Date Smoking Tobacco: Former Cigarettes Q uit: 05/23/1982 Smokeless Tobacco: Never Tobacco Cessation:Counseling Given: Not Answered Alcohol Use Standard Drinks/Week Comments No 0 (1 standard drink = 0.6 oz pur e alcohol) Comments No Sex and Gender Information Value Date Recorded Sex Assigned at Not on file 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 Gender Identity Not on file Sexual Orientation Not on file Last Filed Vital Signs Vital Sign Reading Time Taken Comments Blood Pressure 99/47 12/10/2024 7:00 AM CDT Pulse 72 12/10/2024 7:00 AM CDT Temperature 36.8 C (98.3 F) 12/10/2024 4:06 AM CDT Respiratory Rate 18 12/10/2024 7:00 AM CDT Oxygen Saturation 99% 12/10/2024 7:00 AM CDT Inhaled Oxygen Concentration - - Weight 122.9 kg (270 lb 15.1 oz) 12/10/2024 4:06 AM CDT Height 167.6 cm (5' 6 ) 12/10/2024 4:06 AM CDT Body Mass Index 43.73 12/10/2024 4:06 AM CDT Plan of Treatment Health Maintenance Due Date Last Done Comments DTAP/TDAP/TD VACCINES (1 - Tdap) 1969 COLORECTAL SCREENING 1995 Colorectal Cancer Screening 1995 FIT-DNA Q 3 years 1995 FIT/FOBT Q 1 year 1995 Flex Sig/CT Colonography Q 5 years 1995 PNEUMOCOCCAL VACCINE 50+ YEA RS (1 of 1 - PCV) 01/29/2000 ZOSTER VACCINE (1 of 2) 01/29/2000 RSV VACCINE (60+ or ) (1 - Risk 60-74 years 1-dose series) 2010 BREAST CANCER SCREENING 04/24/2016 04/24/20 15, 05/30/2013, 05/09/2013, Additional history exists OSTEOPOROSIS SCREENING 05/09/2018 3, 05/09/2013, 04/17/2012, Additional history exists INFLUENZA VACCINE (#1) 2025 04/12/2020, 2001 Procedures Procedure Name Priority Date/Time Associated Diagnosis Comments CT PELVIS WO CONTRAST Stat 12/10/2024 5:[address] CERVICAL SPINE WO CONTRAST Stat 12/10/2024 5:[address] HEAD WO CONTRAST Stat 12/10/2024 5 :30 AM CDT XR KNEE 3 VW LEFT Stat 12/10/2024 5:1 5 AM CDT MAMMO SCREEN BILAT W OR WO CAD Routine 04/24/2015 11:39 AM TMH TEACHER Visit for screening mammogram XR DEXA BONE DENSITY AXIAL 1 OR MORE SITES Routine 05/09/2013 1:06 PM TMH TEACHER Osteoporosis from Last 3 Months or Most Recently Relevant to Health Maintenance Results * CT PELVIS WO CONTRAST (12/10/2024 5:33 AM CDT) Anatomical Region Laterality Modality Pelvis Computed Tomogra phy 12/10/2024 5:15 AM CDT Narrative 12/10/2024 7:44 AM CDT Exam: CT PELVIS WO CONTRAST Date/Time of Exam: 12/10/2024 5:33 AM Reason For Exam: fall trauma. Diagnosis: See Reason for Exam. Technique: CT of the pelvis was performed without the administration of intravenous contrast. Comparison: 10/21/2022. Findings: The osseous structures are demineralized. Degenerative changes are present in the lumbar spine with grade 1 anterolisthesis noted at L4-L5, slightly increased in the interval. 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 Degenerative changes involve the pubic symphysis and surgical clips are present in the lower aspect of the anterior pelvis. The femoral heads are located. No femoral neck fracture. No focal soft tissue abnormality. Mild diverticulosis is present in the sigmoid colon. There is an umbilical hernia containing portions of the colon without obstruction. 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 No acute fracture. Degenerative changes in the lumbar spine. Umbilical hernia containing a portion of the colon without obstruction. Procedure Note Jason Arroyo MD - 12/10/2024 Exam: CT PELVIS WO CONTRAST Date/Time of Exam: 12/10/2024 5:33 AM Reason For Exam: fall trauma. Diagnosis: See Reason for Exam. Technique: CT of the pelvis was performed without the administration of intravenous contrast. Comparison: 10/21/2022. Findings: The osseous structures are demineralized. Degenerative changes are present in the lumbar spine with grade 1 anterolisthesis noted at L4-L5, slightly increased in the interval. 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 Degenerative changes involve the pubic symphysis and surgical clips are present in the lower aspect of the anterior pelvis. The femoral heads are located. No femoral neck fracture. No focal soft tissue abnormality. Mild diverticulosis is present in the sigmoid colon. There is an umbilical hernia containing portions of the colon without obstruction. 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 No acute fracture. Degenerative changes in the lumbar spine. Umbilical hernia containing a portion of the colon without obstruction. Trupti Benton MD CT ORDERABLES Final Result * CT CERVICAL SPINE WO CONTRAST (12/10/2024 5:32 AM CDT) Anatomical Region Laterality Modality Spine Computed Tomogra phy 12/10/2024 5:08 AM CDT Narrative 12/10/2024 7:31 AM CDT Exam: CT CERVICAL SPINE WO CONTRAST Date/Time of Exam: 12/10/2024 5:32 AM Reason For Exam: fall trauma. Diagnosis: See Reason for Exam. Technique: CT of the cervical spine was performed without the administration of intravenous contrast. Comparison: 07/06/2014. Findings: The osseous structures are demineralized. There is persistent grade 1 anterolisthesis at C3-C4. The vertebral body heights are preserved without acute fracture. There is advanced multilevel disc space narrowing with uncovertebral joint hypertrophy and facet arthrosis. There is mild multilevel neural foraminal stenosis without significant central canal stenosis. No prevertebral soft tissue swelling. Atherosclerotic calcifications are present in the carotid arteries. The lung apices are clear. ++++++++++++++++++++ IMPRESSION Cervical spine degenerative changes without acute fracture. Procedure Note Jason Arroyo MD - 12/10/2024 Exam: CT CERVICAL SPINE WO CONTRAST Date/Time of Exam: 12/10/2024 5:32 AM Reason For Exam: fall trauma. Diagnosis: See Reason for Exam. Technique: CT of the cervical spine was performed without the administration of intravenous contrast. Comparison: 07/06/2014. Findings: The osseous structures are demineralized. There is persistent grade 1 anterolisthesis at C3-C4. The vertebral body heights are preserved without acute fracture. There is advanced multilevel disc space narrowing with uncovertebral joint hypertrophy and facet arthrosis. There is mild multilevel neural foraminal stenosis without significant central canal stenosis. No prevertebral soft tissue swelling. Atherosclerotic calcifications are present in the carotid arteries. The lung apices are clear. ++++++++++++++++++++ IMPRESSION Cervical spine degenerative changes without acute fracture. Trupti Benton MD CT ORDERABLES Final Result * CT HEAD WO CONTRAST (12/10/2024 5:30 AM CDT) Anatomical Region Laterality Modality Head Computed Tomogra phy 12/10/2024 5:08 AM CDT Narrative 12/10/2024 7:23 AM CDT Exam: CT HEAD WO CONTRAST Date/Time of Exam: 12/10/2024 5:30 AM Reason For Exam: fall ehad injury. Diagnosis: See Reason for Exam. Technique: CT of the head was performed without the administration of intravenous contrast. Comparison: 07/06/2014. Findings: No acute intracranial abnormality. No mass effect, hemorrhage, hydrocephalus, or extra-axial collection. The lu-white junction is preserved without CT evidence of an acute infarction. There is mild diffuse cerebral and cerebellar volume loss. Decreased attenuation within the periventricular white matter suggests chronic small vessel ischemic changes. Small remote lacunar infarct noted in the left basal ganglia. Atherosclerotic calcifications are present in the cavernous carotid arteries. Mild mucosal thickening is present in the ethmoid air cells and maxillary sinuses. Mastoid air cells are clear. The calvarium is intact. ++++++++++++++++++++ IMPRESSION No acute intracranial abnormality. Procedure Note Jason Arroyo MD - 12/10/2024 Exam: CT HEAD WO CONTRAST Date/Time of Exam: 12/10/2024 5:30 AM Reason For Exam: fall ehad injury. Diagnosis: See Reason for Exam. Technique: CT of the head was performed without the administration of intravenous contrast. Comparison: 07/06/2014. Findings: No acute intracranial abnormality. No mass effect, hemorrhage, hydrocephalus, or extra-axial collection. The lu-white junction is preserved without CT evidence of an acute infarction. There is mild diffuse cerebral and cerebellar volume loss. Decreased attenuation within the periventricular white matter suggests chronic small vessel ischemic changes. Small remote lacunar infarct noted in the left basal ganglia. Atherosclerotic calcifications are present in the cavernous carotid arteries. Mild mucosal thickening is present in the ethmoid air cells and maxillary sinuses. Mastoid air cells are clear. The calvarium is intact. ++++++++++++++++++++ IMPRESSION No acute intracranial abnormality. Trupti Benton MD CT ORDERABLES Final Result * XR KNEE 3 VW LEFT (12/10/2024 5:15 AM CDT) Anatomical Region Laterality Modality Lower Extremity Computed Radiogr aphy 12/10/2024 5:15 AM CDT Impressions 12/10/2024 8:17 AM CDT IMPRESSION: See below. Exam: XR KNEE 3 VW LEFT Date/Time of Exam: 12/10/2024 5:15 AM Reason For Exam: Pain. Diagnosis: See Reason for Exam. Findings: There is a knee joint arthroplasty. The patellar component is significantly displaced superolaterally. No fracture identified. Narrative Procedure Note Aaron Mahan MD - 12/10/2024 IMPRESSION: See below. Exam: XR KNEE 3 VW LEFT Date/Time of Exam: 12/10/2024 5:15 AM Reason For Exam: Pain. Diagnosis: See Reason for Exam. Findings: There is a knee joint arthroplasty. The patellar component is significantly displaced superolaterally. No fracture identified. Trupti Benton MD DIAGNOSTIC IMAGING ORDERABLES Final Result * MAMMO SCREEN BILAT W OR WO CAD (04/24/2015 11:39 AM TMH TEACHER) Anatomical Region Laterality Modality Breast Bilateral Other Narrative 04/28/2015 7:09 AM TMH TEACHER Bilateral Mammogram Reason for Exam: Screening Comparison: Compared to: 05/30/2013 MAMMO DIGITAL DIAG UNI RIGHT, 05/09/2013 MAMMO DIGITAL SCREEN BILAT, 05/03/2012 MAMMO DIGITAL SCREEN BILAT, 04/14/2011 MAMMO DIGITIZED STUDY, 05/20/2010 MAMMO DIGITIZED STUDY Findings: Bilateral CC and MLO views were obtained. This examination was reviewed with the aid of a computer-aided detection system(CAD). The breast tissue density is average. No significant new findings since the prior mammogram(s). Procedure Note Agata Cordova MD - 10/28/2021 Bilateral Mammogram Reason for Exam: Screening Comparison: Compared to: 05/30/2013 MAMMO DIGITAL DIAG UNI RIGHT, 05/09/2013 MAMMO DIGITAL SCREEN BILAT, 05/03/2012 MAMMO DIGITAL SCREEN BILAT, 04/14/2011 MAMMO DIGITIZED STUDY, 05/20/2010 MAMMO DIGITIZEDSTUDY Findings: Bilateral CC and MLO views were obtained. This examination was reviewed with the aid of a computer-aided detection system(CAD). The breast tissue density is average. No significant new findings since the prior mammogram(s). Jeny Kelly DEPUTY DIRECTOR OF FINANCE MAMMO ORDERABLES Fi nal Result * XR DEXA BONE DENSITY AXIAL 1 OR MORE SITES (05/09/2013 1:06 PM TMH TEACHER) Anatomical Region Laterality Modality Other Narrative 05/09/2013 1:39 PM TMH TEACHER PROCEDURE DEXA BONE DENSITY, 09 May 2013 Bone mineral densitometry was assessed by DEXA of the lumbar spine and left hip. There are no previous studies for comparison. Total density measured in the lumbar spine is 0.884 g/sq cm for a T score of -1.5. The total bone density of the left hip measures 0.832 g/sq cm for a T score of -0.9. The femoral neck region measures 0.590 g/sq cm for a T score of -2.3. Comparison to the previous data of 17 April 2012 shows an 11% decline in bone mineral density. IMPRESSION 1. progression of demineralization 2. osteopenia, with increased fracture risk Procedure Note Kayden Zhu MD - 08/15/2022 PROCEDURE DEXA BONE DENSITY, 09 May 2013 Bone mineral densitometry was assessed by DEXA of the lumbar spine and left hip. There are no previous studies for comparison. Total density measured in the lumbar spine is 0.884 g/sq cm for a T score of -1.5. The total bone density of the left hip measures 0.832 g/sq cm for a T score of -0.9. The femoral neck region measures 0.590 g/sq cm for a T score of -2.3. Comparison to the previous data of 17 April 2012 shows an 11% decline in bone mineral density. IMPRESSION 1. progression of demineralization 2. osteopenia, with increased fracture risk Dhiraj DOMINGUEZ DIAGNOSTIC IMAGING ORDERABLES Final Result from Last 3 Months or Most Recently Relevant to Health Maintenance Insurance [facility] [employer] [facility] [id number] Care Teams Dairy Hand Relationship Specialty Start Date End Date Claudia Medina DO [address] [id number] PCP - General Family Practice 08/24/17
--- OUTSIDE RECORDS SUMMARY | 2025-01-27 16:35 | XMS_ITS | Encounter Summary ---
Author Organization [facility] Address [address] [place] [address] Phone Care Team Providers Care Tariff Clerk Name Role Phone Unavailable Primary Care Provider Unavailabl e Reason for Visit * Reason Comments Med Refill Encounter Details Date Type Department Care Team (Late st Contact Info) Description 05/19/2020 Refill [facility] [address] [place], [place] [id number] Sunita Hogue MD Social History Tobacco Use Types Packs/Day Years Used Date Smoking Tobacco: Never Assessed Comments Unknown Sex and Gender Information Value Date Recorded Sex Assigned at Not on file Legal Sex Female 11:34 AM CDT Gender Identity Not on file Sexual Orientation Not on file documented as of this encounter Miscellaneous Notes * Telephone Encounter - Jimena Mata LPN - 05/19/2020 3:53 PM CST Attempt to contact patient unsuccessful, message left for callback. ED MILK SUPERVISOR * Telephone Encounter - Jimena Mata LPN - 05/19/2020 2:00 PM CST Spoke with patient who states she had blood work done with [facility] and will have thoseresults faxed to us. ED MILK SUPERVISOR documented in this encounter Plan of Treatment Not on file documented as of this encounter Visit Diagnoses Not on filedocumented in this encounter
--- OUTSIDE RECORDS SUMMARY | 2025-01-27 16:36 | XMS_ITS | Encounter Summary ---
Author Organization [facility] Address [address] [place] [address] Care Team Providers Care Licensed Tax Consultant Name Role Phone CarolClaudia raza Primary Care Provider [phone] Encounter Details Date Type Department Care Team (Latest Contact Info) Description 09/05/2000 Outpatient Historical [facility] Family Medicine [place] [address] [facility] [address] [place] [address] Jeff Hatfield MD [address] [facility] [address] [place] [phone] Reflux esophagitis (Primary Dx) Social History Tobacco Use Types Packs/Day Years Used Date Smoking Tobacco: Never Assessed Comments Unknown Sex and Gender Information Value Date Recorded Sex Assigned at Not on file 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
--- OUTSIDE RECORDS SUMMARY | 2025-01-27 16:36 | XMS_ITS | Encounter Summary ---
Author Organization [facility] Address [address] [place] [address] Care Team Providers Care Network Systems Operator Name Role Phone Carol, Claudiajorge Sarabia Primary Care Provider +1 -[phone] Encounter Details Date Type Department Care Team (Latest Contact Info) Description 08/07/2004 Outpatient Historical [facility] Family Medicine [place] 104 [facility] 60 [place] [address] Jeff Hatfield MD [address] [facility] 200 [place] [address] URIN TRACT INFECTION NOS (Primary Dx); OSTEOARTHROS NOS-UNSPEC Social History Tobacco Use Types Packs/Day Years Used Date Smoking Tobacco: Never Assessed Comments Unknown Sex and Gender Information Value Date Recorded Sex Assigned at Not on file 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
--- OUTSIDE RECORDS SUMMARY | 2025-01-27 16:36 | XMS_ITS | Encounter Summary ---
Author Organization [facility] Address [address] [place] [address] Care Team Providers Care Lead Custodian Name Role Phone Claudia Medinae Primary Care Provider +1 -[phone] Encounter Details Date Type Department Care Team (Latest Contact Info) Description 04/24/2002 Outpatient Historical [facility] General Surgery [place] [address] [address] [address] [place] [address] [place] [address] [facility] [address] [place] [address] LIPOMA SKIN NEC (Primary Dx) Social History Tobacco Use Types Packs/Day Years Used Date Smoking Tobacco: Never Assessed Comments Unknown Sex and Gender Information Value Date Recorded Sex Assigned at Not on file Legal Sex Female 4:41 AM SUPERVISOR PROPERTIES Gender Identity Not on file Sexual Orientation Not on file documented as of this encounter Plan of Treatment Not on file documented as of this encounter Visit Diagnoses Diagnosis Lipoma of other skin and subcutaneous tissue- Primary documented in this encounter Care Teams Lead Custodian Relationship Specialty Start Date End Date Claudia Medina DO [address] [facility] 19 [place] [address] PCP - General Family Practice 08/24/17 documented as of this encounter
--- OUTSIDE RECORDS SUMMARY | 2025-01-27 16:36 | XMS_ITS | Encounter Summary ---
Author Organization [facility] Address [address] [place] [address] Care Team Providers Care Health And Safety Technician Name Role Phone CarolClaudia milligan Primary Care Provider +1 -[phone] Encounter Details Date Type Department Care Team (Latest Contact Info) Description 07/03/[address] [facility] Family Medicine [place] 104 [facility] 60 [place] [address] Jeff Hatfield MD [address] 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
--- OUTSIDE RECORDS SUMMARY | 2025-01-27 16:36 | XMS_ITS | Encounter Summary ---
Author Organization [facility] Address [address] [place] [address] Care Team Providers Care Head Concierge Name Role Phone Claudia Medina DO Primary Care Provider +1 -[phone] Encounter Details Date Type Department Care Team (Late st Contact Info) Description 08/17/2011 Ancillary Orders [facility] Services [place] [address] [place] [address] Social History Tobacco Use Types Packs/Day Years Used Date Smoking Tobacco: Never Assessed Comments No Sex and Gender Information Value Date Recorded Sex Assigned at Not on file Legal Sex Female 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
--- OUTSIDE RECORDS SUMMARY | 2025-01-27 16:36 | XMS_ITS | Encounter Summary ---
Author Organization [facility] Address [address] [place] [address] Care Team Providers Care Yoke Setter Name Role Phone Claudia Medina DO Primary Care Provider +1 -[phone] Encounter Details Date Type Department Care Team (Latest Contact Info) Description 06/16/2004 Outpatient Historical [facility] [address] [place] [address] AMBULANCE, [facility] SHORTNESS OF BREATH (Primary Dx) Social History Tobacco Use Types Packs/Day Years Used Date Smoking Tobacco: Never Assessed Comments Unknown Sex and Gender Information Value Date Recorded Sex Assigned at Not on file Legal Sex Female 4:41 AM DOCK CLERK Gender Identity Not on file Sexual Orientation Not on file documented as of this encounter Plan of Treatment Not on file documented as of this encounter Visit Diagnoses Diagnosis Shortness of breath- Primary documented in this encounter Care Teams Yoke Setter Relationship Specialty Start Date End Date Claudia Medina DO [address] [place] [address] PCP - General Family Practice 08/24/17 documented as of this encounter
--- OUTSIDE RECORDS SUMMARY | 2025-01-27 16:36 | XMS_ITS | Encounter Summary ---
Author Organization [facility] Address [address] [place] [address] Care Team Providers Care Professional Volleyball Player Name Role Phone CarolClaudia raza Primary Care Provider +1 -[phone] Encounter Details Date Type Department Care Team (Latest Contact Info) Description 06/16/2001 Outpatient Historical [facility] Family Medicine [place] 104 [facility] 60 [place] [phone] Jeff Hatfeild MD [address] [facility] 200 [place] [address] ACUTE SINUSITIS NOS (Primary Dx); ABDOMINAL PAIN UNSPEC SITE Social History Tobacco Use Types Packs/Day Years Used Date Smoking Tobacco: Never Assessed Comments Unknown Sex and Gender Information Value Date Recorded Sex Assigned at Not on file Legal Sex Female 4:41 AM DIRECTOR VIDEO Gender Identity Not on file Sexual Orientation Not on file documented as of this encounter Plan of Treatment Not on file documented as of this encounter Visit Diagnoses Diagnosis Acute sinusitis, unspecified- Primary Abdominal pain, unspecified site documented in this encounter Care Teams Professional Volleyball Player Relationship Specialty Start Date End Date Claudia Medina DO [address] [facility] 19 [place] [address] PCP - General Family Practice 08/24/17 documented as of this encounter
--- OUTSIDE RECORDS SUMMARY | 2025-01-27 16:36 | XMS_ITS | Encounter Summary ---
Author Organization [facility] Address [address] [place] [address] Care Team Providers Care Mobile Health Vehicle Operator Name Role Phone Claudia Medina DO Primary Care Provider +1 -[phone] Reason for Referral * Outpatient Services (Routine) - Closed Specialty Diagnoses / Procedures Referred By Jennifer t Referred To Contact Diagnoses Other screening mammogram Procedures MAMMO DIGITIZED STUDY Dhiraj Isaac PA NO ADDRESS ON FILE Referral ID Status Reason Start Date Expiration Date Visits Re quested Visits Authorized [id number] Closed 05/03/2012 05/03/2013 1 1 ONENT OVERHAUL OPERATOR Encounter Details Date Type Department Care Team (Late st Contact Info) Description 05/03/2012 Ancillary Orders [address] [phone] Dhiraj Isaac PA NO ADDRESS ON FILE Other screening mammogram Social History Tobacco Use Types Packs/Day Years Used Date Smoking Tobacco: Never Assessed Comments No Sex and Gender Information Value Date Recorded Sex Assigned at Not on file Legal Sex Female 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 Exam was auto-finalized. Procedure Note Linda Kim, RT - 05/03/2012 Order information only. Exam was auto-finalized. Dhiraj DOMINGUEZ DIAGNOSTIC IMAGING ORDERABLES Final Result documented in this encounter Visit Diagnoses Diagnosis Other screening mammogram Other screening mammogram documented in this encounter Care Teams Mobile Health Vehicle Operator Relationship Specialty Start Date End Date Claudia Medina DO [facility] [address] PCP - General Family Practice 08/24/17 documented as of this encounter
--- OUTSIDE RECORDS SUMMARY | 2025-01-27 16:36 | XMS_ITS | Encounter Summary ---
Author Organization [facility] Address [address] [place] [address] Care Team Providers Care Community Service Organization Director Name Role Phone Claudia Medina DO Primary Care Provider +1 -[phone] Encounter Details Date Type Department Care Team (Latest Contact Info) Description 05/21/1999 Outpatient Historical [facility] Medicine [place] 104 [facility] 60 [place] [address] Brie Horowitz NO ADDRESS ON FILE Unspecified sinusitis (chronic) (Primary Dx); Edema; Diffus cystic mastopathy; Vaginitis and vulvovaginitis, unspecified Social History Tobacco Use Types Packs/Day Years Used Date Smoking Tobacco: Never Assessed Comments Unknown Sex and Gender Information Value Date Recorded Sex Assigned at Not on file Legal Sex Female 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 Gender Identity Not on file Sexual Orientation Not on file documented as of this encounter Plan of Treatment Not on file documented as of this encounter Visit Diagnoses Diagnosis Unspecified sinusitis (chronic)- Primary Edema Diffus cystic mastopathy Diffuse cystic mastopathy Vaginitis and vulvovaginitis, unspecified documented in this encounter Care Teams Community Service Organization Director Relationship Specialty Start Date End Date Claudia Medina DO [address] [facility] 19 [place] [address] PCP - General Family Practice 08/24/17 documented as of this encounter
--- OUTSIDE RECORDS SUMMARY | 2025-01-27 16:36 | XMS_ITS | Encounter Summary ---
Author Organization [facility] Address [address] [place] [address] Care Team Providers Care Md Allergy Immunology Name Role Phone CarolClaudia DO Primary Care Provider +1 -[phone] Encounter Details Date Type Department Care Team (Latest Contact Info) Description 05/09/2000 Outpatient Historical [facility] Family Medicine [place] 104 [facility] 60 [place] [address] Jeff Hatfield MD [address] [facility] 200 [place] [address] Dysfunct eustachian tube (Primary Dx); Arthropathy, unspecified, site unspecified Social History Tobacco Use Types Packs/Day Years Used Date Smoking Tobacco: Never Assessed Comments Unknown Sex and Gender Information Value Date Recorded Sex Assigned at Not on file Legal Sex Female 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
--- OUTSIDE RECORDS SUMMARY | 2025-01-27 16:36 | XMS_ITS | Encounter Summary ---
Author Organization [facility] Address [address] [place] [address] Care Team Providers Care Space Controller Name Role Phone Claudia Medina DO Primary Care Provider +1 -[phone] Encounter Details Date Type Department Care Team (Late st Contact Info) Description 05/13/2009 Ancillary Orders [facility] Imaging External Read [address] [place] [address] Patt Alegria MD [address] [place] [address] Screening Mammogram Social History Tobacco Use Types Packs/Day Years Used Date Smoking Tobacco: Never Assessed Comments No Sex and Gender Information Value Date Recorded Sex Assigned at Not on file Legal Sex Female 4: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 This examination was reviewed with the aid of a computer-aided detection system(CAD). The breast tissue density is average. No significant new findings since the prior mammogram(s). Procedure Note Rowena Green MD - 05/14/2009 Bilateral Mammogram Reason for Exam: Screening Comparison: Comparison is made with the prior exam(s) dated 04.23.04 Findings: Bilateral CC and MLO views were obtained. This examination was reviewed with the aid of a computer-aided detectionsystem(CAD). The breast tissue density is average. No significant new findings since the prior mammogram(s). Patt Alegria MD MAMMO ORDERABLES Final Result documented in this encounter Visit Diagnoses Diagnosis Screening mammogram Other screening mammogram documented in this encounter Care Teams Space Controller Relationship Specialty Start Date End Date Claudia Medina DO [address] [place] [address] PCP - General Family Practice 08/24/17 documented as of this encounter
--- OUTSIDE RECORDS SUMMARY | 2025-01-27 16:36 | XMS_ITS | Encounter Summary ---
Author Organization [facility] Address [address] [place] [address] Care Team Providers Care Bead Filler Name Role Phone CarolClaudia milligan Primary Care Provider +1 -[phone] Encounter Details Date Type Department Care Team (Latest Contact Info) Description 07/21/2004 Outpatient Historical [facility] Medicine- [address] [phone] Jeff Hatfield MD [address] [facility] 200 [place] [address] ACUTE BRONCHITIS (Primary Dx); ASTHMA UNSPECIFIED Social History Tobacco Use Types Packs/Day Years Used Date Smoking Tobacco: Never Assessed Comments Unknown Sex and Gender Information Value Date Recorded Sex Assigned at Not on file Legal Sex Female 4:41 AM PROVIDER 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
--- OUTSIDE RECORDS SUMMARY | 2025-01-27 16:36 | XMS_ITS | Encounter Summary ---
Author Organization [facility] Address [address] [place] [address] Care Team Providers Care Legal Compliance Officer Name Role Phone Claudia Medina DO Primary Care Provider +1 -[phone] Reason for Referral * Outpatient Services (Routine) - Closed Specialty Diagnoses / Procedures Referred By Jennifer t Referred To Contact Diagnoses Other screening mammogram Procedures MAMMO DIGITIZED STUDY Dhiraj Isaac PA NO ADDRESS ON FILE Referral ID Status Reason Start Date Expiration Date Visits Re quested Visits Authorized [id number] Closed 05/03/2012 05/03/2013 1 1 RATING MACHINE OPERATOR Encounter Details Date Type Department Care Team (Late st Contact Info) Description 05/03/2012 Ancillary Orders [address] [phone] Dhiraj Isaac PA NO ADDRESS ON FILE Other screening mammogram Social History Tobacco Use Types Packs/Day Years Used Date Smoking Tobacco: Never Assessed Comments No Sex and Gender Information Value Date Recorded Sex Assigned at Not on file Legal Sex Female 4:41 AM DECORATING MACHINE OPERATOR Gender Identity Not on file Sexual Orientation Not on file Occupation Industry Job Start Date Job End Date Not on file Not on file Not on file Not on file documented as of this encounter Plan of Treatment Not on file documented as of this encounter Results * MAMMO DIGITIZED STUDY (11/16/2006 12:38 PM CDT) Narrative Linda Kim RT - 05/03/2012 12:38 PM DECORATING MACHINE OPERATOR Order information only. Exam was auto-finalized. Procedure Note Linda Kim, RT - 05/03/2012 Order information only. Exam was auto-finalized. Dhiraj DOMINGUEZ DIAGNOSTIC IMAGING ORDERABLES Final Result documented in this encounter Visit Diagnoses Diagnosis Other screening mammogram Other screening mammogram documented in this encounter Care Teams Legal Compliance Officer Relationship Specialty Start Date End Date Claudia Medina DO [facility] [address] PCP - General Family Practice 08/24/17 documented as of this encounter
--- OUTSIDE RECORDS SUMMARY | 2025-01-27 16:36 | XMS_ITS | Encounter Summary ---
Author Organization [employer] Address [address] [facility] Attn: Epic Prelude ADT [place] [address] Care Team Providers Care First Line Production Supervisor Name Role Phone Claudia Medina DO Primary Care Provider +1 -[phone] Encounter Details Date Type Department Care Team (Late st Contact Info) Description 03/24/2000 Outpatient Historical Non-Staff, Physician NO ADDRESS ON FILE Social History Tobacco Use Types Packs/Day Years Used Date Smoking Tobacco: Never Assessed Comments Unknown Sex and Gender Information Value Date Recorded Sex Assigned at Not on file Legal 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
--- OUTSIDE RECORDS SUMMARY | 2025-01-27 16:36 | XMS_ITS | Encounter Summary ---
Author Organization [facility] Address [address] [place] [address] Care Team Providers Care Forming Tube Selector Name Role Phone CarolClaudia milligan Primary Care Provider +1 -[phone] Encounter Details Date Type Department Care Team (Latest Contact Info) Description 10/11/2005 Outpatient Historical [facility] Family Medicine [place] 104 [facility] 60 [place] [address] Jeff Hatfield MD [address] [facility] 200 [place] [address] Unspecified Hypothyroidism (Primary Dx); Fluid Overload; Other Chest Pain; Unspecified Backache Social History Tobacco Use Types Packs/Day Years Used Date Smoking Tobacco: Never Assessed Comments Unknown Sex and Gender Information Value Date Recorded Sex Assigned at Not on file Legal Sex Female 4:41 AM DEFECT CUTTER Gender Identity Not on file Sexual Orientation Not on file documented as of this encounter Plan of Treatment Not on file documented as of this encounter Visit Diagnoses Diagnosis Unspecified hypothyroidism- Primary Fluid overload Other chest pain Backache, unspecified documented in this encounter Care Teams Forming Tube Selector Relationship Specialty Start Date End Date Claudia Medina DO [address] [facility] 19 [place] [address] PCP - General Family Practice 08/24/17 documented as of this encounter
--- OUTSIDE RECORDS SUMMARY | 2025-01-27 16:36 | XMS_ITS | Encounter Summary ---
Author Organization [facility] Address [address] [place] [address] Care Team Providers Care Tumbling And Rolling Supervisor Name Role Phone Carol, Claudia No Primary Care Provider +1 -[phone] Encounter Details Date Type Department Care Team (Latest Contact Info) Description 03/08/2003 Outpatient Historical [facility] Family Medicine [place] 104 [facility] 60 [place] [address] Jeff Hatfield MD [address] [facility] 200 [place] [address] ASTHMA UNSPECIFIED (Primary Dx) Social History Tobacco Use Types Packs/Day Years Used Date Smoking Tobacco: Never Assessed Comments Unknown Sex and Gender Information Value Date Recorded Sex Assigned at Not on file Legal Sex Female 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
--- OUTSIDE RECORDS SUMMARY | 2025-01-27 16:36 | XMS_ITS | Encounter Summary ---
Author Organization [facility] Address [address] [place] [address] Care Team Providers Care Mechanical Engineering Professor Name Role Phone Claudia Medina DO Primary Care Provider +1 [phone] Encounter Details Date Type Department Care Team (Latest Contact Info) Description 12/08/2000 Outpatient Historical [facility] Family Medicine [place] [address] [facility] [address] [place] [address] Gary Guaman DO NO ADDRESS ON FILE Acute sinusitis, unspecified (Primary Dx) Social History Tobacco Use Types Packs/Day Years Used Date Smoking Tobacco: Never Assessed Comments Unknown Sex and Gender Information Value Date Recorded Sex Assigned at Not on file Legal Sex Female 4: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
--- OUTSIDE RECORDS SUMMARY | 2025-01-27 16:36 | XMS_ITS | Encounter Summary ---
Author Organization [facility] Address [address] [place] [address] Care Team Providers Care Clinical Laboratory Technologist Name Role Phone Claudia Medina DO Primary Care Provider +1 [phone] Reason for Referral * Outpatient Services (Routine) - Closed Specialty Diagnoses / Procedures Referred By Contac t Referred To Contact Diagnoses Vertigo Procedures MRI IAC W WO CONTRAST Pennie Correia PA [facility] Centralized Scheduling [address] [facility] [address] [place] [address] Phone: tel: fax: Referral ID Status Reason Start Date Expiration Date V isits Requested Visits Authorized [id number] Closed MTN View CTS to Schedule (SGF) 12/21/2016 01/21/2018 1 1 Encounter Details Date Type Department Care Team (Late st Contact Info) Description 12/21/2016 Ancillary Orders [facility] Centralized Scheduling [address] [facility] [address] [place] [address] Pennie Correia PA NO ADDRESS ON FILE Vertigo Social History Tobacco Use Types Packs/Day Years Used Date Smoking Tobacco: Former Cigarettes Q uit: 05/23/1982 Smokeless Tobacco: Never Alcohol Use Standard Drinks/Week Comments No 0 (1 standard drink = 0.6 oz pur e alcohol) Comments No Sex and Gender Information Value Date Recorded Sex Assigned at Not on file Legal Sex Female 4:41 AM MAINS AND SERVICE SUPERVISOR Gender Identity Not on file Sexual Orientation Not on file Occupation Industry Job Start Date Job End Date Not on file Not on file Not on file Not on file documented as of this encounter Plan of Treatment Not on file documented as of this encounter Results * MRI IAC W WO CONTRAST (01/13/2017 10:20 AM CDT) Anatomical Region Laterality Modality Head Magnetic Resonan ce 01/13/2017 10:3 5 AM CDT Impressions 01/13/2017 12:27 PM CDT IMPRESSION: Please see below. Exam: MRI IAC W WO CONTRAST Date/Time of Exam: 01/13/2017 10:20 AM Reason For Exam: Vertigo. Technique: MRI of the internal auditory canals was performed prior to and following the administration of intravenous contrast. Contrast: 15 mL MultiHance intravenously Findings: The internal auditory canals are unremarkable. There is no evidence of mass or abnormal enhancement. The inner ear structures appear normal in signal and morphology. The cerebellopontine angle cisterns are unremarkable. Limited sequences through the entire brain demonstrate mild chronic small vessel ischemic changes within the cerebral white matter. No mass identified. The ventricles are normal in size and configuration. The major intracranial flow voids are intact. There is mild scattered mucosal thickening within the paranasal sinuses. IMPRESSION: Unremarkable appearance of the internal auditory canals. No findings to explain a cause for vertigo. [id number] Narrative Procedure Note Aaron Mahan MD - 01/13/2017 IMPRESSION IMPRESSION: Please see below. Exam: MRI IAC W WO CONTRAST Date/Time of Exam: 01/13/2017 10:20 AM Reason For Exam: Vertigo. Technique: MRI of the internal auditory canals was performed prior to and following the administration of intravenous contrast. Contrast: 15 mL MultiHance intravenously Findings: The internal auditory canals are unremarkable. There is no evidence of mass or abnormal enhancement. The inner ear structures appear normal in signal and morphology. The cerebellopontine angle cisterns are unremarkable. Limited sequences through the entire brain demonstrate mild chronic small vessel ischemic changes within the cerebral white matter. No mass identified. The ventricles are normal in size and configuration. The major intracranial flow voids are intact. There is mild scattered mucosal thickening within the paranasal sinuses. IMPRESSION: Unremarkable appearance of the internal auditory canals. No findings to explain a cause for vertigo. [id number] us Pennie DOMINGUEZ MR ORDERABLES Final Re sult documented in this encounter Visit Diagnoses Diagnosis Vertigo Dizziness and giddiness Vertigo Dizziness and giddiness documented in this encounter Care Teams Clinical Laboratory Technologist Relationship Specialty Start Date End Date Claudia Medina DO [facility] [address] PCP - General Family Practice 08/24/17 documented as of this encounter
--- OUTSIDE RECORDS SUMMARY | 2025-01-27 16:36 | XMS_ITS | Encounter Summary ---
Author Organization [facility] Address [address] [place] [address] Care Team Providers Care Pharmacy Sales Assistant Name Role Phone Claudia Medina DO Primary Care Provider [phone] [phone] Reason for Referral * Outpatient Services (Routine) - Closed Specialty Diagnoses / Procedures Referred By Kyleighac t Referred To Contact Radiology Diagnoses Thyroid mass Procedures US HEAD NECK TISSUES Pennie Correia PA [facility] [address] [place] [address] Phone: tel: fax: Referral ID Status Reason Start Date Expiration Date V isits Requested Visits Authorized [id number] Closed MTN View CTS to Schedule (SGF) 06/16/2017 07/17/2018 1 1 RUMENTATION AND CONTROLS TECHNICIAN Encounter Details Date Type Department Care Team ([facility] st Contact Info) Description 06/16/2017 Ancillary Orders [facility] Centralized Scheduling [address] [facility] [facility] [address] [place] [address] Pennie Correia PA NO ADDRESS ON FILE Thyroid mass Social History Tobacco Use Types Packs/Day Years Used Date Smoking Tobacco: Former Cigarettes Q uit: 05/23/1982 Smokeless Tobacco: Never Alcohol Use Standard Drinks/Week Comments No 0 (1 standard drink = 0.6 oz pur e alcohol) Comments No Sex and Gender Information Value Date Recorded Sex Assigned at Not on file Legal Sex Female 4:41 AM INSTRUMENTATION AND CONTROLS TECHNICIAN Gender Identity Not on file Sexual Orientation Not on file Occupation Industry Job Start Date Job End Date Not on file Not on file Not on file Not on file documented as of this encounter Plan of Treatment Not on file documented as of this encounter Results * US HEAD NECK TISSUES (08/24/2017 12:06 PM CDT) Anatomical Region Laterality Modality Head Ultrasound 08/24/2017 12:0 6 PM CDT Impressions 08/25/2017 5:51 PM CDT IMPRESSION: Please see below. Exam: US HEAD NECK TISSUES Date/Time of Exam: 08/24/2017 12:06 PM Reason For Exam: Thyroid mass. Findings: Comparison dated 04/07/2016. The right thyroid lobe is surgically absent. The thyroid isthmus is unremarkable. The left thyroid lobe measures 3.97 m x 2.1 cm x 1.2 cm. There is a heterogeneous nodule in the mid right thyroid lobe which measures 24 mm x 14 mm x 10 mm in diameter. I see no color flow images. Previously, measurements were 22 mm x 16 mm x 12 mm diameter. A see no new abnormality. IMPRESSION: The right thyroid lobe is surgically absent. The nodule in the left thyroid lobe is stable or slightly increased in size as compared with the previous examination. Narrative Procedure Note Lalo Martins MD - 08/25/2017 IMPRESSION: Please see below. Exam: US HEAD NECK TISSUES Date/Time of Exam: 08/24/2017 12:06 PM Reason For Exam: Thyroid mass. Findings: Comparison dated 04/07/2016. The right thyroid lobe is surgically absent. The thyroid isthmus is unremarkable. The left thyroid lobe measures 3.97 m x 2.1 cm x 1.2 cm. There is a heterogeneous nodule in the mid right thyroid lobe which measures 24 mm x 14 mm x 10 mm in diameter. I see no color flow images. Previously, measurements were 22 mm x 16 mm x 12 mm diameter. A see no new abnormality. IMPRESSION: The right thyroid lobe is surgically absent. The nodule in the left thyroid lobe is stable or slightly increased in size as compared with the previous examination. us Pennie DOMINGUEZ US ORDERABLES Final Re sult documented in this encounter Visit Diagnoses Diagnosis Thyroid mass Unspecified disorder of thyroid Thyroid mass Unspecified disorder of thyroid documented in this encounter Care Teams Pharmacy Sales Assistant Relationship Specialty Start Date End Date Claudia Medina DO [address] [facility] [address] [place] [address] PCP - General Family Practice 08/24/17 documented as of this encounter
--- OUTSIDE RECORDS SUMMARY | 2025-01-27 16:36 | XMS_ITS | Encounter Summary ---
Author Organization [facility] Address [address] [place] [address] Care Team Providers Care Database Marketing Analyst Name Role Phone Claudia Medina DO Primary Care Provider [phone] [phone] Encounter Details Date Type Department Care Team (Latest Contact Info) Description 05/01/2002 Outpatient Historical [facility] General Surgery [place] [address] [address] [address] [place] [id number] [place] [address] [facility] [address] [place] [address] SURGERY FOLLOWUP, UNSPEC (Primary Dx) Social History Tobacco Use Types Packs/Day Years Used Date Smoking Tobacco: Never Assessed Comments Unknown Sex and Gender Information Value Date Recorded Sex Assigned at Not on file Legal Sex Female 4:41 AM SWEATBAND PERFORATOR Gender Identity Not on file Sexual Orientation Not on file documented as of this encounter Plan of Treatment Not on file documented as of this encounter Visit Diagnoses Diagnosis Follow-up examination, following unspecified surgery- Primary documented in this encounter Care Teams Database Marketing Analyst Relationship Specialty Start Date End Date Claudia Medina DO [address] [place] [address] PCP - General Family Practice 08/24/17 documented as of this encounter
--- OUTSIDE RECORDS SUMMARY | 2025-01-27 16:36 | XMS_ITS | Encounter Summary ---
Author Organization [facility] Address [address] [place] [address] Care Team Providers Care Livestock Showman Name Role Phone Claudia Medina DO Primary Care Provider [phone] [phone] Encounter Details Date Type Department Care Team ([facility] st Contact Info) Description 04/15/2011 Ancillary Orders [facility] Imaging External Read [address] [place] [address] Larissa Fritz, Ruthie Ricci, HEEL COVERER MACHINE OPERATOR [address] [place] [address] Other screening mammogram Social History Tobacco Use Types Packs/Day Years Used Date Smoking Tobacco: Never Assessed Comments No Sex and Gender Information Value Date Recorded Sex Assigned at Not on file Legal Sex Female 4:41 AM CLOTH WIRE WEAVER Gender Identity Not on file Sexual Orientation Not on file documented as of this encounter Plan of Treatment Not on file documented as of this encounter Results * MAMMO SCREENING BILAT (04/15/2011 1:29 PM CDT) Anatomical Region Laterality Modality Breast Bilateral Mammography Narrative 04/19/2011 4:20 PM CLOTH WIRE WEAVER Bilateral Mammogram Reason for Exam: Screening Comparison: Comparison is made with the prior exam(s) dated 12.08.05 Findings: Bilateral CC and MLO views were obtained. This examination was reviewed with the aid of a computer-aided detection system(CAD). The breast tissue density is average. No significant new findings since the prior mammogram(s). Procedure Note Agata Cordova MD - 04/19/2011 Bilateral Mammogram Reason for Exam: Screening Comparison: Comparison is made with the prior exam(s) dated 12.08.05 Findings: Bilateral CC and MLO views were obtained. This examination was reviewed with the aid of a computer-aided detectionsystem(CAD). The breast tissue density is average. No significant new findings since the prior mammogram(s). External Provider [facility] MAMMO ORDERABLES Final Res ult documented in this encounter Visit Diagnoses Diagnosis Other screening mammogram documented in this encounter Care Teams Livestock Showman Relationship Specialty Start Date End Date Claudia Medina DO [address] [address] PCP - General Family Practice 08/24/17 documented as of this encounter
--- OUTSIDE RECORDS SUMMARY | 2025-01-27 16:36 | XMS_ITS | Encounter Summary ---
Author Organization [employer] [facility] Address [address] [place] [address] Care Team Providers Care Rubber Cutting Machine Tender Name Role Phone Claudia Medina DO Primary Care Provider +1 [phone] Encounter Details Date Type Department Care Team (Late st Contact Info) Description 04/26/2002 Outpatient Historical [facility] [place] [address] [facility] [address] [place] [address] Social History Tobacco Use Types Packs/Day Years Used Date Smoking Tobacco: Never Assessed Comments Unknown Sex and Gender Information Value Date Recorded Sex Assigned at Not on file Legal Sex Female 4:41 AM PECAN GATHERER Gender Identity Not on file Sexual Orientation Not on file documented as of this encounter Plan of Treatment Not on file documented as of this encounter Visit Diagnoses Not on filedocumented in this encounter Care Teams Rubber Cutting Machine Tender Relationship Specialty Start Date End Date Claudia Medina DO [address] [place], [place] [address] PCP - General Family Practice 08/24/17 documented as of this encounter
--- OUTSIDE RECORDS SUMMARY | 2025-01-27 16:36 | XMS_ITS | Encounter Summary ---
Author Organization [employer] [email or web address] Address [address] [facility] Attn: [place] [address] Care Team Providers Care Truck Service Technician Name Role Phone Claudia Medina DO Primary Care Provider +1 [phone] Encounter Details Date Type Department Care Team (Late st Contact Info) Description 09/01/2000 Inpatient Historical Boogie Aguilar MD [address] [facility] [address] [place] [address] Social History Tobacco Use Types Packs/Day Years Used Date Smoking Tobacco: Never Assessed Comments Unknown Sex and Gender Information Value Date Recorded Sex Assigned at Not on file Legal Sex Female 4:41 AM TELEGRAPH OPERATOR Gender Identity Not on file Sexual Orientation Not on file documented as of this encounter Plan of Treatment Not on file documented as of this encounter Visit Diagnoses Not on filedocumented in this encounter Care Teams Truck Service Technician Relationship Specialty Start Date End Date Claudia Medina DO [address] [place] [address] PCP - General Family Practice 08/24/17 documented as of this encounter
--- OUTSIDE RECORDS SUMMARY | 2025-01-27 16:36 | XMS_ITS | Clinical Summary ---
Author Organization [facility] Address [address] [place] [address] [address] [place] [address] Care Team Providers Care Cultural Centre Manager Name Role Phone Claudia Medina DO Primary Care Provider +1 [phone] Allergies Active Allergy Reactions Criticality Noted Date Comments Meperidine Rash Low 02/05/2013 Morphine Hallucination Low 12/10/2011 Sulfa Dyne Rash Low 12/10/2011 Tramadol Swelling Low 10/02/2020 States makes her tongue swell Medications MULTIVITAMINS (MULTIVITAMIN PO) Take by mouth daily. Active citalopram (CELEXA) 20 mg Oral tabletIndication s:Anxiety state Take 1 Tab by mouth daily at bedtime. 30 Tab 3 3 Active metoprolol tartrate (LOPRESSOR) 50 mg Oral tablet Take 50 mg by mouth 2 times daily. Active isosorbide mononitrate SR 24 hour (IMDUR) 30 mg Oral tablet Take 30 mg by mouth daily senior human resources representative. Active ipratropium-albu terol (DUONEB) 0.5 mg-3 mg(2.5 mg base)/3 mL Solution for Nebulization Take 3 mL by inhalation every 6 hours as needed for Shortness of Breath. 150 mL 11 4 Active budesonide-formo terol (SYMBICORT) 160-4.5 mcg/actuation HFA Aerosol Inhaler Take 2 Puffs by inhalation 2 times daily. 30.6 Gram 3 5 Active COMBIVENT RESPIMAT 20-100 mcg/actuation Mist INHALE 2 PUFFS INTO LUNGS EVERY FOUR HOURS WHEN YOU CNAT USE GENERIC DUONEB 4 Gram 0 5 Active fluticasone (FLONASE) 50 mcg/spray [place], Suspension INSTILL 2 SPRAYS IN EACH NOSTRIL DAILY. 16 Gram 5 5 Active lisinopril (PRINIVIL) 5 mg tablet Take 1 Tablet (5 mg) by mouth daily Please schedule an appointment before next refill.. 30 Tablet 3 5 Active levothyroxine 112 mcg tablet Take 1 Tablet (112 mcg) by mouth daily senior human resources representative Please schedule an appointment before next refill. 30 Tablet 0 6 Active Additional Information Patient taking differently: 100 mcgOral DAILY EARLY, Please schedule an appointment before next refill, Reported on 06/28/2020 omeprazole (PriLOSEC) 20 mg Capsule, Delayed Release(E.C.) Take 1 Capsule (20 mg) by mouth every 12 hours PLEASE SCHEDULE AN APPOINTMENT BEFORE NEXT REFILL.. 60 Capsule 0 6 Active montelukast (SINGULAIR) 10 mg tablet Take 10 mg by mouth daily at bedtime. Active meloxicam (MOBIC) 15 mg tablet Take 15 mg by mouth daily. Active simvastatin (ZOCOR) 10 mg tablet Take 10 mg by mouth late in the day. Active cyclobenzaprine (FLEXERIL) 10 mg tablet Take 10 mg by mouth 3 times daily as needed for Spasm. Active naproxen (NAPROSYN) 500 mg tablet Take 500 mg by mouth 2 times daily with meals. Active Active Problems Problem Noted Date Diagnosed Date Gastroesophageal reflux disease with hiatal aftab ia 06/14/2012 Dysphagia 05/23/2012 Immunizations Immunization Administration Dates Next Due Influenza [...] on file Legal Sex Female 4:41 AM PUBLIC SERVICE OFFICER Gender Identity Not on file Sexual Orientation Not on file Occupation Industry Job Start Date Job End Date Not on file Not on file Not on file Not on file Last Filed Vital Signs Vital Sign Reading Time Taken Comments Blood Pressure 104/67 10/02/2020 7:49 PM CDT Pulse 98 06/28/2020 2:45 PM PUBLIC SERVICE OFFICER Temperature 36.2 C (97.1 F) 10/02/2020 7:49 PM CDT Respiratory Rate 20 10/02/2020 6:52 PM CDT Oxygen Saturation 96% 10/02/2020 7:49 PM CDT Inhaled Oxygen Concentration - - Weight 119.4 kg (263 lb 3.2 oz) 10/02/2020 6:36 PM CDT Height 162.6 cm (5' 4 ) 10/02/2020 6:36 PM CDT Body Mass Index 45.18 10/02/2020 6:36 PM CDT Plan of Treatment Health Maintenance Due Date Last Done Comments DTAP/TDAP/TD VACCINES (1 - Tdap) 1969 COLORECTAL SCREENING 1995 Colorectal Cancer Screening 1995 FIT-DNA Q 3 years 1995 FIT/FOBT Q 1 year 1995 Flex Sig/CT Colonography Q 5 years 1995 PNEUMOCOCCAL VACCINE 50+ YEA RS (1 of 1 - PCV) 01/29/2000 ZOSTER VACCINE (1 of 2) 01/29/2000 BREAST CANCER SCREENING 04/24/2016 04/24/20 15, 05/30/2013, 05/09/2013, Additional history exists OSTEOPOROSIS SCREENING 05/09/2018 05/09/2013, 2011 INFLUENZA VACCINE (#1) 2025 03/20/2002 RSV VACCINE (60+ or ) (1 - 1-dose 75+ series) 2025 Procedures Procedure Name Priority Date/Time Associated Diagnosis Comments MAMMO SCREEN BILAT W OR WO CAD Routine 04/24/2015 11:39 AM PUBLIC SERVICE OFFICER Visit for screening mammogram XR DEXA BONE DENSITY AXIAL 1 OR MORE SITES Routine 05/09/2013 1:06 PM PUBLIC SERVICE OFFICER Osteoporosis from Last 3 Months or Most Recently Relevant to Health Maintenance Results * MAMMO DIGITAL SCREEN BILAT (04/24/2015 11:39 AM PUBLIC SERVICE OFFICER) Anatomical Region Laterality Modality Breast Bilateral Mammography Narrative 04/28/2015 7:12 AM PUBLIC SERVICE OFFICER Bilateral Mammogram Reason for Exam: Screening Comparison: [...] findings since the prior mammogram(s). Jeny Kelly RADIATION ENGINEER MAMMO ORDERABLES Fi nal Result * XR DEXA BONE DENSITY AXIAL 1 OR MORE SITES (05/09/2013 1:06 PM PUBLIC SERVICE OFFICER) Anatomical Region Laterality Modality Digital Radiogra phy 05/09/2013 12:5 1 PM PUBLIC SERVICE OFFICER Narrative 05/09/2013 1:39 PM PUBLIC SERVICE OFFICER PROCEDURE DEXA BONE DENSITY, 09 May 2013 [...] risk Procedure Note Kayden Zhu MD - 05/09/2013 PROCEDURE DEXA BONE DENSITY, 09 May 2013 [...] Most Recently Relevant to Health Maintenance Insurance [facility] DUAL COMPLETE MCR PPO D-SNP [place]ICAID [place] Care Teams Cultural Centre Manager Relationship Specialty Start Date End Date Claudia Medina DO [address] [facility] [address] [place], [place] [address] PCP - General Family Practice 08/24/17
--- OUTSIDE RECORDS SUMMARY | 2025-01-27 16:36 | XMS_ITS | Encounter Summary ---
Author Organization [facility] Address [address] [place] [address] Care Team Providers Care Matrix Plater Name Role Phone CarolClaudia milligan Primary Care Provider +1 [phone] Encounter Details Date Type Department Care Team (Latest Contact Info) Description 07/28/2000 Outpatient Historical [facility] Family Medicine [place] [address] [facility] [address] [place] [address] Jeff Hatfield MD [address] [facility] [address] [place] [address] Allergy, unspecified not elsewhere classified (Primary Dx); Contusion of upper arm Social History Tobacco Use Types Packs/Day Years Used Date Smoking Tobacco: Never Assessed Comments Unknown Sex and Gender Information Value Date Recorded Sex Assigned at Not on file Legal Sex Female 4:41 AM PERSONNEL QUALITY ASSURANCE AUDITOR Gender Identity Not on file Sexual Orientation Not on file documented as of this encounter Plan of Treatment Not on file documented as of this encounter Visit Diagnoses Diagnosis Allergy, unspecified not elsewhere classified- Primary Contusion of upper arm documented in this encounter Care Teams Matrix Plater Relationship Specialty Start Date End Date Claudia Medina DO [address] [facility] [address] [place] [address] PCP - General Family Practice 08/24/17 documented as of this encounter
--- OUTSIDE RECORDS SUMMARY | 2025-01-27 16:36 | XMS_ITS | Encounter Summary ---
Author Organization [facility] Address [address] [place] [address] Care Team Providers Care Practical Nursing Teacher Name Role Phone Claudia Medina DO Primary Care Provider +1 -[phone] Encounter Details Date Type Department Care Team (Late st Contact Info) Description 08/16/2011 Ancillary Orders [facility] Laboratory Services [place] [address] [address] Social History Tobacco Use Types Packs/Day Years Used Date Smoking Tobacco: Never Assessed Comments No Sex and Gender Information Value Date Recorded Sex Assigned at Not on file Legal Sex Female 4:41 AM CLOTHING ROOM SUPERVISOR Gender Identity Not on file Sexual Orientation Not on file documented as of this encounter Plan of Treatment Not on file documented as of this encounter Procedures Procedure Name Priority Date/Time Associated Diagnosis Comments TSH Routine 08/16/2011 8:10 PM CLOTHING ROOM SUPERVISOR documented in this encounter Results * (ABNORMAL) TSH (08/16/2011 8:10 PM CLOTHING ROOM SUPERVISOR) TSH 0.05(L) 0.30 - 4.80 uIU/mL 08/16/2011 11:26 PM CLOTHING ROOM SUPERVISOR [facility] Blood specimen (specimen) 08/16/2011 8:10 PM CLOTHING ROOM SUPERVISOR 08/16/2011 10:43 PM CLOTHING ROOM SUPERVISOR Dhiraj DOMINGUEZ CHEMISTRY ORDERABLES Final Re sult [facility] [employer] [facility] CLIA # [id number] [address] [place] [address] [address] [place] [address] documented in this encounter Visit Diagnoses Not on filedocumented in this encounter Care Teams Practical Nursing Teacher Relationship Specialty Start Date End Date Claudia Medina DO [address] [address] PCP - General Family Practice 08/24/17 documented as of this encounter
--- OUTSIDE RECORDS SUMMARY | 2025-01-27 16:36 | XMS_ITS | Encounter Summary ---
Author Organization [facility] Address [address] [place] [address] Care Team Providers Care Transitional Studies Instructor Name Role Phone CarolClaudia raza Primary Care Provider +1 -[phone] Encounter Details Date Type Department Care Team (Latest Contact Info) Description 03/01/2005 Outpatient Historical [facility] Family Medicine [place] 104 [facility] 60 [place] [address] Jeff [place] MD [address] [facility] 200 [place] [address] ASTHMA UNSPECIFIED (Primary Dx); OSTEOARTHROS NOS-UNSPEC Social History Tobacco Use Types Packs/Day Years Used Date Smoking Tobacco: Never Assessed Comments Unknown Sex and Gender Information Value Date Recorded Sex Assigned at Not on file Legal Sex Female 4:41 AM TALENT SOURCER Gender Identity Not on file Sexual Orientation Not on file documented as of this encounter Plan of Treatment Not on file documented as of this encounter Visit Diagnoses Diagnosis Unspecified asthma(493.90)- Primary Unspecified asthma Osteoarthrosis, unspecified whether generalized or localized, unspecified site documented in this encounter Care Teams Transitional Studies Instructor Relationship Specialty Start Date End Date Claudia Medina DO [address] [facility] 19 [place], [place] [address] PCP - General Family Practice 08/24/17 documented as of this encounter
--- OUTSIDE RECORDS SUMMARY | 2025-01-27 16:36 | XMS_ITS | Encounter Summary ---
Author Organization [facility] Address [address] [place] [address] Care Team Providers Care Palliative Medicine Physician Name Role Phone CarolClaudia milligan Primary Care Provider +1 -[phone] Encounter Details Date Type Department Care Team (Latest Contact Info) Description 06/19/1999 Outpatient Historical [facility] Family Medicine [place] 104 [facility] 60 [place] [address] Jeff [place] MD [address] [facility] 200 [place] [address] Other disorder of menstruation and other abnormal bleeding from female genital tract (Primary Dx) Social History Tobacco Use Types Packs/Day Years Used Date Smoking Tobacco: Never Assessed Comments Unknown Sex and Gender Information Value Date Recorded Sex Assigned at Not on file Legal Sex Female 4:41 AM PRESS OPERATOR 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
--- OUTSIDE RECORDS SUMMARY | 2025-01-27 16:36 | XMS_ITS | Encounter Summary ---
Author Organization [facility] Address [address] [place] [address] Care Team Providers Care Remedy Developer Name Role Phone Claudia Medina DO Primary Care Provider +1 [phone] Encounter Details Date Type Department Care Team (Latest Contact Info) Description 01/05/2007 Outpatient Historical [facility] Medicine [place] 104 [facility] 60 [place] [address] Gifty Juarez NP NO ADDRESS ON FILE Acute Bronchitis (Primary Dx); Unspecified Asthma Social History Tobacco Use Types Packs/Day Years Used Date Smoking Tobacco: Never Assessed Comments Unknown Sex and Gender Information Value Date Recorded Sex Assigned at Not on file Legal Sex Female 4:41 AM LEAD BASED 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
--- OUTSIDE RECORDS SUMMARY | 2025-01-27 16:36 | XMS_ITS | Encounter Summary ---
Author Organization [facility] Address [address] [place] [address] Care Team Providers Care Cafeteria Team Leader Name Role Phone Claudia Medina DO Primary Care Provider +1 -[phone] Encounter Details Date Type Department Care Team (Latest Contact Info) Description 08/12/1999 Outpatient Historical [facility] Family Medicine [place] 104 [facility] 60 [place] [address] Brie Horowitz NO ADDRESS ON FILE Streptococcal sore throat (Primary Dx) Social History Tobacco Use Types Packs/Day Years Used Date Smoking Tobacco: Never Assessed Comments Unknown Sex and Gender Information Value Date Recorded Sex Assigned at Not on file Legal Sex Female 4:41 AM USED EQUIPMENT SALES REPRESENTATIVE Gender Identity Not on file Sexual Orientation Not on file documented as of this encounter Plan of Treatment Not on file documented as of this encounter Visit Diagnoses Diagnosis Streptococcal sore throat- Primary documented in this encounter Care Teams Cafeteria Team Leader Relationship Specialty Start Date End Date Claudia Medina DO [address] [facility] 19 [place], [place] [address] PCP - General Family Practice 08/24/17 documented as of this encounter
--- OUTSIDE RECORDS SUMMARY | 2025-01-27 16:36 | XMS_ITS | Encounter Summary ---
Author Organization [facility] Address [address] [place] [address] Care Team Providers Care Bacteriology Teacher Name Role Phone Claudia Medina DO Primary Care Provider +1 -[phone] Encounter Details Date Type Department Care Team (Late st Contact Info) Description 08/11/2004 Outpatient Historical [facility] Jeff [place] MD [address] [facility] 200 [place] [address] Social History Tobacco Use Types Packs/Day Years Used Date Smoking Tobacco: Never Assessed Comments Unknown Sex and Gender Information Value Date Recorded Sex Assigned at Not on file Legal Sex Female 4:41 AM MISSILE TECHNICIAN Gender Identity Not on file Sexual Orientation Not on file documented as of this encounter Plan of Treatment Not on file documented as of this encounter Procedures Procedure Name Priority Date/Time Associated Diagnosis Comments TSH Routine 08/11/2004 9:57 AM MISSILE TECHNICIAN documented in this encounter Results * TSH (08/11/2004 9:57 AM MISSILE TECHNICIAN) TSH 4.09 0.49 - 4.67 uIU/ml INTERFACE SYSTEM 08/11/2004 9:57 AM MISSILE TECHNICIAN us Jeff [place] MD CHEMISTRY ORDERABLES Final Result INTERFACE SYSTEM Refer to clinic/hospital department documented in this encounter Visit Diagnoses Not on filedocumented in this encounter Care Teams Bacteriology Teacher Relationship Specialty Start Date End Date Claudia Medina DO [address] [address] PCP - General Family Practice 08/24/17 documented as of this encounter
--- OUTSIDE RECORDS SUMMARY | 2025-01-27 16:36 | XMS_ITS | Encounter Summary ---
Author Organization [facility] Address [address] [place] [address] Care Team Providers Care Catastrophe Claims Supervisor Name Role Phone Claudia Medina DO Primary Care Provider +1 -[phone] Reason for Referral * Outpatient Services (Routine) - Closed Specialty Diagnoses / Procedures Referred By Jennifer leigh Referred To Contact Radiology Diagnoses Visit for screening mammogram Procedures MAMMO DIGITAL SCREEN BILAT Jeny Kelly FNP Phone: tel: fax: [facility] Mammography [place] [address] [facility] 60 [place] [address] Phone: tel: fax: Referral ID Status Reason Start Date Expiration Date V isits Requested Visits Authorized [id number] Closed [facility] CTS to Schedule (SGF) 04/16/2015 05/16/2016 1 1 COLORIST Encounter Details Date Type Department Care Team ([facility] st Contact Info) Description 04/16/2015 Ancillary Orders [facility] Centralized Scheduling [address] [facility] 60 [place] [address] Jeny Kelly FNP [address] [place] [address] Visit for screening mammogram (Primary Dx) Social History Tobacco Use Types Packs/Day Years Used Date Smoking Tobacco: Former Cigarettes Q uit: 05/23/1982 Smokeless Tobacco: Never Alcohol Use Standard Drinks/Week Comments No 0 (1 standard drink = 0.6 oz pur e alcohol) Comments No Sex and Gender Information Value Date Recorded Sex Assigned at Not on file Legal Sex Female 4:41 AM HAIR COLORIST Gender Identity Not on file Sexual Orientation Not on file Occupation Industry Job Start Date Job End Date Not on file Not on file Not on file Not on file documented as of this encounter Plan of Treatment Not on file documented as of this encounter Results * MAMMO DIGITAL SCREEN BILAT (04/24/2015 11:39 AM HAIR COLORIST) Anatomical Region Laterality Modality Breast Bilateral Mammography Narrative 04/28/2015 7:12 AM HAIR COLORIST Bilateral Mammogram Reason for Exam: Screening Comparison: [...] significant new findings since the prior mammogram(s). us Jeny Kelly INTERNAL SALES ENGINEER MAMMO ORDERABLES Fi nal Result documented in this encounter Visit Diagnoses Diagnosis Visit for screening mammogram- Primary Other screening mammogram Visit for screening mammogram Other screening mammogram documented in this encounter Care Teams Catastrophe Claims Supervisor Relationship Specialty Start Date End Date Claudia Medina DO [address] [place] [address] PCP - General Family Practice 08/24/17 documented as of this encounter
--- OUTSIDE RECORDS SUMMARY | 2025-01-27 16:36 | XMS_ITS | Encounter Summary ---
Author Organization [facility] Address [address] [place] [address] Care Team Providers Care Chief Nurse Executive Name Role Phone Carol, Cluadia No DO Primary Care Provider +1 -[phone] Encounter Details Date Type Department Care Team (Latest Contact Info) Description 12/23/2000 Outpatient Historical [facility] Family Medicine [place] 104 [facility] 60 [place] [address] Jeff [place] MD [address] [facility] 200 [place] [address] Other and unspecified hyperlipidemia (Primary Dx); Dysfunct eustachian tube Social History Tobacco Use Types Packs/Day Years Used Date Smoking Tobacco: Never Assessed Comments Unknown Sex and Gender Information Value Date Recorded Sex Assigned at Not on file Legal Sex Female 4:41 AM RADIATION CONTROL SPECIALIST Gender Identity Not on file Sexual Orientation Not on file documented as of this encounter Plan of Treatment Not on file documented as of this encounter Visit Diagnoses Diagnosis Other and unspecified hyperlipidemia- Primary Dysfunct eustachian tube Dysfunction of Eustachian tube documented in this encounter Care Teams Chief Nurse Executive Relationship Specialty Start Date End Date Claudia Medina DO [address] [facility] 19 [place], [place] [address] PCP - General Family Practice 08/24/17 documented as of this encounter
--- OUTSIDE RECORDS SUMMARY | 2025-01-27 16:36 | XMS_ITS | Encounter Summary ---
Author Organization [facility] Address [address] [place] [address] Care Team Providers Care Superintendent Nonselling Name Role Phone Claudia Medinae Primary Care Provider +1 -[phone] Encounter Details Date Type Department Care Team (Latest Contact Info) Description 04/25/[address] [facility] General Surgery [place] [address] [address] [address] [place] [address] [place] [address] [facility] [address] [place] [address] LIPOMA SKIN NEC (Primary Dx) Social History Tobacco Use Types Packs/Day Years Used Date Smoking Tobacco: Never Assessed Comments Unknown Sex and Gender Information Value Date Recorded Sex Assigned at Not on file Legal Sex Female 4:41 AM RETAIL SUPPORT SPECIALIST Gender Identity Not on file Sexual Orientation Not on file documented as of this encounter Plan of Treatment Not on file documented as of this encounter Visit Diagnoses Diagnosis Lipoma of other skin and subcutaneous tissue- Primary documented in this encounter Care Teams Superintendent Nonselling Relationship Specialty Start Date End Date Claudia Medina DO [address] [facility] 19 [place] [address] PCP - General Family Practice 08/24/17 documented as of this encounter
--- OUTSIDE RECORDS SUMMARY | 2025-01-27 16:36 | XMS_ITS | Encounter Summary ---
Author Organization [facility] Address [address] [place] [address] Care Team Providers Care Drying Unit Felting Machine Operator Name Role Phone CarolClaudia raza Primary Care Provider +1 -[phone] Encounter Details Date Type Department Care Team (Latest Contact Info) Description 03/23/2005 Outpatient Historical [facility] [place] Medicine- [address] [address] Jeff [place] MD [address] [facility] 200 [place] [address] ACUTE BRONCHITIS (Primary Dx) Social History Tobacco Use Types Packs/Day Years Used Date Smoking Tobacco: Never Assessed Comments Unknown Sex and Gender Information Value Date Recorded Sex Assigned at Not on file Legal Sex Female 4:41 AM SHARED SERVICES MANAGER Gender Identity Not on file Sexual Orientation Not on file documented as of this encounter Plan of Treatment Not on file documented as of this encounter Visit Diagnoses Diagnosis Acute bronchitis- Primary documented in this encounter Care Teams Drying Unit Felting Machine Operator Relationship Specialty Start Date End Date Claudia Medina DO [address] [facility] 19 [place] [address] PCP - General Family Practice 08/24/17 documented as of this encounter
--- OUTSIDE RECORDS SUMMARY | 2025-01-27 16:36 | XMS_ITS | Encounter Summary ---
Author Organization [facility] Address [address] [place] [address] Care Team Providers Care Dermatopathologist Name Role Phone CarolClaudia raza Primary Care Provider +1 -[phone] Encounter Details Date Type Department Care Team (Latest Contact Info) Description 05/14/2002 Outpatient Historical [facility] Family Medicine [place] 104 [facility] 60 [place] [address] Jeff [place] MD [address] [facility] 200 [place] [address] ACUTE SINUSITIS NOS (Primary Dx) Social History Tobacco Use Types Packs/Day Years Used Date Smoking Tobacco: Never Assessed Comments Unknown Sex and Gender Information Value Date Recorded Sex Assigned at Not on file Legal Sex Female 4:41 AM COPY CENTER SPECIALIST Gender Identity Not on file Sexual Orientation Not on file documented as of this encounter Plan of Treatment Not on file documented as of this encounter Visit Diagnoses Diagnosis Acute sinusitis, unspecified- Primary documented in this encounter Care Teams Dermatopathologist Relationship Specialty Start Date End Date Claudia Medina DO [address] [facility] 19 [place] [address] PCP - General Family Practice 08/24/17 documented as of this encounter
--- OUTSIDE RECORDS SUMMARY | 2025-01-27 16:36 | XMS_ITS | Encounter Summary ---
Author Organization [facility] Address [address] [place] [address] Care Team Providers Care Contact Agent Name Role Phone CarolClaudia raza Primary Care Provider +1 -[phone] Encounter Details Date Type Department Care Team (Latest Contact Info) Description 01/03/2001 Outpatient Historical [facility] Family Medicine [place] 104 [facility] 60 [place] [address] Jeff [place] MD [address] [facility] 200 [place] [address] Gynecologic examination (Primary Dx); Breast screening, unspecified Social History Tobacco Use Types Packs/Day Years Used Date Smoking Tobacco: Never Assessed Comments Unknown Sex and Gender Information Value Date Recorded Sex Assigned at Not on file Legal Sex Female 4:41 AM BIOINFORMATICIST Gender Identity Not on file Sexual Orientation Not on file documented as of this encounter Plan of Treatment Not on file documented as of this encounter Visit Diagnoses Diagnosis Gynecologic examination- Primary Gynecological examination Breast screening, unspecified documented in this encounter Care Teams Contact Agent Relationship Specialty Start Date End Date Claudia Medina DO [address] [facility] 19 [place] [address] PCP - General Family Practice 08/24/17 documented as of this encounter
--- OUTSIDE RECORDS SUMMARY | 2025-01-27 16:36 | XMS_ITS | Encounter Summary ---
Author Organization [facility] Address [address] [place] [address] Care Team Providers Care Wrap Yarn Sorter Name Role Phone CarolClaudia milligan Primary Care Provider +1 -[phone] Encounter Details Date Type Department Care Team (Latest Contact Info) Description 06/08/2002 Outpatient Historical [facility] Family Medicine [place] 104 [facility] 60 [place] [address] Jeff [place] MD [address] [facility] 200 [place] [address] PAINFUL RESPIRATION (Primary Dx); Dysfunct eustachian tube Social History Tobacco Use Types Packs/Day Years Used Date Smoking Tobacco: Never Assessed Comments Unknown Sex and Gender Information Value Date Recorded Sex Assigned at Not on file Legal Sex Female 4:41 AM STAFF REPORTER Gender Identity Not on file Sexual Orientation Not on file documented as of this encounter Plan of Treatment Not on file documented as of this encounter Visit Diagnoses Diagnosis Painful respiration- Primary Dysfunct eustachian tube Dysfunction of Eustachian tube documented in this encounter Care Teams Wrap Yarn Sorter Relationship Specialty Start Date End Date Claudia Medina DO [address] [facility] 19 [place] [address] PCP - General Family Practice 08/24/17 documented as of this encounter
--- OUTSIDE RECORDS SUMMARY | 2025-01-27 16:36 | XMS_ITS | Encounter Summary ---
Author Organization [facility] Address [address] [place] [address] Care Team Providers Care Aircraft Avionics Technician Name Role Phone CarolClaudia milligan Primary Care Provider +1 -[phone] Encounter Details Date Type Department Care Team (Latest Contact Info) Description 08/18/2000 Outpatient Historical [facility] Family Medicine [place] 104 [facility] 60 [place] [address] Jeff [place] MD [address] [facility] 200 [place] [address] Other chest pain (Primary Dx); Unspecified asthma(493.90) Social History Tobacco Use Types Packs/Day Years Used Date Smoking Tobacco: Never Assessed Comments Unknown Sex and Gender Information Value Date Recorded Sex Assigned at Not on file Legal Sex Female 4:41 AM TRACK MECHANIC Gender Identity Not on file Sexual Orientation Not on file documented as of this encounter Plan of Treatment Not on file documented as of this encounter Visit Diagnoses Diagnosis Other chest pain- Primary Unspecified asthma(493.90) Unspecified asthma documented in this encounter Care Teams Aircraft Avionics Technician Relationship Specialty Start Date End Date Claudia Medina DO [address] [facility] 19 [place] [address] PCP - General Family Practice 08/24/17 documented as of this encounter
--- OUTSIDE RECORDS SUMMARY | 2025-01-27 16:36 | XMS_ITS | Encounter Summary ---
Author Organization [facility] Address [address] [place] [address] Care Team Providers Care Mergers And Acquisitions Consultant Name Role Phone Carol, Claudia No Primary Care Provider +1 -[phone] Encounter Details Date Type Department Care Team (Late st Contact Info) Description 08/31/2000 Outpatient Historical [facility] Cardiology- [place] [address] [place] [address] Boogie Aguilar MD [address] [facility] [address] [place] [address] Other and unspecified angina pectoris (Primary Dx) Social History Tobacco Use Types Packs/Day Years Used Date Smoking Tobacco: Never Assessed Comments Unknown Sex and Gender Information Value Date Recorded Sex Assigned at Not on file Legal Sex Female 4:41 AM GENERAL EDUCATION INSTRUCTOR Gender Identity Not on file Sexual Orientation Not on file documented as of this encounter Plan of Treatment Not on file documented as of this encounter Visit Diagnoses Diagnosis Other and unspecified angina pectoris- Primary documented in this encounter Care Teams Mergers And Acquisitions Consultant Relationship Specialty Start Date End Date Claudia Medina DO [address] [place] [address] PCP - General Family Practice 08/24/17 documented as of this encounter
--- OUTSIDE RECORDS SUMMARY | 2025-01-27 16:36 | XMS_ITS | Encounter Summary ---
Author Organization [facility] Address [address] [place] [address] Care Team Providers Care Painter Aircraft Name Role Phone Carol, Claudia Inmane Primary Care Provider +1 -[phone] Encounter Details Date Type Department Care Team (Latest Contact Info) Description 07/19/2001 Outpatient Historical [facility] General Surgery [place] [address] [address] [address] [place] [address] [place] [address] [facility] [address] [place] [address] CHOLELITHIASIS NOS (Primary Dx) Social History Tobacco Use Types Packs/Day Years Used Date Smoking Tobacco: Never Assessed Comments Unknown Sex and Gender Information Value Date Recorded Sex Assigned at Not on file Legal Sex Female 4:41 AM COLOR SHOP HELPER Gender Identity Not on file Sexual Orientation Not on file documented as of this encounter Plan of Treatment Not on file documented as of this encounter Visit Diagnoses Diagnosis Calculus of gallbladder without mention of cholecystitis or obstruction- Primary documented in this encounter Care Teams Painter Aircraft Relationship Specialty Start Date End Date Claudia Medina DO [address] [facility] 19 [place] [address] PCP - General Family Practice 08/24/17 documented as of this encounter
--- OUTSIDE RECORDS SUMMARY | 2025-01-27 16:36 | XMS_ITS | Encounter Summary ---
Author Organization [facility] Address [address] [place] [address] Care Team Providers Care Oil Burner Technician Name Role Phone CarolClaudia raza Primary Care Provider +1 -[phone] Encounter Details Date Type Department Care Team (Latest Contact Info) Description 11/20/1999 Outpatient Historical [facility] Family Medicine [place] 104 [facility] 60 [place] [address] Jeff Hatfield MD [address] [facility] 200 [place] [address] Other specified anemias (Primary Dx); Other malaise and fatigue Social History Tobacco Use Types Packs/Day Years Used Date Smoking Tobacco: Never Assessed Comments Unknown Sex and Gender Information Value Date Recorded Sex Assigned at Not on file Legal Sex Female 4:41 AM PLANT MAINTENANCE MANAGER Gender Identity Not on file Sexual Orientation Not on file documented as of this encounter Plan of Treatment Not on file documented as of this encounter Visit Diagnoses Diagnosis Other specified anemias- Primary Other malaise and fatigue documented in this encounter Care Teams Oil Burner Technician Relationship Specialty Start Date End Date Claudia Medina DO [address] [facility] 19 [place] [address] PCP - General Family Practice 08/24/17 documented as of this encounter
--- OUTSIDE RECORDS SUMMARY | 2025-01-27 16:36 | XMS_ITS | Encounter Summary ---
Author Organization [facility] Address [address] [place] [address] Care Team Providers Care Industrial Training Specialist Name Role Phone Claudia Medina DO Primary Care Provider +1 -[phone] Encounter Details Date Type Department Care Team (Latest Contact Info) Description 04/15/2000 Outpatient Historical [facility] Family Medicine [place] 104 [facility] 60 [place] [address] Jeff Hatfield MD [address] [facility] 200 [place] [address] Dysfunct eustachian tube (Primary Dx); Acute sinusitis, unspecified Social History Tobacco Use Types Packs/Day Years Used Date Smoking Tobacco: Never Assessed Comments Unknown Sex and Gender Information Value Date Recorded Sex Assigned at Not on file Legal Sex Female 4:41 AM CIRCUS ARTIST Gender Identity Not on file Sexual Orientation Not on file documented as of this encounter Plan of Treatment Not on file documented as of this encounter Visit Diagnoses Diagnosis Dysfunct eustachian tube- Primary Dysfunction of Eustachian tube Acute sinusitis, unspecified documented in this encounter Care Teams Industrial Training Specialist Relationship Specialty Start Date End Date Claudia Medina DO [address] [facility] 19 [place], [place] [address] PCP - General Family Practice 08/24/17 documented as of this encounter
--- OUTSIDE RECORDS SUMMARY | 2025-01-27 16:36 | XMS_ITS | Encounter Summary ---
Author Organization [facility] Address [address] [place] [address] Care Team Providers Care Lamp Tester And Inspector Name Role Phone Claudia Medina DO Primary Care Provider +1 -[phone] Encounter Details Date Type Department Care Team (Latest Contact Info) Description 01/03/2007 Outpatient Historical [facility] Medicine [place] 104 [facility] 60 [place] [address] Gifty Juarez NP NO ADDRESS ON FILE Acute Sinusitis, Unspecified (Primary Dx); Unspecified Hypothyroidism Social History Tobacco Use Types Packs/Day Years Used Date Smoking Tobacco: Never Assessed Comments Unknown Sex and Gender Information Value Date Recorded Sex Assigned at Not on file Legal Sex Female 4:41 AM PERINATAL DIRECTOR Gender Identity Not on file Sexual Orientation Not on file documented as of this encounter Plan of Treatment Not on file documented as of this encounter Visit Diagnoses Diagnosis Acute sinusitis, unspecified- Primary Unspecified hypothyroidism documented in this encounter Care Teams Lamp Tester And Inspector Relationship Specialty Start Date End Date Claudia Medina DO [address] [facility] 19 [place] [address] PCP - General Family Practice 08/24/17 documented as of this encounter
--- OUTSIDE RECORDS SUMMARY | 2025-01-27 16:36 | XMS_ITS | Encounter Summary ---
Author Organization [facility] Address [address] [place] [address] Care Team Providers Care Rehab Care Assistant Name Role Phone Carol, Claudia No Primary Care Provider +1 -[phone] Encounter Details Date Type Department Care Team (Latest Contact Info) Description 07/17/2001 Outpatient Historical [facility] Family Medicine [place] 104 [facility] 60 [place] [phone] Jeff Hatfield MD [address] [facility] 200 [place] [address] CHOLELITHIASIS NOS (Primary Dx) Social History Tobacco Use Types Packs/Day Years Used Date Smoking Tobacco: Never Assessed Comments Unknown Sex and Gender Information Value Date Recorded Sex Assigned at Not on file Legal Sex Female 4:41 AM ASSEMBLER HANDBAGS Gender Identity Not on file Sexual Orientation Not on file documented as of this encounter Plan of Treatment Not on file documented as of this encounter Visit Diagnoses Diagnosis Calculus of gallbladder without mention of cholecystitis or obstruction- Primary documented in this encounter Care Teams Rehab Care Assistant Relationship Specialty Start Date End Date Claudia Medina DO [address] [facility] 19 [place], [place] [address] PCP - General Family Practice 08/24/17 documented as of this encounter
--- OUTSIDE RECORDS SUMMARY | 2025-01-27 16:36 | XMS_ITS | Encounter Summary ---
Author Organization [facility] Address [address] [place] [address] Care Team Providers Care Smoking Pipe Coater Name Role Phone CarolClaudia milligan Primary Care Provider +1 -[phone] Encounter Details Date Type Department Care Team (Latest Contact Info) Description 06/01/1999 Outpatient Historical [facility] Family Medicine [place] 104 [facility] 60 [place] [address] Jeff Hatfield MD [address] [facility] 200 [place] [address] Excessive menstruation (Primary Dx); Unspecified symptom associated with female genital organs Social History Tobacco Use Types Packs/Day Years Used Date Smoking Tobacco: Never Assessed Comments Unknown Sex and Gender Information Value Date Recorded Sex Assigned at Not on file Legal Sex Female 4:41 AM FIRST AID OFFICER Gender Identity Not on file Sexual Orientation Not on file documented as of this encounter Plan of Treatment Not on file documented as of this encounter Visit Diagnoses Diagnosis Excessive menstruation- Primary Excessive or frequent menstruation Unspecified symptom associated with female genital organs documented in this encounter Care Teams Smoking Pipe Coater Relationship Specialty Start Date End Date Claudia Medina DO [address] [facility] 19 [place] [address] PCP - General Family Practice 08/24/17 documented as of this encounter
--- OUTSIDE RECORDS SUMMARY | 2025-01-27 16:36 | XMS_ITS | Encounter Summary ---
Author Organization [facility] Address [address] [place] [address] Care Team Providers Care Branch Employment Coordinator Name Role Phone Claudia Medina DO Primary Care Provider +1 -[phone] Encounter Details Date Type Department Care Team ([facility] st Contact Info) Description 05/21/2010 Ancillary Orders [facility] Imaging External Read [address] [place] [address] Larissa Fritz, Ruthie Ricci, WORKPLACE TRAINER AND ASSESSOR [address] [place] [address] Screening mammogram Social History Tobacco Use Types Packs/Day Years Used Date Smoking Tobacco: Never Assessed Comments No Sex and Gender Information Value Date Recorded Sex Assigned at Not on file Legal Sex Female 4:41 AM SET UP MECHANIC COATING MACHINES Gender Identity Not on file Sexual Orientation Not on file documented as of this encounter Plan of Treatment Not on file documented as of this encounter Results * MAMMO SCREENING BILAT (05/21/2010 12:50 PM SET UP MECHANIC COATING MACHINES) Anatomical Region Laterality Modality Breast Bilateral Mammography Narrative 05/25/2010 12:43 PM SET UP MECHANIC COATING MACHINES Bilateral Mammogram Reason for Exam: Screening Comparison: Comparison is made with the prior exam(s) dated 12.08.05 Findings: Bilateral CC and MLO views were obtained. This examination was reviewed with the aid of a computer-aided detection system(CAD). The breast tissue density is average. No significant new findings since the prior mammogram(s). Procedure Note Agata Cordova MD - 05/25/2010 Bilateral Mammogram Reason for Exam: Screening Comparison: Comparison is made with the prior exam(s) dated 12.08.05 Findings: Bilateral CC and MLO views were obtained. This examination was reviewed with the aid of a computer-aided detectionsystem(CAD). The breast tissue density is average. No significant new findings since the prior mammogram(s). us External Provider [facility] MAMMO ORDERABLES Final Res ult documented in this encounter Visit Diagnoses Diagnosis Screening mammogram Other screening mammogram documented in this encounter Care Teams Branch Employment Coordinator Relationship Specialty Start Date End Date Claudia Medina DO [address] [address] PCP - General Family Practice 08/24/17 documented as of this encounter
--- OUTSIDE RECORDS SUMMARY | 2025-01-27 16:36 | XMS_ITS | Encounter Summary ---
Author Organization [facility] Address [address] [place] [address] Care Team Providers Care Personal Computer Network Engineer Name Role Phone Claudia Medina DO Primary Care Provider +1 -[phone] Encounter Details Date Type Department Care Team (Latest Contact Info) Description 01/20/2001 Outpatient Historical [facility] Medicine- [address] [phone] Gary Guaman DO NO ADDRESS ON FILE Unspecified sinusitis (chronic) (Primary Dx) Social History Tobacco Use Types Packs/Day Years Used Date Smoking Tobacco: Never Assessed Comments Unknown Sex and Gender Information Value Date Recorded Sex Assigned at Not on file Legal Sex Female 4:41 AM REHABILITATION AIDE Gender Identity Not on file Sexual Orientation Not on file documented as of this encounter Plan of Treatment Not on file documented as of this encounter Visit Diagnoses Diagnosis Unspecified sinusitis (chronic)- Primary documented in this encounter Care Teams Personal Computer Network Engineer Relationship Specialty Start Date End Date Claudia Medina DO [address] [facility] 19 [place] [address] PCP - General Family Practice 08/24/17 documented as of this encounter
--- OUTSIDE RECORDS SUMMARY | 2025-01-27 16:36 | XMS_ITS | Encounter Summary ---
Author Organization [facility] Address [address] [place] [address] Care Team Providers Care In Home Sales Representative Name Role Phone CarolClaudia raza Primary Care Provider +1 -[phone] Encounter Details Date Type Department Care Team (Latest Contact Info) Description 07/06/2001 Outpatient Historical [facility] Family Medicine [place] 104 [facility] 60 [place] [address] Jeff Hatfield MD [address] [facility] 200 [place] [address] ABDOMINAL PAIN UNSPEC SITE (Primary Dx); ARTHROPATHY NOS-UNSPEC Social History Tobacco Use Types Packs/Day Years Used Date Smoking Tobacco: Never Assessed Comments Unknown Sex and Gender Information Value Date Recorded Sex Assigned at Not on file Legal Sex Female 4:41 AM GARMENT INSPECTOR Gender Identity Not on file Sexual Orientation Not on file documented as of this encounter Plan of Treatment Not on file documented as of this encounter Visit Diagnoses Diagnosis Abdominal pain, unspecified site- Primary Arthropathy, unspecified, site unspecified documented in this encounter Care Teams In Home Sales Representative Relationship Specialty Start Date End Date Claudia Medina DO [address] [facility] 19 [place] [address] PCP - General Family Practice 08/24/17 documented as of this encounter
--- OUTSIDE RECORDS SUMMARY | 2025-01-27 16:36 | XMS_ITS | Encounter Summary ---
Author Organization [facility] Address [address] [place] [address] Care Team Providers Care Pier Hand Helper Name Role Phone Claudia Medina DO Primary Care Provider +1 -[phone] Reason for Referral * Outpatient Services (Routine) - Closed Specialty Diagnoses / Procedures Referred By Jennifer leigh Referred To Contact Radiology Diagnoses Thyroid mass Procedures US HEAD NECK TISSUES Sunita Hogue MD [facility] View [address] [place] [address] Phone: tel: fax: Referral ID Status Reason Start Date Expiration Date V isits Requested Visits Authorized [id number] Closed [facility] View CTS to Schedule (SGF) 04/02/2016 05/03/2017 1 1 Encounter Details Date Type Department Care Team (Latest Contact Info) Description 04/02/2016 Ancillary Orders [facility] Centralized Scheduling [address] [facility] 60 [place] [address] Sunita Hogue MD NO ADDRESS ON FILE Thyroid mass (Primary Dx) Social History Tobacco Use Types Packs/Day Years Used Date Smoking Tobacco: Former Cigarettes Q uit: 05/23/1982 Smokeless Tobacco: Never Alcohol Use Standard Drinks/Week Comments No 0 (1 standard drink = 0.6 oz pur e alcohol) Comments No Sex and Gender Information Value Date Recorded Sex Assigned at Not on file Legal Sex Female 4:41 AM REPAIRER AND CHECKER Gender Identity Not on file Sexual Orientation Not on file Occupation Industry Job Start Date Job End Date Not on file Not on file Not on file Not on file documented as of this encounter Plan of Treatment Not on file documented as of this encounter Results * US HEAD NECK TISSUES (04/07/2016 9:42 AM CDT) Anatomical Region Laterality Modality Head Ultrasound 04/07/2016 9:42 AM CDT Impressions 04/07/2016 5:02 PM CDT IMPRESSION: Please see below. Exam: US HEAD NECK TISSUES Date/Time of Exam: 04/07/2016 9:42 AM Reason For Exam: Thyroid mass. Findings: The left thyroid lobe measures 3.8 cm x 2.1 cm x 1.8 cm. The right thyroid lobe is surgically absent. According to technologist's notes, the nodule in the left thyroid lobe has been known to be present. The nodule is heterogeneous and measures 16 mm x 12 mm x 23 mm in diameter and contains color flow. IMPRESSION: Persistent heterogeneous lower pole left thyroid lobe nodule. The right thyroid lobe is surgically absent. Narrative Procedure Note Lalo Martins MD - 04/07/2016 IMPRESSION IMPRESSION: Please see below. Exam: US HEAD NECK TISSUES Date/Time of Exam: 04/07/2016 9:42 AM Reason For Exam: Thyroid mass. Findings: The left thyroid lobe measures 3.8 cm x 2.1 cm x 1.8 cm. The right thyroid lobe is surgically absent. According to technologist's notes, the nodule in the left thyroid lobe has been known to be present. The nodule is heterogeneous and measures 16 mm x 12 mm x 23 mm in diameter and contains color flow. IMPRESSION: Persistent heterogeneous lower pole left thyroid lobe nodule. The right thyroid lobe is surgically absent. Sunita Hogue MD ORDERABLES Final Result documented in this encounter Visit Diagnoses Diagnosis Thyroid mass- Primary Unspecified disorder of thyroid Thyroid mass Unspecified disorder of thyroid documented in this encounter Care Teams Pier Hand Helper Relationship Specialty Start Date End Date Claudia Medina DO [address] [facility] 19 [place] [address] PCP - General Family Practice 08/24/17 documented as of this encounter
--- OUTSIDE RECORDS SUMMARY | 2025-01-27 16:37 | XMS_ITS | Encounter Summary ---
Author Organization [facility] Address [address] [place] [address] Care Team Providers Care Small Machine Bindery Operator Name Role Phone CarolClaudia raza Primary Care Provider +1 -[phone] Encounter Details Date Type Department Care Team (Latest Contact Info) Description 03/10/2004 Outpatient Historical [facility] Medicine- [address] [phone] Jeff Hatfield MD [address] [facility] 200 [place] [address] CHRONIC SINUSITIS NOS (Primary Dx); ALLERGY, UNSPECIFIED Social History Tobacco Use Types Packs/Day Years Used Date Smoking Tobacco: Never Assessed Comments Unknown Sex and Gender Information Value Date Recorded Sex Assigned at Not on file Legal Sex Female 4:41 AM COMPOUNDING PHARMACY TECHNICIAN Gender Identity Not on file Sexual Orientation Not on file documented as of this encounter Plan of Treatment Not on file documented as of this encounter Visit Diagnoses Diagnosis Unspecified sinusitis (chronic)- Primary Allergy, unspecified not elsewhere classified documented in this encounter Care Teams Small Machine Bindery Operator Relationship Specialty Start Date End Date Claudia Medina DO [address] [facility] 19 [place] [address] PCP - General Family Practice 08/24/17 documented as of this encounter
--- OUTSIDE RECORDS SUMMARY | 2025-01-27 16:37 | XMS_ITS | Encounter Summary ---
Author Organization [facility] Address [address] [place] [address] Care Team Providers Care Roofing Plant Supervisor Name Role Phone Claudia Medina DO Primary Care Provider +1 -[phone] Encounter Details Date Type Department Care Team (Latest Contact Info) Description 07/01/2003 Outpatient Historical [facility] Medicine [place] 104 [facility] 60 [place] [phone] Kathy Parks MD NO ADDRESS ON FILE ASTHMA UNSPECIFIED WITH EXAC (Primary Dx); FLU W RESP MANIFEST NEC Social History Tobacco Use Types Packs/Day Years Used Date Smoking Tobacco: Never Assessed Comments Unknown Sex and Gender Information Value Date Recorded Sex Assigned at Not on file Legal Sex Female 4:41 AM CARDIOVASCULAR OPERATING ROOM NURSE Gender Identity Not on file Sexual Orientation Not on file documented as of this encounter Plan of Treatment Not on file documented as of this encounter Visit Diagnoses Diagnosis Unspecified asthma, with exacerbation- Primary Influenza with other respiratory manifestations documented in this encounter Care Teams Roofing Plant Supervisor Relationship Specialty Start Date End Date Claudia Medina DO [address] [facility] 19 [place] [address] PCP - General Family Practice 08/24/17 documented as of this encounter
--- OUTSIDE RECORDS SUMMARY | 2025-01-27 16:37 | XMS_ITS | Encounter Summary ---
Author Organization [facility] Address [address] [place] [address] Care Team Providers Care Theater Education Teacher Name Role Phone Claudia Medina DO Primary Care Provider +1 -[phone] Encounter Details Date Type Department Care Team (Latest Contact Info) Description 09/18/2003 Outpatient Historical [facility] Medicine- [address] [phone] Jeff Hatfield MD [address] [facility] 200 [place] [address] ASTHMA UNSPECIFIED (Primary Dx); OSTEOARTHROS NOS-UNSPEC Social History Tobacco Use Types Packs/Day Years Used Date Smoking Tobacco: Never Assessed Comments Unknown Sex and Gender Information Value Date Recorded Sex Assigned at Not on file Legal Sex Female 4:41 AM CERTIFIED PEST CONTROL TECHNICIAN Gender Identity Not on file Sexual Orientation Not on file documented as of this encounter Plan of Treatment Not on file documented as of this encounter Visit Diagnoses Diagnosis Unspecified asthma(493.90)- Primary Unspecified asthma Osteoarthrosis, unspecified whether generalized or localized, unspecified site documented in this encounter Care Teams Theater Education Teacher Relationship Specialty Start Date End Date Claudia Medina DO [address] [address] PCP - General Family Practice 08/24/17 documented as of this encounter
--- OUTSIDE RECORDS SUMMARY | 2025-01-27 16:37 | XMS_ITS | Encounter Summary ---
Author Organization [facility] Address [address] [place] [address] Care Team Providers Care Environmental Control Administrator Name Role Phone Claudia Medina DO Primary Care Provider +1 -[phone] Encounter Details Date Type Department Care Team (Latest Contact Info) Description 01/13/2004 Outpatient Historical [facility] Medicine- [address] [phone] Jeff Hatfield MD [address] [facility] 200 [place] [address] LOWER LEG INJURY NOS (Primary Dx); ELB/FOREARM/WRST INJURY NOS Social History Tobacco Use Types Packs/Day Years Used Date Smoking Tobacco: Never Assessed Comments Unknown Sex and Gender Information Value Date Recorded Sex Assigned at Not on file Legal Sex Female 4:41 AM MUD MIXER Gender Identity Not on file Sexual Orientation Not on file documented as of this encounter Plan of Treatment Not on file documented as of this encounter Visit Diagnoses Diagnosis Injury, other and unspecified, knee, leg, ankle, and foot- Primary Injury, other and unspecified, elbow, forearm, and wrist documented in this encounter Care Teams Environmental Control Administrator Relationship Specialty Start Date End Date Claudia Medina DO [address] [address] PCP - General Family Practice 08/24/17 documented as of this encounter
--- OUTSIDE RECORDS SUMMARY | 2025-01-27 16:37 | XMS_ITS | Encounter Summary ---
Author Organization [facility] Address [address] [place] [address] Care Team Providers Care Adult Education Professional Name Role Phone Carol, Claudia No Primary Care Provider +1 -[phone] Encounter Details Date Type Department Care Team (Latest Contact Info) Description 04/28/2004 Outpatient Historical [facility] Family Medicine [place] 104 [facility] 60 [place] [phone] Cony Carrasco, MAINTENANCE CUSTODIAN [address] [place] [address] ACUTE BRONCHITIS (Primary Dx); ACUTE URI NOS Social History Tobacco Use Types Packs/Day Years Used Date Smoking Tobacco: Never Assessed Comments Unknown Sex and Gender Information Value Date Recorded Sex Assigned at Not on file Legal Sex Female 4:41 AM MGMT SPECIALIST Gender Identity Not on file Sexual Orientation Not on file documented as of this encounter Plan of Treatment Not on file documented as of this encounter Visit Diagnoses Diagnosis Acute bronchitis- Primary Acute upper respiratory infections of unspecified site documented in this encounter Care Teams Adult Education Professional Relationship Specialty Start Date End Date Claudia Medina DO [address] [facility] [address] [place], [place] [address] PCP - General Family Practice 08/24/17 documented as of this encounter
--- OUTSIDE RECORDS SUMMARY | 2025-01-27 16:37 | XMS_ITS | Encounter Summary ---
Author Organization [facility] Address [address] [place] [address] Care Team Providers Care Analytical Manager Name Role Phone CarolClaudia raza Primary Care Provider +1 -[phone] Encounter Details Date Type Department Care Team (Latest Contact Info) Description 11/16/2002 Outpatient Historical [facility] Medicine- [address] [phone] Jeff Hatfield MD [address] [facility] 200 [place] [phone] PAINFUL RESPIRATION (Primary Dx) Social History Tobacco Use Types Packs/Day Years Used Date Smoking Tobacco: Never Assessed Comments Unknown Sex and Gender Information Value Date Recorded Sex Assigned at Not on file Legal Sex Female 4:41 AM ELECTRICIAN Gender Identity Not on file Sexual Orientation Not on file documented as of this encounter Plan of Treatment Not on file documented as of this encounter Visit Diagnoses Diagnosis Painful respiration- Primary documented in this encounter Care Teams Analytical Manager Relationship Specialty Start Date End Date Claudia Medina DO [address] [facility] 19 [place] [address] PCP - General Family Practice 08/24/17 documented as of this encounter
--- OUTSIDE RECORDS SUMMARY | 2025-01-27 16:37 | XMS_ITS | Encounter Summary ---
Author Organization [facility] Address [address] [place] [address] Care Team Providers Care Master Baker Name Role Phone CarolClaudia raza Primary Care Provider +1 -[phone] Encounter Details Date Type Department Care Team (Latest Contact Info) Description 01/21/2004 Outpatient Historical [facility] Medicine- [address] [phone] Jeff Hatfield MD [address] [facility] 200 [place] [phone] ALLERGY, UNSPECIFIED (Primary Dx); CHRONIC SINUSITIS NOS Social History Tobacco Use Types Packs/Day Years Used Date Smoking Tobacco: Never Assessed Comments Unknown Sex and Gender Information Value Date Recorded Sex Assigned at Not on file Legal Sex Female 4:41 AM SHREDDED FILLER CUTTER OPERATOR Gender Identity Not on file Sexual Orientation Not on file documented as of this encounter Plan of Treatment Not on file documented as of this encounter Visit Diagnoses Diagnosis Allergy, unspecified not elsewhere classified- Primary Unspecified sinusitis (chronic) documented in this encounter Care Teams Master Baker Relationship Specialty Start Date End Date Claudia Medina DO [address] [facility] 19 [place] [address] PCP - General Family Practice 08/24/17 documented as of this encounter
--- OUTSIDE RECORDS SUMMARY | 2025-01-27 16:37 | XMS_ITS | Encounter Summary ---
Author Organization [facility] Address [address] [place] [address] Care Team Providers Care Investigator Name Role Phone CarolClaudia raza Primary Care Provider +1 -[phone] Encounter Details Date Type Department Care Team (Latest Contact Info) Description 05/18/2004 Outpatient Historical [facility] Family Medicine [place] 104 [facility] 60 [place] [address] Jeff Hatfield MD [address] [facility] 200 [place] [phone] OSTEOARTHROS NOS-UNSPEC (Primary Dx) Social History Tobacco Use Types Packs/Day Years Used Date Smoking Tobacco: Never Assessed Comments Unknown Sex and Gender Information Value Date Recorded Sex Assigned at Not on file Legal Sex Female 4:41 AM WINE BLENDER Gender Identity Not on file Sexual Orientation Not on file documented as of this encounter Plan of Treatment Not on file documented as of this encounter Visit Diagnoses Diagnosis Osteoarthrosis, unspecified whether generalized or localized, unspecified site- Primary documented in this encounter Care Teams Investigator Relationship Specialty Start Date End Date Claudia Medina DO [address] [facility] 19 [place] [address] PCP - General Family Practice 08/24/17 documented as of this encounter
--- OUTSIDE RECORDS SUMMARY | 2025-01-27 16:37 | XMS_ITS | Encounter Summary ---
Author Organization [facility] Address [address] [place] [address] Care Team Providers Care Apartment Maintenance Technician Name Role Phone Carol, Claudia Sarabia DO Primary Care Provider +1 -[phone] Encounter Details Date Type Department Care Team (Latest Contact Info) Description 04/15/2004 Outpatient Historical [facility] Medicine- [address] [phone] Jeff Hatfield MD [address] [facility] 200 [place] [phone] OSTEOARTHROS NOS-UNSPEC (Primary Dx); CARPAL TUNNEL SYNDROME Social History Tobacco Use Types Packs/Day Years Used Date Smoking Tobacco: Never Assessed Comments Unknown Sex and Gender Information Value Date Recorded Sex Assigned at Not on file Legal Sex Female 4:41 AM PARTY PLAN SALESPERSON Gender Identity Not on file Sexual Orientation Not on file documented as of this encounter Plan of Treatment Not on file documented as of this encounter Visit Diagnoses Diagnosis Osteoarthrosis, unspecified whether generalized or localized, unspecified site- Primary Carpal tunnel syndrome documented in this encounter Care Teams Apartment Maintenance Technician Relationship Specialty Start Date End Date Claudia Mdeina DO [address] [facility] 19 [place] [address] PCP - General Family Practice 08/24/17 documented as of this encounter
--- OUTSIDE RECORDS SUMMARY | 2025-01-27 16:37 | XMS_ITS | Encounter Summary ---
Author Organization [facility] Address [address] [place] [address] Care Team Providers Care Retirement Manager Name Role Phone Claudia Medina DO Primary Care Provider +1 -[phone] Encounter Details Date Type Department Care Team (Late st Contact Info) Description 05/02/2013 Ancillary Orders [address] [phone] Dhiraj Isaac PA NO ADDRESS ON FILE Other screening mammogram (Primary Dx) Social History Tobacco Use Types Packs/Day Years Used Date Smoking Tobacco: Former Cigarettes Q uit: 05/23/1982 Smokeless Tobacco: Never Alcohol Use Standard Drinks/Week Comments Not Asked 0 (1 standard drink = 0.6 oz pur e alcohol) Comments No Sex and Gender Information Value Date Recorded Sex Assigned at Not on file Legal Sex Female 4:41 AM 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 Exam was auto-finalized. Procedure Note Linda Kim, RT - 05/02/2013 Order information only. Exam was auto-finalized. Dhiraj DOMINGUEZ DIAGNOSTIC IMAGING ORDERABLES Final Result documented in this encounter Visit Diagnoses Diagnosis Other screening mammogram- Primary Other screening mammogram documented in this encounter Care Teams Retirement Manager Relationship Specialty Start Date End Date Claudia Medina DO [facility] [address] [address] PCP - General Family Practice 08/24/17 documented as of this encounter
--- OUTSIDE RECORDS SUMMARY | 2025-01-27 16:37 | XMS_ITS | Clinical Summary ---
Author Organization [facility] Address [address] [place] [address] Phone Care Team Providers Care Substation Operator Helper Generation Name Role Phone Unavailable Primary Care Provider Unavailabl e Allergies Active Allergy Reactions Criticality Noted Date Comments Meperidine Nausea/Vomiting 02/18/2020 Morphine Swelling 02/18/2020 Sulfa (Sulfonamide Antibiotics) Rash Low 12/2019 Medications lisinopriL (Prinivil, Zestril) 5 mg tablet 1 tablet 1 (one) time each day at the same time. Active meloxicam (Mobic) 15 mg tablet 1 tablet 1 (one) time each day at the same time. Active metoprolol tartrate (Lopressor) 25 mg tablet 1 tablet every 12 (twelve) hours. Active montelukast (Singulair) 10 mg tablet Orally Active nitroglycerin (Nitrostat) 0.4 mg SL tablet Sublingual Active omeprazole (PriLOSEC) [address] capsule Orally Active polyvinyl alcohol-povidon,PF , (HYPOTears) 1.4-0.6 % ophthalmic solution 1 drop into affected eye as needed Ophthalmic 24 time(s) a day Active simvastatin (Zocor) 10 mg tablet 1 tablet 1 (one) time each day at the same time. Active solifenacin (VESIcare) 5 mg tablet 1 tablet 1 (one) time each day at the same time. Active terbinafine (LamISIL) 250 mg tablet 1 tablet 1 (one) time each day at the same time. Active isosorbide mononitrate ER (Imdur) 30 mg 24 hr tablet 1 tablet 1 (one) time each day at the same time. Active fluticasone (Flonase) 50 mcg/actuation nasal spray Nasally Active DULoxetine 40 mg capsule, delayed rel sprinkle 2 capsules 1 (one) time each day at the same time. Active diclofenac-misopro stoL (Arthrotec 75) 75-200 mg-mcg EC tablet Orally Active budesonide-formote roL (Symbicort) 160-4.5 mcg/actuation inhaler 2 puffs every 12 (twelve) hours. Active bimatoprost (Lumigan) 0.01 % ophthalmic solution 1 (one) time each day at the same time. Active aspirin 81 mg EC tablet 1 tablet 1 (one) time each day at the same time. Active albuterol (Proventil;Ventoli n) 90 mcg/actuation inhaler 2 puffs every 6 (six) hours. Active cefuroxime (Ceftin) 500 mg tablet Take 500 mg by mouth 2 (two) times a day. 1 Active levothyroxine (Synthroid, Levoxyl) 100 mcg tabletIndications: Acquired hypothyroidism One tab daily before breakfast 30 tablet 11 2 Active Active Problems No known active problems Family History Medical History Relation Comments Heart disease Father Heart disease Mother Relation Status Comments Father Mother Social History Tobacco Use Types Packs/Day Years [...] Sign Reading Time Taken Comments Blood Pressure 122/76 05/21/2022 1:53 PM REAL ESTATE MARKETING COORDINATOR Pulse 87 05/21/2022 1:53 PM REAL ESTATE MARKETING COORDINATOR Temperature 36.1 C (96.9 F) 05/21/2022 1:53 PM REAL ESTATE MARKETING COORDINATOR Respiratory Rate - - Oxygen Saturation 94% 05/21/2022 1:53 PM REAL ESTATE MARKETING COORDINATOR Inhaled Oxygen Concentration - - Weight 112 kg (247 lb 9.6 oz) 05/21/2022 1:53 PM REAL ESTATE MARKETING COORDINATOR Height 162.6 cm (5' 4.02 ) 09/04/2021 3:14 PM CD T Body Mass Index 42.48 09/04/2021 3:14 PM CDT Plan of Treatment Health Maintenance Due Date Last Done Comments CT Colonography 1950 Colonoscopy 1950 Colorectal Cancer Screening 1950 FIT-DNA 1950 FIT 1950 FOBT 1950 Sigmoidoscopy 1950 COVID-19 Vaccine (#1) 1955 DTaP,Tdap,and Td Vaccines (1 - Tdap) 1957 Depression Screening 01/29/1968 Social Drivers of Health (SDoH) 01/29/1968 Mammogram 1990 RSV Vaccines (1 - Risk 60-74 years 1-dose series) 2010 Complete Fall Risk Assessment 2015 MMR Vaccines (1 of 1 - Standard series) 06/18/2016 Varicella Vaccines (1 of 2 - 13+ 2-dose series) 06/18/2016 Zoster Vaccines (1 of 2) 07/16/2016 05/21/2016 Pneumococcal Vaccine: 50+ Years (2 of 2 - PPSV23, PCV20, or PCV21) 06/07/2020 04/12/2020 Pneumococcal Vaccine (2 of 2 - PPSV23, PCV20, or PCV21) 06/07/2020 04/12/2020 Influenza Vaccine (#1) 2025 0, 04/30/2019, 03/04/2018, Additional history exists HIB Vaccines Aged Out No longer eligi ble based on patient's age to complete this topic HPV Vaccines Aged Out No longer eligi ble based on patient's age to complete this topic Hepatitis A Vaccines Aged Out No long er eligible based on patient's age to complete this topic Hepatitis B Vaccines Aged Out No long er eligible based on patient's age to complete this topic IPV Vaccines Aged Out No longer eligi ble based on patient's age to complete this topic Meningococcal B Vaccine Aged Out No l onger eligible based on patient's age to complete this topic Meningococcal Vaccine Aged Out No artur lisy eligible based on patient's age to complete this topic Rotavirus Vaccines Aged Out No longer eligible based on patient's age to complete this topic Insurance [employer] MEDICARE
--- OUTSIDE RECORDS SUMMARY | 2025-01-27 16:37 | XMS_ITS | Encounter Summary ---
Author Organization [facility] Address [address] [place] [address] Care Team Providers Care Fourth Hand Name Role Phone Claudia Medina DO Primary Care Provider +1 -[phone] Reason for Referral * Outpatient Services (Routine) - Closed Specialty Diagnoses / Procedures Referred By Contac t Referred To Contact Diagnoses Other (abnormal) findings on radiological examination of breast Procedures MAMMO DIGITAL DIAG UNI RIGHT Dhiraj Isaac PA NO ADDRESS ON FILE [facility] Pre-Registration [place] CALL TO MAKE APPOINTMENT ONLY [address] [place] [address] Phone: tel: fax: Referral ID Status Reason Start Date Expiration Date Visits Re quested Visits Authorized [id number] Closed 05/21/2013 06/21/2014 1 1 TENANCE AND UTILITIES SUPERVISOR Encounter Details Date Type Department Care Team (Latest Contact Info) Description 05/21/2013 Ancillary Orders [facility] [address] [facility] [address] [place] [phone] Dhiraj Isaac PA NO ADDRESS ON FILE Other (abnormal) findings on radiological examination of breast (Primary Dx) Social History Tobacco Use Types Packs/Day Years Used Date Smoking Tobacco: Former Cigarettes Q uit: 05/23/1982 Smokeless Tobacco: Never Alcohol Use Standard Drinks/Week Comments Not Asked 0 (1 standard drink = 0.6 oz pur e alcohol) Comments No Sex and Gender Information Value Date Recorded Sex Assigned at Not on file Legal Sex Female 4:41 AM MAINTENANCE AND UTILITIES SUPERVISOR Gender Identity Not on file Sexual Orientation Not on file Occupation Industry Job Start Date Job End Date Not on file Not on file Not on file Not on file documented as of this encounter Plan of Treatment Not on file documented as of this encounter Results * MAMMO DIGITAL DIAG UNI RIGHT (05/30/2013 10:30 AM MAINTENANCE AND UTILITIES SUPERVISOR) Anatomical Region Laterality Modality Breast Right Mammography 05/30/2013 10:0 3 AM MAINTENANCE AND UTILITIES SUPERVISOR Impressions 05/30/2013 2:36 PM MAINTENANCE AND UTILITIES SUPERVISOR IMPRESSION: Tiny nodular area incompletely visualized on recent mammogram appears to be a mole on the skin at the inframammary crease on the right, on additional images today. This should be of no clinical significance. I would recommend routine annual screening mammogram. Patient received a result/recommendation letter. KWESI/arturo 1026 AM - uploaded from [employer] - Narrative 05/30/2013 2:36 PM MAINTENANCE AND UTILITIES SUPERVISOR Right Digital Diagnostic Mammogram: Multiple additional digital images are presented, to attempt to evaluate possible partially visible nodular density deep inferiorly on right mediolateral oblique image of recent screening mammogram 05/09/2013, when compared with multiple previous, the most recent 05/03/2012. There is noted a mole in this area, on the skin, and it was marked with a mole marker. The additional images indicate that the tiny suspected nodular area persists, but does appear to be the very small mole on the skin at the inferior mammary crease. No area of suspicion is seen. This digital mammogram was also analyzed by the Computer Aided Detection System (CAD), [employer], Version 8.3. Procedure Note Prakash Clifton MD - 05/30/2013 Right Digital Diagnostic Mammogram: Multiple additional digital images are presented, to attempt to evaluate possible partially visible nodular density deep inferiorly on right mediolateral oblique image of recent screening mammogram 05/09/2013, when compared with multiple previous, the most recent 05/03/2012. There is noted a mole in this area, on the skin, and it was marked with a mole marker. The additional images indicate that the tiny suspected nodular area persists, but does appear to be the very small mole on the skin at the inferior mammary crease. No area of suspicion is seen. This digital mammogram was also analyzed by the Computer Aided Detection System (CAD), [employer], Version 8.3. IMPRESSION IMPRESSION: Tiny nodular area incompletely visualized on recent mammogram appears to be a mole on the skin at the inframammary crease on the right, on additional images today. This should be of no clinical significance. I would recommend routine annual screening mammogram. Patient received a result/recommendation letter. KWSEI/arturo 1026 AM - uploaded from [employer] - Dhiraj DOMINGUEZ MAMMO ORDERABLES Final Result documented in this encounter Visit Diagnoses Diagnosis Other (abnormal) findings on radiological examination of breast- Primary Other (abnormal) findings on radiological examination of breast documented in this encounter Care Teams Fourth Hand Relationship Specialty Start Date End Date Claudia Medina DO [address] [address] PCP - General Family Practice 08/24/17 documented as of this encounter
--- OUTSIDE RECORDS SUMMARY | 2025-01-27 16:37 | XMS_ITS | Encounter Summary ---
Author Organization [facility] Address [address] [place] [address] Care Team Providers Care Customer Experience Retail Clerk Name Role Phone Claudia Medina DO Primary Care Provider +1 -[phone] Encounter Details Date Type Department Care Team (Late st Contact Info) Description 05/02/2013 Ancillary Orders [address] [phone] Dhiraj Isaac PA NO ADDRESS ON FILE [...] on file Legal Sex Female 4:41 AM COIL BINDER Gender Identity Not on file Sexual Orientation Not on file Occupation Industry Job Start Date Job End Date Not on file Not on file Not on file Not on file documented as of this encounter Plan of Treatment Not on file documented as of this encounter Results * MAMMO DIGITIZED STUDY (05/06/2009 3:58 PM COIL BINDER) Narrative Linda Kim RT - 05/02/2013 3:59 PM COIL BINDER Order information only. Exam was auto-finalized. Procedure Note Linda Kim RT - 05/02/2013 Order information only. Exam was auto-finalized. Dhiraj DOMINGUEZ DIAGNOSTIC IMAGING ORDERABLES Final Result documented in this encounter Visit Diagnoses Diagnosis Other screening mammogram- Primary Other screening mammogram documented in this encounter Care Teams Customer Experience Retail Clerk Relationship Specialty Start Date End Date Claudia Medina DO [address] [place] [address] PCP - General Family Practice 08/24/17 documented as of this encounter
--- OUTSIDE RECORDS SUMMARY | 2025-01-27 16:37 | XMS_ITS | Encounter Summary ---
Author Organization [facility] Address [address] [place] [address] Care Team Providers Care Merchandising Intern Name Role Phone Carol, Claudia No Primary Care Provider +1 -[phone] Encounter Details Date Type Department Care Team (Latest Contact Info) Description 05/10/2003 Outpatient Historical [facility] Family Medicine [place] 104 [facility] 60 [place] [phone] Jeff Hatfield MD [address] [facility] 200 [place] [phone] ASTHMA UNSPECIFIED (Primary Dx) Social History Tobacco Use Types Packs/Day Years Used Date Smoking Tobacco: Never Assessed Comments Unknown Sex and Gender Information Value Date Recorded Sex Assigned at Not on file Legal Sex Female 4:41 AM TAPE TRANSFERRER Gender Identity Not on file Sexual Orientation Not on file documented as of this encounter Plan of Treatment Not on file documented as of this encounter Visit Diagnoses Diagnosis Unspecified asthma(493.90)- Primary Unspecified asthma documented in this encounter Care Teams Merchandising Intern Relationship Specialty Start Date End Date Claudia Medina DO [address] [facility] 19 [place], [place] [address] PCP - General Family Practice 08/24/17 documented as of this encounter
--- OUTSIDE RECORDS SUMMARY | 2025-01-27 16:37 | XMS_ITS | Encounter Summary ---
Author Organization [facility] Address [address] [place] [address] Care Team Providers Care Biometric Fingerprinting Technician Name Role Phone Claudia Medina DO Primary Care Provider +1 -[phone] Encounter Details Date Type Department Care Team (Late st Contact Info) Description 02/07/2003 Outpatient Historical [facility] Family Medicine [place] 104 [facility] 60 [place] [address] Kathy Parks MD NO ADDRESS ON FILE Social History Tobacco Use Types Packs/Day Years Used Date Smoking Tobacco: Never Assessed Comments Unknown Sex and Gender Information Value Date Recorded Sex Assigned at Not on file Legal Sex Female 4:41 AM BIOLOGY 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
--- OUTSIDE RECORDS SUMMARY | 2025-01-27 16:37 | XMS_ITS | Encounter Summary ---
Author Organization [facility] Address [address] [place] [address] Care Team Providers Care Granulizing Machine Operator Name Role Phone CarolClaudia milligan Primary Care Provider +1 -[phone] Encounter Details Date Type Department Care Team (Latest Contact Info) Description 05/24/2003 Outpatient Historical [facility] Family Medicine [place] 104 [facility] 60 [place] [phone] Jeff Hatfield MD [address] [facility] 200 [place] [phone] ASTHMA UNSPECIFIED (Primary Dx); ACUTE BRONCHITIS Social History Tobacco Use Types Packs/Day Years Used Date Smoking Tobacco: Never Assessed Comments Unknown Sex and Gender Information Value Date Recorded Sex Assigned at Not on file Legal Sex Female 4:41 AM NEUROPSYCHOLOGIST Gender Identity Not on file Sexual Orientation Not on file documented as of this encounter Plan of Treatment Not on file documented as of this encounter Visit Diagnoses Diagnosis Unspecified asthma(493.90)- Primary Unspecified asthma Acute bronchitis documented in this encounter Care Teams Granulizing Machine Operator Relationship Specialty Start Date End Date Claudia Medina DO [address] [facility] [address] [place] [address] PCP - General Family Practice 08/24/17 documented as of this encounter
--- OUTSIDE RECORDS SUMMARY | 2025-01-27 16:37 | XMS_ITS | Encounter Summary ---
Author Organization [facility] Address [address] [place] [address] Care Team Providers Care Motor Block Mechanic Name Role Phone CarolClaudia raza Primary Care Provider [phone] [phone] Encounter Details Date Type Department Care Team (Latest Contact Info) Description 07/31/2003 Outpatient Historical [facility] Family Medicine [place] [address] [facility] 60 [place] [address] Jeff Hatfield MD [address] [facility] [address] [place] [phone] ACUTE BRONCHITIS (Primary Dx) Social History Tobacco Use Types Packs/Day Years Used Date Smoking Tobacco: Never Assessed Comments Unknown Sex and Gender Information Value Date Recorded Sex Assigned at Not on file Legal Sex Female 4:41 AM BOXING INSTRUCTOR Gender Identity Not on file Sexual Orientation Not on file documented as of this encounter Plan of Treatment Not on file documented as of this encounter Visit Diagnoses Diagnosis Acute bronchitis- Primary documented in this encounter Care Teams Motor Block Mechanic Relationship Specialty Start Date End Date Claudia Medina DO [address] [facility] [address] [place] [address] PCP - General Family Practice 08/24/17 documented as of this encounter
--- OUTSIDE RECORDS SUMMARY | 2025-01-27 16:37 | XMS_ITS | Encounter Summary ---
Author Organization [facility] Address [address] [place] [address] Care Team Providers Care Machine Cementer Name Role Phone Claudia Medina DO Primary Care Provider [phone] [phone] Encounter Details Date Type Department Care Team (Latest Contact Info) Description 02/07/2003 Outpatient Historical [facility] Medicine [place] [address] [facility] 60 [place] [phone] Kathy Parks MD NO ADDRESS ON FILE ACUTE PHARYNGITIS (Primary Dx); ACUTE URI NOS Social History Tobacco Use Types Packs/Day Years Used Date Smoking Tobacco: Never Assessed Comments Unknown Sex and Gender Information Value Date Recorded Sex Assigned at Not on file Legal Sex Female 4:41 AM ACCOUNTS PAYABLE PROFESSIONAL Gender Identity Not on file Sexual Orientation Not on file documented as of this encounter Plan of Treatment Not on file documented as of this encounter Visit Diagnoses Diagnosis Acute pharyngitis- Primary Acute upper respiratory infections of unspecified site documented in this encounter Care Teams Machine Cementer Relationship Specialty Start Date End Date Claudia Medina DO [address] [facility] 19 [place] [address] PCP - General Family Practice 08/24/17 documented as of this encounter
--- OUTSIDE RECORDS SUMMARY | 2025-01-27 16:37 | XMS_ITS | Encounter Summary ---
Author Organization [facility] Address [address] [place] [address] Care Team Providers Care Asw/Asuw Tactical Air Controller Name Role Phone CarolClaudia raza Primary Care Provider [phone] [phone] Encounter Details Date Type Department Care Team (Latest Contact Info) Description 04/16/2003 Outpatient Historical [facility] Medicine- [address] [phone] Jeff Hatfield MD [address] [facility] 200 [place] [phone] ACUTE BRONCHITIS (Primary Dx) Social History Tobacco Use Types Packs/Day Years Used Date Smoking Tobacco: Never Assessed Comments Unknown Sex and Gender Information Value Date Recorded Sex Assigned at Not on file Legal Sex Female 4:41 AM GLUER Gender Identity Not on file Sexual Orientation Not on file documented as of this encounter Plan of Treatment Not on file documented as of this encounter Visit Diagnoses Diagnosis Acute bronchitis- Primary documented in this encounter Care Teams Asw/Asuw Tactical Air Controller Relationship Specialty Start Date End Date Claudia Medina DO [address] [facility] [address] [place] [address] PCP - General Family Practice 08/24/17 documented as of this encounter
--- OUTSIDE RECORDS SUMMARY | 2025-01-27 16:37 | XMS_ITS | Encounter Summary ---
Author Organization [facility] Address [address] [place] [address] Care Team Providers Care Material Attendant Name Role Phone Claudia Medina DO Primary Care Provider [phone] [phone] Encounter Details Date Type Department Care Team (Late st Contact Info) Description 05/02/2013 Ancillary Orders [address] [phone] Dhiraj Isaac PA NO ADDRESS ON FILE [...] on file Legal Sex Female 4:41 AM BILLING CHECKER Gender Identity Not on file Sexual Orientation Not on file Occupation Industry Job Start Date Job End Date Not on file Not on file Not on file Not on file documented as of this encounter Plan of Treatment Not on file documented as of this encounter Results * MAMMO DIGITIZED STUDY (05/20/2010 4:00 PM BILLING CHECKER) Narrative Linda Kim RT - 05/02/2013 4:00 PM BILLING CHECKER Order information only. Exam was auto-finalized. Procedure Note Linda Kim, RT - 05/02/2013 Order information only. Exam was auto-finalized. [facility]iraj [facility] ORDERABLES Final Result documented in this encounter Visit Diagnoses Diagnosis Other screening mammogram- Primary Other screening mammogram documented in this encounter Care Teams Material Attendant Relationship Specialty Start Date End Date Claudia Medina DO [address] [place] [address] PCP - General Family Practice 08/24/17 documented as of this encounter
[2025-01-27 16:38] VITALS: BP 148/110; PULSE 86; RESP 18; TEMP 36.7; O2SAT 94
--- NOTE | 2025-01-27 17:13 | W.ED.SKABFB ---
HPI - Skin/Abscess/Foreign Bdy General: Chief complaint: Skin/Abscess/Foreign Body Stated complaint: spider bite on the Jan Time Seen by Provider: 01/27/25 16:48 History of Present Illness: Chief complaint is skin infection on abdomen. Patient states that on the she sustained a bite to her abdomen wall. She states that she does not know what kind of spider bit her but she thinks she saw a spider. She states no tick bite. She states that she also fell and hit her left elbow. She states is not broken. She states she has a wound there though that was a little red and sore. She states she can move her elbow fine. She states she did not hit her head. She is not on a blood thinner. No loss consciousness. No neck or back or chest or abdominal injury. Related Data Home Medications ?Medication ?Instructions ?Recorded ?Confirmed bimatoprost 0.01 % eye drops 1 drp ophthalmic (eye) BEDTIME@2100 08/10/20 01/24/25 (Lumigan) multivitamin 1 tab PO BEDTIME 06/19/23 01/24/25 mirabegron 50 mg tablet,extended 50 mg PO DAILY 07/21/23 01/24/25 release 24 hr (Myrbetriq) alendronate 70 mg tablet 70 mg PO .WEEKLY 01/10/25 01/24/25 cholecalciferol (vitamin D3) 1,250 1,250 mcg PO .WEEKLY 01/10/25 01/24/25 mcg (50,000 unit) capsule ferrous fumarate 324 mg (106 mg 324 mg PO DAILY 01/10/25 01/24/25 iron) tablet fluticasone fur. 200 mcg-umeclid 1 inh inhalation DAILY 01/10/25 01/24/25 62.5 mcg-vilant 25 mcg inhalat.powder (Trelegy Ellipta) Previous Rx's ?Medication ?Instructions ?Recorded solifenacin 10 mg tablet 10 mg PO BEDTIME #30 tabs 07/29/23 nebulizer accessories #1 ea 08/12/23 pen needle, diabetic 31 gauge x #100 ea 10/31/2310/26 (Comfort EZ Pen Ida) calcium 500 mg (as 1 tab PO BID #60 tabs 04/03/24 carbonate)-vitamin D3 15 mcg (600 unit) tablet (Os-Dagoberto 500 + D3) buspirone 10 mg tablet 10 mg PO BID #180 tabs 07/13/24 gabapentin 100 mg capsule 100 mg PO BID #180 caps 07/13/24 mirtazapine 15 mg tablet (Remeron) 15 mg PO BEDTIME #90 tabs 07/13/24 paroxetine HCl 20 mg tablet 20 mg PO DAILY #90 tabs 07/13/24 celecoxib 100 mg capsule (Celebrex) 100 mg PO BID 30 days #60 caps 12/06/24 albuterol sulfate 2.5 mg/3 mL 2.5 mg (3 mL) inhalation QID PRN 12/17/24 (0.083 %) solution for nebulization shortness of breath or wheezing #75 mL albuterol sulfate 90 mcg/actuation 2 inh inhalation Q4H PRN shortness 12/17/24 aerosol inhaler of breath or wheezing #18 grams pantoprazole 40 mg tablet,delayed 40 mg PO BID #60 tabs 01/10/25 release doxycycline hyclate 100 mg tablet 100 mg PO BID 10 days #20 tabs 01/22/25 baclofen 5 mg tablet 5 mg PO BID PRN muscle pain #10 01/24/25 tabs levothyroxine 50 mcg tablet See Rx Instructions .Route 01/25/25 .COMPLEX #90 tabs clindamycin HCl 300 mg capsule 300 mg PO Q6H 7 days #28 caps 01/27/25 (Cleocin HCl) ondansetron 4 mg disintegrating 4 mg PO Q8H PRN nausea and 01/27/25 tablet vomiting 4 days #10 tabs Allergies Allergy/AdvReac Type Severity Reaction Status Date / Time fentanyl Allergy Severe Burning Verified 01/24/25 11:52 feeling meperidine (From Demerol) Allergy rash Verified 01/24/25 11:52 morphine Allergy tongue Verified 01/24/25 11:52 swelling, hallucinations Sulfa (Sulfonamide Allergy headaches Verified 01/24/25 11:52 Antibiotics) PFSH ED PFSH: Medical History (Updated 01/27/25 @ 17:10 by Balwinder Whipple MD) Fall from standing, subsequent encounter Multiple contusions Dysphagia, unspecified type Umbilical hernia without obstruction and without gangrene Umbilical hernia containing a portion of the colon without obstruction. (incidental finding from CT in chart from [facility] 12/10/24 Gastroesophageal reflux disease without esophagitis Colon polyps 3 polyps removed [facility] May 2023 Breast cancer screening by mammogram Colon cancer screening May 2023 - polyp removal Repeat in May 2026 Shoulder contusion Generalized weakness At risk for falls Post-menopausal osteoporosis Flu-like symptoms Psychiatric care Diarrhea Dermatitis Anxiety Fatigue Atrial fibrillation Left thigh pain Upper respiratory infection Bilateral otitis media Injury of knee, right Acute bacterial sinusitis Arthritis pain Influenza vaccine needed Acute bacterial sinusitis Environmental and seasonal allergies URI, acute Right knee pain Obesity Pain of left knee after injury Lower respiratory infection Urgency incontinence Recurrent UTI Sinusitis, acute Morbid obesity Tear of right rotator cuff Arthritis of right acromioclavicular joint Rotator cuff tear arthropathy of left shoulder Weight loss Esophagitis SOB (shortness of breath) Chest pain at rest EKG from 05/01/2020 The EKG showed normal sinus rhythm with possible old inferior wall FL and poor R wave progression. Some nonspecific T wave changes. Cardiac arrhythmia Anemia Hypotension Postsurgical hypothyroidism Allergic rhinitis Mixed hyperlipidemia Vitamin D deficiency H/O malignant neoplasm of thyroid Patellar tendon rupture Hypertension Stress incontinence COPD (chronic obstructive pulmonary disease) Depression Osteoarthritis (arthritis due to wear and tear of joints) Diabetes Surgical History H/O hernia repair with mesh H/O tubal ligation Hx of cholecystectomy H/O colonoscopy H/O esophagogastroduodenoscopy with dilation S/P thyroidectomy Status post knee replacement Family History Mother , AT AGE 75 CAD (coronary artery disease) Hypertension Father , AT AGE 68 CAD (coronary artery disease) Hypertension Denies family history of Diabetes Anesthesia complication Bleeding disorder Cancer Social History Smoking and tobacco/nicotine status: never used tobacco/nicotine Quit status (tobacco/nicotine): has quit using Second hand smoke exposure: No Alcohol intake: never Substance/Drug Use: never Marital status: Current occupational status: employed and unemployed Physical Exam Narrative: EXAM NARRATIVE: Alert oriented no acute distress sitting up in bed. Neck is supple. No signs of trauma to her head. Normal conjunctiva. Full range ocular motion. Pupils equal and reactive. Heart regular rhythm no rubs or murmurs. Lung sounds are clear. Abdomen is soft. No abdominal tenderness guarding or rebound except for over her abnormal skin on the right upper quadrant. Patient has a circular erythematous lesion that is mildly tender but no fluctuance in the center there is a small eschar that is approximately 2 to 3 mm in diameter. Patient has old appearing abrasion on her left elbow with some mild surrounding pink coloration. She moves her elbow freely and has no bony tenderness and pulls and pushes against me. No pitting edema in her legs. She moves her legs freely. She moves her neck freely. No tenderness over her back. No chest wall tenderness. Speech is clear. She shows ability to reason. Moist mucous membranes. Course Vital Signs: Vital signs: Vital Signs Temperature 98.0 F 01/27/25 16:38 Pulse Rate 86 01/27/25 16:38 Respiratory Rate 18 01/27/25 16:38 Blood Pressure 148/110 01/27/25 16:38 Pulse Oximetry 94 01/27/25 16:38 Oxygen Delivery Me thod Room Air 01/27/25 16:38 MDM - Skin/Abscess/Foreign Bdy Medicial Decision Making Patient presents complaining of not getting better on doxycycline. She states she has been on doxycycline since when this developed and she says it spreading further redness. She states it has some increased pain. She states last night she had some chills. She does not know if she had a fever. No headache. No chest pain or shortness of breath. She denies history of MRSA. Tetanus she is not certain if she has had 1 in the last 5 years so I will update her tetanus. Patient states today she got sick to her stomach and threw up 2 times in a row. She states since then she has been keeping fluid down without difficulty. No further vomiting. She denies having any abdominal pain. She states the only thing that hurts is her red spot on her abdomen. She denies having diabetes. She does have a remote history of C. difficile her family says is over 5 years ago. She denies having any diarrhea. No weakness. I discussed doing an x-ray of her left elbow but she states is not broken and states it does not hurt to pull herself up and use it and does not think she has a retained foreign body. Patient declines x-ray. I discussed treatment plan with the patient. She is allergic to sulfa. I discussed with her antibiotic treatment options. She feels that she has gotten worse with the doxycycline so we will stop the doxycycline. I advised balance of risk and benefit of changing the antibiotic and potential increased risk of C. difficile with clindamycin. With the risk of MRSA and the appearance of the lesion I recommended clindamycin. Advise however close precautions for development of diarrhea. I did bedside ultrasound the patient does not have abscess. No fluctuance on exam consistent with this. Patient is alert talkative nontoxic-appearing afebrile. I discussed the patient treatment plan and she wants outpatient management. She is tolerating p.o. I ordered a Tdap for her clindamycin 600 mg IM and Zofran 4 mg by mouth. Will discharge home with prescription for Zofran and clindamycin. Advise prompt follow-up with her doctor. Advise monitoring for progression or worsening of the cellulitis and signs symptoms worsening watch for return for. Systemic symptoms from a recluse bite are unlikely by exam and history. Advised signs of developing abscess or spreading infection to watch and return for. Patient agrees with plan after informed discussion. No radiology studies performed this visit Discharge Plan Discharge Patient Disposition: Home Clinical Impression: Abdominal wall cellulitis Condition: Stable Prescriptions: New clindamycin HCl [Cleocin HCl] 300 mg capsule 300 mg PO Q6H 7 Days Qty: 28 0RF ondansetron 4 mg tablet,disintegrating 4 mg PO Q8H PRN (Reason: nausea and vomiting) 4 Days Qty: 10 0RF No Action Myrbetriq 50 mg tablet extended release 24 hr 50 mg PO DAILY calcium carbonate-vitamin D3 [Os-Dagoberto 500 + D3] 500 mg-15 mcg (600 unit) tablet 1 tab PO BID Qty: 60 5RF mirtazapine [Remeron] 15 mg tablet 15 mg PO BEDTIME Qty: 90 3RF paroxetine HCl 20 mg tablet 20 mg PO DAILY Qty: 90 3RF gabapentin 100 mg capsule 100 mg PO BID Qty: 180 3RF buspirone 10 mg tablet 10 mg PO BID Qty: 180 3RF baclofen 5 mg tablet 5 mg PO BID PRN (Reason: muscle pain) Qty: 10 0RF (DME) nebulizer accessories Kit See Rx Instructions .Route Qty: 1 0RF Rx Instructions: As directed (DME) pen needle, diabetic [Comfort EZ Pen Ida] 31 gauge x 5/16 needle See Rx Instructions .Route Qty: 100 2RF Rx Instructions: As directed celecoxib [Celebrex] 100 mg capsule 100 mg PO BID 30 Days Qty: 60 1RF doxycycline hyclate 100 mg tablet 100 mg PO BID 10 Days Qty: 20 0RF solifenacin 10 mg tablet 10 mg PO BEDTIME Qty: 30 2RF albuterol sulfate 90 mcg/actuation HFA aerosol inhaler 2 inh INHALATION Q4H PRN (Reason: shortness of breath or wheezing) Qty: 18 2RF albuterol sulfate 2.5 mg /3 mL (0.083 %) solution for nebulization 2.5 mg inhalation QID PRN (Reason: shortness of breath or wheezing) Qty: 75 2RF levothyroxine 50 mcg tablet See Rx Instructions .ROUTE .COMPLEX Qty: 90 0RF Dose Instruction: TAKE ONE TABLET BY MOUTH DAILY Rx Instructions: TAKE ONE TABLET BY MOUTH DAILY Lumigan 0.01 % drops 1 drp ophthalmic (eye) BEDTIME@2100 Rx Instructions: USE IN BOTH EYES alendronate 70 mg tablet 70 mg PO .WEEKLY Rx Instructions: TAKE ONE TABLET BY MOUTH EVERY 7 DAYS ferrous fumarate 324 mg (106 mg iron) tablet 324 mg PO DAILY Rx Instructions: TAKE ONE TABLET BY MOUTH DAILY cholecalciferol (vitamin D3) 1,250 mcg (50,000 unit) capsule 1,250 mcg PO .WEEKLY Rx Instructions: TAKE ONE CAPSULE BY MOUTH ONCE WEEKLY Trelegy Ellipta 200-62.5-25 mcg blister with device 1 inh inhalation DAILY Rx Instructions: INHALE 1 PUFF INTO LUNGS DAILY pantoprazole 40 mg tablet,delayed release (DR/EC) 40 mg PO BID Qty: 60 2RF multivitamin Tablet 1 tab PO BEDTIME Discharge Orders: Discharge ED (Routine); Ordered 01/27/25 Ordered By: Balwinder Whipple Referrals: SUSAN Lora, PEACH GROWER [Primary Care Provider, Family Practice] Patient Instructions: Opioid Safety, Pain Management, Patient Portal & Joss Instructions Activity Restrictions/Additional Instructions: Recheck with your doctor in 2 to 3 days. Come back if you develop fever, vomiting, spreading redness, increasing pain, abdominal pain, any worse or concerns. Recheck your blood pressure with your doctor. Monitor for diarrhea as discussed and talk to your doctor about testing for C. difficile if you develop any diarrhea. Stop the doxycycline. Print Language: Croatian Coding Level of Care Code ED Grounds Crew Supervisor for Afia Stafford
[2025-01-27] MEDS: Clindamycin 150 MG/ML SDV 2mL 600 MG IM (17:15)
[2025-01-27] MEDS: tetanus-dipt-pertussis 0.5 mL SDV IM (17:35)
[2025-01-27 17:39] VITALS: BP 137/75; PULSE 81; O2SAT 97
== END 2025-01-27 17:40 | disposition home or self-care (01) ==
PROVIDERS: Emergency Provider Emergency Medicine; PCP Nurse Practitioner Family
DX: L03.311 Cellulitis of abdominal wall (principal); Z87.891 Personal history of nicotine dependence; J44.9 Chronic obstructive pulmonary disease, unspecified; E11.9 Type 2 diabetes mellitus without complications; I10 Essential (primary) hypertension; Z85.850 Personal history of malignant neoplasm of thyroid
CPT/HCPCS: 90471; 90715; 99284; J0736; Q0162

== ENCOUNTER 2025-01-31 14:44 | Outpatient (CLI) | payer MEDICARE, SELFPAY ==
[2024-11-26 10:32] VITALS: BP 137/79; BMI 42.2
--- NOTE | 2025-01-31 14:55 | XRR_ITS ---
PROCEDURE INFORMATION: Exam: XR Lumbosacral Spine Exam date and time: 01/31/2025 3:03 PM Age: 75 years old Clinical indication: Low back pain; Additional info: M51.36 - other intervertebral disc degeneration, lumbar R. . . TECHNIQUE: Imaging protocol: Radiologic exam of the lumbosacral spine. Views: 6 or more views. Including flexion and extension views. COMPARISON: CR XR lumbar spine 2-3V* [id number] 04/06/2022 9:10 AM FINDINGS: Bones/joints: Facet arthropathy can be seen at multiple levels. No acute fracture or subluxation noted. With flexion and extension there is no evidence of significant instability. There is a chronic grade 1 anterior spondylolisthesis at the L4-L5 level. Soft tissues: Unremarkable. XR/XR lumbar spine 6V w f/e [id number] IMPRESSION: 1. No acute findings 2. Multilevel arthritic changes are noted. 3. Spondylolisthesis at L4-L5
--- NOTE | 2025-01-31 14:55 | XRR_ITS ---
PROCEDURE INFORMATION: Exam: XR Right Hip Exam date and time: 01/31/2025 3:03 PM Age: 75 years old Clinical indication: Hip pain; Right hip; Additional info: M51.36 - other intervertebral disc degeneration, lumbar R. . . TECHNIQUE: Imaging protocol: Radiologic exam of the right hip. Views: 1 view hip with pelvis when performed. COMPARISON: CT abdomen pelvis w con* [id number] 05/06/2023 7:27 PM FINDINGS: Bones/joints: Unremarkable. No acute fracture. Soft tissues: Unremarkable. XR/XR hip RT 2-3V wo/w pel* [id number] IMPRESSION: No acute findings.
== END 2025-01-31 14:45 | disposition home or self-care (01) ==
PROVIDERS: PCP Nurse Practitioner Family; Visit Provider Nurse Practitioner Family
DX: M51.362 Other intervertebral disc degeneration, lumbar region with discogenic back pain and lower extremity pain (principal); M43.16 Spondylolisthesis, lumbar region
CPT/HCPCS: 72114; 73502; 81003; 87086

== ENCOUNTER → 2025-02-05 13:41 | Outpatient (BNVA) | payer MEDICARE, SELFPAY ==
[2024-11-26 10:32] VITALS: BP 137/79; BMI 42.2
== END ==
PROVIDERS: PCP Nurse Practitioner Family; Visit Provider Nurse Practitioner Family
DX: L70.0 Acne vulgaris (principal); L72.0 Epidermal cyst; L85.3 Xerosis cutis; L82.1 Other seborrheic keratosis; T63.331A Toxic effect of venom of brown recluse spider, accidental (unintentional), initial encounter; X58.XXXA Exposure to other specified factors, initial encounter
CPT/HCPCS: 99204

== ENCOUNTER → 2025-02-06 09:33 | Outpatient (BNVA) | payer MEDICARE, SELFPAY ==
[2024-11-26 10:32] VITALS: BP 137/79; BMI 42.2
== END ==
PROVIDERS: Family Provider Internal Medicine; PCP Nurse Practitioner Family; Visit Provider Surgery
DX: K21.9 Gastro-esophageal reflux disease without esophagitis (principal)
CPT/HCPCS: 99213

== ENCOUNTER → 2025-02-13 10:53 | Outpatient (BNVA) | payer MEDICARE, SELFPAY ==
[2024-11-26 10:32] VITALS: BP 137/79; BMI 42.2
== END ==
PROVIDERS: PCP Nurse Practitioner Family; Visit Provider Internal Medicine
DX: E03.9 Hypothyroidism, unspecified (principal)
CPT/HCPCS: 84439; 84443

== ENCOUNTER → 2025-02-14 09:30 | Outpatient (BNVA) | payer MEDICARE, SELFPAY ==
[2024-11-26 10:32] VITALS: BP 137/79; BMI 42.2
== END ==
PROVIDERS: PCP Nurse Practitioner Family; Visit Provider Internal Medicine
DX: E89.0 Postprocedural hypothyroidism (principal); Z85.850 Personal history of malignant neoplasm of thyroid; Z90.89 Acquired absence of other organs
CPT/HCPCS: 99214

== ENCOUNTER 2025-02-21 22:33 | Inpatient (IN) | payer MEDICARE, SELFPAY ==
--- OUTSIDE RECORDS SUMMARY | 2024-05-08 05:20 | XMS_ITS ---
Author Organization [facility] Address [address] [place] [address] Care Team Providers Care Foot Miter Operator Name Role Phone Priyanka Parisi Unavailable REASON FOR VISIT having trouble holding her bladder,Source Provider:ROOSEVELT MAYS Encounters Encounter Location Date Provider Diagnosis [facility] [address] [facility] [address] [place] [address] 05/08/2024 Priyanka Parisi Plan Of Treatment Next Appt Details Provider Name:Priyanka Parmar, 06/12/2025 10:00:00 AM, [address], [place], [address], Progress Notes * MAX MERCADO SDOB:1950 (75 yo F)Acc No.[id number]:05/08/2024 Progress Notes Patient: MAX YBARRA Provider: BRIA Bustamante :1950 A ge:74 Y S ex:Female Date:05/08/2024 Address:[address] [id number] Subjective: * Chief Complaints: * h aving trouble holding her bladder,Source Provider:ROOSEVELT MAYS * Electronic signature of BRIA Becerra on 02/21/2025 at 10:51 PM CDT Sign off status: Pending * Provider: BRIA Bustamante Date: 07/08/2023 Generated for Ramandeep vargas/Jean-Pierre/eTransmitting on: 0 02/21/2025 10:51 PM CDT
--- OUTSIDE RECORDS SUMMARY | 2024-05-14 05:00 | XMS_ITS ---
Author Organization [facility] Address [address] [place] [address] Care Team Providers Care Precision Aircraft Systems Assembler Name Role Phone Priyanka Parisi Unavailable REASON FOR VISIT having trouble holding her bladder,Source Provider:ROOSEVELT MAYS Problems Problem Type SNOMED Code ICD Code Onset Dates Problem Status W/U Status Risk Notes Problem Mixed incontinence (612797292) Urinary incontinence, mixed (N39.46) Active confirmed Problem Postmenopausal atrophic vaginitis (32078650) Postmenopausal atrophic vaginitis (N95.2) Active confirmed Problem Recurrent urinary tract infection (532804080) Recurrent UTI (N39.0) Active confirmed Encounters Encounter Location Date Provider Diagnosis [facility] [address] [place] [address] [address] 05/14/2024 Priyanka Parisi Plan Of Treatment Next Appt Details Provider Name:Priyanka Parmar, 06/12/2025 10:00:00 AM, [address], [address], [address], Progress Notes * MAX MERCADO SDOB:1950 (75 yo F)Acc No.[id number]:05/14/2024 Progress Notes Patient: MAX YBARRA Provider: BRIA Bustamante :1950 A ge:74 Y S ex:Female Date:05/14/2024 Address[place] [id number] Subjective: * Chief Complaints: * h aving trouble holding her bladder,Source Provider:ROOSEVELT MAYS Billing Information: * Procedure Codes: * Electronic signature of BRIA Becerra on 02/21/2025 at 10:50 PM CDT Sign off status: Pending * Provider: BRIA Bustamante Date: 1 07/15/2023 Generated for Ramandeep vargas/Jean-Pierre/Charmaine on: 0 02/21/2025 10:50 PM CDT
--- OUTSIDE RECORDS SUMMARY | 2024-06-08 05:40 | XMS_ITS ---
Author Organization [facility] Address [address] [place] [address] Care Team Providers Care Records Custodian Name Role Phone Priyanka Parisi Unavailable REASON FOR VISIT needs meds refilled Encounters Encounter Location Date Provider Diagnosis [facility] [address] [place] [address] 06/08/2024 Priyanka Parisi Plan Of Treatment Next Appt Details Provider Name:Priyanka Parmar, 06/12/2025 10:00:00 AM, [address], [place], [address], Progress Notes * MAX MERCADO SDOB:1950 (75 yo F)Acc No.[id number]:06/08/2024 Progress Notes Patient: MAX YBARRA Provider: BRIA Bustamante :1950 A ge:74 Y S ex:Female Date:06/08/2024 Address[address] [id number] Subjective: * Chief Complaints: * N eeds meds refilled Billing Information: * Procedure Codes: * Electronic signature of BRIA Becerra on 02/21/2025 at 10:51 PM CDT Sign off status: Pending * Provider: BRIA Bustamante Date: 1 08/09/2023 Generated for Ramandeep vargas/Jean-Pierre/eTbarbraitting on: 0 02/21/2025 10:51 PM CDT
--- OUTSIDE RECORDS SUMMARY | 2024-09-03 05:20 | XMS_ITS ---
Author Organization [facility] Address [address] [place] [address] Care Team Providers Care Preparation Department Supervisor Name Role Phone Priyanka Parisi Unavailable [phone] REASON FOR VISIT 1y f/u for ua and pvr,Source Provider:ROOSEVELT MAYS Encounters Encounter Location Date Provider Diagnosis [facility] [address] [facility] [address] [place] [address] 09/03/2024 Priyanka Parisi Plan Of Treatment Next Appt Details Provider Name:Priyanka Parmar, 06/12/2025 10:00:00 AM, [address], [place], [address], Progress Notes * MAX MERCADO SDOB:1950 (75 yo F)Acc No.[id number]:09/03/2024 Progress Notes Patient: MAX YBARRA Provider: BRIA Bustamante :1950 A ge:74 Y S ex:Female Date:09/03/2024 [facility] [address] [id number] Subjective: * Chief Complaints: * 1 y f/u for ua and pvr,Source Provider:ROOSEVELT MAYS * Electronic signature of BRIA Becerra on 02/21/2025 at 10:51 PM CDT Sign off status: Pending * Provider: BRIA Bustamante Date: 0 09/03/2024 Generated for Ramandeep vargas/Jean-Pierre/Yomairaitting on: 0 02/21/2025 10:51 PM CDT
[2024-11-26 10:32] VITALS: BP 137/79; BMI 42.2
[2025-02-21 22:35] VITALS: BP 103/65; PULSE 99; RESP 18; TEMP 37.8; O2SAT 91; BMI 46.5
--- OUTSIDE RECORDS SUMMARY | 2025-02-21 22:50 | XMS_ITS | Encounter Summary ---
Author Organization [facility] Address [address] [place] [address] Care Team Providers Care Mastic Floor Layer Name Role Phone CarolClaudia raza Primary Care Provider +1 [phone] Encounter Details Date Type Department Care Team (Latest Contact Info) Description 02/14/2002 Outpatient Historical [facility] Medicine- [address] [phone] Jeff Hatfield MD [address] [facility] [address] [place] [phone] ARTHROPATHY NOS-UNSPEC (Primary Dx); ALLERGY, UNSPECIFIED Social History Tobacco Use Types Packs/Day Years Used Date Smoking Tobacco: Never Assessed Comments Unknown Sex and Gender Information Value Date Recorded Sex Assigned at Not on file Legal 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
--- OUTSIDE RECORDS SUMMARY | 2025-02-21 22:50 | XMS_ITS | Encounter Summary ---
Author Organization [facility] Address [address] [place] [address] Care Team Providers Care Tax Record Clerk Name Role Phone CarolClaudia raza Primary Care Provider +1 [phone] Encounter Details Date Type Department Care Team (Latest Contact Info) Description 12/08/[address] 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
--- OUTSIDE RECORDS SUMMARY | 2025-02-21 22:50 | XMS_ITS | Encounter Summary ---
Author Organization [facility] Address [address] [place] [address] Phone Care Team Providers Care Weight Trainer Name Role Phone Unavailable Primary Care Provider Unavailabl e Reason for Visit * Reason Comments Med Refill Encounter Details Date Type Department Care Team (Late st Contact Info) Description 04/23/2020 Refill [facility] [address] [place], [place] [address] Sunita Hogue MD Social History Tobacco Use [...]
--- OUTSIDE RECORDS SUMMARY | 2025-02-21 22:50 | XMS_ITS | Encounter Summary ---
Author Organization [facility] Address [address] [place] [address] Care Team Providers Care Employment Specialist/Program Manager Name Role Phone CarolClaudia milligan Primary Care Provider +1 -[phone] Encounter Details Date Type Department Care Team (Latest Contact Info) Description 06/08/2002 Outpatient Historical [facility] Family Medicine [place] 104 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
--- OUTSIDE RECORDS SUMMARY | 2025-02-21 22:50 | XMS_ITS | Encounter Summary ---
Author Organization [facility] Address [address] [place] [address] Care Team Providers Care Breed To Wean Production Technician Name Role Phone Claudia Medina DO Primary Care Provider +1 -[phone] Encounter Details Date Type Department Care Team (Late st Contact Info) Description 08/24/2002 Outpatient Historical [facility] Jeff Hatfield MD [address] [facility] 200 [place] [address] Social History Tobacco Use Types Packs/Day Years Used Date Smoking Tobacco: Never Assessed Comments Unknown Sex and Gender Information Value Date Recorded Sex Assigned at Not on file 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
--- OUTSIDE RECORDS SUMMARY | 2025-02-21 22:50 | XMS_ITS | Patient Health Record ---
Author Organization [facility] Address [address] [place] [address] Care Team Providers Care Educational Technician Name Role Phone Priyanka Parisi Unavailable Sumeet Jean-Baptiste Unavailable [phone] Allergies Allergen (clinical drug ingredient) Drug/Non Drug Allergy documented on EMR Reaction Allergy Type Onset Date Status meperidine Demerol Reaction 1:Anaphylaxis Drug Allergy 07/18/2023 active fentanyl fentaNYL Reaction 1:Anaphylaxis Drug Allergy 07/18/2023 active Sulfamethoxazole Reaction 1:Facial Swelling Drug Allergy 07/18/2023 active Morphine and Related Reaction 1:Facial Swelling Drug Allergy 07/18/2023 active Results Component Value Reference Range Notes UA Without Micro-[place], [place] - [address] Reviewed date:06/12/2024 09:32:30 AM Interpretation: Performing Lab: Notes/Report: Glucose 0 Bili 0 Ketones 0 Sp [place] 1.025 Blood 0 pH 6.0 Protein +- [...] Status Risk Notes Problem Postmenopausal atrophic vaginitis (65175266) Postmenopausal atrophic vaginitis (N95.2) Active confirmed Problem Mixed incontinence (800706169) Urinary incontinence, mixed (N39.46) Active confirmed Problem Medication management (309033244) Medication management (Z79.899) Active confirmed Problem Recurrent urinary tract infection (199560800) Recurrent UTI (N39.0) Active confirmed Vital Signs Heart Rate 88 /min 06/12/2024 Temperature 98.07 degrees Fahrenheit 06/12/2024 Height-cm 165.10 cm 06/12/2024 Blood pressure diastolic 90 mm Hg 06/12/2024 Weight-kg 123.2 kg 06/12/2024 Height 65.00 in 06/12/2024 Blood pressure systolic 139 mm Hg 06/12/2024 Weight 271.6 lbs 06/12/2024 BMI 45.19 kg/m2 06/12/2024 Encounters Encounter Location Date Provider Diagnosis [facility] [address] [place] [address] [place] [address] 06/12/2024 Priyanka Pairsi Urinary incontinence, mixed N39.46 ; Recurrent UTI N39.0 ; Postmenopausal atrophic vaginitis N95.2 and Medication management Z79.899 [facility] [address] [place] [address] [place] [address] 03/02/2024 Sumeet Wrightsay [facility] [address] [place] [address] [place] [address] 05/09/2024 Sumeet Wrightsay [facility] [address] [place] [address] [place] [address] 05/16/2024 Sumeet Wrightsay [facility] [address] [place] [address] [place] [address] 08/31/2024 Sumeettyler Jean-Baptiste Assessments Encounter Date Diagnosis (ICD Code) [...] Pelvic pain or discomfort Causes: Anatomical Factors: [place] urethra in women, structural abnormalities in the [...] Provider Name:Priyanka Parmar, 06/12/2025 10:00:00 AM, [address], [place], [address], Insurance Providers Payer Name Payer Address Payer Phone Subscriber Number Group Number Insured Name Patient Relationship to Insured Coverage Start Date Coverage End Date [facility] [employer] [address] [address] [place] [address] [id number] MAX MERCADO Self - patient is the insured
--- OUTSIDE RECORDS SUMMARY | 2025-02-21 22:50 | XMS_ITS | Encounter Summary ---
Author Organization [facility] Address [address] [address] Phone Care Team Providers Care Restaurant Inspector Name Role Phone Unavailable Primary Care Provider Unavailabl e Encounter Details Date Type Department Care Team (Late st Contact Info) Description 08/29/2020 Orders Only [facility] [address] [place] [address] Lupe Paul MA [address] [address] History of thyroid cancer; Acquired hypothyroidism Social [...] LAB CHEMISTRY METHOD 09/02/2020 1:37 PM CDT [facility] Blood Venous blood specimen / Unknown Venipuncture / Unknown 08/29/2020 3:40 PM CDT 08/29/2020 6:34 PM CDT Lenora Carranza DO LAB BLOOD ORDERABLES Final Resu lt Performing Organization Address [facility] de Phone Number [facility] [address] [address] * T3, Free (08/29/2020 3:40 PM CDT) Pathologist [facility] Free T3 2.70 2.18 - 3.98 pg/mL LAB CHEMISTRY METHOD 08/29/2020 7:14 PM CDT [facility] MA[facility] Blood Venous blood specimen / Unknown Venipuncture / Unknown 08/29/2020 3:40 PM CDT 08/29/2020 6:34 PM CDT Lenora Carranza DO LAB BLOOD ORDERABLES Final Resu lt Performing Organization Address City/[facility]/ZIP Co de Phone Number [facility] [address] [address] * T4, Free (08/29/2020 3:40 PM CDT) Free T4 1.02 0.76 - 1.46 ng/dL LAB CHEMISTRY METHOD 08/29/2020 7:14 PM CDT [facility] MA[facility] LAB Blood Venous blood specimen / Unknown Venipuncture / Unknown 08/29/2020 3:40 PM CDT 08/29/2020 6:34 PM CDT Lenora Fitzgeraldunruly DO LAB BLOOD ORDERABLES Final Resu lt [facility] [address] [address] documented in this encounter Visit Diagnoses Diagnosis History of thyroid cancer Personal history of malignant neoplasm of thyroid Acquired hypothyroidism Unspecified hypothyroidism documented in this encounter
--- OUTSIDE RECORDS SUMMARY | 2025-02-21 22:50 | XMS_ITS | Encounter Summary ---
Author Organization [facility] Address [address] [place] [address] Care Team Providers Care Funeral Planning Counselor Name Role Phone Carol, Claudia No Primary Care Provider +1 -[phone] Encounter Details Date Type Department Care Team (Latest Contact Info) Description 10/31/2002 Outpatient Historical [facility]- [address] [address] Jeff Hatfield MD [address] [facility] 200 [place] [address] ALLERGY, UNSPECIFIED (Primary Dx) Social History Tobacco Use Types Packs/Day Years Used Date Smoking Tobacco: Never Assessed Comments Unknown Sex and Gender Information Value Date Recorded Sex Assigned at Not on file Legal Sex Female 4:41 AM PUBLIC RELATIONS WRITER Gender Identity Not on file Sexual Orientation Not on file documented as of this encounter Plan of Treatment Not on file documented as of this encounter Visit Diagnoses Diagnosis Allergy, unspecified not elsewhere classified- Primary documented in this encounter Care Teams Funeral Planning Counselor Relationship Specialty Start Date End Date Claudia Medina DO [address] [facility] 19 [place] [address] PCP - General Family Practice 08/24/17 documented as of this encounter
--- OUTSIDE RECORDS SUMMARY | 2025-02-21 22:50 | XMS_ITS | Encounter Summary ---
Author Organization [facility] Address [address] [place] [address] Care Team Providers Care Head Scorer Name Role Phone CarolClaudia raza Primary Care Provider +1 -[phone] Encounter Details Date Type Department Care Team (Latest Contact Info) Description 01/03/2002 Outpatient Historical [facility] Family Medicine [place] 104 [facility] 60 [place] [address] Jeff Hatfield MD [address] [facility] 200 [place] [address] LIPOMA NOS (Primary Dx); ABDOMINAL PAIN LLQ Social History Tobacco Use Types Packs/Day Years Used Date Smoking Tobacco: Never Assessed Comments Unknown Sex and Gender Information Value Date Recorded Sex Assigned at Not on file Legal Sex Female 4:41 AM ELECTRONICS ENGINEER Gender Identity Not on file Sexual Orientation Not on file documented as of this encounter Plan of Treatment Not on file documented as of this encounter Visit Diagnoses Diagnosis Lipoma of unspecified site- Primary Abdominal pain, left lower quadrant documented in this encounter Care Teams Head Scorer Relationship Specialty Start Date End Date Claudia Medina DO [address] [facility] 19 [place] [address] PCP - General Family Practice 08/24/17 documented as of this encounter
--- OUTSIDE RECORDS SUMMARY | 2025-02-21 22:50 | XMS_ITS | Encounter Summary ---
Author Organization [facility] Address [address] [place] [address] Care Team Providers Care Annealer Helper Name Role Phone CarolClaudia raza Primary Care Provider +1 -[phone] Encounter Details Date Type Department Care Team (Latest Contact Info) Description 08/07/2001 Outpatient Historical [facility] Family Medicine [place] 104 [facility] 60 [place] [address] Jeff Hatfield MD [address] [facility] 200 [place] [address] ACUTE BRONCHITIS (Primary Dx) Social History Tobacco Use Types Packs/Day Years Used Date Smoking Tobacco: Never Assessed Comments Unknown Sex and Gender Information Value Date Recorded Sex Assigned at Not on file Legal Sex Female 4:41 AM SLOT FLOOR SUPERVISOR Gender Identity Not on file Sexual Orientation Not on file documented as of this encounter Plan of Treatment Not on file documented as of this encounter Visit Diagnoses Diagnosis Acute bronchitis- Primary documented in this encounter Care Teams Annealer Helper Relationship Specialty Start Date End Date Claudia Medina DO [address] [facility] 19 [place] [address] PCP - General Family Practice 08/24/17 documented as of this encounter
--- OUTSIDE RECORDS SUMMARY | 2025-02-21 22:50 | XMS_ITS | Encounter Summary ---
Author Organization [facility] Address [address] [place] [address] Care Team Providers Care Construction Code Administrator Name Role Phone CarolClaudia milligan Primary Care Provider +1 -[phone] Encounter Details Date Type Department Care Team (Latest Contact Info) Description 08/18/2000 Outpatient Historical [facility] Family Medicine [place] 104 [facility] 60 [place] [address] Jeff Hatfield MD [address] [facility] 200 [place] [address] Other chest pain (Primary Dx); Unspecified asthma(493.90) Social History Tobacco Use Types Packs/Day Years Used Date Smoking Tobacco: Never Assessed Comments Unknown Sex and Gender Information Value Date Recorded Sex Assigned at Not on file Legal Sex Female 4:41 AM MARKETING OPERATIONS INTERN Gender Identity Not on file Sexual Orientation Not on file documented as of this encounter Plan of Treatment Not on file documented as of this encounter Visit Diagnoses Diagnosis Other chest pain- Primary Unspecified asthma(493.90) Unspecified asthma documented in this encounter Care Teams Construction Code Administrator Relationship Specialty Start Date End Date Claudia Medina DO [address] [facility] 19 [place] [address] PCP - General Family Practice 08/24/17 documented as of this encounter
--- OUTSIDE RECORDS SUMMARY | 2025-02-21 22:50 | XMS_ITS | Encounter Summary ---
Author Organization [facility] Address [address] [place] [address] Phone Care Team Providers Care Security Technician Name Role Phone Unavailable Primary Care Provider Unavailabl e Reason for Visit * Reason Comments Med Refill Encounter Details Date Type Department Care Team (Late st Contact Info) Description 08/05/2020 Refill [facility] [address] [place], [place] [address] Sunita Hogue MD Hypothyroidism, unspecified type Social [...]
--- OUTSIDE RECORDS SUMMARY | 2025-02-21 22:50 | XMS_ITS | Encounter Summary ---
Author Organization [facility] Address [address] [place] [address] Phone Care Team Providers Care Ripening Room Hand Name Role Phone Unavailable Primary Care Provider Unavailabl e Reason for Visit * Reason Onset Date Comments Med Refill Med Refill 07/14/2020 Encounter Details Date Type Department Care Team (Late st Contact Info) Description 07/09/2020 Refill [facility]IC [facility] 600 [place], [place] [address] Sunita Hogue MD Hypothyroidism, unspecified type Social [...] Patient appointment rescheduled from 07/09/20 to 08/12/20. AL SCHEDULING COORDINATOR documented in this encounter Plan of Treatment Not on file documented as of this encounter Visit Diagnoses Diagnosis Hypothyroidism, unspecified type documented in this encounter
--- OUTSIDE RECORDS SUMMARY | 2025-02-21 22:50 | XMS_ITS | Encounter Summary ---
Author Organization [facility] Address [address] [place] [address] Care Team Providers Care Bus Person Dishwasher Name Role Phone Claudia Medinae Primary Care Provider +1 -[phone] Encounter Details Date Type Department Care Team (Latest Contact Info) Description 04/25/2002 Outpatient Historical [facility] General Surgery [place] [address] [address] [address] [place] [address] [place] [address] [facility] [address] [place] [address] LIPOMA SKIN NEC (Primary Dx) Social History Tobacco Use Types Packs/Day Years Used Date Smoking Tobacco: Never Assessed Comments Unknown Sex and Gender Information Value Date Recorded Sex Assigned at Not on file Legal Sex Female 4:41 AM INDUSTRIAL WORKERS Gender Identity Not on file Sexual Orientation Not on file documented as of this encounter Plan of Treatment Not on file documented as of this encounter Visit Diagnoses Diagnosis Lipoma of other skin and subcutaneous tissue- Primary documented in this encounter Care Teams Bus Person Dishwasher Relationship Specialty Start Date End Date Clauida Medina DO [address] [facility] 19 [place] [address] PCP - General Family Practice 08/24/17 documented as of this encounter
--- OUTSIDE RECORDS SUMMARY | 2025-02-21 22:50 | XMS_ITS | Encounter Summary ---
Author Organization [facility] Address [address] [place] [address] Phone Care Team Providers Care Brick Stacker Name Role Phone Unavailable Primary Care Provider Unavailabl e Reason for Visit * Reason Comments Med Refill Encounter Details Date Type Department Care Team (Late st Contact Info) Description 05/19/2020 Refill [facility]IC [facility] [address] [place], [place] [address] Sunita Hogue MD Social History Tobacco Use [...] contact patient unsuccessful, message left for callback. R * Telephone Encounter - Jimena Mata LPN - 05/19/2020 2:00 PM CST Spoke with patient who states she had blood work done with [facility] and will have thoseresults faxed to us. R documented in this encounter Plan of Treatment Not on file documented as of this encounter Visit Diagnoses Not on filedocumented in this encounter
--- OUTSIDE RECORDS SUMMARY | 2025-02-21 22:50 | XMS_ITS | Encounter Summary ---
Author Organization [facility] Address [address] [place] [address] Care Team Providers Care Contact Lens Blocker Name Role Phone CarolClaudia raza Primary Care Provider +1 -[phone] Encounter Details Date Type Department Care Team (Latest Contact Info) Description 05/14/2002 Outpatient Historical [facility] Family Medicine [place] 104 [facility] 60 [place] [address] Jeff Hatfield MD [address] [facility] 200 [place] [address] ACUTE SINUSITIS NOS (Primary Dx) Social History Tobacco Use Types Packs/Day Years Used Date Smoking Tobacco: Never Assessed Comments Unknown Sex and Gender Information Value Date Recorded Sex Assigned at Not on file Legal Sex Female 4:41 AM WAGE AND HOUR INVESTIGATOR Gender Identity Not on file Sexual Orientation Not on file documented as of this encounter Plan of Treatment Not on file documented as of this encounter Visit Diagnoses Diagnosis Acute sinusitis, unspecified- Primary documented in this encounter Care Teams Contact Lens Blocker Relationship Specialty Start Date End Date Claudia Medina DO [address] [facility] 19 [place] [address] PCP - General Family Practice 08/24/17 documented as of this encounter
--- OUTSIDE RECORDS SUMMARY | 2025-02-21 22:50 | XMS_ITS | Encounter Summary ---
Author Organization [facility] Address [address] [place] [address] Care Team Providers Care Software Performance Engineer Name Role Phone CarolClaudia raza Primary Care Provider +1 -[phone] Encounter Details Date Type Department Care Team (Latest Contact Info) Description 11/10/2001 Outpatient Historical [facility] Family Medicine [place] 104 [facility] 60 [place] [address] Jeff Hatfield MD [address] [facility] 200 [place] [address] HYPERLIPIDEMIA NEC/NOS (Primary Dx) Social History Tobacco Use Types Packs/Day Years Used Date Smoking Tobacco: Never Assessed Comments Unknown Sex and Gender Information Value Date Recorded Sex Assigned at Not on file Legal Sex Female 4:41 AM SET UP MOLD TECHNICIAN Gender Identity Not on file Sexual Orientation Not on file documented as of this encounter Plan of Treatment Not on file documented as of this encounter Visit Diagnoses Diagnosis Other and unspecified hyperlipidemia- Primary documented in this encounter Care Teams Software Performance Engineer Relationship Specialty Start Date End Date Claudia Medina DO [address] [facility] 19 [place] [address] PCP - General Family Practice 08/24/17 documented as of this encounter
--- OUTSIDE RECORDS SUMMARY | 2025-02-21 22:50 | XMS_ITS | Encounter Summary ---
Author Organization [facility] Address [address] [place] [address] Care Team Providers Care Yarn Dyer Name Role Phone CarolClaudia milligan Primary Care Provider +1 -[phone] Encounter Details Date Type Department Care Team (Latest Contact Info) Description 10/03/2002 Outpatient Historical [facility] Family Medicine [place] 104 [facility] 60 [place] [address] Jeff Hatfield MD [address] [facility] 200 [place] [address] ARTHROPATHY NOS-UNSPEC (Primary Dx); JOINT PAIN-PELVIS Social History Tobacco Use Types Packs/Day Years Used Date Smoking Tobacco: Never Assessed Comments Unknown Sex and Gender Information Value Date Recorded Sex Assigned at Not on file Legal Sex Female 4:41 AM ROUTE SUPERVISOR Gender Identity Not on file Sexual Orientation Not on file documented as of this encounter Plan of Treatment Not on file documented as of this encounter Visit Diagnoses Diagnosis Arthropathy, unspecified, site unspecified- Primary Pain in joint, pelvic region and thigh documented in this encounter Care Teams Yarn Dyer Relationship Specialty Start Date End Date Claudia Medina DO [address] [facility] 19 [place] [address] PCP - General Family Practice 08/24/17 documented as of this encounter
--- OUTSIDE RECORDS SUMMARY | 2025-02-21 22:50 | XMS_ITS | Encounter Summary ---
Author Organization [facility] Address [address] [place] [address] Care Team Providers Care Sales Office Administrator Name Role Phone Claudia Medina DO Primary Care Provider +1 -[phone] Encounter Details Date Type Department Care Team (Latest Contact Info) Description 09/26/2001 Outpatient Historical [facility] Family Medicine [place] 104 [facility] 60 [place] [address] Gary Guaman DO NO ADDRESS ON FILE ACUTE BRONCHITIS (Primary Dx) Social History Tobacco Use Types Packs/Day Years Used Date Smoking Tobacco: Never Assessed Comments Unknown Sex and Gender Information Value Date Recorded Sex Assigned at Not on file Legal Sex Female 4:41 AM CEO AND PRESIDENT Gender Identity Not on file Sexual Orientation Not on file documented as of this encounter Plan of Treatment Not on file documented as of this encounter Visit Diagnoses Diagnosis Acute bronchitis- Primary documented in this encounter Care Teams Sales Office Administrator Relationship Specialty Start Date End Date Claudia Medina DO [address] [facility] 19 [place], [place] [address] PCP - General Family Practice 08/24/17 documented as of this encounter
--- OUTSIDE RECORDS SUMMARY | 2025-02-21 22:50 | XMS_ITS | Encounter Summary ---
Author Organization [facility] Address [address] [place] [address] Care Team Providers Care Elementary Classroom Teacher Name Role Phone Claudia Medina DO Primary Care Provider +1 -[phone] Encounter Details Date Type Department Care Team (Latest Contact Info) Description 05/01/2002 Outpatient Historical [facility] General Surgery [place] [address] [address] [address] [place] [address] [place] [address] [facility] [address] [place] [address] SURGERY FOLLOWUP, UNSPEC (Primary Dx) Social History Tobacco Use Types Packs/Day Years Used Date Smoking Tobacco: Never Assessed Comments Unknown Sex and Gender Information Value Date Recorded Sex Assigned at Not on file Legal Sex Female 4:41 AM NON EMERGENCY SERVICES AMBULANCE DRIVER Gender Identity Not on file Sexual Orientation Not on file documented as of this encounter Plan of Treatment Not on file documented as of this encounter Visit Diagnoses Diagnosis Follow-up examination, following unspecified surgery- Primary documented in this encounter Care Teams Elementary Classroom Teacher Relationship Specialty Start Date End Date Claudia Medina DO [address] [facility] 19 [place] [address] PCP - General Family Practice 08/24/17 documented as of this encounter
--- OUTSIDE RECORDS SUMMARY | 2025-02-21 22:50 | XMS_ITS | Encounter Summary ---
Author Organization [facility] Address [address] [place] [address] Phone Care Team Providers Care Insulation Board Back Tender Name Role Phone Unavailable Primary Care Provider Unavailabl e Reason for Visit * Reason Onset Date Comments Med Refill Med Refill 06/20/2020 Encounter Details Date Type Department Care Team (Late st Contact Info) Description 06/16/2020 Refill [facility] [address] [place], [place] [address] Sunita Hogue MD Hypothyroidism, unspecified type Social [...]
--- OUTSIDE RECORDS SUMMARY | 2025-02-21 22:50 | XMS_ITS | Clinical Summary ---
Author Organization [facility] Address [address] [facility] 60 [place] [address] Care Team Providers Care Buffing Machine Operator Name Role Phone Claudia Medina DO Primary Care Provider +1 -[phone] Allergies Active Allergy Reactions Criticality Noted Date [...] 1 Tablet (112 mcg) by mouth daily auto service advisor Please schedule an appointment before next refill. [...] 5 Active fluticasone propionate (FLONASE) 50 mcg/spray [place], Suspension nasal inhaler INSTILL 2 SPRAYS IN [...] Encounters Date Type Department Care Team Description 02/06/2025 External Device Data [facility] ABSTRACTION Provider, Abstract 02/05/2025 External Device Data [facility] ABSTRACTION Provider, Abstract [...] CDT - 12/10/2024 8:08 AM CDT Emergency [facility] Emergency Department [address] [place] [phone] Trupti Benton MD Chronic pain of left [...] drink = 0.6 oz pur e alcohol) Feeling Safe Answer Date Recorded Are you in a relationship wi th someone who hurts you emotionally and/or physically? No 12/10/2024 Comments No Sex and Gender Information Value Date Recorded Sex Assigned at Not on file Legal Sex Female 3:18 PM [employer]Y INTERNS[employer]IP Gender Identity Not on file Sexual Orientation [...] 01/29/2000 ZOSTER VACCINE (1 of 2) 01/29/2000 OSTEOPOROSIS SCREENING 05/09/2018 3, 05/09/2013, 04/17/2012, Additional history exists INFLUENZA VACCINE (#1) 2025 04/12/2020, 2001 RSV VACCINE (60+ or ) (1 - 1-dose 75+ series) 2025 Procedures Procedure Name Priority Date/Time Associated Diagnosis Comments CT PELVIS WO CONTRAST Stat 12/10/2024 5:[address] CERVICAL SPINE WO CONTRAST Stat 12/10/2024 5:[address] HEAD WO CONTRAST Stat 12/10/2024 5 :30 AM CDT XR KNEE 3 VW LEFT Stat 12/10/2024 5:1 5 AM CDT XR DEXA BONE DENSITY AXIAL 1 OR MORE SITES Routine 05/09/2013 1:06 PM EPIDEMIOLOGY INTERNSHIP Osteoporosis from Last 3 Months or Most [...] a portion of the colon without obstruction. us Trupti Benton MD CT ORDERABLES Final Result [...] Cervical spine degenerative changes without acute fracture. us Trupti Benton MD CT ORDERABLES Final Result [...] MD DIAGNOSTIC IMAGING ORDERABLES Final Result * XR DEXA BONE DENSITY AXIAL 1 OR MORE SITES (05/09/2013 1:06 PM EPIDEMIOLOGY INTERNSHIP) Anatomical Region Laterality Modality Other Narrative 05/09/2013 1:39 PM EPIDEMIOLOGY INTERNSHIP PROCEDURE DEXA BONE DENSITY, 09 May 2013 [...] Most Recently Relevant to Health Maintenance Insurance [facility] DUAL COMPLETE PPO DSNP [facility] [id number] Care Teams Buffing Machine Operator Relationship Specialty Start Date End Date Claudia Medina DO [address] [address] PCP - General Family Practice 08/24/17
--- OUTSIDE RECORDS SUMMARY | 2025-02-21 22:50 | XMS_ITS | Encounter Summary ---
Author Organization [facility] Address [address] [place] [address] Care Team Providers Care Call Centre Supervisor Name Role Phone Carol, Claudia No Primary Care Provider +1 -[phone] Encounter Details Date Type Department Care Team (Latest Contact Info) Description 05/28/2002 Outpatient Historical [facility] Family Medicine [place] 104 [facility] 60 [place] [address] Jeff Hatfield MD [address] [facility] 200 [place] [address] OTITIS MEDIA NOS (Primary Dx); Dysfunct eustachian tube Social History Tobacco Use Types Packs/Day Years Used Date Smoking Tobacco: Never Assessed Comments Unknown Sex and Gender Information Value Date Recorded Sex Assigned at Not on file Legal Sex Female 4:41 AM CLAM SHUCKER Gender Identity Not on file Sexual Orientation Not on file documented as of this encounter Plan of Treatment Not on file documented as of this encounter Visit Diagnoses Diagnosis Unspecified otitis media- Primary Dysfunct eustachian tube Dysfunction of Eustachian tube documented in this encounter Care Teams Call Centre Supervisor Relationship Specialty Start Date End Date Claudia Medina DO [address] [facility] 19 [place], [place] [address] PCP - General Family Practice 08/24/17 documented as of this encounter
--- OUTSIDE RECORDS SUMMARY | 2025-02-21 22:50 | XMS_ITS | Encounter Summary ---
Author Organization [email or web address] [facility] Address [address] [place] [address] Care Team Providers Care Foreign Law Consultant Name Role Phone Claudia Medina DO Primary Care Provider +1 -[phone] Encounter Details Date Type Department Care Team (Late st Contact Info) Description 04/26/2002 Outpatient Historical [facility] [place] [address] [facility] [address] [place] [address] Social History Tobacco Use Types Packs/Day Years Used Date Smoking Tobacco: Never Assessed Comments Unknown Sex and Gender Information Value Date Recorded Sex Assigned at Not on file Legal Sex Female 4:41 AM SITE DIRECTOR Gender Identity Not on file Sexual Orientation Not on file documented as of this encounter Plan of Treatment Not on file documented as of this encounter Visit Diagnoses Not on filedocumented in this encounter Care Teams Foreign Law Consultant Relationship Specialty Start Date End Date Claudia Medina DO [address] [place], [place] [address] PCP - General Family Practice 08/24/17 documented as of this encounter
--- OUTSIDE RECORDS SUMMARY | 2025-02-21 22:50 | XMS_ITS | Encounter Summary ---
Author Organization [facility] Address [address] [place] [address] Care Team Providers Care Regulated Program Manager Name Role Phone CarolClaudia milligan Primary Care Provider +1 -[phone] Encounter Details Date Type Department Care Team (Latest Contact Info) Description 11/03/2001 Outpatient Historical [facility] Family Medicine [place] [address] [facility] 60 [place] [address] Jeff Hatfield MD [address] [facility] 200 [place] [address] ALLERGY, UNSPECIFIED (Primary Dx); DEPRESSIVE DISORDER NEC Social History Tobacco Use Types Packs/Day Years Used Date Smoking Tobacco: Never Assessed Comments Unknown Sex and Gender Information Value Date Recorded Sex Assigned at Not on file Legal Sex Female 4:41 AM SUBSTANCE ABUSE SERVICES DIRECTOR Gender Identity Not on file Sexual Orientation Not on file documented as of this encounter Plan of Treatment Not on file documented as of this encounter Visit Diagnoses Diagnosis Allergy, unspecified not elsewhere classified- Primary Depressive disorder, not elsewhere classified documented in this encounter Care Teams Regulated Program Manager Relationship Specialty Start Date End Date Claudia Medina DO [address] [facility] 19 [place] [address] PCP - General Family Practice 08/24/17 documented as of this encounter
--- OUTSIDE RECORDS SUMMARY | 2025-02-21 22:50 | XMS_ITS | Encounter Summary ---
Author Organization [facility] Address [address] [place] [address] Care Team Providers Care Fashion Illustrator Name Role Phone Claudia Medina DO Primary Care Provider +1 -[phone] Encounter Details Date Type Department Care Team (Latest Contact Info) Description 09/29/2001 Outpatient Historical [facility] Family Medicine [place] 104 [facility] 60 [place] [address] Jeff Hatfield MD [address] [facility] 200 [place] [phone] Dysfunct eustachian tube (Primary Dx); ARTHROPATHY NOS-UNSPEC; FEMALE CLIMACTERIC STATE Social History Tobacco Use Types Packs/Day Years Used Date Smoking Tobacco: Never Assessed Comments Unknown Sex and Gender Information Value Date Recorded Sex Assigned at Not on file Legal Sex Female 4:41 AM NASCAR PIT CREW PERSON Gender Identity Not on file Sexual Orientation Not on file documented as of this encounter Plan of Treatment Not on file documented as of this encounter Visit Diagnoses Diagnosis Dysfunct eustachian tube- Primary Dysfunction of Eustachian tube Arthropathy, unspecified, site unspecified Symptomatic menopausal or female climacteric states documented in this encounter Care Teams Fashion Illustrator Relationship Specialty Start Date End Date Claudia Medina DO [address] [facility] 19 [place] [address] PCP - General Family Practice 08/24/17 documented as of this encounter
--- OUTSIDE RECORDS SUMMARY | 2025-02-21 22:50 | XMS_ITS | Encounter Summary ---
Author Organization [facility] Address [address] [place] [address] Care Team Providers Care Field Hand Name Role Phone Claudia Medinae Primary Care Provider +1 -[phone] Encounter Details Date Type Department Care Team (Latest Contact Info) Description 04/24/2002 Outpatient Historical [facility] General Surgery [place] [address] [address] [address] [place] [phone] [place] [address] [facility] [address] [place] [address] LIPOMA SKIN NEC (Primary Dx) Social History Tobacco Use Types Packs/Day Years Used Date Smoking Tobacco: Never Assessed Comments Unknown Sex and Gender Information Value Date Recorded Sex Assigned at Not on file Legal Sex Female 4:41 AM PIPE ORGAN TUNER AND REPAIRER Gender Identity Not on file Sexual Orientation Not on file documented as of this encounter Plan of Treatment Not on file documented as of this encounter Visit Diagnoses Diagnosis Lipoma of other skin and subcutaneous tissue- Primary documented in this encounter Care Teams Field Hand Relationship Specialty Start Date End Date Claudia Medina DO [address] [facility] 19 [place] [address] PCP - General Family Practice 08/24/17 documented as of this encounter
--- OUTSIDE RECORDS SUMMARY | 2025-02-21 22:50 | XMS_ITS | Encounter Summary ---
Author Organization [facility] Address [address] [place] [address] Care Team Providers Care Industrial Green Systems Designer Name Role Phone CarolClaudia raza Primary Care Provider +1 -[phone] Encounter Details Date Type Department Care Team (Latest Contact Info) Description 03/20/2002 Outpatient Historical [facility] Medicine- [address] [phone] Jeff Hatfield MD [address] [facility] 200 [place] [phone] VACCINE FOR INFLUENZA (Primary Dx) Social History Tobacco Use Types Packs/Day Years Used Date Smoking Tobacco: Never Assessed Comments Unknown Sex and Gender Information Value Date Recorded Sex Assigned at Not on file Legal Sex Female 4:41 AM PAY AGENT Gender Identity Not on file Sexual Orientation Not on file documented as of this encounter Plan of Treatment Not on file documented as of this encounter Visit Diagnoses Diagnosis Need vaccination-viral disease- Primary Need for prophylactic vaccination and inoculation against other viral diseases documented in this encounter Care Teams Industrial Green Systems Designer Relationship Specialty Start Date End Date Claudia Medina DO [address] [facility] 19 [place] [address] PCP - General Family Practice 08/24/17 documented as of this encounter
--- OUTSIDE RECORDS SUMMARY | 2025-02-21 22:50 | XMS_ITS | Encounter Summary ---
Author Organization [facility] Address [address] [place] [address] Care Team Providers Care Shoe Turner Name Role Phone CarolClaudia raza Primary Care Provider +1 -[phone] Encounter Details Date Type Department Care Team (Latest Contact Info) Description 04/03/2002 Outpatient Historical [facility] Family Medicine [place] 104 [facility] 60 [place] [address] Jeff Hatfield MD [address] [facility] 200 [place] [address] Dysfunct eustachian tube (Primary Dx); MASTODYNIA Social History Tobacco Use Types Packs/Day Years Used Date Smoking Tobacco: Never Assessed Comments Unknown Sex and Gender Information Value Date Recorded Sex Assigned at Not on file Legal Sex Female 4:41 AM RAILROAD CARMAN Gender Identity Not on file Sexual Orientation Not on file documented as of this encounter Plan of Treatment Not on file documented as of this encounter Visit Diagnoses Diagnosis Dysfunct eustachian tube- Primary Dysfunction of Eustachian tube Mastodynia documented in this encounter Care Teams Shoe Turner Relationship Specialty Start Date End Date Claudia Medina DO [address] [facility] 19 [place] [address] PCP - General Family Practice 08/24/17 documented as of this encounter
--- OUTSIDE RECORDS SUMMARY | 2025-02-21 22:50 | XMS_ITS | Encounter Summary ---
Author Organization [facility] Address [address] [address] Phone Care Team Providers Care Welding Instructor Name Role Phone Unavailable Primary Care Provider Unavailabl e Reason for Visit * Reason Onset Date Comments Med Refill 02/28/2023 Encounter Details Date Type Department Care Team (Late st Contact Info) Description 02/28/2023 Telephone [facility] [address] [address] Lenora KlelerBRIGIDA [address] [address] Med Refill Social History Tobacco Use Types [...] - 03/01/2023 3:24 PM CDT Routing to [place] * Telephone Encounter - Lenora Keller LPN - 02/28/2023 4:36 PM CDT [facility] Levothyroxine 100 mcg. No recent labs. documented in this encounter Plan of Treatment Not on file documented as of this encounter Visit Diagnoses Not on filedocumented in this encounter
--- OUTSIDE RECORDS SUMMARY | 2025-02-21 22:51 | XMS_ITS | Encounter Summary ---
Author Organization [facility] Address [address] [place] [address] Care Team Providers Care Rd Scientist Name Role Phone CarolClaudia raza Primary Care Provider +1 -[phone] Encounter Details Date Type Department Care Team (Latest Contact Info) Description 06/01/1999 Outpatient Historical [facility] Family Medicine [place] 104 [facility] 60 [place] [address] Jeff Hatfield MD [address] [facility] 200 [place] [address] Excessive menstruation (Primary Dx); Unspecified symptom associated with female genital organs Social History Tobacco Use Types Packs/Day Years Used Date Smoking Tobacco: Never Assessed Comments Unknown Sex and Gender Information Value Date Recorded Sex Assigned at Not on file Legal Sex Female 4:41 AM CYLINDER PRESS OPERATOR HELPER Gender Identity Not on file Sexual Orientation Not on file documented as of this encounter Plan of Treatment Not on file documented as of this encounter Visit Diagnoses Diagnosis Excessive menstruation- Primary Excessive or frequent menstruation Unspecified symptom associated with female genital organs documented in this encounter Care Teams Rd Scientist Relationship Specialty Start Date End Date Claudia Medina DO [address] [facility] 19 [place] [address] PCP - General Family Practice 08/24/17 documented as of this encounter
--- OUTSIDE RECORDS SUMMARY | 2025-02-21 22:51 | XMS_ITS | Encounter Summary ---
Author Organization [facility] Address [address] [place] [address] Care Team Providers Care Complex Care Nurse Practitioner Name Role Phone Carol, Claudiajorge Sarabia Primary Care Provider +1 -[phone] Encounter Details Date Type Department Care Team (Latest Contact Info) Description 03/01/2005 Outpatient Historical [facility] Family Medicine [place] 104 [facility] 60 [place] [address] Jeff Hatfield MD [address] [facility] 200 [place] [address] ASTHMA UNSPECIFIED (Primary Dx); OSTEOARTHROS NOS-UNSPEC Social History Tobacco Use Types Packs/Day Years Used Date Smoking Tobacco: Never Assessed Comments Unknown Sex and Gender Information Value Date Recorded Sex Assigned at Not on file Legal Sex Female 4:41 AM WIG SALES CONSULTANT Gender Identity Not on file Sexual Orientation Not on file documented as of this encounter Plan of Treatment Not on file documented as of this encounter Visit Diagnoses Diagnosis Unspecified asthma(493.90)- Primary Unspecified asthma Osteoarthrosis, unspecified whether generalized or localized, unspecified site documented in this encounter Care Teams Complex Care Nurse Practitioner Relationship Specialty Start Date End Date Claudia Medina DO [address] [facility] 19 [place], [place] [address] PCP - General Family Practice 08/24/17 documented as of this encounter
--- OUTSIDE RECORDS SUMMARY | 2025-02-21 22:51 | XMS_ITS | Encounter Summary ---
Author Organization [facility] Address [address] [place] [address] Care Team Providers Care Evp Head Of [employer] Experience Strategy Name Role Phone Claudia Medina DO Primary Care Provider +1 -[phone] Encounter Details Date Type Department Care Team (Late st Contact Info) Description 08/11/2004 Outpatient Historical [facility] Jeff Hatfield MD [address] [facility] 200 [place] [address] Social History Tobacco Use Types Packs/Day Years Used Date Smoking Tobacco: Never Assessed Comments Unknown Sex and Gender Information Value Date Recorded Sex Assigned at Not on file Legal Sex Female 4:41 AM EMERGENCY MEDICAL TECHNICIAN Gender Identity Not on file Sexual Orientation Not on file documented as of this encounter Plan of Treatment Not on file documented as of this encounter Procedures Procedure Name Priority Date/Time Associated Diagnosis Comments TSH Routine 08/11/2004 9:57 AM EMERGENCY MEDICAL TECHNICIAN documented in this encounter Results * TSH (08/11/2004 9:57 AM EMERGENCY MEDICAL TECHNICIAN) TSH 4.09 0.49 - 4.67 uIU/ml INTERFACE SYSTEM 08/11/2004 9:57 AM EMERGENCY MEDICAL TECHNICIAN us Jeff Hatfield MD CHEMISTRY ORDERABLES Final Result INTERFACE SYSTEM Refer to clinic/hospital department documented in this encounter Visit Diagnoses Not on filedocumented in this encounter Care Teams Evp Head Of [employer] Experience Strategy Relationship Specialty Start Date End Date Claudia Medina DO [address] [address] PCP - General Family Practice 08/24/17 documented as of this encounter
--- OUTSIDE RECORDS SUMMARY | 2025-02-21 22:51 | XMS_ITS | Encounter Summary ---
Author Organization [facility] Address [address] [place] [address] Care Team Providers Care Centrifugal Screen Tender Name Role Phone CarolClaudia DO Primary Care Provider +1 -[phone] Encounter Details Date Type Department Care Team (Latest Contact Info) Description 05/09/2000 Outpatient Historical [facility] Family Medicine [place] 104 [facility] 60 [place] [address] Jeff Hatfield MD [address] [facility] 200 [place] [address] Dysfunct eustachian tube (Primary Dx); Arthropathy, unspecified, site unspecified Social History Tobacco Use Types Packs/Day Years Used Date Smoking Tobacco: Never Assessed Comments Unknown Sex and Gender Information Value Date Recorded Sex Assigned at Not on file Legal Sex Female 4:41 AM TONGUE BINDER Gender Identity Not on file Sexual Orientation Not on file documented as of this encounter Plan of Treatment Not on file documented as of this encounter Visit Diagnoses Diagnosis Dysfunct eustachian tube- Primary Dysfunction of Eustachian tube Arthropathy, unspecified, site unspecified documented in this encounter Care Teams Centrifugal Screen Tender Relationship Specialty Start Date End Date Claudia Medina DO [address] [facility] 19 [place] [address] PCP - General Family Practice 08/24/17 documented as of this encounter
--- OUTSIDE RECORDS SUMMARY | 2025-02-21 22:51 | XMS_ITS | Encounter Summary ---
Author Organization [facility] Address [address] [place] [address] Care Team Providers Care Meat Cutting Block Repairer Name Role Phone Claudia Medina DO Primary Care Provider +1 -[phone] Encounter Details Date Type Department Care Team (Latest Contact Info) Description 01/20/2001 Outpatient Historical [facility] Medicine- [address] [phone] Gary Guaman DO NO ADDRESS ON FILE Unspecified sinusitis (chronic) (Primary Dx) Social History Tobacco Use Types Packs/Day Years Used Date Smoking Tobacco: Never Assessed Comments Unknown Sex and Gender Information Value Date Recorded Sex Assigned at Not on file Legal Sex Female 4:41 AM MANAGER MATERIALS MANAGEMENT Gender Identity Not on file Sexual Orientation Not on file documented as of this encounter Plan of Treatment Not on file documented as of this encounter Visit Diagnoses Diagnosis Unspecified sinusitis (chronic)- Primary documented in this encounter Care Teams Meat Cutting Block Repairer Relationship Specialty Start Date End Date Claudia Medina DO [address] [facility] 19 [place] [address] PCP - General Family Practice 08/24/17 documented as of this encounter
--- OUTSIDE RECORDS SUMMARY | 2025-02-21 22:51 | XMS_ITS | Encounter Summary ---
Author Organization [facility] Address [address] [place] [address] Care Team Providers Care Machine Applicator Cementer Name Role Phone Claudia Medina DO Primary Care Provider +1 -[phone] Encounter Details Date Type Department Care Team (Late st Contact Info) Description 05/13/2009 Ancillary Orders [facility] Imaging External Read [address] [place] [address] Patt Alegria MD [address] [place] [address] Screening Mammogram Social History Tobacco Use Types Packs/Day Years Used Date Smoking Tobacco: Never Assessed Comments No Sex and Gender Information Value Date Recorded Sex Assigned at Not on file Legal Sex Female 4:41 AM FUEL YARD OPERATOR Gender Identity Not on file Sexual Orientation Not on file documented as of this encounter Plan of Treatment Not on file documented as of this encounter Results * MAMMO SCREENING BILAT (05/13/2009 8:42 AM FUEL YARD OPERATOR) Anatomical Region Laterality Modality Breast Bilateral Mammography Narrative 05/14/2009 2:38 PM FUEL YARD OPERATOR Bilateral Mammogram Reason for Exam: Screening Comparison: [...] mammogram documented in this encounter Care Teams Machine Applicator Cementer Relationship Specialty Start Date End Date Claudia Medina DO [address] [place] [address] PCP - General Family Practice 08/24/17 documented as of this encounter
--- OUTSIDE RECORDS SUMMARY | 2025-02-21 22:51 | XMS_ITS | Encounter Summary ---
Author Organization [facility] Address [address] [place] [address] Care Team Providers Care Assistant Account Executive Name Role Phone CarolClaudia raza Primary Care Provider +1 -[phone] Encounter Details Date Type Department Care Team (Latest Contact Info) Description 01/03/2001 Outpatient Historical [facility] Family Medicine [place] 104 [facility] 60 [place] [address] Jeff Hatfield MD [address] [facility] 200 [place] [address] Gynecologic examination (Primary Dx); Breast screening, unspecified Social History Tobacco Use Types Packs/Day Years Used Date Smoking Tobacco: Never Assessed Comments Unknown Sex and Gender Information Value Date Recorded Sex Assigned at Not on file Legal Sex Female 4:41 AM CLOSET BUILDER Gender Identity Not on file Sexual Orientation Not on file documented as of this encounter Plan of Treatment Not on file documented as of this encounter Visit Diagnoses Diagnosis Gynecologic examination- Primary Gynecological examination Breast screening, unspecified documented in this encounter Care Teams Assistant Account Executive Relationship Specialty Start Date End Date Claudia Medina DO [address] [facility] 19 [place] [address] PCP - General Family Practice 08/24/17 documented as of this encounter
--- OUTSIDE RECORDS SUMMARY | 2025-02-21 22:51 | XMS_ITS | Encounter Summary ---
Author Organization [facility] Address [address] [place] [address] Care Team Providers Care Level Designer Name Role Phone Claudia Medina DO Primary Care Provider +1 -[phone] Reason for Referral * Outpatient Services (Routine) - Closed Specialty Diagnoses / Procedures Referred By Contac t Referred To Contact Diagnoses Vertigo Procedures MRI IAC W WO CONTRAST Pennie Correia PA [facility] Centralized Scheduling [address] [facility] 60 [place] [address] Phone: tel: fax: Referral ID Status Reason Start Date Expiration Date V isits Requested Visits Authorized [id number] Closed MTN View CTS to Schedule (SGF) 12/21/2016 01/21/2018 1 1 Encounter Details Date Type Department Care Team (Late st Contact Info) Description 12/21/[address] [facility] Centralized Scheduling [address] [place] [address] Pennie Correia PA NO ADDRESS [...] on file Legal Sex Female 4:41 AM MOBILE MARKETING SPECIALIST Gender Identity Not on file Sexual [...] findings to explain a cause for vertigo. [id number] Narrative Procedure Note Aaron Mahan MD - [...] findings to explain a cause for vertigo. [id number] us Pennie DOMINGUEZ MR ORDERABLES Final Re sult documented in this encounter Visit Diagnoses Diagnosis Vertigo Dizziness and giddiness Vertigo Dizziness and giddiness documented in this encounter Care Teams Level Designer Relationship Specialty Start Date End Date Claudia Medina DO [facility] [address] PCP - General Family Practice 08/24/17 documented as of this encounter
--- OUTSIDE RECORDS SUMMARY | 2025-02-21 22:51 | XMS_ITS | Encounter Summary ---
Author Organization [facility] Address [address] [place] [address] Care Team Providers Care Visitor Services Specialist Name Role Phone Carol, Claudia No Primary Care Provider +1 -[phone] Encounter Details Date Type Department Care Team (Latest Contact Info) Description 06/16/[address] [facility] Family Medicine [place] 104 [facility] 60 [place] [phone] Jeff Hatfield MD [address] [facility] 200 [place] [address] ACUTE SINUSITIS NOS (Primary Dx); ABDOMINAL PAIN UNSPEC SITE Social History Tobacco Use Types Packs/Day Years Used Date Smoking Tobacco: Never Assessed Comments Unknown Sex and Gender Information Value Date Recorded Sex Assigned at Not on file Legal Sex Female 4:41 AM STOGY MAKER Gender Identity Not on file Sexual Orientation Not on file documented as of this encounter Plan of Treatment Not on file documented as of this encounter Visit Diagnoses Diagnosis Acute sinusitis, unspecified- Primary Abdominal pain, unspecified site documented in this encounter Care Teams Visitor Services Specialist Relationship Specialty Start Date End Date Claudia Medina DO [address] [facility] 19 [place] [address] PCP - General Family Practice 08/24/17 documented as of this encounter
--- OUTSIDE RECORDS SUMMARY | 2025-02-21 22:51 | XMS_ITS | Encounter Summary ---
Author Organization [facility] Address [address] [place] [address] Care Team Providers Care Otc Clerk Name Role Phone Carol, Claudia No Primary Care Provider +1 -[phone] Encounter Details Date Type Department Care Team (Latest Contact Info) Description 08/07/2004 Outpatient Historical [facility] Family Medicine [place] 104 [facility] 60 [place] [address] Jeff Hatfield MD [address] [place] [address] URIN TRACT INFECTION NOS (Primary Dx); OSTEOARTHROS NOS-UNSPEC Social History Tobacco Use Types Packs/Day Years Used Date Smoking Tobacco: Never Assessed Comments Unknown Sex and Gender Information Value Date Recorded Sex Assigned at Not on file Legal Sex Female 4:41 AM TIMBER SELECTOR Gender Identity Not on file Sexual Orientation Not on file documented as of this encounter Plan of Treatment Not on file documented as of this encounter Visit Diagnoses Diagnosis Urinary tract infection, site not specified- Primary Osteoarthrosis, unspecified whether generalized or localized, unspecified site documented in this encounter Care Teams Otc Clerk Relationship Specialty Start Date End Date Claudia Medina DO [address] [facility] 19 [place], [place] [address] PCP - General Family Practice 08/24/17 documented as of this encounter
--- OUTSIDE RECORDS SUMMARY | 2025-02-21 22:51 | XMS_ITS | Encounter Summary ---
Author Organization [facility] Address [address] [place] [address] Care Team Providers Care Financial Advisor Name Role Phone Carol, Claudia No Primary Care Provider +1 -[phone] Encounter Details Date Type Department Care Team (Late st Contact Info) Description 08/31/2000 Outpatient Historical [facility] Cardiology- [place] [address] [place] [address] Boogie Aguilar MD [address] [facility] [address] [place] [address] Other and unspecified angina pectoris (Primary Dx) Social History Tobacco Use Types Packs/Day Years Used Date Smoking Tobacco: Never Assessed Comments Unknown Sex and Gender Information Value Date Recorded Sex Assigned at Not on file Legal Sex Female 4:41 AM RADIO MECHANIC HELPER Gender Identity Not on file Sexual Orientation Not on file documented as of this encounter Plan of Treatment Not on file documented as of this encounter Visit Diagnoses Diagnosis Other and unspecified angina pectoris- Primary documented in this encounter Care Teams Financial Advisor Relationship Specialty Start Date End Date Claudia Medina DO [address] [place] [address] PCP - General Family Practice 08/24/17 documented as of this encounter
--- OUTSIDE RECORDS SUMMARY | 2025-02-21 22:51 | XMS_ITS | Encounter Summary ---
Author Organization [facility] Address [address] [place] [address] Care Team Providers Care Wind Turbine Performance Engineer Name Role Phone Claudia Medina DO Primary Care Provider +1 -[phone] Reason for Referral * Outpatient Services (Routine) - Closed Specialty Diagnoses / Procedures Referred By Kyleighac t Referred To Contact Radiology Diagnoses Thyroid mass Procedures US HEAD NECK TISSUES Pennie Correia PA [facility] [address] [place] [address] Phone: tel: fax: Referral ID Status Reason Start Date Expiration Date V isits Requested Visits Authorized [id number] Closed MTN View CTS to Schedule (SGF) 06/16/2017 07/17/2018 1 1 WARE FIRMWARE ENGINEER Encounter Details Date Type Department Care Team ([facility] st Contact Info) Description 06/16/2017 Ancillary Orders [facility] Centralized Scheduling [address] [facility] 60 [place] [address] Pennie Correia PA NO ADDRESS [...] on file Legal Sex Female 4:41 AM SOFTWARE FIRMWARE ENGINEER Gender Identity Not on file Sexual [...] thyroid documented in this encounter Care Teams Wind Turbine Performance Engineer Relationship Specialty Start Date End Date Claudia Medina DO [address] [facility] 19 [place] [address] PCP - General Family Practice 08/24/17 documented as of this encounter
--- OUTSIDE RECORDS SUMMARY | 2025-02-21 22:51 | XMS_ITS | Encounter Summary ---
Author Organization [facility] Address [address] [place] [address] Care Team Providers Care Substation Operator Helper Generation Name Role Phone CarolClaudia raza Primary Care Provider +1 -[phone] Encounter Details Date Type Department Care Team (Latest Contact Info) Description 03/23/2005 Outpatient Historical [facility] Medicine- [address] [address] Jeff Hatfield MD [address] [facility] 200 [place] [address] ACUTE BRONCHITIS (Primary Dx) Social History Tobacco Use Types Packs/Day Years Used Date Smoking Tobacco: Never Assessed Comments Unknown Sex and Gender Information Value Date Recorded Sex Assigned at Not on file Legal Sex Female 4:41 AM DIRECTOR OF VOCATIONAL GUIDANCE Gender Identity Not on file Sexual Orientation Not on file documented as of this encounter Plan of Treatment Not on file documented as of this encounter Visit Diagnoses Diagnosis Acute bronchitis- Primary documented in this encounter Care Teams Substation Operator Helper Generation Relationship Specialty Start Date End Date Claudia Medina DO [address] [facility] 19 [place] [address] PCP - General Family Practice 08/24/17 documented as of this encounter
--- OUTSIDE RECORDS SUMMARY | 2025-02-21 22:51 | XMS_ITS | Encounter Summary ---
Author Organization [facility] Address [address] [place] [address] Care Team Providers Care Dyeing Machine Back Tender Name Role Phone CarolClaudiae Primary Care Provider +1 -[phone] Encounter Details Date Type Department Care Team (Latest Contact Info) Description 07/19/2001 Outpatient Historical [facility] General Surgery [place] [address] [address] [address] [place] [address] [place] [address] [facility] [address] [place] [address] CHOLELITHIASIS NOS (Primary Dx) Social History Tobacco Use Types Packs/Day Years Used Date Smoking Tobacco: Never Assessed Comments Unknown Sex and Gender Information Value Date Recorded Sex Assigned at Not on file Legal Sex Female 4:41 AM MACHINE BASTER Gender Identity Not on file Sexual Orientation Not on file documented as of this encounter Plan of Treatment Not on file documented as of this encounter Visit Diagnoses Diagnosis Calculus of gallbladder without mention of cholecystitis or obstruction- Primary documented in this encounter Care Teams Dyeing Machine Back Tender Relationship Specialty Start Date End Date Claudia Medina DO [address] [facility] 19 [place] [address] PCP - General Family Practice 08/24/17 documented as of this encounter
--- OUTSIDE RECORDS SUMMARY | 2025-02-21 22:51 | XMS_ITS | Encounter Summary ---
Author Organization [facility] Address [address] [place] [address] Care Team Providers Care Curb Builder Name Role Phone CarolClaudia milligan Primary Care Provider +1 -[phone] Encounter Details Date Type Department Care Team (Latest Contact Info) Description 10/11/2005 Outpatient Historical [facility] Family Medicine [place] 104 [facility] 60 [place] [address] Jeff Hatfield MD [address] [facility] 200 [place] [address] Unspecified Hypothyroidism (Primary Dx); Fluid Overload; Other Chest Pain; Unspecified Backache Social History Tobacco Use Types Packs/Day Years Used Date Smoking Tobacco: Never Assessed Comments Unknown Sex and Gender Information Value Date Recorded Sex Assigned at Not on file Legal Sex Female 4:41 AM CORRECTIONS NURSE Gender Identity Not on file Sexual Orientation Not on file documented as of this encounter Plan of Treatment Not on file documented as of this encounter Visit Diagnoses Diagnosis Unspecified hypothyroidism- Primary Fluid overload Other chest pain Backache, unspecified documented in this encounter Care Teams Curb Builder Relationship Specialty Start Date End Date Claudia Medina DO [address] [facility] 19 [place] [address] PCP - General Family Practice 08/24/17 documented as of this encounter
--- OUTSIDE RECORDS SUMMARY | 2025-02-21 22:51 | XMS_ITS | Encounter Summary ---
Author Organization [facility] Address [address] [place] [address] Care Team Providers Care Cable Spooler Name Role Phone Claudia Medina DO Primary Care Provider +1 -[phone] Encounter Details Date Type Department Care Team (Latest Contact Info) Description 06/16/2004 Outpatient Historical [facility] [address] [place] [address] AMBULANCE, [facility] VIEW SHORTNESS OF BREATH (Primary Dx) Social History Tobacco Use Types Packs/Day Years Used Date Smoking Tobacco: Never Assessed Comments Unknown Sex and Gender Information Value Date Recorded Sex Assigned at Not on file Legal Sex Female 4:41 AM REPOSSESSOR Gender Identity Not on file Sexual Orientation Not on file documented as of this encounter Plan of Treatment Not on file documented as of this encounter Visit Diagnoses Diagnosis Shortness of breath- Primary documented in this encounter Care Teams Cable Spooler Relationship Specialty Start Date End Date Claudia Medina DO [address] [place] [address] PCP - General Family Practice 08/24/17 documented as of this encounter
--- OUTSIDE RECORDS SUMMARY | 2025-02-21 22:51 | XMS_ITS | Encounter Summary ---
Author Organization [facility] Address [address] [place] [address] Care Team Providers Care Basting Cleaner Name Role Phone Claudia Medina DO Primary Care Provider +1 -[phone] Reason for Referral * Outpatient Services (Routine) - Closed Specialty Diagnoses / Procedures Referred By Jennifer t Referred To Contact Diagnoses Other screening mammogram Procedures MAMMO DIGITIZED STUDY Dhiraj Isaac PA NO ADDRESS ON FILE Referral ID Status Reason Start Date Expiration Date Visits Re quested Visits Authorized [id number] Closed 05/03/2012 05/03/2013 1 1 WARPER TENDER Encounter Details Date Type Department Care Team (Late st Contact Info) Description 05/03/2012 Ancillary Orders [address] [address] Dhiraj Isaac PA NO ADDRESS ON FILE Other screening mammogram Social History Tobacco Use Types Packs/Day Years Used Date Smoking Tobacco: Never Assessed Comments No Sex and Gender Information Value Date Recorded Sex Assigned at Not on file Legal Sex Female 4:41 AM BALL WARPER TENDER Gender Identity Not on file Sexual [...] Linda Kim RT - 05/03/2012 12:38 PM BALL WARPER TENDER Order information only. Exam was auto-finalized. Procedure Note Linda Kim, RT - 05/03/2012 Order information only. Exam was auto-finalized. Dhiraj DOMINGUEZ DIAGNOSTIC IMAGING ORDERABLES Final Result documented in this encounter Visit Diagnoses Diagnosis Other screening mammogram Other screening mammogram documented in this encounter Care Teams Basting Cleaner Relationship Specialty Start Date End Date Claudia Medina DO [facility] [address] PCP - General Family Practice 08/24/17 documented as of this encounter
--- OUTSIDE RECORDS SUMMARY | 2025-02-21 22:51 | XMS_ITS | Encounter Summary ---
Author Organization [facility] Address [address] [place] [address] Care Team Providers Care Code Enforcement Officer Name Role Phone Claudia Medina DO Primary Care Provider +1 -[phone] Encounter Details Date Type Department Care Team ([facility] st Contact Info) Description 05/21/2010 Ancillary Orders [facility] Imaging External Read [address] [place] [address] Larissa Fritz, Ruthie Ricci, STEEL DIVISION SUPERVISOR [address] [place] [address] Screening mammogram Social History Tobacco Use Types Packs/Day Years Used Date Smoking Tobacco: Never Assessed Comments No Sex and Gender Information Value Date Recorded Sex Assigned at Not on file Legal Sex Female 4:41 AM CHEMISTRY DEPARTMENT CHAIR Gender Identity Not on file Sexual Orientation Not on file documented as of this encounter Plan of Treatment Not on file documented as of this encounter Results * MAMMO SCREENING BILAT (05/21/2010 12:50 PM CHEMISTRY DEPARTMENT CHAIR) Anatomical Region Laterality Modality Breast Bilateral Mammography Narrative 05/25/2010 12:43 PM CHEMISTRY DEPARTMENT CHAIR Bilateral Mammogram Reason for Exam: Screening Comparison: [...] since the prior mammogram(s). us External Provider [facility] MAMMO ORDERABLES Final Res ult documented in this encounter Visit Diagnoses Diagnosis Screening mammogram Other screening mammogram documented in this encounter Care Teams Code Enforcement Officer Relationship Specialty Start Date End Date Claudia Medina DO [address] [address] PCP - General Family Practice 08/24/17 documented as of this encounter
--- OUTSIDE RECORDS SUMMARY | 2025-02-21 22:51 | XMS_ITS | Encounter Summary ---
Author Organization [facility] Address [address] [place] [address] Care Team Providers Care It Application Architect Name Role Phone CarolClaudia milligan Primary Care Provider +1 -[phone] Encounter Details Date Type Department Care Team (Latest Contact Info) Description 07/21/2004 Outpatient Historical [facility] Medicine- [address] [address] Jeff Hatfield MD [address] [facility] 200 [place] [address] ACUTE BRONCHITIS (Primary Dx); ASTHMA UNSPECIFIED Social History Tobacco Use Types Packs/Day Years Used Date Smoking Tobacco: Never Assessed Comments Unknown Sex and Gender Information Value Date Recorded Sex Assigned at Not on file Legal Sex Female 4:41 AM DAY CARE WORKER Gender Identity Not on file Sexual Orientation Not on file documented as of this encounter Plan of Treatment Not on file documented as of this encounter Visit Diagnoses Diagnosis Acute bronchitis- Primary Unspecified asthma(493.90) Unspecified asthma documented in this encounter Care Teams It Application Architect Relationship Specialty Start Date End Date Claudia Medina DO [address] [address] PCP - General Family Practice 08/24/17 documented as of this encounter
--- OUTSIDE RECORDS SUMMARY | 2025-02-21 22:51 | XMS_ITS | Encounter Summary ---
Author Organization [facility] Address [address] [place] [address] Care Team Providers Care Glove Boarder Name Role Phone Claudia Medina DO Primary Care Provider +1 -[phone] Encounter Details Date Type Department Care Team (Late st Contact Info) Description 08/16/2011 Ancillary Orders [facility] Laboratory Services [place] [address] [phone] Social History Tobacco Use Types Packs/Day Years Used Date Smoking Tobacco: Never Assessed Comments No Sex and Gender Information Value Date Recorded Sex Assigned at Not on file Legal Sex Female 4:41 AM MILK ROUTE DELIVERER Gender Identity Not on file Sexual Orientation Not on file documented as of this encounter Plan of Treatment Not on file documented as of this encounter Procedures Procedure Name Priority Date/Time Associated Diagnosis Comments TSH Routine 08/16/2011 8:10 PM MILK ROUTE DELIVERER documented in this encounter Results * (ABNORMAL) TSH (08/16/2011 8:10 PM MILK ROUTE DELIVERER) TSH 0.05(L) 0.30 - 4.80 uIU/mL 08/16/2011 11:26 PM MILK ROUTE DELIVERER [facility] Blood specimen (specimen) 08/16/2011 8:10 PM MILK ROUTE DELIVERER 08/16/2011 10:43 PM MILK ROUTE DELIVERER Dhiraj DOMINGUEZ CHEMISTRY ORDERABLES Final Re sult [facility] [employer] [facility] CLIA # [id number] [address] [place] [address] 60 [place] [address] documented in this encounter Visit Diagnoses Not on filedocumented in this encounter Care Teams Glove Boarder Relationship Specialty Start Date End Date Claudia Medina DO [address] [address] PCP - General Family Practice 08/24/17 documented as of this encounter
--- OUTSIDE RECORDS SUMMARY | 2025-02-21 22:51 | XMS_ITS | Encounter Summary ---
Author Organization [facility] Address [address] [place] [address] Care Team Providers Care Instrumentation Engineer Name Role Phone CarolClaudia raza Primary Care Provider +1 -[phone] Encounter Details Date Type Department Care Team (Latest Contact Info) Description 07/06/2001 Outpatient Historical [facility] Family Medicine [place] 104 [facility] 60 [place] [address] Jeff Hatfield MD [address] [facility] 200 [place] [address] ABDOMINAL PAIN UNSPEC SITE (Primary Dx); ARTHROPATHY NOS-UNSPEC Social History Tobacco Use Types Packs/Day Years Used Date Smoking Tobacco: Never Assessed Comments Unknown Sex and Gender Information Value Date Recorded Sex Assigned at Not on file Legal Sex Female 4:41 AM [place]OWN [place] Gender Identity Not on file Sexual Orientation Not on file documented as of this encounter Plan of Treatment Not on file documented as of this encounter Visit Diagnoses Diagnosis Abdominal pain, unspecified site- Primary Arthropathy, unspecified, site unspecified documented in this encounter Care Teams Instrumentation Engineer Relationship Specialty Start Date End Date Claudia Medina DO [address] [facility] 19 [place] [address] PCP - General Family Practice 08/24/17 documented as of this encounter
--- OUTSIDE RECORDS SUMMARY | 2025-02-21 22:51 | XMS_ITS | Encounter Summary ---
Author Organization [facility] Address [address] [place] [address] Care Team Providers Care Sound Effects Supervisor Name Role Phone CarolClaudia raza Primary Care Provider +1 -[phone] Encounter Details Date Type Department Care Team (Latest Contact Info) Description 09/05/2000 Outpatient Historical [facility] Family Medicine [place] [address] [facility] 60 [place] [address] Jeff Hatfield MD [address] [facility] [address] [place] [address] Reflux esophagitis (Primary Dx) Social History Tobacco Use Types Packs/Day Years Used Date Smoking Tobacco: Never Assessed Comments Unknown Sex and Gender Information Value Date Recorded Sex Assigned at Not on file Legal Sex Female 4:41 AM PLAYERS ASSISTANT Gender Identity Not on file Sexual Orientation Not on file documented as of this encounter Plan of Treatment Not on file documented as of this encounter Visit Diagnoses Diagnosis Reflux esophagitis- Primary documented in this encounter Care Teams Sound Effects Supervisor Relationship Specialty Start Date End Date Claudia Medina DO [address] [facility] 19 [place] [address] PCP - General Family Practice 08/24/17 documented as of this encounter
--- OUTSIDE RECORDS SUMMARY | 2025-02-21 22:51 | XMS_ITS | Encounter Summary ---
Author Organization [facility] Address [address] [place] [address] Care Team Providers Care Still Operator Gin Name Role Phone Claudia Medina DO Primary Care Provider +1 -[phone] Reason for Referral * Outpatient Services (Routine) - Closed Specialty Diagnoses / Procedures Referred By Jennifer t Referred To Contact Diagnoses Other screening mammogram Procedures MAMMO DIGITIZED STUDY Dhiraj Isaac PA NO ADDRESS ON FILE Referral ID Status Reason Start Date Expiration Date Visits Re quested Visits Authorized [id number] Closed 05/03/2012 05/03/2013 1 1 FIELD TECHNICIAN Encounter Details Date Type Department Care Team (Late st Contact Info) Description 05/03/2012 Ancillary Orders [address] [phone] Dhiraj Isaac PA NO ADDRESS ON FILE Other screening mammogram Social History Tobacco Use Types Packs/Day Years Used Date Smoking Tobacco: Never Assessed Comments No Sex and Gender Information Value Date Recorded Sex Assigned at Not on file Legal Sex Female 4:41 AM WELLFIELD TECHNICIAN Gender Identity Not on file Sexual [...] Linda Kim RT - 05/03/2012 12:33 PM WELLFIELD TECHNICIAN Order information only. Exam was auto-finalized. Procedure Note Linda Kim, RT - 05/03/2012 Order information only. Exam was auto-finalized. Dhiraj [facility] ORDERABLES Final Result documented in this encounter Visit Diagnoses Diagnosis Other screening mammogram Other screening mammogram documented in this encounter Care Teams Still Operator Gin Relationship Specialty Start Date End Date Claudia Medina DO [facility] [address] PCP - General Family Practice 08/24/17 documented as of this encounter
--- OUTSIDE RECORDS SUMMARY | 2025-02-21 22:51 | XMS_ITS | Encounter Summary ---
Author Organization [facility] Address [address] [place] [address] Care Team Providers Care Trucking Supervisor Name Role Phone Claudia Medina DO Primary Care Provider +1 -[phone] Encounter Details Date Type Department Care Team (Late st Contact Info) Description 08/17/2011 Ancillary Orders [facility] Laboratory Services [place] [address] [place] [address] Social History Tobacco Use Types Packs/Day Years Used Date Smoking Tobacco: Never Assessed Comments No Sex and Gender Information Value Date Recorded Sex Assigned at Not on file Legal Sex Female 4:41 AM OFFICE MACHINE SERVICER APPRENTICE Gender Identity Not on file Sexual Orientation Not on file documented as of this encounter Plan of Treatment Not on file documented as of this encounter Visit Diagnoses Not on filedocumented in this encounter Care Teams Trucking Supervisor Relationship Specialty Start Date End Date Claudia Medina DO [address] [place] [address] PCP - General Family Practice 08/24/17 documented as of this encounter
--- OUTSIDE RECORDS SUMMARY | 2025-02-21 22:51 | XMS_ITS | Encounter Summary ---
Author Organization [facility] Address [address] [place] [address] Care Team Providers Care Supervisor Operations Name Role Phone Claudia Medina DO Primary Care Provider +1 -[phone] Encounter Details Date Type Department Care Team (Latest Contact Info) Description 01/05/2007 Outpatient Historical [facility] Medicine [place] [address] [facility] 60 [place] [address] Gifty Juarez NP NO ADDRESS ON FILE Acute Bronchitis (Primary Dx); Unspecified Asthma Social History Tobacco Use Types Packs/Day Years Used Date Smoking Tobacco: Never Assessed Comments Unknown Sex and Gender Information Value Date Recorded Sex Assigned at Not on file Legal Sex Female 4:41 AM SALES REPRESENTATIVE ADDING MACHINES Gender Identity Not on file Sexual Orientation Not on file documented as of this encounter Plan of Treatment Not on file documented as of this encounter Visit Diagnoses Diagnosis Acute bronchitis- Primary Unspecified asthma(493.90) Unspecified asthma documented in this encounter Care Teams Supervisor Operations Relationship Specialty Start Date End Date Claudia Medina DO [address] [facility] 19 [place] [address] PCP - General Family Practice 08/24/17 documented as of this encounter
--- OUTSIDE RECORDS SUMMARY | 2025-02-21 22:51 | XMS_ITS | Encounter Summary ---
Author Organization [facility] Address [address] [place] [address] Care Team Providers Care Laundromat Manager Name Role Phone Claudia Medina DO Primary Care Provider +1 [phone] Reason for Referral * Outpatient Services (Routine) - Closed Specialty Diagnoses / Procedures Referred By Jennifer leigh Referred To Contact Radiology Diagnoses Visit for screening mammogram Procedures MAMMO DIGITAL SCREEN BILAT Jeny Kelly FNP Phone: tel: fax: [facility] Mammography [place] [address] [facility] [address] [place] [address] Phone: tel: fax: Referral ID Status Reason Start Date Expiration Date V isits Requested Visits Authorized [id number] Closed [facility] CTS to Schedule (SGF) 04/16/2015 05/16/2016 1 1 UCT MANAGENT INTERN Encounter Details Date Type Department Care Team ([facility] st Contact Info) Description 04/16/2015 Ancillary Orders [facility] Centralized Scheduling [address] [facility] 60 [place] [address] Jeny Kelly FNP [address] [place] [address] Visit for screening mammogram (Primary Dx) Social History Tobacco Use Types Packs/Day Years Used Date Smoking Tobacco: Former Cigarettes Q uit: 05/23/1982 Smokeless Tobacco: Never Alcohol Use Standard Drinks/Week Comments No 0 (1 standard drink = 0.6 oz pur e alcohol) Comments No Sex and Gender Information Value Date Recorded Sex Assigned at Not on file Legal Sex Female 4:41 AM PRODUCT MANAGENT INTERN Gender Identity Not on file Sexual Orientation Not on file Occupation Industry Job Start Date Job End Date Not on file Not on file Not on file Not on file documented as of this encounter Plan of Treatment Not on file documented as of this encounter Results * MAMMO DIGITAL SCREEN BILAT (04/24/2015 11:39 AM PRODUCT MANAGENT INTERN) Anatomical Region Laterality Modality Breast Bilateral Mammography Narrative 04/28/2015 7:12 AM PRODUCT MANAGENT INTERN Bilateral Mammogram Reason for Exam: Screening Comparison: [...] since the prior mammogram(s). us Jeny Kelly SLOT MACHINE KEY PERSON MAMMO ORDERABLES Fi nal Result documented in this encounter Visit Diagnoses Diagnosis Visit for screening mammogram- Primary Other screening mammogram Visit for screening mammogram Other screening mammogram documented in this encounter Care Teams Laundromat Manager Relationship Specialty Start Date End Date Claudia Medina DO [address] [place] [address] PCP - General Family Practice 08/24/17 documented as of this encounter
--- OUTSIDE RECORDS SUMMARY | 2025-02-21 22:51 | XMS_ITS | Encounter Summary ---
Author Organization [facility] Address [address] [place] [address] Care Team Providers Care Cytology Teacher Name Role Phone Claudia Medina DO Primary Care Provider +1 [phone] Encounter Details Date Type Department Care Team (Latest Contact Info) Description 12/08/2000 Outpatient Historical [facility] Family Medicine [place] 104 [facility] 60 [place] [address] Gary Guaman DO NO ADDRESS ON FILE Acute sinusitis, unspecified (Primary Dx) Social History Tobacco Use Types Packs/Day Years Used Date Smoking Tobacco: Never Assessed Comments Unknown Sex and Gender Information Value Date Recorded Sex Assigned at Not on file Legal Sex Female 4:41 AM CASER SHOE PARTS Gender Identity Not on file Sexual Orientation Not on file documented as of this encounter Plan of Treatment Not on file documented as of this encounter Visit Diagnoses Diagnosis Acute sinusitis, unspecified- Primary documented in this encounter Care Teams Cytology Teacher Relationship Specialty Start Date End Date Claudia Medina DO [address] [facility] 19 [place] [address] PCP - General Family Practice 08/24/17 documented as of this encounter
--- OUTSIDE RECORDS SUMMARY | 2025-02-21 22:51 | XMS_ITS | Encounter Summary ---
Author Organization [facility] Address [address] [place] [address] Care Team Providers Care Technology Infusion Specialist Name Role Phone CarolClaudia milligan Primary Care Provider +1 [phone] Encounter Details Date Type Department Care Team (Latest Contact Info) Description 06/19/1999 Outpatient Historical [facility] Family Medicine [place] [address] [facility] 60 [place] [address] Jeff Hatfield MD [address] [facility] 200 [place] [address] Other disorder of menstruation and other abnormal bleeding from female genital tract (Primary Dx) Social History Tobacco Use Types Packs/Day Years Used Date Smoking Tobacco: Never Assessed Comments Unknown Sex and Gender Information Value Date Recorded Sex Assigned at Not on file Legal Sex Female 4:41 AM TANNING DRUM OPERATOR Gender Identity Not on file Sexual Orientation Not on file documented as of this encounter Plan of Treatment Not on file documented as of this encounter Visit Diagnoses Diagnosis Other disorder of menstruation and other abnormal bleeding from female genital tract- Primary documented in this encounter Care Teams Technology Infusion Specialist Relationship Specialty Start Date End Date Claudia Medina DO [address] [facility] 19 [place] [address] PCP - General Family Practice 08/24/17 documented as of this encounter
--- OUTSIDE RECORDS SUMMARY | 2025-02-21 22:51 | XMS_ITS | Encounter Summary ---
Author Organization [facility] Address [address] [place] [address] Care Team Providers Care Customer Engagement Manager Name Role Phone Carol, Claudia Sarabia DO Primary Care Provider +1 -[phone] Encounter Details Date Type Department Care Team (Latest Contact Info) Description 12/23/2000 Outpatient Historical [facility] Family Medicine [place] 104 [facility] 60 [place] [address] Jeff Hatfield MD [address] [facility] 200 [place] [address] Other and unspecified hyperlipidemia (Primary Dx); Dysfunct eustachian tube Social History Tobacco Use Types Packs/Day Years Used Date Smoking Tobacco: Never Assessed Comments Unknown Sex and Gender Information Value Date Recorded Sex Assigned at Not on file Legal Sex Female 4:41 AM STEAM TABLE ATTENDANT Gender Identity Not on file Sexual Orientation Not on file documented as of this encounter Plan of Treatment Not on file documented as of this encounter Visit Diagnoses Diagnosis Other and unspecified hyperlipidemia- Primary Dysfunct eustachian tube Dysfunction of Eustachian tube documented in this encounter Care Teams Customer Engagement Manager Relationship Specialty Start Date End Date Claudia Medina DO [address] [facility] [address] [place], [place] [address] PCP - General Family Practice 08/24/17 documented as of this encounter
--- OUTSIDE RECORDS SUMMARY | 2025-02-21 22:51 | XMS_ITS | Encounter Summary ---
Author Organization [facility] Address [address] [place] [address] Care Team Providers Care Rn Surgical Name Role Phone Claudia Medina DO Primary Care Provider +1 -[phone] Encounter Details Date Type Department Care Team (Latest Contact Info) Description 08/12/1999 Outpatient Historical [facility] Family Medicine [place] [address] [facility] 60 [place] [address] Brie Horowitz NO ADDRESS ON FILE Streptococcal sore throat (Primary Dx) Social History Tobacco Use Types Packs/Day Years Used Date Smoking Tobacco: Never Assessed Comments Unknown Sex and Gender Information Value Date Recorded Sex Assigned at Not on file Legal Sex Female 4:41 AM CERTIFIED MEDICAL ASSISTANT Gender Identity Not on file Sexual Orientation Not on file documented as of this encounter Plan of Treatment Not on file documented as of this encounter Visit Diagnoses Diagnosis Streptococcal sore throat- Primary documented in this encounter Care Teams Rn Surgical Relationship Specialty Start Date End Date Claudia Medina DO [address] [facility] 19 [place], [place] [address] PCP - General Family Practice 08/24/17 documented as of this encounter
--- OUTSIDE RECORDS SUMMARY | 2025-02-21 22:51 | XMS_ITS | Encounter Summary ---
Author Organization [facility] Address [address] [place] [address] Care Team Providers Care Group Sales Representative Name Role Phone CarolClaudia raza Primary Care Provider +1 -[phone] Encounter Details Date Type Department Care Team (Latest Contact Info) Description 11/20/1999 Outpatient Historical [facility] Family Medicine [place] [address] [facility] 60 [place] [address] Jeff Hatfield MD [address] [facility] 200 [place] [address] Other specified anemias (Primary Dx); Other malaise and fatigue Social History Tobacco Use Types Packs/Day Years Used Date Smoking Tobacco: Never Assessed Comments Unknown Sex and Gender Information Value Date Recorded Sex Assigned at Not on file Legal Sex Female 4:41 AM MEDICAL RECORD LIBRARIAN Gender Identity Not on file Sexual Orientation Not on file documented as of this encounter Plan of Treatment Not on file documented as of this encounter Visit Diagnoses Diagnosis Other specified anemias- Primary Other malaise and fatigue documented in this encounter Care Teams Group Sales Representative Relationship Specialty Start Date End Date Claudia Medina DO [address] [facility] 19 [place] [address] PCP - General Family Practice 08/24/17 documented as of this encounter
--- OUTSIDE RECORDS SUMMARY | 2025-02-21 22:51 | XMS_ITS | Encounter Summary ---
Author Organization [employer] [email or web address] Address [address] [facility] Attn: Epic Prelude ADT [place] [address] Care Team Providers Care Secretary Name Role Phone Claudia Medina DO Primary Care Provider +1 [phone] Encounter Details Date Type Department Care Team (Late st Contact Info) Description 03/24/2000 Outpatient Historical Non-Staff, Physician NO ADDRESS ON FILE Social History Tobacco Use Types Packs/Day Years Used Date Smoking Tobacco: Never Assessed Comments Unknown Sex and Gender Information Value Date Recorded Sex Assigned at Not on file Legal Sex Female 4:41 AM CIVIL ATTORNEY Gender Identity Not on file Sexual Orientation Not on file documented as of this encounter Plan of Treatment Not on file documented as of this encounter Visit Diagnoses Not on filedocumented in this encounter Care Teams Secretary Relationship Specialty Start Date End Date Claudia Medina DO [address] [place] [address] PCP - General Family Practice 08/24/17 documented as of this encounter
--- OUTSIDE RECORDS SUMMARY | 2025-02-21 22:51 | XMS_ITS | Encounter Summary ---
Author Organization [facility] Address [address] [place] [address] Care Team Providers Care Juvenile Corrections Officer Name Role Phone Claudia Medina DO Primary Care Provider +1 -[phone] Encounter Details Date Type Department Care Team (Latest Contact Info) Description 04/15/[address] 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
--- OUTSIDE RECORDS SUMMARY | 2025-02-21 22:51 | XMS_ITS | Clinical Summary ---
Author Organization [facility] Address [address] [place] [address] 60 [place] [address] Care Team Providers Care Pipe Layer Name Role Phone Claudia Medina DO Primary Care Provider +1 -[phone] Allergies Active Allergy Reactions Criticality Noted Date [...] tablet Take 30 mg by mouth daily document restorer. Active ipratropium-albu terol (DUONEB) 0.5 mg-3 mg(2.5 [...] 0 5 Active fluticasone (FLONASE) 50 mcg/spray [place], Suspension INSTILL 2 SPRAYS IN EACH NOSTRIL DAILY. 16 Gram 5 5 Active lisinopril (PRINIVIL) 5 mg tablet Take 1 Tablet (5 mg) by mouth daily Please schedule an appointment before next refill.. 30 Tablet 3 5 Active levothyroxine 112 mcg tablet Take 1 Tablet (112 mcg) by mouth daily document restorer Please schedule an appointment before next refill. [...] file Legal Sex Female 4:41 AM SENIOR BRAND MANAGER Gender Identity Not on file Sexual Orientation Not on file Occupation Industry Job Start Date Job End Date Not on file Not on file Not on file Not on file Last Filed Vital Signs Vital Sign Reading Time Taken Comments Blood Pressure 104/67 10/02/2020 7:49 PM CDT Pulse 98 06/28/2020 2:45 PM SENIOR BRAND MANAGER Temperature 36.2 C (97.1 F) 10/02/2020 7:49 [...] (1 of 2) 01/29/2000 OSTEOPOROSIS SCREENING 05/09/2018 05/09/2013, 2011 INFLUENZA VACCINE (#1) 2025 03/20/2002 RSV VACCINE (60+ or ) (1 - 1-dose 75+ series) 2025 Procedures Procedure Name Priority Date/Time Associated Diagnosis Comments XR DEXA BONE DENSITY AXIAL 1 OR MORE SITES Routine 05/09/2013 1:06 PM SENIOR BRAND MANAGER Osteoporosis from Last 3 Months or Most Recently Relevant to Health Maintenance Results * XR DEXA BONE DENSITY AXIAL 1 OR MORE SITES (05/09/2013 1:06 PM SENIOR BRAND MANAGER) Anatomical Region Laterality Modality Digital Radiogra phy 05/09/2013 12:5 1 PM SENIOR BRAND MANAGER Narrative 05/09/2013 1:39 PM SENIOR BRAND MANAGER PROCEDURE DEXA BONE DENSITY, 09 May 2013 [...] Most Recently Relevant to Health Maintenance Insurance [facility] DUAL COMPLETE [facility] PPO D-SNP [place]ID [place] Care Teams Pipe Layer Relationship Specialty Start Date End Date Claudia Medina DO [address] [address] PCP - General Family Practice 08/24/17
--- OUTSIDE RECORDS SUMMARY | 2025-02-21 22:51 | XMS_ITS | Encounter Summary ---
Author Organization [facility] Address [address] [place] [address] Care Team Providers Care Seed Collector Name Role Phone Carol, Claudia No Primary Care Provider +1 -[phone] Encounter Details Date Type Department Care Team (Latest Contact Info) Description 07/17/2001 Outpatient Historical [facility] Family Medicine [place] 104 [facility] 60 [place] [address] Jeff Hatfield MD [address] [facility] 200 [place] [address] CHOLELITHIASIS NOS (Primary Dx) Social History Tobacco Use Types Packs/Day Years Used Date Smoking Tobacco: Never Assessed Comments Unknown Sex and Gender Information Value Date Recorded Sex Assigned at Not on file Legal Sex Female 4: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
--- OUTSIDE RECORDS SUMMARY | 2025-02-21 22:51 | XMS_ITS | Encounter Summary ---
Author Organization [facility] Address [address] [place] [address] Care Team Providers Care Chlorine Plant Operator Name Role Phone Claudia Medina DO Primary Care Provider +1 -[phone] Encounter Details Date Type Department Care Team ([facility] st Contact Info) Description 04/15/2011 Ancillary Orders [facility] Imaging External Read [address] [place] [address] Larissa Fritz, Ruthie Ricci, FOLDER AND NOTCHER [address] [place] [address] Other screening mammogram Social History Tobacco Use Types Packs/Day Years Used Date Smoking Tobacco: Never Assessed Comments No Sex and Gender Information Value Date Recorded Sex Assigned at Not on file Legal Sex Female 4:41 AM EMISSIONS ENGINEER Gender Identity Not on file Sexual Orientation Not on file documented as of this encounter Plan of Treatment Not on file documented as of this encounter Results * MAMMO SCREENING BILAT (04/15/2011 1:29 PM CDT) Anatomical Region Laterality Modality Breast Bilateral Mammography Narrative 04/19/2011 4:20 PM EMISSIONS ENGINEER Bilateral Mammogram Reason for Exam: Screening Comparison: [...] findings since the prior mammogram(s). External Provider [facility] MAMMO ORDERABLES Final Res ult documented in this encounter Visit Diagnoses Diagnosis Other screening mammogram documented in this encounter Care Teams Chlorine Plant Operator Relationship Specialty Start Date End Date Claudia Medina DO [address] [address] PCP - General Family Practice 08/24/17 documented as of this encounter
--- OUTSIDE RECORDS SUMMARY | 2025-02-21 22:51 | XMS_ITS | Encounter Summary ---
Author Organization [facility] Address [address] [place] [address] Care Team Providers Care Test Driller Name Role Phone CarolClaudia milligan Primary Care Provider +1 -[phone] Encounter Details Date Type Department Care Team (Latest Contact Info) Description 07/28/2000 Outpatient Historical [facility] Family Medicine [place] 104 [facility] 60 [place] [address] Jeff Hatfield MD [address] [facility] 200 [place] [phone] Allergy, unspecified not elsewhere classified (Primary Dx); Contusion of upper arm Social History Tobacco Use Types Packs/Day Years Used Date Smoking Tobacco: Never Assessed Comments Unknown Sex and Gender Information Value Date Recorded Sex Assigned at Not on file Legal Sex Female 4:41 AM WHEAT GROWER Gender Identity Not on file Sexual Orientation Not on file documented as of this encounter Plan of Treatment Not on file documented as of this encounter Visit Diagnoses Diagnosis Allergy, unspecified not elsewhere classified- Primary Contusion of upper arm documented in this encounter Care Teams Test Driller Relationship Specialty Start Date End Date Claudia Medina DO [address] [facility] 19 [place] [address] PCP - General Family Practice 08/24/17 documented as of this encounter
--- OUTSIDE RECORDS SUMMARY | 2025-02-21 22:51 | XMS_ITS | Encounter Summary ---
Author Organization [facility] Address [address] [place] [address] Care Team Providers Care Concrete Inspector Name Role Phone CarolClaudia milligan Primary Care Provider +1 -[phone] Encounter Details Date Type Department Care Team (Latest Contact Info) Description 07/03/2004 Outpatient Historical [facility] Family Medicine [place] 104 [facility] 60 [place] [phone] Jeff Hatfield MD [address] 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
--- OUTSIDE RECORDS SUMMARY | 2025-02-21 22:51 | XMS_ITS | Encounter Summary ---
Author Organization [facility] Address [address] [place] [address] Care Team Providers Care Thread Laster Name Role Phone Claudia Medina DO Primary Care Provider +1 -[phone] Reason for Referral * Outpatient Services (Routine) - Closed Specialty Diagnoses / Procedures Referred By Jennifer leigh Referred To Contact Radiology Diagnoses Thyroid mass Procedures US HEAD NECK TISSUES Sunita Hogue MD [facility] View [address] [place] [address] Phone: tel: fax: Referral ID Status Reason Start Date Expiration Date V isits Requested Visits Authorized [id number] Closed [facility] View CTS to Schedule (SGF) 04/02/2016 05/03/2017 1 1 Encounter Details Date Type Department Care Team (Latest Contact Info) Description 04/02/2016 Ancillary Orders [facility] Centralized Scheduling [address] [facility] 60 [place] [address] Sunita Hogue MD NO ADDRESS [...] on file Legal Sex Female 4:41 AM NETWORK ARCHITECT MANAGER Gender Identity Not on file Sexual [...] thyroid documented in this encounter Care Teams Thread Laster Relationship Specialty Start Date End Date Claudia Medina DO [address] [facility] 19 [place] [address] PCP - General Family Practice 08/24/17 documented as of this encounter
--- OUTSIDE RECORDS SUMMARY | 2025-02-21 22:51 | XMS_ITS | Encounter Summary ---
Author Organization [facility] Address [address] [place] [address] Care Team Providers Care Admissions Manager Name Role Phone Claudia Medina DO Primary Care Provider +1 -[phone] Encounter Details Date Type Department Care Team (Latest Contact Info) Description 01/03/2007 Outpatient Historical [facility] Medicine [place] 104 [facility] 60 [place] [address] Gifty Juarez NP NO ADDRESS ON FILE Acute Sinusitis, Unspecified (Primary Dx); Unspecified Hypothyroidism Social History Tobacco Use Types Packs/Day Years Used Date Smoking Tobacco: Never Assessed Comments Unknown Sex and Gender Information Value Date Recorded Sex Assigned at Not on file Legal Sex Female 4:41 AM WEB DEVELOPMENT 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
--- OUTSIDE RECORDS SUMMARY | 2025-02-21 22:51 | XMS_ITS | Encounter Summary ---
Author Organization [facility] Address [address] [place] [address] Care Team Providers Care Jewelry Designer Name Role Phone Claudia Medina DO Primary Care Provider +1 -[phone] Encounter Details Date Type Department Care Team (Latest Contact Info) Description 05/21/1999 Outpatient Historical [facility] Medicine [place] 104 [facility] 60 [place] [address] Brie Horowitz NO ADDRESS ON FILE Unspecified sinusitis (chronic) (Primary Dx); Edema; Diffus cystic mastopathy; Vaginitis and vulvovaginitis, unspecified Social History Tobacco Use Types Packs/Day Years Used Date Smoking Tobacco: Never Assessed Comments Unknown Sex and Gender Information Value Date Recorded Sex Assigned at Not on file Legal Sex Female 4:41 AM UTILIZATION REVIEWER Gender Identity Not on file Sexual Orientation Not on file documented as of this encounter Plan of Treatment Not on file documented as of this encounter Visit Diagnoses Diagnosis Unspecified sinusitis (chronic)- Primary Edema Diffus cystic mastopathy Diffuse cystic mastopathy Vaginitis and vulvovaginitis, unspecified documented in this encounter Care Teams Jewelry Designer Relationship Specialty Start Date End Date Claudia Medina DO [address] [facility] 19 [place] [address] PCP - General Family Practice 08/24/17 documented as of this encounter
--- OUTSIDE RECORDS SUMMARY | 2025-02-21 22:51 | XMS_ITS | Encounter Summary ---
Author Organization [facility] [facility] Address [address] [facility] Attn: [place] [address] Care Team Providers Care Oil Burner Mechanic Name Role Phone lCaudia Medina DO Primary Care Provider +1 -[phone] Encounter Details Date Type Department Care Team (Late st Contact Info) Description 09/01/2000 Inpatient Historical Boogie Aguilar MD [address] [facility] [address] [place] [address] Social History Tobacco Use Types Packs/Day Years Used Date Smoking Tobacco: Never Assessed Comments Unknown Sex and Gender Information Value Date Recorded Sex Assigned at Not on file Legal Sex Female 4:41 AM SURGICAL GARMENT ASSEMBLER Gender Identity Not on file Sexual Orientation Not on file documented as of this encounter Plan of Treatment Not on file documented as of this encounter Visit Diagnoses Not on filedocumented in this encounter Care Teams Oil Burner Mechanic Relationship Specialty Start Date End Date Claudia Medina DO [address] [place] [address] PCP - General Family Practice 08/24/17 documented as of this encounter
--- OUTSIDE RECORDS SUMMARY | 2025-02-21 22:52 | XMS_ITS | Encounter Summary ---
Author Organization [facility] Address [address] [place] [address] Care Team Providers Care Survey Chief Name Role Phone Claudia Medina DO Primary Care Provider +1 -[phone] Encounter Details Date Type Department Care Team (Latest Contact Info) Description 09/18/2003 Outpatient Historical [facility] Medicine- [address] [phone] Jeff Hatfield MD [address] [facility] 200 [place] [address] ASTHMA UNSPECIFIED (Primary Dx); OSTEOARTHROS NOS-UNSPEC Social History Tobacco Use Types Packs/Day Years Used Date Smoking Tobacco: Never Assessed Comments Unknown Sex and Gender Information Value Date Recorded Sex Assigned at Not on file Legal Sex Female 4:41 AM MAXILLOFACIAL PATHOLOGY Gender Identity Not on file Sexual Orientation Not on file documented as of this encounter Plan of Treatment Not on file documented as of this encounter Visit Diagnoses Diagnosis Unspecified asthma(493.90)- Primary Unspecified asthma Osteoarthrosis, unspecified whether generalized or localized, unspecified site documented in this encounter Care Teams Survey Chief Relationship Specialty Start Date End Date Claudia Medina DO [address] [address] PCP - General Family Practice 08/24/17 documented as of this encounter
--- OUTSIDE RECORDS SUMMARY | 2025-02-21 22:52 | XMS_ITS | Encounter Summary ---
Author Organization [facility] Address [address] [place] [address] Care Team Providers Care Community Outreach Manager Name Role Phone Claudia Medina DO Primary Care Provider +1 -[phone] Encounter Details Date Type Department Care Team (Late st Contact Info) Description 05/02/2013 Ancillary Orders [address] [phone] Dhiraj Isaac PA NO ADDRESS ON FILE [...] on file Legal Sex Female 4:41 AM REGULATORY MANAGER Gender Identity Not on file Sexual Orientation Not on file Occupation Industry Job Start Date Job End Date Not on file Not on file Not on file Not on file documented as of this encounter Plan of Treatment Not on file documented as of this encounter Results * MAMMO DIGITIZED STUDY (05/20/2010 4:00 PM REGULATORY MANAGER) Narrative Linda Kim RT - 05/02/2013 4:00 PM REGULATORY MANAGER Order information only. Exam was auto-finalized. Procedure Note Linda Kim, RT - 05/02/2013 Order information only. Exam was auto-finalized. Dhiraj DOMINGUEZ DIAGNOSTIC IMAGING ORDERABLES Final Result documented in this encounter Visit Diagnoses Diagnosis Other screening mammogram- Primary Other screening mammogram documented in this encounter Care Teams Community Outreach Manager Relationship Specialty Start Date End Date Claudia Medina DO [address] [place] [address] PCP - General Family Practice 08/24/17 documented as of this encounter
--- OUTSIDE RECORDS SUMMARY | 2025-02-21 22:52 | XMS_ITS | Encounter Summary ---
Author Organization [facility] Address [address] [place] [address] Care Team Providers Care Field Representative/Health Education Name Role Phone Claudia Medina DO Primary Care Provider +1 -[phone] Encounter Details Date Type Department Care Team (Latest Contact Info) Description 07/01/2003 Outpatient Historical [facility] Medicine [place] 104 [facility] 60 [place] [phone] Kathy Parks MD NO ADDRESS ON FILE ASTHMA UNSPECIFIED WITH EXAC (Primary Dx); FLU W RESP MANIFEST NEC Social History Tobacco Use Types Packs/Day Years Used Date Smoking Tobacco: Never Assessed Comments Unknown Sex and Gender Information Value Date Recorded Sex Assigned at Not on file Legal Sex Female 4:41 AM HEAD WORKER Gender Identity Not on file Sexual Orientation Not on file documented as of this encounter Plan of Treatment Not on file documented as of this encounter Visit Diagnoses Diagnosis Unspecified asthma, with exacerbation- Primary Influenza with other respiratory manifestations documented in this encounter Care Teams Field Representative/Health Education Relationship Specialty Start Date End Date Claudia Medina DO [address] [facility] 19 [place] [address] PCP - General Family Practice 08/24/17 documented as of this encounter
--- OUTSIDE RECORDS SUMMARY | 2025-02-21 22:52 | XMS_ITS | Encounter Summary ---
Author Organization [facility] Address [address] [place] [address] Care Team Providers Care Auctioneer Tobacco Name Role Phone Carol, Claudia No Primary Care Provider +1 -[phone] Encounter Details Date Type Department Care Team (Latest Contact Info) Description 03/10/2004 Outpatient Historical [facility] Medicine- [address] [phone] Jeff Hatfield MD [address] [facility] 200 [place] [address] CHRONIC SINUSITIS NOS (Primary Dx); ALLERGY, UNSPECIFIED Social History Tobacco Use Types Packs/Day Years Used Date Smoking Tobacco: Never Assessed Comments Unknown Sex and Gender Information Value Date Recorded Sex Assigned at Not on file Legal Sex Female 4:41 AM 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
--- OUTSIDE RECORDS SUMMARY | 2025-02-21 22:52 | XMS_ITS | Encounter Summary ---
Author Organization [facility] Address [address] [place] [address] Care Team Providers Care Hot Dip Plating Supervisor Name Role Phone CarolClaudia raza Primary Care Provider +1 -[phone] Encounter Details Date Type Department Care Team (Latest Contact Info) Description 07/31/2003 Outpatient Historical [facility] Family Medicine [place] 104 [facility] 60 [place] [address] Jeff Hatfield MD [address] [facility] 200 [place] [phone] ACUTE BRONCHITIS (Primary Dx) Social History Tobacco Use Types Packs/Day Years Used Date Smoking Tobacco: Never Assessed Comments Unknown Sex and Gender Information Value Date Recorded Sex Assigned at Not on file Legal Sex Female 4: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
--- OUTSIDE RECORDS SUMMARY | 2025-02-21 22:52 | XMS_ITS | Encounter Summary ---
Author Organization [facility] Address [address] [place] [address] Care Team Providers Care Motion Study Engineer Name Role Phone CarolClaudia raza Primary Care Provider +1 -[phone] Encounter Details Date Type Department Care Team (Latest Contact Info) Description 05/18/2004 Outpatient Historical [facility] Family Medicine [place] 104 [facility] 60 [place] [address] Jeff Hatfield MD [address] [facility] 200 [place] [address] OSTEOARTHROS NOS-UNSPEC (Primary Dx) Social History Tobacco Use Types Packs/Day Years Used Date Smoking Tobacco: Never Assessed Comments Unknown Sex and Gender Information Value Date Recorded Sex Assigned at Not on file Legal Sex Female 4:41 AM PRODUCTION 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
--- OUTSIDE RECORDS SUMMARY | 2025-02-21 22:52 | XMS_ITS | Clinical Summary ---
Author Organization [facility] Address [address] [place] [address] Phone Care Team Providers Care Cnp Name Role Phone Unavailable Primary Care Provider [...] Comments Blood Pressure 122/76 05/21/2022 1:53 PM FISH SKINNING MACHINE FEEDER Pulse 87 05/21/2022 1:53 PM FISH SKINNING MACHINE FEEDER Temperature 36.1 C (96.9 F) 05/21/2022 1:53 PM FISH SKINNING MACHINE FEEDER Respiratory Rate - - Oxygen Saturation 94% 05/21/2022 1:53 PM FISH SKINNING MACHINE FEEDER Inhaled Oxygen Concentration - - Weight 112 kg (247 lb 9.6 oz) 05/21/2022 1:53 PM FISH SKINNING MACHINE FEEDER Height 162.6 cm (5' 4.02 ) 09/04/2021 3:14 PM CD T Body Mass Index 42.48 09/04/2021 3:14 PM CDT Plan of Treatment Health Maintenance Due Date Last Done Comments CT Colonography 1950 Colonoscopy 1950 Colorectal Cancer Screening 1950 FIT-DNA 1950 FIT 1950 FOBT 1950 Sigmoidoscopy 1950 MMR Vaccines (1 of 1 - Standard series) 1951 COVID-19 Vaccine (#1) 1955 DTaP,Tdap,and Td Vaccines (1 - Tdap) 1957 Varicella Vaccines (1 of 2 - 13+ 2-dose series) 1963 Depression Screening 01/29/1968 Social Drivers of Health (SDoH) 01/29/1968 Mammogram 1990 Complete Fall Risk Assessment 2015 Zoster Vaccines (1 of 2) 07/16/2016 05/21/2016 Pneumococcal Vaccine: 50+ Years (2 of 2 - PPSV23, PCV20, or PCV21) 06/07/2020 04/12/2020 Pneumococcal Vaccine (2 of 2 - PPSV23, PCV20, or PCV21) 06/07/2020 04/12/2020 RSV Vaccines (1 - 1-dose 75+ series) 2025 Influenza Vaccine (#1) 2025 0, 04/30/2019, 03/04/2018, [...] patient's age to complete this topic Insurance [facility] [employer]
--- OUTSIDE RECORDS SUMMARY | 2025-02-21 22:52 | XMS_ITS | Encounter Summary ---
Author Organization [facility] Address [address] [place] [address] Care Team Providers Care Art Class Model Name Role Phone Claudia Medina DO Primary Care Provider +1 -[phone] Reason for Referral * Outpatient Services (Routine) - Closed Specialty Diagnoses / Procedures Referred By Contac t Referred To Contact Diagnoses Other (abnormal) findings on radiological examination of breast Procedures MAMMO DIGITAL DIAG UNI RIGHT Dhiraj Isaac PA NO ADDRESS ON FILE [facility] Pre-Registration [place] CALL TO MAKE APPOINTMENT ONLY [address] [place] [address] Phone: tel: fax: Referral ID Status Reason Start Date Expiration Date Visits Re quested Visits Authorized [id number] Closed 05/21/2013 06/21/2014 1 1 Y CLEANER Encounter Details Date Type Department Care Team (Latest Contact Info) Description 05/21/[address] [facility] [address] [facility] 120 [place] [address] Dhiraj Isaac PA NO ADDRESS ON FILE [...] on file Legal Sex Female 4:41 AM HEAVY CLEANER Gender Identity Not on file Sexual Orientation Not on file Occupation Industry Job Start Date Job End Date Not on file Not on file Not on file Not on file documented as of this encounter Plan of Treatment Not on file documented as of this encounter Results * MAMMO DIGITAL DIAG UNI RIGHT (05/30/2013 10:30 AM HEAVY CLEANER) Anatomical Region Laterality Modality Breast Right Mammography 05/30/2013 10:0 3 AM HEAVY CLEANER Impressions 05/30/2013 2:36 PM HEAVY CLEANER IMPRESSION: Tiny nodular area incompletely visualized on recent mammogram appears to be a mole on the skin at the inframammary crease on the right, on additional images today. This should be of no clinical significance. I would recommend routine annual screening mammogram. Patient received a result/recommendation letter. KWESI/arturo 1026 AM - uploaded from [employer] - Narrative 05/30/2013 2:36 PM HEAVY CLEANER Right Digital Diagnostic Mammogram: Multiple additional digital [...] by the Computer Aided Detection System (CAD), U-Planner.comcker, Version 8.3. Procedure Note Prakash Clifton MD [...] by the Computer Aided Detection System (CAD), edulio ImageChecker, Version 8.3. IMPRESSION IMPRESSION: Tiny nodular area incompletely visualized on recent mammogram appears to be a mole on the skin at the inframammary crease on the right, on additional images today. This should be of no clinical significance. I would recommend routine annual screening mammogram. Patient received a result/recommendation letter. KWESI/arturo 1026 AM - uploaded from [employer] - Dhiraj DOMINGUEZ MAMMO ORDERABLES Final Result documented in this encounter Visit Diagnoses Diagnosis Other (abnormal) findings on radiological examination of breast- Primary Other (abnormal) findings on radiological examination of breast documented in this encounter Care Teams Art Class Model Relationship Specialty Start Date End Date Claudia Medina DO [address] [address] PCP - General Family Practice 08/24/17 documented as of this encounter
--- OUTSIDE RECORDS SUMMARY | 2025-02-21 22:52 | XMS_ITS | Encounter Summary ---
Author Organization [facility] Address [address] [place] [address] Care Team Providers Care Respiratory Support Technician Name Role Phone CarolClaudia DO Primary Care Provider +1 -[phone] Encounter Details Date Type Department Care Team (Latest Contact Info) Description 04/15/2004 Outpatient Historical [facility] Medicine- [address] [phone] Jeff Hatfield MD [address] [facility] 200 [place] [address] OSTEOARTHROS NOS-UNSPEC (Primary Dx); CARPAL TUNNEL SYNDROME Social History Tobacco Use Types Packs/Day Years Used Date Smoking Tobacco: Never Assessed Comments Unknown Sex and Gender Information Value Date Recorded Sex Assigned at Not on file Legal Sex Female 4:41 AM EYE GLASS FRAME 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
--- OUTSIDE RECORDS SUMMARY | 2025-02-21 22:52 | XMS_ITS | Encounter Summary ---
Author Organization [facility] Address [address] [place] [address] Care Team Providers Care Binder Lockstitch Name Role Phone Carol, Claudia No Primary Care Provider +1 -[phone] Encounter Details Date Type Department Care Team (Latest Contact Info) Description 03/08/2003 Outpatient Historical [facility] Family Medicine [place] 104 [facility] 60 [place] [address] Jeff Hatfield MD [address] [facility] 200 [place] [phone] ASTHMA UNSPECIFIED (Primary Dx) Social History Tobacco Use Types Packs/Day Years Used Date Smoking Tobacco: Never Assessed Comments Unknown Sex and Gender Information Value Date Recorded Sex Assigned at Not on file Legal Sex Female 4:41 AM FINISHED GOODS 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
--- OUTSIDE RECORDS SUMMARY | 2025-02-21 22:52 | XMS_ITS | Encounter Summary ---
Author Organization [facility] Address [address] [place] [address] Care Team Providers Care Daylight Driller Name Role Phone Carol, Claudia No Primary Care Provider +1 -[phone] Encounter Details Date Type Department Care Team (Latest Contact Info) Description 01/21/2004 Outpatient Historical [facility] Medicine- [address] [phone] Jeff Hatfield MD [address] [facility] 200 [place] [phone] ALLERGY, UNSPECIFIED (Primary Dx); CHRONIC SINUSITIS NOS Social History Tobacco Use Types Packs/Day Years Used Date Smoking Tobacco: Never Assessed Comments Unknown Sex and Gender Information Value Date Recorded Sex Assigned at Not on file Legal Sex Female 4:41 AM COOK BOAT Gender Identity Not on file Sexual Orientation Not on file documented as of this encounter Plan of Treatment Not on file documented as of this encounter Visit Diagnoses Diagnosis Allergy, unspecified not elsewhere classified- Primary Unspecified sinusitis (chronic) documented in this encounter Care Teams Daylight Driller Relationship Specialty Start Date End Date Claudia Medina DO [address] [facility] 19 [place] [address] PCP - General Family Practice 08/24/17 documented as of this encounter
--- OUTSIDE RECORDS SUMMARY | 2025-02-21 22:52 | XMS_ITS | Encounter Summary ---
Author Organization [facility] Address [address] [place] [address] Care Team Providers Care Mold Shaker Name Role Phone Claudia Medina DO Primary Care Provider +1 -[phone] Encounter Details Date Type Department Care Team (Latest Contact Info) Description 02/07/2003 Outpatient Historical [facility] Medicine [place] 104 [facility] 60 [place] [address] Kathy Parks MD NO ADDRESS ON FILE ACUTE PHARYNGITIS (Primary Dx); ACUTE URI NOS Social History Tobacco Use Types Packs/Day Years Used Date Smoking Tobacco: Never Assessed Comments Unknown Sex and Gender Information Value Date Recorded Sex Assigned at Not on file Legal Sex Female 4:41 AM JEWELRY FACER Gender Identity Not on file Sexual Orientation Not on file documented as of this encounter Plan of Treatment Not on file documented as of this encounter Visit Diagnoses Diagnosis Acute pharyngitis- Primary Acute upper respiratory infections of unspecified site documented in this encounter Care Teams Mold Shaker Relationship Specialty Start Date End Date Claudia Medina DO [address] [facility] 19 [place] [address] PCP - General Family Practice 08/24/17 documented as of this encounter
--- OUTSIDE RECORDS SUMMARY | 2025-02-21 22:52 | XMS_ITS | Encounter Summary ---
Author Organization [facility] Address [address] [place] [address] Care Team Providers Care Brazer Assembler Name Role Phone Claudia Medina DO Primary Care Provider +1 [phone] Encounter Details Date Type Department Care Team (Late st Contact Info) Description 02/07/2003 Outpatient Historical [facility] Family Medicine [place] 104 [facility] 60 [place] [address] Kathy Parks MD NO ADDRESS ON FILE Social History Tobacco Use Types Packs/Day Years Used Date Smoking Tobacco: Never Assessed Comments Unknown Sex and Gender Information Value Date Recorded Sex Assigned at Not on file Legal Sex Female 4:41 AM AUTO DRIVER Gender Identity Not on file Sexual Orientation Not on file documented as of this encounter Plan of Treatment Not on file documented as of this encounter Visit Diagnoses Not on filedocumented in this encounter Care Teams Brazer Assembler Relationship Specialty Start Date End Date Claudia Medina DO [address] [facility] 19 [place] [address] PCP - General Family Practice 08/24/17 documented as of this encounter
--- OUTSIDE RECORDS SUMMARY | 2025-02-21 22:52 | XMS_ITS | Encounter Summary ---
Author Organization [facility] Address [address] [place] [address] Care Team Providers Care Metal Ceiling Builder Name Role Phone CarolClaudia milligan Primary Care Provider +1 -[phone] Encounter Details Date Type Department Care Team (Latest Contact Info) Description 05/24/2003 Outpatient Historical [facility] Family Medicine [place] 104 [facility] 60 [place] [phone] Jeff Hatfield MD [address] [facility] 200 [place] [address] ASTHMA UNSPECIFIED (Primary Dx); ACUTE BRONCHITIS Social History Tobacco Use Types Packs/Day Years Used Date Smoking Tobacco: Never Assessed Comments Unknown Sex and Gender Information Value Date Recorded Sex Assigned at Not on file Legal Sex Female 4:41 AM CASH ACCOUNTING CLERK Gender Identity Not on file Sexual Orientation Not on file documented as of this encounter Plan of Treatment Not on file documented as of this encounter Visit Diagnoses Diagnosis Unspecified asthma(493.90)- Primary Unspecified asthma Acute bronchitis documented in this encounter Care Teams Metal Ceiling Builder Relationship Specialty Start Date End Date Claudia Medina DO [address] [facility] 19 [place] [address] PCP - General Family Practice 08/24/17 documented as of this encounter
--- OUTSIDE RECORDS SUMMARY | 2025-02-21 22:52 | XMS_ITS | Encounter Summary ---
Author Organization [facility] Address [address] [place] [address] Care Team Providers Care Manager Of Enterprise Name Role Phone Carol, Claudia No Primary Care Provider +1 -[phone] Encounter Details Date Type Department Care Team (Latest Contact Info) Description 05/10/2003 Outpatient Historical [facility] Family Medicine [place] 104 [facility] 60 [place] [address] Jeff Hatfield MD [address] [facility] 200 [place] [phone] ASTHMA UNSPECIFIED (Primary Dx) Social History Tobacco Use Types Packs/Day Years Used Date Smoking Tobacco: Never Assessed Comments Unknown Sex and Gender Information Value Date Recorded Sex Assigned at Not on file Legal Sex Female 4:41 AM PERSONNEL INTERVIEWER Gender Identity Not on file Sexual Orientation Not on file documented as of this encounter Plan of Treatment Not on file documented as of this encounter Visit Diagnoses Diagnosis Unspecified asthma(493.90)- Primary Unspecified asthma documented in this encounter Care Teams Manager Of Enterprise Relationship Specialty Start Date End Date Claudia Medina DO [address] [facility] 19 [place], [place] [address] PCP - General Family Practice 08/24/17 documented as of this encounter
--- OUTSIDE RECORDS SUMMARY | 2025-02-21 22:52 | XMS_ITS | Encounter Summary ---
Author Organization [facility] Address [address] [place] [address] Care Team Providers Care Customer Support Coordinator Name Role Phone Claudia Medina DO Primary Care Provider +1 -[phone] Encounter Details Date Type Department Care Team (Late st Contact Info) Description 05/02/2013 Ancillary Orders [address] [phone] Dhiraj Isaac PA NO ADDRESS ON FILE [...] on file Legal Sex Female 4:41 AM JAVA SDET Gender Identity Not on file Sexual Orientation Not on file Occupation Industry Job Start Date Job End Date Not on file Not on file Not on file Not on file documented as of this encounter Plan of Treatment Not on file documented as of this encounter Results * MAMMO DIGITIZED STUDY (05/06/2009 3:58 PM JAVA SDET) Narrative Linda Kim RT - 05/02/2013 3:59 PM JAVA SDET Order information only. Exam was auto-finalized. Procedure Note Linda Kim RT - 05/02/2013 Order information only. Exam was auto-finalized. Dhiraj DOMINGUEZ DIAGNOSTIC IMAGING ORDERABLES Final Result documented in this encounter Visit Diagnoses Diagnosis Other screening mammogram- Primary Other screening mammogram documented in this encounter Care Teams Customer Support Coordinator Relationship Specialty Start Date End Date Claudia Medina DO [address] [place] [address] PCP - General Family Practice 08/24/17 documented as of this encounter
--- OUTSIDE RECORDS SUMMARY | 2025-02-21 22:52 | XMS_ITS | Encounter Summary ---
Author Organization [facility] Address [address] [place] [address] Care Team Providers Care Masonry Inspector Name Role Phone Carol, Claudia No Primary Care Provider +1 -[phone] Encounter Details Date Type Department Care Team (Latest Contact Info) Description 04/28/2004 Outpatient Historical [facility] Family Medicine [place] 104 [facility] 60 [place] [phone] Cony Carrasco, PAINT DIPPER [address] [place] [address] ACUTE BRONCHITIS (Primary Dx); ACUTE URI NOS Social History Tobacco Use Types Packs/Day Years Used Date Smoking Tobacco: Never Assessed Comments Unknown Sex and Gender Information Value Date Recorded Sex Assigned at Not on file Legal Sex Female 4:41 AM SUPERINTENDENT FISH HATCHERY Gender Identity Not on file Sexual Orientation Not on file documented as of this encounter Plan of Treatment Not on file documented as of this encounter Visit Diagnoses Diagnosis Acute bronchitis- Primary Acute upper respiratory infections of unspecified site documented in this encounter Care Teams Masonry Inspector Relationship Specialty Start Date End Date Claudia Medina DO [address] [facility] 19 [place], [place] [address] PCP - General Family Practice 08/24/17 documented as of this encounter
--- OUTSIDE RECORDS SUMMARY | 2025-02-21 22:52 | XMS_ITS | Encounter Summary ---
Author Organization [facility] Address [address] [place] [address] Care Team Providers Care Change Number Operator Name Role Phone CarolClaudia raza Primary Care Provider +1 -[phone] Encounter Details Date Type Department Care Team (Latest Contact Info) Description 11/16/2002 Outpatient Historical [facility] Medicine- [address] [phone] Jeff Hatfield MD [address] [facility] 200 [place] [phone] PAINFUL RESPIRATION (Primary Dx) Social History Tobacco Use Types Packs/Day Years Used Date Smoking Tobacco: Never Assessed Comments Unknown Sex and Gender Information Value Date Recorded Sex Assigned at Not on file Legal Sex Female 4:41 AM 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
--- OUTSIDE RECORDS SUMMARY | 2025-02-21 22:52 | XMS_ITS | Encounter Summary ---
Author Organization [facility] Address [address] [place] [address] Care Team Providers Care Salesperson Pianos And Organs Name Role Phone Claudia Medina DO Primary Care Provider +1 -[phone] Encounter Details Date Type Department Care Team (Latest Contact Info) Description 01/13/2004 Outpatient Historical [facility] Medicine- [address] [phone] Jeff Hatfield MD [address] [facility] 200 [place] [address] LOWER LEG INJURY NOS (Primary Dx); ELB/FOREARM/WRST INJURY NOS Social History Tobacco Use Types Packs/Day Years Used Date Smoking Tobacco: Never Assessed Comments Unknown Sex and Gender Information Value Date Recorded Sex Assigned at Not on file Legal Sex Female 4:41 AM DEBEADER Gender Identity Not on file Sexual Orientation Not on file documented as of this encounter Plan of Treatment Not on file documented as of this encounter Visit Diagnoses Diagnosis Injury, other and unspecified, knee, leg, ankle, and foot- Primary Injury, other and unspecified, elbow, forearm, and wrist documented in this encounter Care Teams Salesperson Pianos And Organs Relationship Specialty Start Date End Date Claudia Medina DO [address] [address] PCP - General Family Practice 08/24/17 documented as of this encounter
--- OUTSIDE RECORDS SUMMARY | 2025-02-21 22:52 | XMS_ITS | Encounter Summary ---
Author Organization [facility] Address [address] [place] [address] Care Team Providers Care Account Coordinator Name Role Phone Claudia Medina DO Primary Care Provider +1 -[phone] Encounter Details Date Type Department Care Team (Late st Contact Info) Description 05/02/2013 Ancillary Orders [address] [phone] Dhiraj Isaac PA NO ADDRESS ON FILE [...] on file Legal Sex Female 4:41 AM OPERATIONS ASSISTANT Gender Identity Not on file Sexual [...] Linda Kim, RT - 05/02/2013 3:57 PM OPERATIONS ASSISTANT Order information only. Exam was auto-finalized. Procedure Note Linda Kim, RT - 05/02/2013 Order information only. Exam was auto-finalized. Dhiraj DOMINGUEZ DIAGNOSTIC IMAGING ORDERABLES Final Result documented in this encounter Visit Diagnoses Diagnosis Other screening mammogram- Primary Other screening mammogram documented in this encounter Care Teams Account Coordinator Relationship Specialty Start Date End Date Claudia Medina DO [facility] [place] [address] PCP - General Family Practice 08/24/17 documented as of this encounter
--- OUTSIDE RECORDS SUMMARY | 2025-02-21 22:52 | XMS_ITS | Encounter Summary ---
Author Organization [facility] Address [address] [place] [address] Care Team Providers Care Internship Coordinator Name Role Phone CarolClaudia raza Primary Care Provider +1 -[phone] Encounter Details Date Type Department Care Team (Latest Contact Info) Description 04/16/2003 Outpatient Historical [facility] Medicine- [address] [phone] Jeff Hatfield MD [address] [facility] 200 [place] [address] ACUTE BRONCHITIS (Primary Dx) Social History Tobacco Use Types Packs/Day Years Used Date Smoking Tobacco: Never Assessed Comments Unknown Sex and Gender Information Value Date Recorded Sex Assigned at Not on file Legal Sex Female 4:41 AM LICENSED SURVEYOR Gender Identity Not on file Sexual Orientation Not on file documented as of this encounter Plan of Treatment Not on file documented as of this encounter Visit Diagnoses Diagnosis Acute bronchitis- Primary documented in this encounter Care Teams Internship Coordinator Relationship Specialty Start Date End Date Claudia Medina DO [address] [facility] 19 [place] [address] PCP - General Family Practice 08/24/17 documented as of this encounter
[2025-02-21 23:08] LABS: Hematocrit 37.4 % (36-47); Hemoglobin 12.10 g/dL (11.27-16.99); Mean Corpuscular HGB Conc 32.4 g/dL (30-55); Mean Corpuscular Hemoglobin 26.2 pg (27-33); Mean Corpuscular Volume 81.0 fl (85-98); Nucleated Red Blood Cells % 0 %; Platelet Count 250 10^3/cmm (157-399); Red Blood Count 4.62 10^6/uL (3.85-5.65); White Blood Count 9.55 10^3/uL (3.29-11.43)
--- NOTE | 2025-02-21 23:15 | CTR_ITS ---
PROCEDURE INFORMATION: Exam: CT Abdomen And Pelvis With Contrast Exam date and time: 02/21/2025 11:43 PM Age: 75 years old Clinical indication: Abdominal pain; Prior surgery; Surgery date: 6+ months; Surgery type: Hernia repair, tubal, sonu; Additional info: Abd pain TECHNIQUE: Imaging protocol: Computed tomography of the abdomen and pelvis with contrast. Radiation optimization: All CT scans at this facility use at least one of these dose optimization techniques: automated exposure control; mA and/or kV adjustment per patient size (includes targeted exams where dose is matched to clinical indication); or iterative reconstruction. Contrast material: OMNI 350; Contrast volume: 100 ml; Contrast route: INTRAVENOUS (IV); COMPARISON: CT abdomen pelvis w con* [id number] 05/06/2023 7:27 PM RADIATION DOSE METRICS: Total DLP (mGy-cm): 1268.66 FINDINGS: Lungs: Dependent atelectasis is noted in the lung bases. Liver: Stable 2.3 cm simple fluid attenuating cyst is seen in the right jomar liver. Gallbladder and biliary ducts: The gallbladder is surgically absent. Pancreas: The pancreas is mildly atrophic. No ductal dilatation is seen. No solid mass is seen. Spleen: Normal. No splenomegaly. Adrenal glands: Normal. No mass. Kidneys and ureters: Subcentimeter hypodensities in the left kidney are too small to accurately characterize, statistically representing simple cysts. Mildly increased prominence of a right extrarenal pelvis with minimal urothelial enhancement. Stomach and bowel: Unremarkable. No obstruction. No mucosal thickening. Appendix: No evidence of appendicitis. Intraperitoneal space: Unremarkable. No free air. No significant fluid collection. Vasculature: Mild atherosclerosis of the aorta and its major branching vessels is noted. Lymph nodes: Calcified mediastinal/hilar lymph nodes consistent with prior granulomatous disease. Urinary bladder: Unremarkable as visualized. Reproductive: The uterus is surgically absent. Bones/joints: Schmorl's nodes are present. Degenerative joint and disc disease is most prominent at L4-L5. Grade 1 anterolisthesis of L4-L5. T12 vertebral hemangioma is present. Chronic nonunion left superior and inferior pubic ramus fracture deformities (series 4, image 93). Soft tissues: Small bowel containing ventral hernia with small defect measuring 7 mm (series 4, image 56). No acute inflammation to suggest strangulation at this time. No obstruction. CT/CT abdomen pelvis w con* [id number] IMPRESSION: 1. Small bowel containing ventral hernia without evidence of bowel strangulation or obstruction. Correlate with physical exam for reducibility. 2. Correlate with urinalysis/cytology to exclude UTI given minimal urothelial enhancement of the right renal pelvis. No evidence of pyelonephritis. 3. Multilevel degenerative changes, most prominent at L4-L5. 4. Grade 1 anterolisthesis at L4-L5. 5. Incidental findings as above. COMMENTS: Consistent with the [employer]'s Incidental Findings Committee white paper (J Am Fely Radiol 2018): Any incidental renal lesion less than 1 cm or classified as too small to characterize, or any incidental cystic renal lesion characterized as simple-appearing, is likely benign. No follow-up imaging is recommended for these lesions per consensus recommendations based on imaging criteria.
--- NOTE | 2025-02-21 23:15 | XRR_ITS ---
PROCEDURE INFORMATION: Exam: XR Chest Exam date and time: 02/21/2025 11:35 PM Age: 75 years old Clinical indication: Fever TECHNIQUE: Imaging protocol: Radiologic exam of the chest. Views: 1 view. COMPARISON: CR XR chest 1V portable [id number] 09/05/2023 12:15 PM FINDINGS: Lungs: No acute pulmonary process is identified. Pleural spaces: Unremarkable. No pleural effusion. No pneumothorax. Heart/Mediastinum: Unremarkable. No cardiomegaly. Bones/joints: Osseous free bodies are noted in the left glenohumeral joint. Mild bilateral shoulder osteoarthritis is present. XR/XR chest 1V portable [id number] IMPRESSION: No acute pulmonary process.
--- NOTE | 2025-02-21 23:22 | W.ED.NAVMDI ---
HPI - Nausea/Vomiting/Diarrhea General: Chief complaint: Nausea/Vomiting/Diarrhea Stated complaint: N/V Time Seen by Provider: 02/21/25 22:35 Source: patient and EMS Mode of arrival: EMS Limitations: no limitations History of Present Illness: 75-year-old female who states she has been having some abdominal cramping along with nausea vomiting congestion since yesterday. States she is also had low-grade fevers. States her pain in her abdomen currently is a 2 out of 10 states she has had some mild weakness with her vomiting. She denies any chest pain denies any cough states she has had sick contacts. Associated nausea: Yes Associated symtoms: Reports nausea; Denies chest pain, dysuria or headache(s) Related Data Home Medications ?Medication ?Instructions ?Recorded ?Confirmed bimatoprost 0.01 % eye drops 1 drp ophthalmic (eye) BEDTIME@2100 08/10/20 02/14/25 (Lumigan) multivitamin 1 tab PO BEDTIME 06/19/23 02/14/25 mirabegron 50 mg tablet,extended 50 mg PO DAILY 07/21/23 02/14/25 release 24 hr (Myrbetriq) alendronate 70 mg tablet 70 mg PO .WEEKLY 01/10/25 02/14/25 cholecalciferol (vitamin D3) 1,250 1,250 mcg PO .WEEKLY 01/10/25 02/14/25 mcg (50,000 unit) capsule ferrous fumarate 324 mg (106 mg 324 mg PO DAILY 01/10/25 02/14/25 iron) tablet fluticasone fur. 200 mcg-umeclid 1 inh inhalation DAILY 01/10/25 02/14/25 62.5 mcg-vilant 25 mcg inhalat.powder (Trelegy Ellipta) Previous Rx's ?Medication ?Instructions ?Recorded solifenacin 10 mg tablet 10 mg PO BEDTIME #30 tabs 07/29/23 nebulizer accessories #1 ea 08/12/23 pen needle, diabetic 31 gauge x #100 ea 10/31/2310/26 (Comfort EZ Pen [place]) calcium 500 mg (as 1 tab PO BID #60 tabs 04/03/24 carbonate)-vitamin D3 15 mcg (600 unit) tablet (Os-Dagoberto 500 + D3) buspirone 10 mg tablet 10 mg PO BID #180 tabs 07/13/24 gabapentin 100 mg capsule 100 mg PO BID #180 caps 07/13/24 mirtazapine 15 mg tablet (Remeron) 15 mg PO BEDTIME #90 tabs 07/13/24 paroxetine HCl 20 mg tablet 20 mg PO DAILY #90 tabs 07/13/24 celecoxib 100 mg capsule (Celebrex) 100 mg PO BID 30 days #60 caps 12/06/24 albuterol sulfate 2.5 mg/3 mL 2.5 mg (3 mL) inhalation QID PRN 12/17/24 (0.083 %) solution for nebulization shortness of breath or wheezing #75 mL albuterol sulfate 90 mcg/actuation 2 inh inhalation Q4H PRN shortness 12/17/24 aerosol inhaler of breath or wheezing #18 grams baclofen 5 mg tablet 5 mg PO BID PRN muscle pain #10 01/24/25 tabs levothyroxine 50 mcg tablet See Rx Instructions .Route 01/25/25 .COMPLEX #90 tabs pantoprazole 40 mg tablet,delayed 40 mg PO BID 30 days #60 tabs 02/06/25 release Allergies Allergy/AdvReac Type Severity Reaction Status Date / Time fentanyl Allergy Severe Burning Verified 02/07/25 13:08 feeling meperidine (From Demerol) Allergy rash Verified 02/07/25 13:08 morphine Allergy tongue Verified 02/07/25 13:08 swelling, hallucinations Sulfa (Sulfonamide Allergy headaches Verified 02/07/25 13:08 Antibiotics) Review of Systems Const: Reports: fever(s) and chills; Denies: body aches or change in appetite Eyes: Denies: blurry vision or eye discomfort ENMT: Denies: throat pain or dental pain Card: Denies: chest pain Resp: Denies: dyspnea GI: Reports: abdominal pain, nausea and vomiting; Denies: diarrhea : Denies: dysuria Musc: Denies: neck pain or back pain Skin/Breast: Denies: rash Neuro: Denies: headache(s) PFSH ED PFSH: Medical History Chronic right hip pain Degeneration of intervertebral disc of lumbar region with discogenic back pain and lower extremity pain (~10/11/24) Urinary incontinence in female OAB (overactive bladder) Spider bite wound, accidental or unintentional, subsequent encounter Skin lesions, generalized Right sided sciatica Fall from standing, subsequent encounter Multiple contusions Dysphagia, unspecified type Umbilical hernia without obstruction and without gangrene Umbilical hernia containing a portion of the colon without obstruction. (incidental finding from CT in chart from April 12/10/24 Gastroesophageal reflux disease without esophagitis Colon polyps 3 polyps removed [facility] May 2023 Breast cancer screening by mammogram Colon cancer screening May 2023 - polyp removal Repeat in May 2026 Shoulder contusion Generalized weakness At risk for falls Post-menopausal osteoporosis Flu-like symptoms Psychiatric care Diarrhea Dermatitis Anxiety Fatigue Atrial fibrillation Left thigh pain Upper respiratory infection Bilateral otitis media Injury of knee, right Acute bacterial sinusitis Arthritis pain Influenza vaccine needed Acute bacterial sinusitis Environmental and seasonal allergies URI, acute Right knee pain Obesity Pain of left knee after injury Lower respiratory infection Urgency incontinence Recurrent UTI Sinusitis, acute Morbid obesity Tear of right rotator cuff Arthritis of right acromioclavicular joint Rotator cuff tear arthropathy of left shoulder Weight loss Esophagitis SOB (shortness of breath) Chest pain at rest EKG from 05/01/2020 The EKG showed normal sinus rhythm with possible old inferior wall DC and poor R wave progression. Some nonspecific T wave changes. Cardiac arrhythmia Anemia Hypotension Postsurgical hypothyroidism Allergic rhinitis Mixed hyperlipidemia Vitamin D deficiency H/O malignant neoplasm of thyroid Patellar tendon rupture Hypertension Stress incontinence COPD (chronic obstructive pulmonary disease) Depression Primary osteoarthritis involving multiple joints Diabetes Surgical History H/O hernia repair with mesh H/O tubal ligation Hx of cholecystectomy H/O colonoscopy H/O esophagogastroduodenoscopy with dilation S/P thyroidectomy Status post knee replacement Family History Mother , AT AGE 75 CAD (coronary artery disease) Hypertension Father , AT AGE 68 CAD (coronary artery disease) Hypertension Denies family history of Diabetes Anesthesia complication Bleeding disorder Cancer Social History Smoking and tobacco/nicotine status: never used tobacco/nicotine Quit status (tobacco/nicotine): has quit using Second hand smoke exposure: No Alcohol intake: never Substance/Drug Use: never Marital status: Current occupational status: employed and unemployed Physical Exam Const: COMMON NORMALS: no acute distress, patient oriented x3 and healthy appearing HENMT: COMMON NORMALS: normocephalic and atraumatic HEAD & SCALP: normocephalic and atraumatic Eye: COMMON NORMALS: conjunctivae normal CONJUNCTIVA: Yes conjunctivae normal Neck/C-Spine: COMMON NORMALS: full ROM and supple Chest: COMMONS NORMALS: normal inspection of the chest Resp: COMMON NORMALS: normal respiratory effort, No retractions, No use of accessory muscles and clear to auscultation bilaterally AUSCULTATION: clear to auscultation bilaterally Cardio: COMMON NORMALS: regular rate, regular rhythm and No murmurs present (Cardio) RATE: regular rate RHYTHM: regular rhythm GI: COMMON NORMALS: Normal to inspection, nondistended, normoactive bowel sounds present, Soft to palpation and no masses PALPATION: Yes Soft to palpation OTHER: mild diffuse tenderness Extremity: COMMON NORMALS: normal to inspection and full ROM Neuro: COMMON NORMALS: patient oriented x3, moves all extremities and no focal motor deficits Psych: COMMON NORMALS: mental status grossly normal, Normal thought process present and cooperative THOUGHT PROCESS: Normal thought process present Skin: COMMON NORMALS: no rashes or lesions noted and no wounds GENERAL SKIN EXAM: no rashes or lesions noted Course Vital Signs: Vital signs: Vital Signs Temperature 98.3 F 02/22/25 00:22 Pulse Rate 90 02/22/25 00:22 Respiratory Rate 20 H 02/22/25 00:22 Blood Pressure 122/56 02/22/25 00:22 Pulse Oximetry 92 02/22/25 00:22 Oxygen Delivery Me thod Nasal Cannula 02/22/25 00:22 Oxygen Flow Rate 2 02/22/25 00:22 MDM - Nausea/Vomiting/Diarrhea Medical Decision Making Patient presents for vomiting abdominal pain she does have a UTI. White count lactate was normal did give her sepsis bolus ideal body weight. Patient given antibiotics here as well as spoke to hospitalist will admit this time Medical Records I reviewed the patient's medical records. Lab Data I reviewed the patient's lab results. 02/21/25 21:25 02/21/25 21:25 Radiology Impressions Abdomen/Pelvis CT 02/21/25 23:15 IMPRESSION: 1. Small bowel containing ventral hernia without evidence of bowel strangulation or obstruction. Correlate with physical exam for reducibility. 2. Correlate with urinalysis/cytology to exclude UTI given minimal urothelial enhancement of the right renal pelvis. No evidence of pyelonephritis. 3. Multilevel degenerative changes, most prominent at L4-L5. 4. Grade 1 anterolisthesis at L4-L5. 5. Incidental findings as above. COMMENTS: Consistent with the [employer]'s Incidental Findings Committee white paper (J [employer] Fely [employer]iol 2018): Any incidental renal lesion less than 1 cm or classified as too small to characterize, or any incidental cystic renal lesion characterized as simple-appearing, is likely benign. No follow-up imaging is recommended for these lesions per consensus recommendations based on imaging criteria. Chest X-Ray 02/21/25 23:15 IMPRESSION: No acute pulmonary process. Laboratory Results WBC 9.55 10^3/uL (3.29-11.43) 02/21/25: RBC 4.62 10^6/uL (3.85-5.65) 02/21/25: Hgb 12.10 g/dL (11.27-16.99) 02/21/25: Hct 37.4 % (36-47) 02/21/25: MCV 81.0 fl (85-98) L 02/21/25: MCH 26.2 pg (27-33) L 02/21/25: MCHC 32.4 g/dL (30-55) 02/21/25: RDW 14.7 % (12.1-15.1) 02/21/25: Plt Count 250 10^3/cmm (157-399) 02/21/25: MPV 11.3 fL (7.4-10.4) H 02/21/25: Neut % (Auto) 77.1 % 02/21/25: Lymph % (Auto) 14.0 % 02/21/25: [place] % (Auto) 7.3 % 02/21/25: Eos % (Auto) 0.7 % 02/21/25: Baso % (Auto) 0.4 % 02/21/25: Neut # (Auto) 7.35 10^3/uL (1.8-7.7) 02/21/25: Lymph # (Auto) 1.3 10^3/uL (0.8-4.8) 02/21/25:25 [place] # (Auto) 0.7 10^3/uL (0.2-0.9) 02/21/25: Eos # (Auto) 0.1 10^3/uL (0.0-0.8) 02/21/25: Baso # (Auto) 0.0 10^3/uL (0.0-0.1) 02/21/25: Nucleated RBC % (auto) 0 % 02/21/25: Nucleated RBCs # 0.0 /100WBC 02/21/25: Sodium 138 mmol/L (136-145) 02/21/25: Potassium 3.5 mmol/L (3.5-5.1) 02/21/25: Chloride 98 mmol/L (98-107) 02/21/25: Carbon Dioxide 21 mmol/L (22-29) L 02/21/25: Anion Gap 22.5 (5-19) H 02/21/25: BUN 13 mg/dL (8-23) 02/21/25: Creatinine 0.7 mg/dL (0.5-0.9) 02/21/25: GFR Calculation Not Reportable 02/21/25: Glucose 151 mg/dL (65-115) H 02/21/25: Calculated Osmolality 289 mOsm/kg (285-295) 02/21/25: Calcium 9.4 mg/dL (8.5-10.5) 02/21/25: Total Bilirubin 1.2 mg/dL (0.15-1.2) 02/21/25: AST 24 U/L (0-32) 02/21/25: ALT 17 U/L (0-33) 02/21/25: Alkaline Phosphatase 72 U/L (35-105) 02/21/25: Total Protein 7.3 g/dL (6.6-8.7) 02/21/25: Albumin 4.1 g/dL (3.5-5.2) 02/21/25: Globulin 3.2 g/dL (1.3-4.6) 02/21/25 21:25 Lipase 7 U/L (13-60) L 02/21/25 21:25 Urine Color Yellow (Yellow) 02/21/25 23:37 Urine Appearance Cloudy (CLEAR) A 02/21/25 23:37 Urine pH 5.5 (5-7) 02/21/25 23:37 Ur Specific [place] 1.017 (1.005-1.030) 02/21/25 23:37 Urine Protein 2+ (Negative) A 02/21/25 23:37 Urine Glucose (UA) Negative (Normal) 02/21/25 23:37 Urine Ketones Trace (Negative) 02/21/25 23:37 Urine Blood 2+ (Negative) A 02/21/25 23:37 Urine Nitrate Positive (Negative) A 02/21/25 23:37 Urine Bilirubin Negative (Negative) 02/21/25 23:37 Urine Urobilinogen 1.0 mg/dL (Negative) 02/21/25 23:37 Ur Leukocyte Esterase 3+ (Negative) A 02/21/25 23:37 Urine RBC 6-10 /hpf (0-2) 02/21/25 23:37 Urine WBC >100 /hpf (0-5) H 02/21/25 23:37 Ur Squamous Epith Cells 0-5 /hpf (0-5) 02/21/25 23:37 Amorphous Sediment Not Reportable 02/21/25 23:37 Urine Bacteria 4+ /hpf (NONE) H 02/21/25 23:37 Hyaline Casts 2.87 /lpf 02/21/25 23:37 Influenza A (PCR) Negative (Negative) 02/21/25 23:37 Influenza Type B (PCR) Negative (Negative) 02/21/25 23:37 RSV (PCR) Negative (Negative) 02/21/25 23:37 SARS-CoV-2 (PCR) Negative (Negative) 02/21/25 23:37 All radiology interpretation(s) finalized by discharge Discharge Plan Discharge Patient Disposition: Admitted As Inpatient Clinical Impression: Acute cystitis, Vomiting Condition: Stable Coding Level of Care Code ED Director Of Critical Care for Afia Stafford
[2025-02-21 23:31] LABS: Alanine Aminotransferase 17 U/L (0-33); Albumin Level 4.1 g/dL (3.5-5.2); Alkaline Phosphatase 72 U/L (35-105); Anion Gap 22.5 (5-19); Aspartate Amino Transferase 24 U/L (0-32); Blood Urea Nitrogen 13 mg/dL (8-23); Calcium 9.4 mg/dL (8.5-10.5); Carbon Dioxide 21 mmol/L (22-29); Chloride 98 mmol/L (98-107); Creatinine Clr Calc Pharmacy 84.2505; Globulin 3.2 g/dL (1.3-4.6); Glucose 151 mg/dL (65-115); Lipase 7 U/L (13-60); Osmolality Calculated 289 mOsm/kg (285-295); Potassium 3.5 mmol/L (3.5-5.1); Sodium 138 mmol/L (136-145); Total Protein 7.3 g/dL (6.6-8.7)
[2025-02-21] MEDS: ondansetron 2 mg/ML SDV 2 mL 4 MG IVP (23:34)
[2025-02-21 23:42] VITALS: BP 113/62; PULSE 84; RESP 22; O2SAT 86
[2025-02-21 23:42] LABS: Glucose Urine UA Negative (Normal); Nitrate Urine Positive (Negative); Specific Gravity, Urine 1.017 (1.005-1.030)
[2025-02-21 23:44] LABS: Add Urine Microscopic? YES
[2025-02-22] VITALS (11 sets, daily range): BP systolic 89–137; BP diastolic 50–83; PULSE 67–90; RESP 17–20; TEMP 36.7–37.3; O2SAT 89–96; BMI 45.6
[2025-02-22 00:17] LABS: Respiratory Syncytial Virus Ce NEGATIVE (Negative); SARS-CoV-2 PCR NEGATIVE (Negative)
[2025-02-22] MEDS: cefTRIAXone 1,000 mg SDV 1000 MG IVP (00:18)
[2025-02-22 00:38] LABS: Lactic Sepsis W/Reflex 0.9 mmol/L (0.5-2.2)
--- NOTE | 2025-02-22 00:58 | PM.HP ---
Providers/Chief Complaint Admitting Physician: TOYA MANZANO DO --patient seen and evaluated after 12 midnight Primary Care Provider: XIAO Fang Chief Complaint: N/V History of Present Illness Lenora Aviles is a 75 year old female female with medical history significant for recurrent UTI. Patient presented with complaints of burning on urination and generalized feeling of not feeling well and also having much suprapubic area pain and tenderness felt that the whole abdominal girdle is sore. Urinalysis was impressive with greater than 100 white cells, +4 bacteria positive nitrate + leukoesterase. White count is where within normal lactate normal patient most likely had UTI with generalized weakness without sepsis. If this is not treated promptly, if it is could be devastating. Patient had received ceftriaxone and azithromycin in the emergency room. Chest x-ray unremarkable. Patient had been found wheezing because of underlining asthma and with reactive airways in the setting of infection. Patient is appropriate to go to [facility] unit for optimization of care patient does meet criteria for inpatient stay at least 2 midnight stay. Patient also has been treated for reactive airway disease with wheezing and associated hypoxemia with oxygen saturation on room air at 86. Patient is not on home oxygen at home but requiring some oxygen at 2 L to keep the saturation close to 92% Review of Systems Narrative: System review upon 10 organ system reviewed were significant for generalized muscular weakness, GI system of abdominal pain with soreness with associated system of dysuria Medications/Allergies Home Medications ?Medication ?Instructions ?Recorded ?Confirmed ?Last Taken ?Type bimatoprost 0.01 % eye drops 1 drp ophthalmic (eye) BEDTIME@2100 08/10/20 02/14/25 01/09/25 History (Lumigan) multivitamin 1 tab PO BEDTIME 06/19/23 02/14/25 01/09/25 History mirabegron 50 mg tablet,extended 50 mg PO DAILY 07/21/23 02/14/25 01/09/25 History release 24 hr (Myrbetriq) solifenacin 10 mg tablet 10 mg PO BEDTIME #30 tabs 07/29/23 02/14/25 01/09/25 Rx nebulizer accessories #1 ea 08/12/23 02/14/25 Unknown Rx pen needle, diabetic 31 gauge x #100 ea 10/31/23 02/14/25 Unknown Rx 5/16 (Comfort EZ Pen [place]) calcium 500 mg (as 1 tab PO BID #60 tabs 04/03/24 02/14/25 01/09/25 Rx carbonate)-vitamin D3 15 mcg (600 unit) tablet (Os-Dagoberto 500 + D3) buspirone 10 mg tablet 10 mg PO BID #180 tabs 07/13/24 02/14/25 01/09/25 Rx gabapentin 100 mg capsule 100 mg PO BID #180 caps 07/13/24 02/14/25 01/09/25 Rx mirtazapine 15 mg tablet (Remeron) 15 mg PO BEDTIME #90 tabs 07/13/24 02/14/25 01/09/25 Rx paroxetine HCl 20 mg tablet 20 mg PO DAILY #90 tabs 07/13/24 02/14/25 01/09/25 Rx celecoxib 100 mg capsule (Celebrex) 100 mg PO BID 30 days #60 caps 12/06/24 02/14/25 01/09/25 Rx albuterol sulfate 2.5 mg/3 mL 2.5 mg (3 mL) inhalation QID PRN 12/17/24 02/14/25 8 Months Ago Rx (0.083 %) solution for nebulization shortness of breath or wheezing ~05/12/24 #75 mL albuterol sulfate 90 mcg/actuation 2 inh inhalation Q4H PRN shortness 12/17/24 02/14/25 01/09/25 Rx aerosol inhaler of breath or wheezing #18 grams alendronate 70 mg tablet 70 mg PO .WEEKLY 01/10/25 02/14/25 01/09/25 History cholecalciferol (vitamin D3) 1,250 1,250 mcg PO .WEEKLY 01/10/25 02/14/25 01/09/25 History mcg (50,000 unit) capsule ferrous fumarate 324 mg (106 mg 324 mg PO DAILY 01/10/25 02/14/25 01/09/25 History iron) tablet fluticasone fur. 200 mcg-umeclid 1 inh inhalation DAILY 01/10/25 02/14/25 01/10/25 08:00 History 62.5 mcg-vilant 25 mcg inhalat.powder (Trelegy Ellipta) baclofen 5 mg tablet 5 mg PO BID PRN muscle pain #10 01/24/25 02/14/25 Unknown Rx tabs levothyroxine 50 mcg tablet See Rx Instructions .Route 01/25/25 02/14/25 Unknown Rx .COMPLEX #90 tabs pantoprazole 40 mg tablet,delayed 40 mg PO BID 30 days #60 tabs 02/06/25 02/14/25 Unknown Rx release Allergies Allergy/AdvReac Type Severity Reaction Status Date / Time fentanyl Allergy Severe Burning Verified 02/07/25 13:08 feeling meperidine (From Demerol) Allergy rash Verified 02/07/25 13:08 morphine Allergy tongue Verified 02/07/25 13:08 swelling, hallucinations Sulfa (Sulfonamide Allergy headaches Verified 02/07/25 13:08 Antibiotics) PFSH Acute PFSH: Medical History Chronic right hip pain Degeneration of intervertebral disc of lumbar region with discogenic back pain and lower extremity pain (~10/11/24) Urinary incontinence in female OAB (overactive bladder) Spider bite wound, accidental or unintentional, subsequent encounter Skin lesions, generalized Right sided sciatica Fall from standing, subsequent encounter Multiple contusions Dysphagia, unspecified type Umbilical hernia without obstruction and without gangrene Umbilical hernia containing a portion of the colon without obstruction. (incidental finding from CT in chart from [facility] 12/10/24 Gastroesophageal reflux disease without esophagitis Colon polyps 3 polyps removed [facility] May 2023 Breast cancer screening by mammogram Colon cancer screening May 2023 - polyp removal Repeat in May 2026 Shoulder contusion Generalized weakness At risk for falls Post-menopausal osteoporosis Flu-like symptoms Psychiatric care Diarrhea Dermatitis Anxiety Fatigue Atrial fibrillation Left thigh pain Upper respiratory infection Bilateral otitis media Injury of knee, right Acute bacterial sinusitis Arthritis pain Influenza vaccine needed Acute bacterial sinusitis Environmental and seasonal allergies URI, acute Right knee pain Obesity Pain of left knee after injury Lower respiratory infection Urgency incontinence Recurrent UTI Sinusitis, acute Morbid obesity Tear of right rotator cuff Arthritis of right acromioclavicular joint Rotator cuff tear arthropathy of left shoulder Weight loss Esophagitis SOB (shortness of breath) Chest pain at rest EKG from 05/01/2020 The EKG showed normal sinus rhythm with possible old inferior wall [place] and poor R wave progression. Some nonspecific T wave changes. Cardiac arrhythmia Anemia Hypotension Postsurgical hypothyroidism Allergic rhinitis Mixed hyperlipidemia Vitamin D deficiency H/O malignant neoplasm of thyroid Patellar tendon rupture Hypertension Stress incontinence COPD (chronic obstructive pulmonary disease) Depression Primary osteoarthritis involving multiple joints Diabetes Surgical History H/O hernia repair with mesh H/O tubal ligation Hx of cholecystectomy H/O colonoscopy H/O esophagogastroduodenoscopy with dilation S/P thyroidectomy Status post knee replacement Family History Mother , AT AGE 75 CAD (coronary artery disease) Hypertension Father , AT AGE 68 CAD (coronary artery disease) Hypertension Denies family history of Diabetes Anesthesia complication Bleeding disorder Cancer Social History Smoking and tobacco/nicotine status: never used tobacco/nicotine Quit status (tobacco/nicotine): has quit using Second hand smoke exposure: No Alcohol intake: never Substance/Drug Use: never Marital status: Current occupational status: employed and unemployed Vitals/I&O/Wt Last Vital Signs Temp 98.3 F 02/22/25 00:22 Pulse 90 02/22/25 00:22 Resp 20 H 02/22/25 00:22 BP 122/56 02/22/25 00:22 Pulse Ox 92 02/22/25 00:22 O2 Del Method Nasal Cannula 02/22/25 00:22 O2 Flow Rate 2 02/22/25 00:22 Weight last 48 hrs Weight 130.635 kg Physical Exam Narrative: Generally patient is mildly ill-appearing HEENT normocephalic/atraumatic neck neck is supple cardiovascular heart rate is regular lungs are clear but with audible wheezing. Abdomen is obese with subjective tenderness in the hypogastric region with an examining hand unremarkable. Extremities are intact no edema has good pulses Neurology he has no focality Lab studies were essentially remarkable for abnormal urinalysis depicting UTI most likely with culprits micro of E. coli with few bacteria +4 Data 02/21/25 21:25 02/21/25 21:25 Micro: Microbiology 02/22/25 00:15 Blood Culture - Preliminary Blood SPECIMEN COLLECTED 02/22/25 00:13 Blood Culture - Preliminary Blood SPECIMEN COLLECTED A&P Assessment and plan 1. Acute cystitis: 2. Vomitin. Asthmatic bronchitis: 4. Chronic right hip pain: 5. Urinary incontinence in female: Plan: #1 Acute cystitis with generalized weakness - Admit to general medical floor for IV antibiotics, IV hydration and optimizing nausea and vomiting - Patient had received ceftriaxone in the emergency room - Will continue with 2 g ceftriaxone IV daily - Follow-up with culture and optimize accordingly #2 Nausea and vomiting -Nausea vomiting secondary to underlining UTI - Optimize with antiemetic - Monitor progress - Trial of clear liquid diet as tolerated and then advance when patient can tolerate #3 Hypoxemia secondary to underlining infection leading to asthmatic bronchitis -Supplemental oxygen at 2 L for pulse ox of 86% on room air -Saturation at 93% on 2 L of oxygen -Continue to treat and optimize -Allow nebulizing treatments and treat underlying infection -If no much improvement then or can add steroid #4 GI and DVT prophylaxis in place #5 Chronic medical illness such as chronic right hip pain/urinary incontinence -Continue home regimen for care PDMP PDMP Reviewed: Last Reviewed 02/22/25 02:18 by Toya Manzano MD Attestations Medical Necessity Statement*: Patient with nausea and vomiting cannot keep anything down because underlying infection such as UTI that is overwhelming that also had cause reactive airway disease with wheezing in a patient with asthma inducing asthmatic bronchitis this patient does need to be inpatient and does need at least 2 midnights for care Coding Level of Care Code 54781 Diagnoses Acute cystitis N30.00 Vomiting R11.10 Asthmatic bronchitis J45.909 Chronic right hip pain M25.551; G89.29 Urinary incontinence in female R32
[2025-02-22 03:19] LABS: Hematocrit 29.9 % (36-47); Hemoglobin 9.50 g/dL (11.27-16.99); Mean Corpuscular HGB Conc 31.8 g/dL (30-55); Mean Corpuscular Hemoglobin 26.2 pg (27-33); Mean Corpuscular Volume 82.4 fl (85-98); Nucleated Red Blood Cells % 0 %; Platelet Count 200 10^3/cmm (157-399); Red Blood Count 3.63 10^6/uL (3.85-5.65); White Blood Count 7.62 10^3/uL (3.29-11.43)
[2025-02-22 03:42] LABS: Alanine Aminotransferase 14 U/L (0-33); Albumin Level 3.2 g/dL (3.5-5.2); Alkaline Phosphatase 51 U/L (35-105); Anion Gap 14.4 (5-19); Aspartate Amino Transferase 18 U/L (0-32); Blood Urea Nitrogen 14 mg/dL (8-23); Calcium 7.8 mg/dL (8.5-10.5); Carbon Dioxide 24 mmol/L (22-29); Chloride 105 mmol/L (98-107); Creatinine Clr Calc Pharmacy 83.3627; Globulin 2.5 g/dL (1.3-4.6); Glucose 138 mg/dL (65-115); Magnesium 1.5 mg/dL (1.7-2.3); Osmolality Calculated 293 mOsm/kg (285-295); Potassium 3.4 mmol/L (3.5-5.1); Sodium 140 mmol/L (136-145); Total Protein 5.7 g/dL (6.6-8.7)
[2025-02-22] MEDS: heparin 5,000 unit/mL INJ 1 mL 5000 UNIT SUBCUT ×2 (05:12→17:40)
[2025-02-22] MEDS: pantoprazole 40 mg SDV IVP (05:12)
[2025-02-22] MEDS: ondansetron 2 mg/ML SDV 2 mL 4 MG IVP (10:54)
--- NOTE | 2025-02-22 12:30 | PC.SOCIAL ---
IMM Update Updated pt on IMM. No questions voiced. Provided pt a copy. Initialed, dated, & timed a copy & placed in chart.
--- NOTE | 2025-02-22 14:01 | P.PN_ITS ---
Subjective 2 Subjective: Patient has been peeing frequently but a little bit dizzy when stands. She is transferring to the bedside commode and using arms to hold onto things. Patient has been on Mounjaro recently for weight loss and is currently on 2.5 mg weekly Vitals/I&O/Wt Last Vital Signs Temp 98.3 F 02/22/25 11:54 Pulse 84 02/22/25 11:54 Resp 18 02/22/25 11:54 BP 117/75 02/22/25 11:54 Pulse Ox 90 02/22/25 11:54 O2 Del Method Nasal Cannula 02/22/25 07:39 O2 Flow Rate 2 02/22/25 08:00 02/21/25 02/22/25 02/22/25 22:59 06:59 14:59 Intake Total 2250 / 2250 720 / 720 Output Total 300 / 300 Balance 2250 / 2250 420 / 420 Weight last 48 hrs Weight 129.092 kg Weight 128.321 kg Weight 130.635 kg Data 02/22/25 02:45 02/22/25 02:45 Micro: Microbiology 02/22/25 00:15 Blood Culture - Preliminary Blood SPECIMEN COLLECTED 02/22/25 00:13 Blood Culture - Preliminary Blood SPECIMEN COLLECTED A&P Assessment and plan 1. Acute cystitis: Continue ceftriaxone 2 g daily urine did not show much in the way of's blood so I do not think that her kidney stone. Patient has been hypotensive so fluid bolus will be given. In the past she was on blood pressure medication once and became hypotensive. She is not on any blood pressure medication at home 2. Vomiting: Resolved 3. Asthmatic bronchitis: Stable 4. Chronic right hip pain: Stable 5. Urinary incontinence in female: Stable 6. Hypokalemia: give 40 meq po q x 2 7. Hypomagnesemia: give 2 grams IV x 1 PDMP PDMP Reviewed: Not Reviewed Attestations 2 Medical Necessity Statement*: will require additional midnight for treat infection with IV abx Coding Level of Care Code Acute Code for Chg Fwd Diagnoses Acute cystitis N30.00 Vomiting R11.10 Asthmatic bronchitis J45.909 Chronic right hip pain M25.551; G89.29 Urinary incontinence in female R32 Hypokalemia E87.6 Hypomagnesemia E83.42
[2025-02-22] MEDS: magnesium sulfate premix 2 GM/50 ML PIGGYBACK IV (14:22)
[2025-02-22] MEDS: cefTRIAXone 2,000 mg SDV 2000 MG IVP (23:56)
[2025-02-23] VITALS (8 sets, daily range): BP systolic 109–138; BP diastolic 69–82; PULSE 70–96; RESP 16–20; TEMP 36.5–37; O2SAT 88–97
[2025-02-23] MEDS: heparin 5,000 unit/mL INJ 1 mL 5000 UNIT SUBCUT (06:36)
[2025-02-23] MEDS: magnesium sulfate premix 2 GM/50 ML PIGGYBACK IV (07:42)
--- NOTE | 2025-02-23 11:40 | PC.CHAP ---
Pastoral Care Encounter/Spiritual Assessment Type of Contact [x] Declined hr specialist visit [] Patient/Family/Request visit [] Outpatient visit [] Follow-up visit [] Physician referral [] Code/Alert [x] Routine visit [] Staff referral [] Actively dying [] Patient sleeping [] Family support [] [] Out of room [] Palliative care [] [] Receiving care in room [] Pre-surgical visit [] Trauma [] Long length of stay [] ICU visit [] Other: Relational/Emotional Strength [] Patient feels connected with others/family/visitors/staff [] Distress [] Loneliness/isolation [] Abandonment Spirituality of Patient [] Person of Vera [] Attends Evangelical of their Vera [] Believes in Prayer [] Reads Bible or Zoroastrian materials [] There are Spiritual issues to be addressed [place] Interventions [] Prayer [] Active listening [] Non-anxious presence [] Spiritual/emotional support [] Crisis/trauma care [] Spiritual counseling [] Bereavement support [] Provided bereavement packet [] Provided Bible/devotional materials [] Provided toy/stuffed animal, coloring book to patient or family member [] Provided Communion [] Anointing/[place] [] Salvation [] Completed spiritual assessment [] Other: Impact on Illness or Injury [] Angry [] Fearful [] Anxious [] Often cries [] Exhaustion [] Unable to work [] Unable to attend jew [] Unable to walk/stand [] Unable to read [] Unable to drive [] Unable to eat/drink [] Unable to sleep [] Unable to be with family [] Patient intubated [] Other: Summary Time spent with patient
[2025-02-23 12:01] LABS: Iron 15 ug/dL (37-145); Total Iron Binding Capacity 191 mcg/dl; Unsaturated Iron Binding 176 ug/dL (112-347)
[2025-02-23 13:43] LABS: Hematocrit 30.9 % (36-47); Hemoglobin 9.50 g/dL (11.27-16.99); Mean Corpuscular HGB Conc 30.7 g/dL (30-55); Mean Corpuscular Hemoglobin 26.3 pg (27-33); Mean Corpuscular Volume 85.6 fl (85-98); Nucleated Red Blood Cells % 0 %; Platelet Count 208 10^3/cmm (157-399); Red Blood Count 3.61 10^6/uL (3.85-5.65); White Blood Count 4.34 10^3/uL (3.29-11.43)
[2025-02-23] MEDS: iron sucrose 200 MG in sodium chloride 0.9% (100 ml) 100 ML 220 MG IV (14:03)
[2025-02-23 14:07] LABS: Anion Gap 15.1 (5-19); Blood Urea Nitrogen 6 mg/dL (8-23); Calcium 7.9 mg/dL (8.5-10.5); Carbon Dioxide 21 mmol/L (22-29); Chloride 108 mmol/L (98-107); Creatinine Clr Calc Pharmacy 84.6856; Glucose 104 mg/dL (65-115); Osmolality Calculated 288 mOsm/kg (285-295); Potassium 4.1 mmol/L (3.5-5.1); Sodium 140 mmol/L (136-145)
--- NOTE | 2025-02-23 15:18 | P.DS_ITS ---
Discharge Providers Date of Admission: 02/22/25 01:01 Date of Discharge: February 23, 2025 Attending Provider at Admission: Toya Almaguer MD Attending Provider at Discharge: Jono Bergeron MD Primary Care Provider: XIAO Fang Diagnoses at Discharge Discharge Diagnosis 1. Acute cystitis: Details from hospital stay: She received Rocephin for 2 days and improved faster than expected. Patient will discharge home on cefuroxime for another 7 days 2. Vomiting: Details from hospital stay: Resolved 3. Asthmatic bronchitis: Details from hospital stay: Stable but reactive airway disease and will require oxygen 2 L/min follow-up with primary care physician in 1 to 2 weeks 4. Chronic right hip pain: Details from hospital stay: Unchanged but needs to be off of Celebrex due to iron deficiency anemia 5. Urinary incontinence in female: Details from hospital stay: Unchanged 6. Hypokalemia: Details from hospital stay: Treated 7. Hypomagnesemia: Details from hospital stay: Replaced Reason for Visit Reason for Visit: N/V Brief History: Lenora Aviles is a 75 year old female female with medical history significant for recurrent UTI. Patient presented with complaints of burning on urination and generalized feeling of not feeling well and also having much suprapubic area pain and tenderness felt that the whole abdominal girdle is sore. Urinalysis was impressive with greater than 100 white cells, +4 bacteria positive nitrate + leukocyte esterase. White count is where within normal lactate normal patient most likely had UTI with generalized weakness without sepsis. If this is not treated promptly, if it is could be devastating. Patient had received ceftriaxone and azithromycin in the emergency room. Chest x-ray unremarkable. Patient had been found wheezing because of underlining asthma and with reactive airways in the setting of infection. Patient is appropriate to go to [facility] unit for optimization of care patient does meet criteria for inpatient stay at least 2 midnight stay. Patient also has been treated for reactive airway disease with wheezing and associated hypoxemia with oxygen saturation on room air at 86. Patient is not on home oxygen at home but requiring some oxygen at 2 L to keep the saturation close to 92% Hospital Course Hospital Course 75-year-old female admitted for urinary tract infection with abdominal pain cramping, nausea vomiting and low-grade fevers. She is also on Mounjaro for weight loss. Patient was hypoxemic requiring oxygen with exacerbation of her reactive airway disease but is typically not on oxygen at home. She rapidly improved with fluid from her hypotension 89/50 at heart rate 82. The patient iron deficiency anemia and she is chronically on Celebrex though has had EGD and colonoscopy without identification of an active bleeding source. I gave her iron infusion 200 mg Venofer and stopped her Celebrex home dose. She is already on Protonix twice a day and iron tablets. She states she was started on iron 6 months ago but does not take it because of bloating and GI upset. Last urine also E. coli was sensitive to cefuroxime and though current culture result with sensitivity is not complete she will be discharged on cefuroxime. Patient states she is doing well and her caregiver/DPGRAHAM Magaña who is her granddaughter is present at bedside. Patient will go home and complete antibiotics there. Home oxygen requirement was done and she requires 2 L of oxygen Physical Exam Narrative: General well-developed well-nourished morbidly obese female in no acute cardiopulmonary stress CV regular rate and rhythm Lungs clear to auscultation bilaterally Abdomen positive bowel tones soft obese nontender Calves trace ankle edema Discharge Data Studies Completed and Pending Completed Studies During Hospitalization Category Date Time Status CT abdomen pelvis w con* [id number] Stat Cat Scan 02/21/25 23:15 Completed CXRP [XR chest 1V portable [id number]] Stat Exams 02/21/25 23:15 Completed Pending at discharge Category Date Time Status Blood Culture Stat Lab 02/22/25 00:15 Results Urine Culture Stat Lab 02/21/25 23:37 Results Radiology Impressions Abdomen/Pelvis CT 02/21/25 23:15 IMPRESSION: 1. Small bowel containing ventral hernia without evidence of bowel strangulation or obstruction. Correlate with physical exam for reducibility. 2. Correlate with urinalysis/cytology to exclude UTI given minimal urothelial enhancement of the right renal pelvis. No evidence of pyelonephritis. 3. Multilevel degenerative changes, most prominent at L4-L5. 4. Grade 1 anterolisthesis at L4-L5. 5. Incidental findings as above. COMMENTS: Consistent with the [place] [employer]'s Incidental Findings Committee white paper (J Am Fely Radiol 2018): Any incidental renal lesion less than 1 cm or classified as too small to characterize, or any incidental cystic renal lesion characterized as simple-appearing, is likely benign. No follow-up imaging is recommended for these lesions per consensus recommendations based on imaging criteria. Chest X-Ray 02/21/25 23:15 IMPRESSION: No acute pulmonary process. Laboratory Results WBC 4.34 10^3/uL (3.29-11.43) 02/23/25 11:13 RBC 3.61 10^6/uL (3.85-5.65) L 02/23/25 11:13 Hgb 9.50 g/dL (11.27-16.99) L 02/23/25 11:13 Hct 30.9 % (36-47) L 02/23/25 11:13 MCV 85.6 fl (85-98) 02/23/25 11:13 MCH 26.3 pg (27-33) L 02/23/25 11:13 MCHC 30.7 g/dL (30-55) 02/23/25 11:13 RDW 15.0 % (12.1-15.1) 02/23/25 11:13 Plt Count 208 10^3/cmm (157-399) 02/23/25 11:13 MPV 11.0 fL (7.4-10.4) H 02/23/25 11:13 Neut % (Auto) 56.4 % 02/23/25 11:13 Lymph % (Auto) 26.5 % 02/23/25 11:13 [place] % (Auto) 14.1 % 02/23/25 11:13 Eos % (Auto) 2.1 % 02/23/25 11:13 Baso % (Auto) 0.7 % 02/23/25 11:13 Neut # (Auto) 2.45 10^3/uL (1.8-7.7) 02/23/25 11:13 Lymph # (Auto) 1.2 10^3/uL (0.8-4.8) 02/23/25 11:13 [place] # (Auto) 0.6 10^3/uL (0.2-0.9) 02/23/25 11:13 Eos # (Auto) 0.1 10^3/uL (0.0-0.8) 02/23/25 11:13 Baso # (Auto) 0.0 10^3/uL (0.0-0.1) 02/23/25 11:13 Nucleated RBC % (auto) 0 % 02/23/25 11:13 Nucleated RBCs # 0.0 /100WBC 02/23/25 11:13 Sodium 140 mmol/L (136-145) 02/23/25 11:13 Potassium 4.1 mmol/L (3.5-5.1) 02/23/25 11:13 Chloride 108 mmol/L (98-107) H 02/23/25 11:13 Carbon Dioxide 21 mmol/L (22-29) L 02/23/25 11:13 Anion Gap 15.1 (5-19) 02/23/25 11:13 BUN 6 mg/dL (8-23) L 02/23/25 11:13 Creatinine 0.6 mg/dL (0.5-0.9) 02/23/25 11:13 GFR Calculation Not Reportable 02/23/25 11:13 Glucose 104 mg/dL (65-115) 02/23/25 11:13 Calculated Osmolality 288 mOsm/kg (285-295) 02/23/25 11:13 Lactic Acid 0.9 mmol/L (0.5-2.2) 02/22/25 00:13 Calcium 7.9 mg/dL (8.5-10.5) L 02/23/25 11:13 Phosphorus 3.1 mg/dL (2.5-4.5) 02/22/25 02:45 Magnesium 1.5 mg/dL (1.7-2.3) L 02/22/25 02:45 Iron 15 ug/dL (37-145) L 02/23/25 11:13 TIBC 191 mcg/dl 02/23/25 11:13 % Saturation 7.8 % (20-50) L 02/23/25 11:13 Unsat Iron Binding 176 ug/dL (112-347) 02/23/25 11:13 Total Bilirubin 0.6 mg/dL (0.15-1.2) 02/22/25 02:45 AST 18 U/L (0-32) 02/22/25 02:45 ALT 14 U/L (0-33) 02/22/25 02:45 Alkaline Phosphatase 51 U/L (35-105) 02/22/25 02:45 Total Protein 5.7 g/dL (6.6-8.7) L D 02/22/25 02:45 Albumin 3.2 g/dL (3.5-5.2) L 02/22/25 02:45 Globulin 2.5 g/dL (1.3-4.6) 02/22/25 02:45 Lipase 7 U/L (13-60) L 02/21/25 21:25 Urine Color Yellow (Yellow) 02/21/25 23:37 Urine Appearance Cloudy (CLEAR) A 02/21/25 23:37 Urine pH 5.5 (5-7) 02/21/25 23:37 Ur Specific [place] 1.017 (1.005-1.030) 02/21/25 23:37 Urine Protein 2+ (Negative) A 02/21/25 23:37 Urine Glucose (UA) Negative (Normal) 02/21/25 23: Urine Ketones Trace (Negative) 02/21/25 23:37 Urine Blood 2+ (Negative) A 02/21/25 23:37 Urine Nitrate Positive (Negative) A 02/21/25 23:37 Urine Bilirubin Negative (Negative) 02/21/25 23:37 Urine Urobilinogen 1.0 mg/dL (Negative) 02/21/25 23:37 Ur Leukocyte Esterase 3+ (Negative) A 02/21/25 23:37 Urine RBC 6-10 /hpf (0-2) 02/21/25 23:37 Urine WBC >100 /hpf (0-5) H 02/21/25 23:37 Ur Squamous Epith Cells 0-5 /hpf (0-5) 02/21/25 23:37 Amorphous Sediment Not Reportable 02/21/25 23:37 Urine Bacteria 4+ /hpf (NONE) H 02/21/25 23:37 Hyaline Casts 2.87 /lpf 02/21/25 23:37 Influenza A (PCR) Negative (Negative) 02/21/25 23:37 Influenza Type B (PCR) Negative (Negative) 02/21/25 23:37 RSV (PCR) Negative (Negative) 02/21/25 23:37 SARS-CoV-2 (PCR) Negative (Negative) 02/21/25 23:37 Vitals Last Vital Signs Temp 98.2 F 02/23/25 11:46 Pulse 90 02/23/25 11:46 Resp 18 02/23/25 11:46 BP 109/69 02/23/25 11:46 Pulse Ox 93 02/23/25 12:53 O2 Del Method Nasal Cannula 02/23/25 11:46 O2 Flow Rate 2 02/23/25 12:53 Discharge Plan Discharge Patient Disposition: Home Condition: Stable Prescriptions: New cefuroxime axetil 500 mg tablet 500 mg PO BID 6 Days Qty: 12 0RF Continued Myrbetriq 50 mg tablet extended release 24 hr 50 mg PO DAILY mirtazapine [Remeron] 15 mg tablet 15 mg PO BEDTIME Qty: 90 3RF paroxetine HCl 20 mg tablet 20 mg PO DAILY Qty: 90 3RF buspirone 10 mg tablet 10 mg PO BID Qty: 180 3RF pantoprazole 40 mg tablet,delayed release (DR/EC) 40 mg PO BID 30 Days Qty: 60 5RF (DME) nebulizer accessories Kit See Rx Instructions .Route Qty: 1 0RF Rx Instructions: As directed (DME) pen needle, diabetic [Comfort EZ Pen [place]] 31 gauge x 5/16 needle See Rx Instructions .Route Qty: 100 2RF Rx Instructions: As directed albuterol sulfate 90 mcg/actuation HFA aerosol inhaler 2 inh INHALATION Q4H PRN (Reason: shortness of breath or wheezing) Qty: 18 2RF albuterol sulfate 2.5 mg /3 mL (0.083 %) solution for nebulization 2.5 mg inhalation QID PRN (Reason: shortness of breath or wheezing) Qty: 75 2RF [place] 0.01 % drops 1 drp ophthalmic (eye) BEDTIME@2100 alendronate 70 mg tablet 70 mg PO .WEEKLY Rx Instructions: Tuesday ferrous fumarate 324 mg (106 mg iron) tablet 324 mg PO DAILY cholecalciferol (vitamin D3) 1,250 mcg (50,000 unit) capsule 1,250 mcg PO .WEEKLY Rx Instructions: Tuesday Trelegy Ellipta 200-62.5-25 mcg blister with device 1 inh inhalation DAILY solifenacin 5 mg tablet 5 mg PO DAILY levothyroxine 50 mcg tablet 50 mcg PO QAM gabapentin 100 mg capsule 100 mg PO BID PRN (Reason: nerve pain) ondansetron 4 mg tablet,disintegrating 4 mg PO Q8H PRN (Reason: Nausea And Vomiting) adapalene 0.3 % gel See Rx Instructions .ROUTE .COMPLEX Rx Instructions: Apply pea-sized amount nightly to dry, clean face. Wait at least 30 minutes after washing to apply. May cause sun sensitivity. Mounjaro 2.5 mg/0.5 mL pen injector 2.5 mg SUBCUT Q7D Rx Instructions: Tuesday's Discontinued celecoxib [Celebrex] 100 mg capsule 100 mg PO BID PRN (Reason: Pain) Discharge Order = DC NOW: Discharge Order (Routine); Ordered 02/23/25 Ordered By: Jono Bergeron Other Ambulatory Orders: DME: Oxygen (Order) Location: None Selected Ordered By: Jono Bergeron Referrals: Hannah Juan FNP-C [Primary Care Provider, Family Practice] Referral Note: We have notified your physician's clinic of the need for a follow-up appointment to be scheduled. If you have not heard from them within the next 2 business days, please call them directly. Discharge Diet: Diabetic Discharge Activity: Increase activity as tolerated Patient Instructions: Bronchitis (Acute) - Adult, Cefuroxime (By mouth) (Ceftin), Hypokalemia (DC), Hypomagnesemia (DC), Opioid Safety, Patient Portal & Joss Instructions Activity Restrictions/Additional Instructions: I put you on a 1500-calorie diabetic diet to promote weight loss along with your Mounjaro weekly injection. You should weigh yourself daily unclosed in the morning after using the restroom and try to lose 2 pounds a week. Count calories to eat a total of 1500 karen daily avoiding concentrated sweets. You have a urinary tract infection which in the past has tested as E. coli sensitive to cefuroxime which I prescribed. If you do not improve with continued antibiotics and develop burning or blood in your urine with fevers or flank pain please return. Additionally you are noted to be iron deficiency anemic and I know you have had EGD and colonoscopy in the past. For this reason the Celebrex will be stopped because it tends to cause gastritis which is inflammation of the stomach or ulcers which is ulcerations in the stomach or duodenum. Discharge Attestations Time Spent in Discharge Care*: greater than 30 min Time Spent in Smoking Cessation: Patient is not a smoker Quality Metrics Clinical Quality Measures [ No reported AMI, CVA or VTE this stay] Coding Level of Care Code 35752 Diagnoses Acute cystitis N30.00 Vomiting R11.10 Asthmatic bronchitis J45.909 Chronic right hip pain M25.551; G89.29 Urinary incontinence in female R32 Hypokalemia E87.6 Hypomagnesemia E83.42 Time Spent (min) 40
== END 2025-02-23 16:53 | disposition home or self-care (01) | DRG 690 ==
LOC: ER 02-22 00:33 → MEDSURG 02-22 01:02
PROVIDERS: Admitting Provider Internal Medicine; Emergency Provider Emergency Medicine; PCP Nurse Practitioner Family; Visit Provider Internal Medicine
DX: N30.00 Acute cystitis without hematuria (principal); D50.9 Iron deficiency anemia, unspecified; J45.909 Unspecified asthma, uncomplicated; G89.29 Other chronic pain; M25.551 Pain in right hip; R32 Unspecified urinary incontinence; E87.6 Hypokalemia; E83.42 Hypomagnesemia; R09.02 Hypoxemia; E78.2 Mixed hyperlipidemia; F32.A Depression, unspecified; M51.362 Other intervertebral disc degeneration, lumbar region with discogenic back pain and lower extremity pain; K21.9 Gastro-esophageal reflux disease without esophagitis; E89.0 Postprocedural hypothyroidism; Z79.899 Other long term (current) drug therapy; Z79.51 Long term (current) use of inhaled steroids; Z87.440 Personal history of urinary (tract) infections
CPT/HCPCS: 36415; 71045; 74177; 80048; 80053; 81001; 83540; 83550; 83605; 83690; 83735; 84100; 85025; 87040; 87077; 87086; 87186; 87637; 94640; 94760; 96372; 96374; 99285; J0456; J0696; J1644; J1756; J2405; J2470; J3475; J7030; J7050; J7613; J9999; Q0144

== ENCOUNTER → 2025-02-27 12:30 | Outpatient (BNVA) | payer MEDICARE, SELFPAY ==
[2024-11-26 10:32] VITALS: BP 137/79; BMI 42.2
== END ==
PROVIDERS: PCP Nurse Practitioner Family; Visit Provider Specialist
DX: M25.551 Pain in right hip (principal); M54.9 Dorsalgia, unspecified; G89.29 Other chronic pain; E66.01 Morbid (severe) obesity due to excess calories; Z68.42 Body mass index [BMI] 45.0-49.9, adult
CPT/HCPCS: 73502; 99204

== ENCOUNTER → 2025-02-28 13:30 | Outpatient (BNVA) | payer MEDICARE, SELFPAY ==
[2024-11-26 10:32] VITALS: BP 137/79; BMI 42.2
== END ==
PROVIDERS: PCP Nurse Practitioner Family; Visit Provider Nurse Practitioner Family
DX: D50.9 Iron deficiency anemia, unspecified (principal)
CPT/HCPCS: 82728; 83550; 85025

== ENCOUNTER → 2025-03-05 09:39 | Outpatient (BNVA) | payer MEDICARE, SELFPAY ==
[2024-11-26 10:32] VITALS: BP 137/79; BMI 42.2
== END ==
PROVIDERS: PCP Nurse Practitioner Family; Referring Provider Specialist; Visit Provider Anesthesiology Pain Medicine
DX: M51.362 Other intervertebral disc degeneration, lumbar region with discogenic back pain and lower extremity pain (principal); M16.11 Unilateral primary osteoarthritis, right hip
CPT/HCPCS: 99204

== ENCOUNTER → 2025-03-12 14:42 | Outpatient (BNVA) | payer MEDICARE, SELFPAY ==
[2024-11-26 10:32] VITALS: BP 137/79; BMI 42.2
== END ==
PROVIDERS: PCP Nurse Practitioner Family; Visit Provider Anesthesiology Pain Medicine
DX: M16.9 Osteoarthritis of hip, unspecified (principal); M16.11 Unilateral primary osteoarthritis, right hip
CPT/HCPCS: 20610; 77002; J1010; J3490; J9999

== ENCOUNTER → 2025-03-25 11:05 | Outpatient (BNVA) | payer MEDICARE, SELFPAY ==
[2024-11-26 10:32] VITALS: BP 137/79; BMI 42.2
== END ==
PROVIDERS: PCP Nurse Practitioner Family; Visit Provider Internal Medicine
DX: E89.0 Postprocedural hypothyroidism (principal); Z98.890 Other specified postprocedural states; Z85.850 Personal history of malignant neoplasm of thyroid; E04.1 Nontoxic single thyroid nodule; E83.51 Hypocalcemia; E83.42 Hypomagnesemia
CPT/HCPCS: 99214

== ENCOUNTER → 2025-03-26 11:04 | Outpatient (BNVA) | payer MEDICARE, SELFPAY ==
[2024-11-26 10:32] VITALS: BP 137/79; BMI 42.2
== END ==
PROVIDERS: PCP Nurse Practitioner Family; Visit Provider Clinical Nurse Specialist Adult Health
DX: R39.9 Unspecified symptoms and signs involving the genitourinary system (principal); N39.0 Urinary tract infection, site not specified
CPT/HCPCS: 81000; 87086

== ENCOUNTER 2025-04-15 10:01 | Outpatient (CLI) | payer MEDICARE, SELFPAY ==
[2024-11-26 10:32] VITALS: BP 137/79; BMI 42.2
--- NOTE | 2025-04-15 10:10 | US_ITS ---
WS: [id number] THYROID ULTRASOUND HISTORY: SEE BELOW COMPARISON: 06/19/2024, 06/19/2023, 10/13/2018 Right lobe: Status post RIGHT thyroidectomy. No mass noted in the thyroid bed. Left lobe: 1.8 cm x 2.8 cm x 4.5 cm (w x ap x l). Volume: 10.8 cm3. Mildly enlarged thyroid. Reidentified is the mixed solid and cystic nodule with echogenic foci noted in the LEFT thyroid. By history this mass is undergone prior biopsy. Mass measures 2.1 x 1.5 x 1.3 cm. Mass measures slightly smaller in size as compared to 2019. There is mild increased vascularity. Isthmus: 0.4 cm. No cervical chain lymph nodes. US/US thyroid [id number] IMPRESSION: 1. LEFT thyroid nodule stable since 2019. As per history this nodule is underg one a prior biopsy. TI-RADS 3 nodule as previously described. 2. Status post RIGHT thyroidectomy.
== END 2025-04-15 10:02 | disposition home or self-care (01) ==
LOC: RAD 10:05
PROVIDERS: PCP Nurse Practitioner Family; Visit Provider Internal Medicine
DX: E89.0 Postprocedural hypothyroidism (principal); E04.9 Nontoxic goiter, unspecified; M51.362 Other intervertebral disc degeneration, lumbar region with discogenic back pain and lower extremity pain; M16.11 Unilateral primary osteoarthritis, right hip; G89.29 Other chronic pain
CPT/HCPCS: 76536; 99214

== ENCOUNTER → 2025-04-29 12:52 | Outpatient (BNVA) | payer MEDICARE, SELFPAY ==
[2024-11-26 10:32] VITALS: BP 137/79; BMI 42.2
== END ==
PROVIDERS: PCP Nurse Practitioner Family; Visit Provider Anesthesiology Pain Medicine
DX: M17.11 Unilateral primary osteoarthritis, right knee (principal); M51.362 Other intervertebral disc degeneration, lumbar region with discogenic back pain and lower extremity pain; M16.11 Unilateral primary osteoarthritis, right hip; G89.29 Other chronic pain
CPT/HCPCS: 20610; 99214; J1010; J3490

== ENCOUNTER → 2025-05-01 14:12 | Outpatient (BNVA) | payer MEDICARE, SELFPAY ==
[2025-04-29 13:26] VITALS: BP 137/79; BMI 42.2
== END ==
PROVIDERS: PCP Nurse Practitioner Family; Visit Provider Anesthesiology Pain Medicine
DX: M17.11 Unilateral primary osteoarthritis, right knee (principal)
CPT/HCPCS: 20610; 77002; J1010; J3490; J9999

== ENCOUNTER 2025-05-24 14:11 | Outpatient (CLI) | payer MEDICARE, SELFPAY ==
[2025-04-29 13:26] VITALS: BP 137/79; BMI 42.2
--- NOTE | 2025-05-24 14:20 | XR_ITS ---
WS: [id number] XR knee RT 4V [id number] REASON FOR EXAM: M17.11 - Unilateral primary osteoarthritis, right knee FINDINGS: No fracture or focal bone lesion. Severe narrowing of the medial knee joint space with [id number] articulation and significant sclerosis and osteophytosis. Significant medial shift of the femur. Flattening of the articular surface of the medial femoral condyle. Mild to moderate narrowing of the lateral knee joint space with moderate subchondral sclerosis and osteophytosis. Patellofemoral joint space is intact, likely narrowed. Moderate subchondral sclerosis and osteophytosis of the patella with significant osteophytosis of the opposing femoral condyles. Loose bodies in the posterior joint space. XR/XR knee RT 4V [id number] IMPRESSION: Severe osteoarthritis of the right knee.
== END 2025-05-24 14:12 | disposition home or self-care (01) ==
LOC: RAD 14:12
PROVIDERS: PCP Nurse Practitioner Family; Visit Provider Anesthesiology Pain Medicine
DX: M17.11 Unilateral primary osteoarthritis, right knee (principal); M25.761 Osteophyte, right knee
CPT/HCPCS: 73564

== ENCOUNTER → 2025-05-27 14:49 | Outpatient (BNVA) | payer MEDICARE, SELFPAY ==
[2025-04-29 13:26] VITALS: BP 137/79; BMI 42.2
== END ==
PROVIDERS: PCP Nurse Practitioner Family; Visit Provider Anesthesiology Pain Medicine
DX: M51.362 Other intervertebral disc degeneration, lumbar region with discogenic back pain and lower extremity pain (principal); M25.569 Pain in unspecified knee; G89.29 Other chronic pain; M16.11 Unilateral primary osteoarthritis, right hip
CPT/HCPCS: 99214

== ENCOUNTER → 2025-05-28 14:14 | Outpatient (BNVA) | payer MEDICARE, SELFPAY ==
[2025-04-29 13:26] VITALS: BP 137/79; BMI 42.2
== END ==
PROVIDERS: PCP Nurse Practitioner Family; Visit Provider Nurse Practitioner Family
DX: E83.51 Hypocalcemia (principal); F41.9 Anxiety disorder, unspecified; E78.2 Mixed hyperlipidemia; E89.0 Postprocedural hypothyroidism; E55.9 Vitamin D deficiency, unspecified; Z79.899 Other long term (current) drug therapy
CPT/HCPCS: 80053; 80061; 81003; 82306; 82310; 82607; 83036; 83550; 83735; 83970; 84100; 84439; 84443; 85025